=== PATIENT | female | born 1950 | race Caucasian/White ===

== ENCOUNTER 2017-12-26 11:23 | Emergency (ER) | payer OTHER ==
--- OUTSIDE RECORDS SUMMARY | 2017-12-26 11:35 | XMS REPORT | Continuity of Care Document ---
:1950 Author Organization Interface Problems Problem Status Onset Classification Date Comments Source Date Reported A-FIB, RVR, TROPONIN Active [address] SPASTIC HEMAPLEGIA, Active [facility] PUMP ICD-9# 007 [facility] CKD - chronic kidney Active Problem 12/25/2012 [facility] Constipation Active Problem 12/25/2012 [facility] CVA - Cerebrovascular Resolved Problem 12/25/2012 [facility] Diabetes mellitus Active Problem 12/25/2012 [facility] Hypercholesterolemia Active Problem 12/25/2012 [facility] Hypertension Active Problem 12/25/2012 [facility] 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 [facility] morbid obesity Active Problem 05/01/2013 [facility] Spastic hemiplegia Active Problem 12/25/2012 [facility] Atrial fibrillation Active Problem 05/01/2013 [facility] CKD - chronic kidney Active Problem 05/01/2013 [facility] Constipation Active Problem 05/01/2013 [facility] CVA - Cerebrovascular Resolved Problem 05/01/2013 [facility] Diabetes mellitus Active Problem 05/01/2013 [facility] Hypercholesterolemia Active Problem 05/01/2013 [facility] Hypertension Active Problem 05/01/2013 [facility] NSTEMI - Non-ST segment Active Problem 05/01/2013 [facility] Spastic hemiplegia Active Problem 05/01/2013 [facility] ADMINISTRTVE ENCOUNT Active [facility] Medications Medication Details Route Status Patient Ordering Order Source Instructions Provider Date Flomax 0.4 mg, 1 cap, Inactive Zav[facility] Route: PO, Drug 2013 Medical form: [facility], Center Daily, Dosing Weight 121.5, kg, Start date: 04/30/13 10:30:00, Duration: 30 day, Stop date: 05/30/13 9:00:00(Same As: Flomax) "Do Not Crush" carvedilol 3.125 3.125 mg=1 tab, Active [facility] mg oral tablet PO, Q12H, # 180 2013 Medical tab, 2 Center Refill(s) bisacodyl 10 mg 10 mg=1 supp, Active [facility] rectal suppository MD, Daily, 2014 Medical Constipation, # Center 10 supp, 0 Refill(s) bacitracin-polymyx 1 appl, TOP, Active [facility] in B topical BID, # 10 gm, 0 2013 Medical powder Refill(s) Center aspirin 325 mg 325 mg=1 tab, Active [facility] tablet PO, Daily, # 2013 Medical 100 tab, 2 Center Refill(s) Klonopin 0.5 mg 0.5 mg=1 tab, Active [facility] oral tablet PO, Bedtime, # 2013 Medical 30 tab, 1 Center Refill(s) amLODIPine 10 mg 10 mg=1 tab, Active [facility] oral tablet PO, Daily, # 90 2013 Medical tab, 2 Center Refill(s) AMIODarone 200 mg 200 mg=1 tab, Active [facility] oral tablet PO, Daily, # 90 2014 Medical tab, 2 Center Refill(s) pregabalin 100 mg 100 mg=1 cap, Active [facility] oral capsule PO, Daily, # 30 2014 Medical cap, 1 Center Refill(s) insulin glargine 50 unit=0.5 mL, Active [facility] 100 units/mL SUB-Q, Daily, # 2013 Medical subcutaneous 10 mL, 0 Center solution Refill(s) insulin aspart 100 15 unit=0.15 Active [facility] units/mL mL, SUB-Q, 2013 Medical subcutaneous TID-Before Center solution Meals, # 15 mL, 3 Refill(s) digoxin 125 mcg 125 microgram=1 Active [facility] (0.125 mg) oral tab, PO, Daily, 2014 Medical tablet # 90 tab, 2 Center Refill(s) atorvastatin 40 mg 40 mg=1 tab, Active [facility] oral tablet PO, Bedtime, # 2013 Medical 90 tab, 3 Center Refill(s) simethicone 80 mg 80 mg=1 tab, Active [facility] oral tablet, NG, Q6H, 2014 Medical chewable bloating, # 90 Center tab, 0 Refill(s) senna 8.6 mg oral 8.6 mg=1 tab, Active [facility] tablet PO, Daily, # 36 2014 Medical tab, 1 Center Refill(s) lisinopril 5 mg 5 mg=1 tab, PO, Active [facility] oral tablet Daily, # 90 2014 Medical tab, 2 Center Refill(s) levetiracetam 500 500 mg=1 tab, Active [facility] mg oral tablet PO, Q12H, # 180 2014 Medical tab, 3 Center Refill(s) hydrALAZINE 50 mg 50 mg=1 tab, Active [facility] oral tablet PO, Q8H, # 90 2014 Medical tab, 3 Center Refill(s) Lasix 40 mg oral 40 mg=1 tab, Active [facility] tablet PO, Daily, # 90 2014 Medical tab, 2 Center Refill(s) fenofibrate 48 mg 48 mg=1 tab, Active [facility] oral tablet PO, Daily, # 90 2014 Medical tab, 2 Center Refill(s) Colace 100 mg oral 100 mg=1 cap, Active [facility] capsule PO, BID, # 90 2014 Medical cap, 2 Center Refill(s) clopidogrel 75 mg 75 mg=1 tab, Active [facility] oral tablet PO, Daily, # 90 2014 Medical tab, 2 Center Refill(s) insulin aspart 3 unit, 0.03 Inactive [facility] mL, Route: [address] [place] [address] SUB-Q, Drug Center form: SOLN, ONCE, Dosing Weight 121.5, kg, Priority: NOW, Start date: 04/29/13 12:31:00, Stop date: 04/29/13 12:31:00Roll in palms of hands gently; Do not shake vigorously. (Same as: NovoLog) "single patient use only" Stable for 28 days at room temperature. Expires in days from D ate tolterodine 2 mg, 1 tab, No Longer [facility] Route: PO, Drug Active 2013 Medical form: TAB, Center Q12H, Dosing Weight 121.5, kg, Start date: 04/29/13 12:30:00, Duration: 30 day, Stop date: 05/29/13 9:00:00(Same As: Detrol) tolterodine 1 mg, 1 tab, Inactive [facility] Route: PO, Drug 2013 Medical form: TAB, BID, Center Dosing Weight 121.5, kg, Start date: 04/29/13 12:15:00, Duration: 30 day, Stop date: 05/29/13 9:00:00(Same As: Detrol) AMIODarone 200 mg, 1 tab, No Longer Felix [facility] Route: PO, Drug Active 2013 Medical form: TAB, Center Daily, Dosing Weight 121.5, kg, Start date: 04/29/13 9:00:00, Duration: 30 day, Stop date: 05/28/13 9:00:00(Same as: Cordarone) AMIODarone 200 mg, Route: Inactive Is[facility]ro 04/28[facility] Katja PO, Drug form: 2013 Medical TAB, BID, Center Dosing Weight 121.5, kg, Start date: 04/28/13 17:00:00, Duration: 30 day, Stop date: 05/28/13 9:00:00 heparin 7,500 unit, 1.5 No Longer Isidro 04/28[facility] Katja mL, Route: Active 2013 Medical SUB-Q, Drug Center form: INJ, Q8H, Dosing Weight 121.5, kg, Start date: 04/28/13 16:00:00, Duration: 30 day, Stop date: 05/28/13 8:00:00porcine heparin multivitamin with 1 tab, Route: No Longer Sid 04/28[facility] Katja iron PO, Drug Form: Active 2013 Medical TAB, Dosing Center Weight 121.5, kg, Daily, Start date: 04/28/13 9:00:00, Duration: 30 day, Stop date: 05/27/13 9:00:00 Coreg 3.125 mg, 1 No Longer Sid 04/28[facility] Katja tab, Route: PO, Active 2013 Medical Drug form: TAB, Center Q12H, Dosing Weight 121.5, kg, Start date: 04/27/13 21:00:00, Duration: 30 day, Stop date: 05/27/13 9:00:00Give with food. (Same As: Coreg) multivitamin with 1 tab, Route: No Longer Sid [facility] minerals PO, Drug Form: Active 2013 Medical TAB, Daily, Center Start date: 04/27/13 11:30:00, Duration: 30 day, Stop date: 05/27/13 9:00:00(Same as:Thera-M, Theragran-M) Give with food. senna 8.6 mg, 1 tab, No Longer [facility] Route: PO, Drug Active 2013 Medical Form: TAB, Center Dosing Weight 121.5, kg, Daily, Start date: 04/27/13 9:00:00, Duration: 30 day, Stop date: 05/26/13 9:00:00(Same as: Senokot) Dulcolax Laxative 10 mg, 1 supp, No Longer [facility] Route: MD, Drug Active 2013 Medical form: SUPP, Center Daily, Dosing Weight 121.5, kg, PRN Constipation, Start date: 04/26/13 14:13:00, Duration: 30 day, Stop date: 05/26/13 14:12:00(Same As: Dulcolax, Bisco-Lax) Cymbalta 30 mg, Route: Inactive [facility] PO, Drug form: 2013 Medical DRC, Daily, Center Dosing Weight 121.5, kg, Start date: 04/26/13 9:00:00, Duration: 30 day, Stop date: 05/25/13 9:00:00 Keppra 500 mg, 1 tab, No Longer [facility] Route: PO, Drug Active 2013 Medical form: TAB, Center Q12H, Dosing Weight 121.5, kg, Start date: 04/25/13 9:00:00, Duration: 30 day, Stop date: 05/24/13 21:00:00(Same as:Keppra) docusate 100 mg, 10 mL, No Longer [facility] Route: PO, Drug Active 2013 Medical form: LIQ, BID, Center Dosing Weight 121.5, kg, Start date: 04/25/13 9:00:00, Duration: 30 day, Stop date: 05/24/13 17:00:00(Same as: Colace) insulin glargine 50 unit, 0.5 No Longer [facility] mL, Route: Active 2013 Medical SUB-Q, Drug Center form: INJ, Daily, Dosing Weight 121.5, kg, Start date: 04/24/13 9:00:00, Stop date: 05/23/13 9:00:00Same as Lantus Solostar PEN "single patient use only" Stable for 28 days at room temperature. Expires in days from D ate insulin aspart 15 unit, 0.15 No Longer Tao [facility], Route: Active 2013 Medical SUB-, Drug Center form: SOLN, TID-Before Meals, Dosing Weight 121.5, kg, Start date: 04/23/13 11:30:00, Stop date: 05/23/13 7:30:00Roll in palms of hands gently; Do not shake vigorously. (Same as: NovoLog) "single patient use only" Stable for 28 days at room temperature. Expires in days from D ate insulin aspart 10 unit, 0.1 No Longer [facility], Route: Active 2013 Medical SUB-, Drug Center form: SOLN, TID-Before Meals, Dosing Weight 121.5, kg, PRN Blood Glucose Results, Start date: 04/23/13 10:10:00, Duration: 30 day, Stop date: 05/23/13 10:09:00Roll in palms of hands gently; Do not shake vigorously. (Same as: NovoLog) "single patient use only" Stable for 28 days at room temperature. Expires in days from D ate glucagon 1 mg, Route: Inactive [facility] IM, PRN, Dosing 2013 Medical Weight 121.5, Center kg, PRN Blood Glucose Results, Start date: 04/23/13 10:10:00, Duration: 30 day, Stop date: 05/23/13 10:09:00 Dextrose 50% 50 mL, Route: Inactive [facility] Syringe IVP, Dosing 2013 Medical Weight 121.5, Center kg, PRN, PRN Blood Glucose Results, Start date: 04/23/13 10:10:00, Duration: 30 day, Stop date: 05/23/13 10:09:00 Seroquel 25 mg, 1 tab, No Longer [facility] Route: PO, Drug Active 2013 Medical form: TAB, QAM, Center Dosing Weight 121.5, kg, Start date: 04/23/13 9:00:00, Duration: 30 day, Stop date: 05/22/13 9:00:00(Same as: Seroquel) Seroquel 50 mg, 2 tab, No Longer [facility] Route: PO, Drug Active 2013 Medical form: TAB, Center Bedtime, Dosing Weight 121.5, kg, Start date: 04/22/13 21:00:00, Duration: 30 day, Stop date: 05/21/13 21:00:00(Same as: Seroquel) Triple Antibiotic 1 appl, Route: Inactive [facility] 04/22[facility] topical ointment TOP, BID, Drug ales 2013 Medical form: OINT, Center Start date: 04/22/13 17:00:00, Duration: 30 day, Stop date: 05/22/13 9:00:00 bacitracin-polymyx 1 appl, Route: No Longer [facility] 04/22[facility] in B topical TOP, BID, Drug Active ales 2013 Medical form: OINT, Center Start date: 04/22/13 17:00:00, Duration: 30 day, Stop date: 05/22/13 9:00:00(Same As: Polysporin) Prinivil 5 mg, 1 tab, No Longer [facility] 04/22[facility] Route: PO, Drug Active ales 2013 Medical form: TAB, Center Daily, Dosing Weight 121.5, kg, Start date: 04/22/13 9:00:00, Duration: 30 day, Stop date: 05/21/13 9:00:00(Same as: Prinivil Zestril) insulin aspart 12 unit, 0.12 No Longer [facility] mL, Route: Active 2013 Medical SUB-Q, Drug Center form: SOLN, Sliding Scale, Dosing Weight 121.5, kg, PRN Blood Glucose Results, Start date: 04/22/13 7:57:00, Duration: 30 day, Stop date: 05/22/13 7:56:00Roll in palms of hands gently; Do not shake vigorously. (Same as: NovoLog) "single patient use only" Stable for 28 days at room temperature. Expires in days from D ate sodium 15 mmol, 15 mL, Inactive [facility] glycerophosphate + Route: IVPB, 2013 Medical Sodium Chloride PRN, Dosing Center 0.9% IV 250 mL Weight 121.5, kg, PRN Abnormal Lab Result, Start date: 04/22/13 7:40:00, Duration: 1 doses or times, Stop date: 04/22/13 16:00:00 insulin detemir 40 unit, 0.4 No Longer [facility] mL, Route: Active 2013 Medical SUB-Q, Drug Center form: INJ, Q12H, Dosing Weight 121.5, kg, Start date: 04/21/13 21:00:00, Stop date: 05/21/13 9:00:00Same as Levemir "single patient use only" aspirin 325 mg, 1 tab, No Longer [facility] 04/21[facility] Route: DHT, Active 2012 Medical Drug form: TAB, Center Daily, Dosing Weight 121.5, kg, Start date: 04/21/13 9:00:00, Duration: 30 day, Stop date: 05/20/13 9:00:00Take with food. Dulcolax Laxative 10 mg, 1 supp, No Longer J[facility]ir 04/21[facility] Katja Route: MD, Drug Active 2012 Medical form: SUPP, Center Daily, Dosing Weight 121.5, kg, Start date: 04/21/13 9:00:00, Duration: 30 day, Stop date: 05/20/13 9:00:00(Same As: Dulcolax, Bisco-Lax) Lyrica 100 mg, 1 cap, No Longer Jasbir [place] Route: PO, Drug Active 2012 Medical form: CAP, Center Daily, Dosing Weight 121.5, kg, Start date: 04/21/13 9:00:00, Duration: 30 day, Stop date: 05/19/13 21:00:00(Same as: Lyrica) Prevacid 30 mg, 10 mL, No Longer [facility] [place] Route: DHT, Active 2012 Medical Drug form: Center SUSP, Daily, Dosing Weight 121.5, kg, Start date: 04/21/13 9:00:00, Duration: 30 day, Stop date: 05/20/13 9:00:00Take 1 hour before or 2 hours after meal; Expires in 14 days. Shake well before use. (Same as:Prevacid) Compounded Product - formulation not commercially available Seroquel 25 mg, 1 tab, No Longer [facility] [place] Route: PO, Drug Active alerosario 2012 Medical form: TAB, BID, Center Dosing Weight 121.5, kg, Start date: 04/21/13 9:00:00, Duration: 30 day, Stop date: 05/20/13 17:00:00(Same as: Seroquel) insulin detemir 35 unit, 0.35 Inactive Y[facility] [place] mL, Route: 2012 Medical SUB-Q, Drug Center form: INJ, Q12H, Dosing Weight 121.5, kg, Start date: 04/20/13 21:00:00, Duration: 30 day, Stop date: 05/20/13 9:00:00Same as Levemir "single patient use only" Keppra 500 mg, 5 mL, No Longer [facility] [place] Route: NJ, Drug Active 2012 Medical form: SOLN, Center Q12H, Dosing Weight 121.5, kg, Start date: 04/20/13 21:00:00, Duration: 30 day, Stop date: 05/20/13 9:00:00 diphenhydrAMINE 25 mg, 0.5 mL, Inactive [facility] [place] Route: IVP, 2012 Medical Drug form: INJ, Center ONCE, Dosing Weight 121.5, kg, PRN Insomnia, Start date: 04/20/13 20:08:00(Same as: Benadryl) docusate 100 mg, 10 mL, No Longer [facility] Route: DHT, Active 2012 Medical Drug form: LIQ, Center BID, Dosing Weight 121.5, kg, Start date: 04/20/13 17:00:00, Duration: 30 day, Stop date: 05/20/13 9:00:00(Same as: Colace) Lasix 40 mg, 4 mL, No Longer [facility] Route: IVP, Active 2012 Medical Drug form: INJ, Center BID, Dosing Weight 121.5, kg, Start date: 04/20/13 17:00:00, Duration: 30 day, Stop date: 05/20/13 9:00:00(Same as: Lasix) lactulose 20 gm, 30 ml, Inactive Jasbir [place] Route: PO, Drug 2012 Medical Form: SYRP, Center Dosing Weight 121.5, kg, ONCE, Within 4 hours, Start date: 04/20/13 14:48:00, Stop date: 04/20/13 14:48:00(Same as:Chronulac) phenol topical 1 spray, Route: No Longer Elvin [place] 1.4% spray TOP, QID, Drug Active 2012 Medical form: SPRY, Center Start date: 04/20/13 13:00:00, Duration: 30 day, Stop date: 05/20/13 9:00:00Chlorase ptic [place] (Same as: Chloraseptic, Sore Throat [place]) simethicone 80 mg, 1 tab, No Longer Jasbir [facility] Route: NG, Drug Active 2012 Medical form: [place], Center Q6H, Dosing Weight 121.5, kg, Priority: NOW, Start date: 04/20/13 12:00:00, Stop date: 05/20/13 6:00:00(Same as: Mylicon) Milk of Magnesia 30 ml, Route: No Longer [facility] PO, Drug Form: Active 2012 Medical SUSP, Dosing Center Weight 121.5, kg, Daily, NOW, Start date: 04/20/13 12:00:00, Duration: 30 day, Stop date: 05/20/13 9:00:00(Same as: Milk of Sammy, MOM) insulin aspart 6 unit, 0.06 No Longer [facility] mL, Route: Active ales 2012 Medical SUB-Q, Drug Center form: SOLN, Sliding Scale, Dosing Weight 121.5, kg, PRN Blood Glucose Results, Start date: 04/20/13 2:28:00, Duration: 30 day, Stop date: 05/20/13 2:27:00Roll in palms of hands gently; Do not shake vigorously. (Same as: NovoLog) "single patient use only" Stable for 28 days at room temperature. Expires in days from D ate Dextrose 50% 12.5 gm, 25 mL, No Longer [facility] Syringe Route: IVP, Active 2012 Medical Drug Form: INJ, Center Dosing Weight 121.5, kg, PRN, PRN Blood Glucose Results, Start date: 04/20/13 2:28:00, Duration: 30 day, Stop date: 05/20/13 2:27:00 glucagon 1 mg, Route: No Longer [facility] IM, Drug form: Active 2012 Medical PDR/INJ, PRN, Center Dosing Weight 121.5, kg, PRN Blood Glucose Results, Start date: 04/20/13 2:28:00, Duration: 30 day, Stop date: 05/20/13 2:27:00 acetaminophen 650 mg, 2 tab, No Longer [facility] Route: PO, Drug Active 2012 Medical form: TAB, Q6H, Center Dosing Weight 121.5, kg, PRN Pain, Priority: NOW, Start date: 04/19/13 19:23:00, Duration: 30 day, Stop date: 05/19/13 19:22:00Do not exceed 4 gm/day. (Same as: Tylenol) AMIODarone 400 mg, 2 tab, No Longer Felix [facility] Route: PO, Drug Active 2012 Medical form: TAB, BID, Center Dosing Weight 121.5, kg, Start date: 04/19/13 17:00:00, Duration: 30 day, Stop date: 05/19/13 9:00:00(Same as: Cordarone) heparin 5,000 unit, 1 No Longer Felix [facility] mL, Route: Active 2012 Medical SUB-Q, Drug Center form: INJ, Q8H, Dosing Weight 121.5, kg, Start date: 04/19/13 16:00:00, Duration: 30 day, Stop date: 05/19/13 8:00:00porcine heparin insulin detemir 40 unit, 0.4 No Longer Yimi [place] mL, Route: Active 2012 Medical SUB-Q, Drug Center form: INJ, Q12H, Dosing Weight 121.5, kg, Start date: 04/19/13 11:30:00, Duration: 30 day, Stop date: 05/19/13 9:00:00Same as Levemir "single patient use only" potassium chloride 20 mEq, 100 mL, Inactive [facility] [place] Route: IVPB, 2012 Medical Drug form: INJ, Center ONCE, Dosing Weight 121.5, kg, Start date: 04/19/13 11:06:00, Stop date: 04/19/13 11:06:00(Same as: KCL) Infuse no faster than 10 mEq/hr if given peripherally. Plavix 75 mg, 1 tab, No Longer [facility] [place] Route: PO, Drug Active ale2012 Medical form: TAB, Center Daily, Dosing Weight 121.5, kg, Start date: 04/19/13 9:48:00, Duration: 30 day, Stop date: 05/19/13 9:00:00(Same As: Plavix) Norvasc 10 mg, 1 tab, No Longer [facility] Route: PO, Drug Active 2012 Medical form: TAB, Center Daily, Dosing Weight 121.5, kg, Start date: 04/19/13 9:00:00, Duration: 30 day, Stop date: 05/18/13 9:00:00(Same as: Norvasc) hydrALAZINE 25 mg 50 mg, 1 tab, No Longer [facility] oral tablet Route: PO, Drug Active 2012 Medical form: TAB, Q8H, Center Dosing Weight 121.5, kg, Start date: 04/19/13 0:00:00, Duration: 30 day, Stop date: 05/18/13 16:00:00(Same as: Apresoline) May interfere w/enteral feedings Take With Food amLODIPine 5 mg, Route: Inactive [facility] 04/[facility] PO, Drug form: 2012 Medical TAB, ONCE, Center Dosing Weight 121.5, kg, Priority: Routine, Start date: 04/18/13 23:00:00, Stop date: 04/18/13 23:00:00 hydrALAZINE 25 mg 25 mg, 1 tab, Inactive [facility] 04/18[facility] oral tablet Route: PO, Drug 2012 Medical form: TAB, Q8H, Center Dosing Weight 121.5, kg, Start date: 04/18/13 16:00:00, Duration: 30 day, Stop date: 05/18/13 8:00:00(Same as: Apresoline) May interfere w/enteral feedings Take With Food. Norvasc 5 mg, 1 tab, Inactive [facility] 04/18[facility] Route: PO, Drug 2012 Medical form: TAB, Center Daily, Dosing Weight 121.5, kg, Start date: 04/18/13 14:52:00, Duration: 30 day, Stop date: 05/18/13 9:00:00(Same as: Norvasc) Procardia 30 mg, Route: Inactive [facility] 04/18[facility] PO, Drug form: ales 2012 Medical CAP, Q8H, Center Dosing Weight 121.5, kg, Start date: 04/18/13 14:30:00, Duration: 30 day, Stop date: 05/18/13 8:00:00 hydrALAZINE 10 mg, 0.5 mL, No Longer [facility] 04/18[facility] Route: IVP, Active ales 2012 Medical Drug form: INJ, Center Q4H, Dosing Weight 121.5, kg, PRN Elevated BP, Start date: 04/18/13 14:25:00, Duration: 30 day, Stop date: 05/18/13 14:24:00, SBP >130 metoprolol 5 mg/5 5 mg, 5 mL, Inactive [facility] 04/18[facility] ml INJ Route: IVP, ales 2012 Medical Drug form: INJ, Center ONCE, Dosing Weight 121.5, kg, Start date: 04/18/13 11:05:00, Stop date: 04/18/13 11:05:00 metoprolol 12.5 mg, 1 ea, Inactive Maci [facility] tartrate Route: PO, Drug 2012 Medical form: TAB, Center ONCE, Dosing Weight 121.5, kg, Start date: 04/18/13 10:20:00, Stop date: 04/18/13 10:20:00(Same as: Lopressor) Coreg 6.25 mg, 1 tab, No Longer Sid [facility] Route: PO, Drug Active 2012 Medical form: TAB, Center Q12H, Dosing Weight 121.5, kg, Start date: 04/18/13 9:00:00, Duration: 30 day, Stop date: 05/17/13 21:00:00Give with food. (Same As: Coreg) lisinopril 5 mg, 1 tab, No Longer [facility] 04/18[facility] Route: PO, Drug Active ales 2012 Medical form: TAB, Center Daily, Dosing Weight 121.5, kg, Start date: 04/18/13 9:00:00, Duration: 30 day, Stop date: 05/17/13 9:00:00(Same as: Prinivil, Zestril) metoprolol 5 mg/5 5 mg, 5 mL, Inactive [facility] 04/17[facility] ml INJ Route: IVP, 2012 Medical Drug form: INJ, Center ONCE, Dosing Weight 121.5, kg, Start date: 04/17/13 15:59:00, Stop date: 04/17/13 15:59:00(Same as: Lopressor) Push over 2 minutes Ofirmev 1,000 mg, 100 No Longer [facility] 04/17[facility] mL, Route: IV, Active ales 2012 Medical Drug form: INJ, Center Q6H, Dosing Weight 121.5, kg, for > or=50 kg, Start date: 04/17/13 12:00:00, Stop date: 05/19/13 6:00:00Infuse over 15 minutes Do not exceed 4gm/day of acetaminophen AMIODarone 900 mg 482 mL, Rate: No Longer [facility] 04/17[facility] + Dextrose 5% in Infuse as Active ales 2012 Medical Water (Titrate) IV directed, Center 482 mL Dosing Weight 121.5, kg, Route: IV, Total Volume: 500 mL, Start Date: 04/17/13 3:57:00, Duration: 30 day, Stop date: 05/17/13 3:56:00, Replace Every: 24 hrNon PVC bag vancomycin 2 gm, Route: Inactive [facility] 04/16[facility] IVPB, ONCE, 2012 Medical Dosing Weight Center 121.5, kg, Start date: 04/16/13 14:44:00, Stop date: 04/16/13 14:44:00 Flagyl 500 mg, 100 mL, No Longer [facility] 04/16[facility] Route: IVPB, Active ale2012 Medical Drug form: INJ, Center [id number], Dosing Weight 121.5, kg, Priority: NOW, Start date: 04/16/13 13:13:00, Duration: 30 day, Stop date: 05/16/13 5:13:00(Same as: Flagyl) Avoid alcohol. cefepime 1 gm, Route: No Longer [facility] 04/16[facility] IVPB, Drug Active ale2012 Medical form: INJ, Center [id number], Dosing Weight 121.5, kg, (CrCl 30 - 49 ml/min), Priority: NOW, Start date: 04/16/13 13:13:00, Duration: 30 day, Stop date: 05/16/13 1:13:00(Same As: Maxipime) vancomycin 1 gm, Route: No Longer [facility] 04/16[facility] IVPB, Drug Active ales 2012 Medical form: INJ, Center [id number], Dosing Weight 121.5, kg, Priority: NOW, Start date: 04/16/13 13:12:00, Stop date: 05/15/13 13:12:00(Same As: Vancocin) Detrol LA 2 mg, 1 cap, No Longer [facility] 04/[facility] Route: PO, Drug Active 2012 Medical form: ERCAP, Center Daily, Start date: 04/16/13 9:00:00, Duration: 30 day, Stop date: 05/15/13 9:00:00(Same As: Detrol LA) (Do Not Crush) Lyrica 100 mg, 1 cap, No Longer Jasbir 04/16[facility] Route: PO, Drug Active 2012 Medical form: CAP, Center Daily, Dosing Weight 121.5, kg, Start date: 04/16/13 9:00:00, Duration: 30 day, Stop date: 05/15/13 9:00:00(Same as: Lyrica) Lopressor 5 mg, 5 mL, Inactive Lauro [facility] Route: IVP, 2012 Medical Drug form: INJ, Center ONCE, Dosing Weight 121.5, kg, Start date: 04/15/13 20:20:00, Stop date: 04/15/13 20:20:00(Same as: Lopressor) Ofirmev 1,000 mg, 100 No Longer Jasbir 04/15[facility] mL, Route: IV, Active 2012 Medical Drug form: INJ, Center Q6H, Dosing Weight 121.5, kg, for > or=50 kg, Priority: NOW, Start date: 04/15/13 17:45:00, Duration: 6 doses or times, Stop date: 04/17/13 0:00:00Infuse over 15 minutes Do not exceed 4gm/day of acetaminophen albumin human 25% 25 gm, 100 mL, No Longer Jasbir [facility] intravenous Route: IVPB, Active 2012 Medical solution Drug form: INJ, Center Q4H, Dosing Weight 121.5, kg, Priority: NOW, Start date: 04/15/13 13:43:00, Duration: 6 doses or times, Stop date: 04/16/13 10:00:00Lot #: Mfg: (Same as: Plasbumin-25) "blood product derivative" Lasix 100 mg in 100 mg, 10 mL, No Longer Parmar [facility] 100 ml IV titrate Rate: 5 Active 2012 Medical 100 mg + Sodium mg/hour, Dosing Center Chloride 0.9% IV Weight 121.5, 90 mL kg, Route: IV, Total Volume: 100, Priority: NOW, Start Date: 04/15/13 10:32:00, Duration: 30 day, Stop date: 05/15/13 10:31:00, Replace Every: 24 hr, continuousconti nuous(Same as: Lasix) AMIODarone 900 mg 482 mL, Rate: No Longer ShreeRoni Katja + Dextrose 5% in Infuse as Active ales 2012 Medical Water (Titrate) IV directed, Center 482 mL Dosing Weight 121.5, kg, Route: IV, Total Volume: 500 mL, Start Date: 04/15/13 9:45:00, Duration: 30 day, Stop date: 05/15/13 9:44:00, Replace Every: 24 hrNon PVC bag Keppra + Sodium 500 mg, Route: No Longer Jasbir 04/15[facility] Katja Chloride 0.9% IV IVPB, Q12H, Active 2012 Medical 100 mL Dosing Weight Center 121.5, kg, Start date: 04/15/13 9:00:00, Duration: 30 day, Stop date: 05/14/13 21:00:00Same as Keppra Mix with 100ml NS, LR, or D5W pantoprazole 40 mg, Route: No Longer Jasbir 04/15[facility] Katja IVP, Drug form: Active 2012 Medical INJ, Daily, Center Dosing Weight 121.5, kg, Start date: 04/15/13 9:00:00, Duration: 30 day, Stop date: 05/14/13 9:00:00For IV push reconstitute with 10 ml 0.9% sodium chloride and push over 2 minutes. (Same as: Protonix) aspirin 81 mg 81 mg, Route: No Longer Kenyon Katja tablet, enteric PO, Drug form: Active 2012 Medical coated ECTAB, Daily, Center Dosing Weight 121.5, kg, Start date: 04/15/13 9:00:00, Duration: 30 day, Stop date: 05/14/13 9:00:00 hydromorphone 50 50 mg, 50 mL, [facility] mg Rate: 0.5 Active ales 2012 Medical mg/hr, Dosing Center Weight 121.5, kg, Route: IV, Total Volume: 50, Start date: 04/15/13 8:15:00, Duration: 30 day, Stop date: 05/15/13 8:14:00, Replace Every: 24 hr sodium 15 mmol, 15 mL, Inactive Bon [address] [place] [address] glycerophosphate + Route: IV, Drug 2012 Medical Sodium Chloride form: INJ, Center 0.9% IV 250 mL ONCE, Start date: 04/15/13 8:13:00, Stop date: 04/15/13 8:13:00Same as: Glycophos Non-Formulary Sodium Chloride 100 mL, Rate: Inactive Jasbir 04/15[facility] 0.9% IV 100 mL + 0.5 mg/hr, 2012 Medical hydromorphone 20 Route: IV, Center mg Dosing Weight 121.5 kg, Total Volume: 100, Priority: NOW, Start date: 04/15/13 8:10:00, Duration: 30 day, Stop date: 05/15/13 8:09:00 sodium phosphate 15 mmol, Route: Inactive Bon [address] IVPB, PRN, 2012 Medical Dosing Weight Center 121.5, kg, PRN Abnormal Lab Result, Start date: 04/15/13 8:09:00, Duration: 30 day, Stop date: 05/15/13 8:08:00 Lasix 40 mg, 4 mL, Inactive Keyshawn 04/15[facility] Route: IV, Drug 2012 Medical form: INJ, Center ONCE, Dosing Weight 121.5, kg, Start date: 04/15/13 1:54:00, Stop date: 04/15/13 1:54:00(Same as: Lasix) ipratropium 0.5 mg, 2.5 mL, No Longer Jasbir 04/15[facility] Route: NEB, Active 2012 Medical Drug form: Center SOLN, Q8H, Dosing Weight 121.5, kg, Start date: 04/15/13 0:00:00, Duration: 30 day, Stop date: 05/14/13 15:00:00SEE RT DOCUMENTATION (Same as:Atrovent) furosemide 40 mg, 4 mL, Inactive Keyshawn [address] [place] [address] Route: IV, Drug 2012 Medical form: INJ, Center ONCE, Dosing Weight 121.5, kg, Priority: NOW, Start date: 04/14/13 22:54:00, Stop date: 04/14/13 22:54:00(Same as: Lasix) albumin human 25% 25 gm, 100 mL, Inactive Keyshawn 04/15[facility] intravenous Route: IV, Drug 2012 Medical solution form: INJ, Center ONCE, Dosing Weight 121.5, kg, Start date: 04/14/13 21:30:00, Stop date: 04/14/13 21:30:00Lot #: Mfg: (Same as: Plasbumin-25) "blood product derivative" Lasix 40 mg, 4 mL, Inactive [facility] 04/15[facility] Route: IV, Drug 2012 Medical form: INJ, Center ONCE, Dosing Weight 121.5, kg, Start date: 04/14/13 21:22:00, Stop date: 04/14/13 21:22:00(Same as: Lasix) Versed 50 mg in NS 50 mg, 50 mL, No Longer Swann-Roni 04/15[facility] 50 ml (titrate) IV Rate: Titrate Active ales 2012 Medical 50 mg as directed, Center Dosing Weight 121.5, kg, Route: IV, Total Volume: 50 mL, Start Date: 04/14/13 21:20:00, Duration: 30 day, Stop date: 05/14/13 21:19:00, Replace Every: 24 hr(Same as: Versed) vancomycin (SCIP) 1,750 mg, No Longer Rice 04/15[facility] + Sodium Chloride Route: IVPB, Active 2012 Medical 0.9% IV 250 mL [id number], Dosing Center Weight 121.5, kg, Start date: 04/14/13 20:00:00, Duration: 2 doses or times, Stop date: 04/15/13 8:00:00(Same As: Vancocin) Vancomycin FOR IV SET ONLY albumin human 25% 25 gm, 100 mL, No Longer Jasbir 04/15[facility] intravenous Route: IV, Drug Active 2012 Medical solution form: INJ, Center ONCE, Dosing Weight 121.5, kg, Start date: 04/14/13 19:45:00, Stop date: 04/14/13 19:45:00Lot #: Mfg: (Same as: Plasbumin-25) "blood product derivative" NS (Bolus) IV 500 500 mL, Rate: Inactive [place] [id number] [place] [address] mL 500 ml/hr, 2012 Medical Infuse over: 1 Center hr, Route: IV, Dosing Weight 121.5 kg, Total Volume: 500, Priority: STAT, Start date: 04/14/13 19:45:00, Duration: 1 doses or times, Stop date: 04/14/13 20:44:00, Bolus DoseBolus Dose albumin human 25% 25 gm, 100 mL, Inactive [address] intravenous Route: IV, Drug 2012 Medical solution form: INJ, Center ONCE, Dosing Weight 121.5, kg, Start date: 04/14/13 19:14:00, Stop date: 04/14/13 19:14:00Lot #: Mfg: (Same as: Plasbumin-25) "blood product derivative" Versed 2 mg, 2 mL, No Longer [address] Route: IVP, Active 2012 Medical Drug form: INJ, Center Q2H, Dosing Weight 121.5, kg, PRN Sedation, Start date: 04/14/13 17:05:00, Duration: 30 day, Stop date: 05/14/13 17:04:00, as needed for anxiety(Same as: Versed) Zofran 4 mg, 2 mL, No Longer [address] Route: IVP, Active 2012 Medical Drug form: INJ, Center Q6H, Dosing Weight 121.5, kg, PRN Nausea, Start date: 04/14/13 17:04:00, Duration: 30 day, Stop date: 05/14/13 17:03:00(Same as: Zofran) ipratropium 0.5 mg, 2.5 mL, No Longer [address] Route: NEB, Active 2012 Medical Drug form: Center SOLN, PRN, Dosing Weight 121.5, kg, PRN Wheezing, Start date: 04/14/13 17:03:00, Duration: 30 day, Stop date: 05/14/13 17:02:00SEE RT DOCUMENTATION (Same as:Atrovent) FENTanyl 1000 mcg 1,000 No Longer Jasbir [place] in 20 mL (titrate) microgram, 20 Active 2012 Medical IV 1,000 microgram mL, Rate: Center Titrate as directed, Dosing Weight 121.5, kg, Route: IV, Total Volume: 20 mL, Start Date: 04/14/13 17:03:00, Duration: 30 day, Stop date: 05/14/13 17:02:00, Replace Every: 24 hr fentanyl 50 microgram, 1 No Longer Swann-Roni [place] mL, Route: IV, Active ale2012 Medical Drug form: INJ, Center Q1H, Dosing Weight 121.5, kg, PRN Pain, Start date: 04/14/13 17:02:00, Duration: 30 day, Stop date: 05/14/13 17:01:00(Same as: Sublimaze) Preservative free. sodium 45 mmol, 45 mL, No Longer Rice [facility] glycerophosphate + Route: IV, Drug Active 2012 Medical Sodium Chloride form: INJ, PRN, Center 0.9% IV 250 mL PRN Abnormal Lab Result, Start date: 04/14/13 14:43:00, Duration: 30 day, Stop date: 05/14/13 14:42:00Same as: Glycophos Non-Formulary sodium 30 mmol, 30 mL, No Longer Rice [facility] glycerophosphate + Route: IV, Drug Active 2012 Medical Sodium Chloride form: INJ, PRN, Center 0.9% IV 250 mL PRN Abnormal Lab Result, Start date: 04/14/13 14:40:00, Duration: 30 day, Stop date: 05/14/13 14:39:00Same as: Glycophos Non-Formulary sodium 15 mmol, 15 mL, No Longer Rice [facility] glycerophosphate + Route: IV, Drug Active 2012 Medical Sodium Chloride form: INJ, PRN, Center 0.9% IV 250 mL PRN Abnormal Lab Result, Start date: 04/14/13 14:39:00, Duration: 30 day, Stop date: 05/14/13 14:38:00Same as: Glycophos Non-Formulary magnesium sulfate 2 gm, 50 mL, No Longer Hindu [facility] Route: IVPB, Active 2012 Medical Drug form: INJ, Center PRN, Dosing Weight 121.5, kg, PRN Abnormal Lab Result, Start date: 04/14/13 14:15:00, Duration: 30 day, Stop date: 05/14/13 14:14:00, FOR ICU USE ONLYFOR ICU USE ONLY calcium gluconate 1 gm, 10 mL, No Longer Hindu [facility] + Sodium Chloride Route: IVPB, 2012 Medical 0.9% IV 50 mL PRN, Dosing Center Weight 121.5, kg, PRN Abnormal Lab Result, Start date: 04/14/13 14:15:00, Duration: 30 day, Stop date: 05/14/13 14:14:00, FOR ICU USE ONLYFOR ICU USE ONLY potassium chloride 10 mEq, 50 mL, No Longer Hindu [facility] Route: IVPB, Active 2012 Medical Drug form: INJ, Center PRN, Dosing Weight 121.5, kg, PRN Abnormal Lab Result, Via peripheral line, Start date: 04/14/13 14:15:00, Duration: 30 day, Stop date: 05/14/13 14:14:00, FOR ICU USE ONLYFOR ICU USE ONLY(Same as: KCL) Infuse over 2 hours. sodium phosphate 30 mmol, Route: Inactive Rice [facility] IVPB, PRN, 2012 Medical Dosing Weight Center 121.5, kg, PRN Abnormal Lab Result, Start date: 04/14/13 14:15:00, Duration: 30 day, Stop date: 05/14/13 14:14:00, FOR ICU USE ONLYFOR ICU USE ONLY potassium 45 mmol, 15 mL, No Longer Hindu [facility] phosphate Route: IVPB, Active 2012 Medical Drug form: INJ, Center PRN, Dosing Weight 121.5, kg, PRN Abnormal Lab Result, Start date: 04/14/13 14:15:00, Duration: 30 day, Stop date: 05/14/13 14:14:00, FOR ICU USE ONLYFOR ICU USE ONLY(Same as: K Phosphate.) 1 mMol phoshate has 1.47 mEq potassium Infuse over 4 hours potassium 15 mmol, 5 mL, No Longer Hindu [facility] phosphate + Sodium Route: IVPB, Active 2012 Medical Chloride 0.9% IV PRN, Dosing Center 250 mL Weight 121.5, kg, PRN Abnormal Lab Result, Start date: 04/14/13 14:15:00, Duration: 30 day, Stop date: 05/14/13 14:14:00, FOR ICU USE ONLYFOR ICU USE ONLY(Same as: K Phosphate.) 1 mMol phoshate has 1.47 mEq potassium Infuse over 4 hours Dextrose 50% 25 gm, 50 mL, No Longer Rice [facility] Syringe Route: IVP, Active 2012 Medical Drug Form: INJ, Center Dosing Weight 121.5, kg, PRN, PRN Blood Glucose Results, Start date: 04/14/13 14:15:00, Duration: 30 day, Stop date: 05/14/13 14:14:00 Insulin regular 99 mL, Rate: No Longer Yimi [facility] 100 unit + Sodium Start Insulin Active 2012 Medical Chloride 0.9% Drip Per ICU Center (titrate) 99 mL Protocol, Dosing Weight 121.5, kg, Route: IVPB, Total Volume: 100, Start Date: 04/14/13 14:15:00, Duration: 30 day, Stop date: 05/14/13 14:14:00, Replace Every: 24 hr, Initial Insulin Drip Rate (units/hour)=(F as...Initial Insulin Drip Rate (units/hour)=(F asting Blood Glucose-60)X0.0 3 "multiplier". epinephrine 8 mg + 242 mL, Rate: No Longer [facility] Sodium Chloride Start at 0.1 Active ales 2012 Medical 0.9% (titrate) 242 micrograms/kg/m Center mL in., Dosing Weight 121.5, kg, Route: IV, Total Volume: 250, Start Date: 04/14/13 14:15:00, Stop date: 05/14/13 14:14:00, Replace Every: 24 hr milrinone 20 mg in 20 mg, 100 mL, No Longer [facility] D5W 100 ml Premix Rate: 0.375 Active ales 2012 Medical (titrate) 20 mg microgram/kg/mi Center n, Dosing Weight 121.5, kg, Route: IV, Total Volume: 100, Titrate to cardiac Index >2.5., Start date: 04/14/13 14:15:00, Duration: 30 day, Stop date: 05/14/13 14:14:00, Replace Every: 24 hr(Same as:Primacor) Final conc=0.2 mg/ml. Premix solution. fentanyl 50 microgram, 1 No Longer [facility] Katja mL, Route: IVP, Active ales 2012 Medical Drug form: INJ, Center Q2H, Dosing Weight 121.5, kg, PRN Pain Score 6-10, Start date: 04/14/13 14:15:00, Duration: 30 day, Stop date: 05/14/13 14:14:00(Same as: Sublimaze) Preservative free. Saline Flush 0.9% 10 ml, Route: No Longer Rice 04/14[facility] Katja IVP, Drug Form: Active 2012 Medical INJ, Dosing Center Weight 121.5, kg, PRN, PRN Line Flush, Start date: 04/14/13 14:15:00, Duration: 30 day, Stop date: 05/14/13 14:14:00(Same as: BD Posiflush) acetaminophen-10 1,000 mg, 100 No Longer Jasbir 04/14[facility] Katja mg/mL INTRAVENOUS mL, Route: IV, Active 2012 Medical solution Drug form: INJ, Center Q6H, Dosing Weight 121.5, kg, For > or=50 kg, Start date: 04/14/13 14:15:00, Stop date: 04/15/13 12:00:00Infuse over 15 minutes Do not exceed 4gm/day of acetaminophen Sodium Chloride 1,000 mL, Rate: No Longer [facility] Katja 0.45% IV 1,000 mL 75 ml/hr, Active ales 2012 Medical Infuse over: Center 13.3 hr, Route: IV, Dosing Weight 121.5 kg, Total Volume: 1,000, Start date: 04/14/13 14:15:00, Duration: 30 day, Stop date: 05/14/13 14:14:00 vancomycin 1.5 gm, Route: Inactive Lonnie Katja IVPB, ONCE, 2012 Medical Dosing Weight Center 121.5, kg, Start date: 04/14/13 8:20:00, Stop date: 04/14/13 8:20:00 hydrALAZINE 10 mg, 0.5 mL, Inactive Urvashi [facility] Route: IVP, 2012 Medical Drug form: INJ, Center ONCE, Dosing Weight 121.5, kg, Start date: 04/14/13 1:19:00, Stop date: 04/14/13 1:19:00(Same as: Apresoline) Push over 5 minutes Lantus 50 unit, 0.5 Inactive Yimi [facility] mL, Route: 2012 Medical SUB-Q, Drug Center form: INJ, ONCE, Dosing Weight 121.5, kg, Start date: 04/13/13 21:25:00, Stop date: 04/13/13 21:25:00Same as Lantus Solostar PEN "single patient use only" Stable for 28 days at room temperature. Expires in days from D ate Sodium Chloride 250 mL, Rate: No Longer Velez Katja 0.9% (titrate) 250 yard caller for use Active 2012 Medical mL with blood Center product administration, Dosing Weight 121.5, kg, Route: IV, Total Volume: 250, Start Date: 04/13/13 17:48:00, Duration: 30 day, Stop date: 05/13/13 17:47:00, Replace Every: 24 hr Dextrose 50% 25 gm, 50 mL, No Longer Rice 04/13[facility] Katja Syringe Route: IVP, Active 2012 Medical Drug Form: INJ, Center Dosing Weight 121.5, kg, PRN, PRN Blood Glucose Results, Start date: 04/13/13 12:07:00, Duration: 30 day, Stop date: 05/13/13 12:06:00 glucagon 1 mg, Route: No Longer Rice 04/13[facility] Katja IM, Drug form: Active 2012 Medical PDR/INJ, PRN, Center Dosing Weight 121.5, kg, PRN Blood Glucose Results, Start date: 04/13/13 12:07:00, Duration: 30 day, Stop date: 05/13/13 12:06:00 insulin aspart 6 unit, 0.06 No Longer Rice 04/13[facility] Katja mL, Route: Active 2012 Medical SUB-Q, Drug Center form: SOLN, TID-Before Meals, Dosing Weight 121.5, kg, PRN Blood Glucose Results, Start date: 04/13/13 12:07:00, Duration: 30 day, Stop date: 05/13/13 12:06:00Roll in palms of hands gently; Do not shake vigorously. (Same as: NovoLog) "single patient use only" Stable for 28 days at room temperature. Expires in days from D ate insulin aspart 35 unit, 0.35 No Longer Yimi 04/13/ [employer] mL, Route: Active 2012 Medical SUB-Q, Drug Center form: SOLN, TID-Before Meals, Dosing Weight 121.5, kg, Start date: 04/13/13 11:30:00, Duration: 30 day, Stop date: 05/13/13 7:30:00Roll in palms of hands gently; Do not shake vigorously. (Same as: NovoLog) "single patient use only" Stable for 28 days at room temperature. Expires in days from D ate insulin aspart 2 unit, 0.02 Inactive Yimi 04/13/ [employer] mL, Route: 2012 Medical SUB-Q, Drug Center form: SOLN, TID-Before Meals, Dosing Weight 121.5, kg, PRN Blood Glucose Results, Start date: 04/13/13 10:14:00, Duration: 30 day, Stop date: 05/13/13 10:13:00Roll in palms of hands gently; Do not shake vigorously. (Same as: NovoLog) "single patient use only" Stable for 28 days at room temperature. Expires in days from D ate Dextrose 50% 12.5 gm, 25 mL, Inactive Yimi 04/13/ [employer] Syringe Route: IVP, 2012 Medical Drug Form: INJ, Center Dosing Weight 121.5, kg, PRN, PRN Blood Glucose Results, Start date: 04/13/13 10:14:00, Duration: 30 day, Stop date: 05/13/13 10:13:00 glucagon 1 mg, Route: Inactive [facility] IM, Drug form: 2012 Medical PDR/INJ, PRN, Center Dosing Weight 121.5, kg, PRN Blood Glucose Results, Start date: 04/13/13 10:14:00, Duration: 30 day, Stop date: 05/13/13 10:13:00 lisinopril 10 mg, 1 tab, No Longer Adkins [facility] Route: PO, Drug Active 2012 Medical form: TAB, Center Daily, Dosing Weight 121.5, kg, Start date: 04/13/13 9:00:00, Duration: 30 day, Stop date: 05/12/13 9:00:00(Same as: Prinivil, Zestril) Lantus 60 unit, 0.6 No Longer [facility] mL, Route: Active 2012 Medical SUB-Q, Drug Center form: INJ, Daily, Dosing Weight 121.5, kg, Start date: 04/13/13 9:00:00, Duration: 30 day, Stop date: 05/12/13 9:00:00Same as Lantus Solostar PEN "single patient use only" Stable for 28 days at room temperature. Expires in days from D ate Lantus 60 unit, 0.6 No Longer [facility] mL, Route: Active 2012 Medical SUB-Q, Drug Center form: INJ, Bedtime, Dosing Weight 121.5, kg, Start date: 04/12/13 21:00:00, Duration: 30 day, Stop date: 05/11/13 21:00:00Same as Lantus Solostar PEN "single patient use only" Stable for 28 days at room temperature. Expires in days from D ate insulin glargine 15 unit, 0.15 Inactive Mallesara [facility] mL, Route: Phani 2012 Medical SUB-Q, Drug Center form: INJ, ONCE, Dosing Weight 121.5, kg, Priority: NOW, Start date: 04/12/13 12:07:00, Stop date: 04/12/13 12:07:00Same as Lantus Solostar PEN "single patient use only" Stable for 28 days at room temperature. Expires in days from D ate magnesium sulfate 2 gm, 50 mL, Inactive Ibekwe [facility] Route: IVPB, 2012 Medical Drug form: INJ, Center Q2H, Dosing Weight 121.5, kg, Total dose=4 gm, Start date: 04/12/13 10:00:00, Duration: 2 doses or times, Stop date: 04/12/13 12:00:00 insulin aspart 30 unit, 0.3 No Longer Yimi [facility] mL, Route: Active 2012 Medical SUB-Q, Drug Center form: SOLN, TID-Before Meals, Dosing Weight 121.5, kg, Start date: 04/12/13 8:30:00, Duration: 30 day, Stop date: 05/12/13 7:30:00Roll in palms of hands gently; Do not shake vigorously. (Same as: NovoLog) "single patient use only" Stable for 28 days at room temperature. Expires in days from D ate insulin aspart 8 unit, 0.08 No Longer Yimi [facility] mL, Route: Active 2012 Medical SUB-Q, Drug Center form: SOLN, TID-Before Meals, Dosing Weight 121.5, kg, PRN Blood Glucose Results, Start date: 04/12/13 8:24:00, Duration: 30 day, Stop date: 05/12/13 8:23:00Roll in palms of hands gently; Do not shake vigorously. (Same as: NovoLog) "single patient use only" Stable for 28 days at room temperature. Expires in days from D ate Dextrose 50% 25 gm, 50 mL, No Longer Mallesara [facility] Syringe Route: IVP, Active 2012 Medical Drug Form: INJ, Center Dosing Weight 121.5, kg, PRN, PRN Blood Glucose Results, Start date: 04/12/13 8:24:00, Duration: 30 day, Stop date: 05/12/13 8:23:00 glucagon 1 mg, Route: No Longer [facility] IM, Drug form: Active Phani 2012 Medical PDR/INJ, PRN, Center Dosing Weight 121.5, kg, PRN Blood Glucose Results, Start date: 04/12/13 8:24:00, Duration: 30 day, Stop date: 05/12/13 8:23:00 Lantus 45 unit, 0.45 No Longer [facility] mL, Route: Active Phani 2012 Medical SUB-Q, Drug Center form: INJ, Daily, Dosing Weight 121.5, kg, Start date: 04/11/13 9:00:00, Duration: 30 day, Stop date: 05/10/13 9:00:00Same as Lantus Solostar PEN "single patient use only" Stable for 28 days at room temperature. Expires in days from D ate Kayexalate 15 gm, 60 mL, Inactive Tellez [facility] Route: PO, Drug 2012 Medical form: SUSP, Center ONCE, Dosing Weight 121.5, kg, Start date: 04/10/13 15:20:00, Stop date: 04/10/13 15:20:00(sodium polystyrene sulfonate 15 gm/60 ml KODAK) Shake well before use. (Same as: Kayexalate, SPS) Lantus 45 unit, 0.45 Inactive Yimi [facility] mL, Route: 2012 Medical SUB-Q, Drug Center form: INJ, ONCE, Dosing Weight 121.5, kg, Priority: STAT, Start date: 04/10/13 12:10:00, Stop date: 04/10/13 12:10:00Same as Lantus Solostar PEN "single patient use only" Stable for 28 days at room temperature. Expires in days from D ate digoxin 125 mcg 0.125 mg, 1 No Longer Ibekwe [facility] (0.125 mg) oral tab, Route: PO, Active 2012 Medical tablet Drug form: TAB, Center Daily, Dosing Weight 121.5, kg, Start date: 04/10/13 9:00:00, Duration: 30 day, Stop date: 05/09/13 9:00:00Take on an Empty Stomach (Same as: Lanoxin) Protonix 40 mg, 1 tab, No Longer Rice [place] Route: PO, Drug Active 2012 Medical form: ECTAB, Center Before Breakfast, Dosing Weight 121.5, kg, Start date: 04/10/13 7:30:00, Duration: 30 day, Stop date: 05/09/13 7:30:00Tablet should not be chewed or crushed. (Same as: Protonix) heparin 25,000 500 mL, Rate: No Longer Jasbir [place] unit [14 22.8 ml/hr, Active 2012 Medical unit/kg/hr] + Infuse over: [place] Premix Diluent 21.9 hr, Route: Sodium Chloride IV, Dosing 0.9% 500 mL Weight 81.42 kg, Total Volume: 500, Start date: 04/09/13 16:17:00, Duration: 30 day, Stop date: 05/09/13 16:16:00 insulin aspart 10 unit, 0.1 Inactive Ibekwe [place] mL, Route: 2012 Medical SUB-Q, Drug Center form: SOLN, ONCE, Dosing Weight 121.5, kg, Start date: 04/09/13 16:11:00, Stop date: 04/09/13 16:11:00Roll in palms of hands gently; Do not shake vigorously. (Same as: NovoLog) "single patient use only" Stable for 28 days at room temperature. Expires in days from D ate NovoLOG 100 6 - 25 unit, No Longer [place] units/mL sliding scale, Active 2012 Medical SUB-Q, Center TID-Before Meals, 0 Refill(s) Lantus 100 =45 unit, No Longer [place] units/mL SUB-Q, QPM, 0 Active 2012 Medical Refill(s) Center insulin aspart 25 unit, 0.25 No Longer Mallesara 12/19[facility], Route: Active Phani 2012 Medical SUB-Q, Drug Center form: SOLN, TID-Before Meals, Dosing Weight 121.5, kg, Start date: 04/09/13 9:30:00, Stop date: 05/09/13 7:30:00Roll in palms of hands gently; Do not shake vigorously. (Same as: NovoLog) "single patient use only" Stable for 28 days at room temperature. Expires in days from D ate NovoLog FlexPen 5 unit, 0.05 Inactive Urvashi [facility], Route: 2012 Medical SUB-Q, Drug Center form: SOLN, ONCE, Dosing Weight 121.5, kg, Start date: 04/08/13 18:10:00, Stop date: 04/08/13 18:10:00Roll in palms of hands gently; Do not shake vigorously. (Same as: NovoLog) "single patient use only" Stable for 28 days at room temperature. Expires in days from D ate AMIODarone 400 mg, 2 tab, No Longer [facility] Route: PO, Drug Active 2012 Medical form: TAB, TID, Center Dosing Weight 121.5, kg, Start date: 04/08/13 16:00:00, Duration: 5 day, Stop date: 04/13/13 8:00:00(Same as: Cordarone) insulin aspart 3 unit, 0.03 No Longer [facility] 04[facility]08[facility], Route: Active Phani 2012 Medical SUB-Q, Drug Center form: SOLN, TID-Before Meals, Dosing Weight 121.5, kg, PRN Blood Glucose Results, Start date: 04/08/13 12:34:00, Duration: 30 day, Stop date: 05/08/13 12:33:00Roll in palms of hands gently; Do not shake vigorously. (Same as: NovoLog) "single patient use only" Stable for 28 days at room temperature. Expires in days from D ate Dextrose 50% 25 gm, 50 mL, No Longer [facility] 04[facility] Syringe Route: IVP, Active Phani 2012 Medical Drug Form: INJ, Center Dosing Weight 121.5, kg, PRN, PRN Blood Glucose Results, Start date: 04/08/13 12:34:00, Duration: 30 day, Stop date: 05/08/13 12:33:00 glucagon 1 mg, Route: No Longer [facility] 04/[facility] IM, Drug form: Active Phani 2012 Medical PDR/INJ, PRN, Center Dosing Weight 121.5, kg, PRN Blood Glucose Results, Start date: 04/08/13 12:34:00, Duration: 30 day, Stop date: 05/08/13 12:33:00 AMIODarone 400 mg, 2 tab, Inactive Manoukian 04/[facility] Route: PO, Drug 2012 Medical form: TAB, BID, Center Dosing Weight 121.5, kg, Start date: 04/08/13 9:00:00, Duration: 30 day, Stop date: 05/07/13 17:00:00(Same as: Cordarone) magnesium sulfate 2 gm, 50 mL, Inactive Maci 04/08[facility] Route: IVPB, 2012 Medical Drug form: INJ, Center ONCE, Dosing Weight 121.5, kg, Total dose=2 gm, Start date: 04/08/13 6:33:00, Duration: 1 doses or times, Stop date: 04/08/13 6:33:00 lisinopril 2.5 mg, 1 tab, No Longer Ibekwe 04/07[facility] Route: PO, Drug Active 2012 Medical form: TAB, Center Daily, Dosing Weight 121.5, kg, Start date: 04/07/13 9:00:00, Duration: 30 day, Stop date: 05/06/13 9:00:00(Same as: Prinivil) Lasix 40 mg, 1 tab, No Longer Hay 04/[facility] Route: PO, Drug Active 2012 Medical form: TAB, Center Daily, Dosing Weight 121.5, kg, Start date: 04/07/13 9:00:00, Stop date: 05/06/13 9:00:00(Same as: Lasix) May cause GI upset. Give with food or milk. pneumococcal 0.5 ml, Route: Inactive SYSTEM [facility] 23-valent vaccine IM, Drug Form: 2012 Medical INJ, Daily, Center Start date: 04/07/13 9:00:00, Duration: 1 doses or times, Stop date: 04/07/13 9:00:00(Same as: Pneumovax 23) Refrigerate Insulin regular 99 mL, Rate: Inactive Marcum [facility] 100 unit + Sodium Start Insulin 2012 Medical Chloride 0.9% Drip Per ICU Center (titrate) 99 mL Protocol, Dosing Weight 121.5, kg, Route: IVPB, Total Volume: 100, Start Date: 04/07/13 2:19:00, Duration: 30 day, Stop date: 05/07/13 2:18:00, Replace Every: 24 hr, Initial Insulin Drip Rate (units/hour)=(F asti...Initial Insulin Drip Rate (units/hour)=(F asting Blood Glucose-60)X0.0 3 "multiplier". Dextrose 50% 25 gm, 50 mL, No Longer Mallesara [facility] Syringe Route: IVP, Active Phani 2012 Medical Drug Form: INJ, Center Dosing Weight 121.5, kg, PRN, PRN Blood Glucose Results, Start date: 04/07/13 2:19:00, Duration: 30 day, Stop date: 05/07/13 2:18:00 Saline Flush 0.9% 10 mL, Route: No Longer Farrar [facility] IVP, Drug Form: Active 2012 Medical INJ, Dosing Center Weight 121.5, kg, Q8H, Start date: 04/07/13 0:00:00, Duration: 30 day, Stop date: 06/05/13 16:00:00(Same as: BD Posiflush) Insulin regular 8 unit, 0.08 Inactive Urvashi [facility] mL, Route: 2012 Medical SUB-Q, Drug Center form: SOLN, ONCE, Dosing Weight 121.5, kg, Start date: 04/06/13 20:26:00, Stop date: 04/06/13 20:26:00(Same as: Humulin R) Roll in palms of hands gently; Do not shake vigorously. "single patient use only" (Restricted to patients requiring a dose > 60 units) Stable for 28 days at room temperature Expires in days from D ate potassium chloride 30 mEq, 3 tab, Inactive Urvashi [place] Route: PO, Drug 2012 Medical form: ERTAB, Center ONCE, Dosing Weight 121.5, kg, Start date: 04/06/13 20:14:00, Stop date: 04/06/13 20:14:00(Same as: Klor-Con 10) "Do Not Crush" With food and full glass of water Saline Flush 0.9% 10 mL, Route: No Longer Farrar [facility] IVP, Drug Form: Active 2012 Medical INJ, Dosing Center Weight 121.5, kg, PRN, PRN Line Flush, Start date: 04/06/13 16:28:00, Duration: 30 day, Stop date: 06/05/13 16:27:00(Same as: BD Posiflush) metoprolol 25 mg, 1 tab, No Longer Maci [place] tartrate Route: PO, Drug Active 2012 Medical form: TAB, Q8H, Center Dosing Weight 121.5, kg, HOLD with SBP Colace 100 mg oral 100 mg, 1 cap, No Longer Jasbir [place] capsule Route: PO, Drug Active 2012 Medical form: CAP, BID, Center Dosing Weight 121.5, kg, PRN as needed for constipation, Start date: 04/06/13 15:08:00, Duration: 30 day, Stop date: 05/06/13 15:07:00(Same as: Colace) (Do Not Crush) MiraLax 17 gm, 1 pkt, No Longer Chance [facility] Route: PO, Drug Active 2012 Medical form: PWDR, Center Daily, Dosing Weight 121.5, kg, PRN Constipation, Start date: 04/06/13 15:08:00, Duration: 30 day, Stop date: 05/06/13 15:07:00Dissolv e in 8 oz of water or juice. (Same as: Miralax) Insulin regular 4 unit, 0.04 No Longer Johnson [address] [place] [address] mL, Route: Active Kamsusan 2012 Medical SUB-Q, Drug Center form: SOLN, TID-Before Meals, Dosing Weight 121.5, kg, PRN Blood Glucose Results, Start date: 04/06/13 14:17:00, Duration: 30 day, Stop date: 05/06/13 14:16:00(Same as: Humulin R) Roll in palms of hands gently; Do not shake vigorously. "single patient use only" (Restricted to patients requiring a dose > 60 units) Stable for 28 days at room temperature Expires in days from D ate Dextrose 50% 12.5 gm, 25 mL, No Longer [facility] 04/[facility] Syringe Route: IVP, Active [place] [address] Medical Drug Form: INJ, Center Dosing Weight 121.5, kg, PRN, PRN Blood Glucose Results, Start date: 04/06/13 14:17:00, Duration: 30 day, Stop date: 05/06/13 14:16:00 glucagon 1 mg, Route: No Longer [facility] 04/[facility] IM, Drug form: Active Keyshawn 2012 Medical PDR/INJ, PRN, Center Dosing Weight 121.5, kg, PRN Blood Glucose Results, Start date: 04/06/13 14:17:00, Duration: 30 day, Stop date: 05/06/13 14:16:00 potassium chloride 20 mEq, 1 tab, Inactive Tellez 04/[facility] Route: PO, Drug 2012 Medical form: ERTAB, [place] ONCE, Dosing Weight 121.5, kg, Start date: 04/06/13 12:00:00, Stop date: 04/06/13 12:00:00(Same as: K-Dur 20) "Do Not Crush" With food and full glass of water potassium chloride 40 mEq, 2 tab, Inactive Tellez 04/[facility] Route: PO, Drug 2012 Medical form: ERTAB, [place] ONCE, Dosing Weight 121.5, kg, Start date: 04/06/13 10:33:00, Stop date: 04/06/13 10:33:00(Same as: K-Dur 20) "Do Not Crush" With food and full glass of water Lasix 40 mg, 4 mL, Inactive Manoukian [facility] Route: IVP2012 Medical Drug form: INJ, Center BID, Dosing Weight 121.5, kg, Start date: 04/06/13 9:00:00, Duration: 30 day, Stop date: 05/05/13 17:00:00(Same as: Lasix) digoxin 250 mcg 0.125 mg, No Longer Ibekwe Katja (0.25 mg) oral Route: PO, Drug Active 2012 Medical tablet form: TAB, Center Daily, Dosing Weight 121.5, kg, Start date: 04/06/13 9:00:00, Duration: 30 day, Stop date: 05/05/13 9:00:00Take on an Empty Stomach (Same as: Lanoxin) magnesium sulfate 2 gm, 50 mL, Inactive Adkins [facility] Route: IVPB2012 Medical Drug form: INJ, Center ONCE, Dosing Weight 121.5, kg, Total dose=2 gm, Start date: 04/05/13 22:15:00, Duration: 1 doses or times, Stop date: 04/05/13 22:15:00 Lasix 40 mg, 4 mL, Inactive Adkins [facility] Route: IV, Drug 2012 Medical form: INJ, Center ONCE, Dosing Weight 121.5, kg, Start date: 04/05/13 17:01:00, Stop date: 04/05/13 17:01:00(Same as: Lasix) furosemide 40 mg, 4 mL, Inactive Heshmat [facility] Route: IVP2012 Medical Drug form: INJ, Center ONCE, Dosing Weight 121.5, kg, Start date: 04/05/13 16:33:00, Stop date: 04/05/13 16:33:00(Same as: Lasix) digoxin 500 microgram, Inactive Bijal [facility] Route: IV, 2012 Medical ONCE, Dosing Center Weight 121.5, kg, Start date: 04/05/13 12:01:00, Stop date: 04/05/13 12:01:00 Imdur 30 mg, 1 tab, No Longer Manoukian [facility] Route: PO, Drug Active 2012 Medical form: ERTAB, Center QAM, Dosing Weight 121.5, kg, Start date: 04/05/13 9:00:00, Duration: 30 day, Stop date: 05/04/13 9:00:00(Same as:Imdur) "Do Not Crush" Take on empty stomach/ full glass of water. Do not crush Plavix 75 mg, 1 tab, No Longer Urvashi Katja Route: PO, Drug Active 2012 Medical form: TAB, Center Daily, Dosing Weight 121.5, kg, Start date: 04/05/13 9:00:00, Duration: 30 day, Stop date: 05/04/13 9:00:00(Same As: Plavix) aspirin 81 mg, 1 tab, No Longer Jasbir Katja Route: PO, Drug Active 2012 Medical form: ECTAB, Center Daily, Dosing Weight 121.5, kg, Start date: 04/05/13 9:00:00, Duration: 30 day, Stop date: 05/04/13 9:00:00Do not crush or chew. (Same As: Ecotrin) Lasix 40 mg oral 40 mg, 1 tab, Inactive Elizabeth Katja tablet Route: PO, Drug Kamel 2012 Medical form: TAB, Center Daily, Dosing Weight 121.5, kg, Start date: 04/05/13 9:00:00, Duration: 30 day, Stop date: 05/04/13 9:00:00(Same as: Lasix) May cause GI upset. Give with food or milk. digoxin 250 mcg 0.25 mg, 1 tab, Inactive Bijal Katja (0.25 mg) oral Route: PO, Drug 2012 Medical tablet form: TAB, Center Daily, Dosing Weight 121.5, kg, Start date: 04/05/13 9:00:00, Duration: 30 day, Stop date: 05/04/13 9:00:00Take on an Empty Stomach (Same as: Lanoxin) potassium chloride 20 mEq, 100 mL, Inactive Elizabeth Katja Route: IVPB, Kamel 2012 Medical Drug form: INJ, Center Q2H, Dosing Weight 121.5, kg, Total dose=40 mEq, Start date: 04/05/13 8:00:00, Duration: 2 doses or times, Stop date: 04/05/13 10:00:00(Same as: KCL) Infuse no faster than 10 mEq/hr if given peripherally. magnesium oxide 400 mg, 1 tab, Inactive [facility] Route: PO, Drug Keyshawn 2012 Medical form: TAB, Center ONCE, Dosing Weight 121.5, kg, Start date: 04/05/13 7:28:00, Stop date: 04/05/13 7:28:00(Same as: Mag-Ox 400) Magnesium oxide [id number] elemental magnesium Dose=____mg magnesium oxide (___mg elemental magnesium) potassium chloride 30 mEq, 22.5 Inactive [facility] 04/[facility] 20 mEq/15 mL oral mL, Route: PO, Keyshawn 2012 Medical liquid Drug form: LIQ, Center ONCE, Dosing Weight 121.5, kg, Start date: 04/05/13 7:28:00, Stop date: 04/05/13 7:28:00(Same as: Potassium Chloride) magnesium sulfate 2 gm, 50 mL, Inactive [facility] 04/[facility] 2gm / NS 50ml Route: IVPBKeyshawn 2012 Medical (premixed) Drug form: INJ, Center ONCE, Dosing Weight 121.5, kg, Start date: 04/05/13 6:50:00, Duration: 2 hr, Stop date: 04/05/13 6:50:00 Lasix 40 mg, 4 mL, No Longer Adkins 04[facility] Route: IVP, Active 2012 Medical Drug form: INJ, Center Daily, Dosing Weight 121.5, kg, Start date: 04/05/13 6:35:00, Duration: 30 day, Stop date: 05/04/13 9:00:00(Same as: Lasix) digoxin 0.25 mg, 1 mL, Inactive [facility] 04/[facility] Route: IVPKeyshawn 2012 Medical Drug form: INJ, Center ONCE, Dosing Weight 121.5, kg, Start date: 04/04/13 21:19:00, Stop date: 04/04/13 21:19:00(Same as: Lanoxin) atorvastatin 40 mg, 1 tab, No Longer Elvin 04/[facility] Route: PO, Drug Active 2012 Medical form: TAB, Center Bedtime, Dosing Weight 121.5, kg, Start date: 04/04/13 21:00:00, Duration: 30 day, Stop date: 06/02/13 21:00:00(Same as: Lipitor) Lantus 45 unit, 0.45 No Longer Mallesara [facility] mL, Route: Active Phani [facility] Medical SUB-Q, Drug Center form: INJ, Bedtime, Dosing Weight 121.5, kg, Start date: 04/04/13 21:00:00, Stop date: 05/03/13 21:00:00Same as Lantus Solostar PEN "single patient use only" Stable for 28 days at room temperature. Expires in days from D ate AMIODarone 900 mg 482 mL, Rate: No Longer Ibekwe [facility] + Dextrose 5% in Infuse as Active 2012 Medical Water (Titrate) IV directed, Center 482 mL Dosing Weight 121.5, kg, Route: IV, Total Volume: 500 mL, Start Date: 04/04/13 20:53:00, Duration: 30 day, Stop date: 05/04/13 20:52:00, Replace Every: 24 hrNon PVC bag heparin additive 500 mL, Rate: No Longer ek [facility] 25,000 unit [14 22.8 ml/hr, Active 2012 Medical unit/kg/hr] + Infuse over: Center Premix Diluent 21.9 hr, Route: Dextrose 5% 500 mL IV, Dosing Weight 81.42 kg, Total Volume: 500 mL, Start date: 04/04/13 20:26:00, Duration: 30 day, Stop date: 05/04/13 20:25:00 Insulin regular 99 mL, Rate: No Longer Marcum [facility] 100 unit + Sodium Start Insulin Active 2012 Medical Chloride 0.9% Drip Per ICU Center (titrate) 99 mL Protocol, Dosing Weight 121.5, kg, Route: IVPB, Total Volume: 100, Start Date: 04/04/13 19:53:00, Duration: 30 day, Stop date: 05/04/13 19:52:00, Replace Every: 24 hr, Initial Insulin Drip Rate (units/hour)=(F as...Initial Insulin Drip Rate (units/hour)=(F asting Blood Glucose-60)X0.0 3 "multiplier". Dextrose 50% 12.5 gm, 25 mL, No Longer Johnson 04/[facility] Syringe Route: IVP, Active Kamel 2012 Medical Drug Form: INJ, Center Dosing Weight 121.5, kg, PRN, PRN Blood Glucose Results, Start date: 04/04/13 19:53:00, Duration: 30 day, Stop date: 05/04/13 19:52:00 metoprolol 50 mg, 1 tab, No Longer Manoukian [facility] tartrate Route: PO, Drug Active 2012 Medical form: TAB, Q6H, Center Dosing Weight 121.5, kg, Start date: 04/04/13 19:06:00, Stop date: 05/04/13 18:00:00(Same as: Lopressor) azithromycin 500 mg, Route: No Longer Adkins 04/[facility] IVPB, Drug Active 2012 Medical form: PDR/INJ, Center [id number], Dosing Weight 121.5, kg, Start date: 04/04/13 19:00:00, Duration: 30 day, Stop date: 05/03/13 19:00:00(Same As: Zithromax IV) ceftriaxone 1 gm, Route: No Longer Ibekwe 04/05[facility] IVPB, Drug Active 2012 Medical form: PDR/INJ, Center [id number], Dosing Weight 121.5, kg, Start date: 04/04/13 19:00:00, Duration: 30 day, Stop date: 05/03/13 19:00:00(Same As: Rocephin). Use with 100ml NS mini-bag PLUS and infuse over 30 min Corvert 1 mg, 10 mL, Inactive Trini 04/05[facility] Route: IV, Drug 2012 Medical form: INJ, Center ONCE, Start date: 04/04/13 18:00:00, Stop date: 04/04/13 18:00:00(Same as: Corvert) Infuse over 10 minutes. Tylenol 650 mg, 2 tab, No Longer Jasbir [facility] Route: PO, Drug Active 2012 Medical form: TAB, Q4H, Center Dosing Weight 121.5, kg, PRN Fever, Start date: 04/04/13 17:54:00, Duration: 30 day, Stop date: 05/04/13 17:53:00Do not exceed 4 gm/day. (Same as: Tylenol) Protonix 40 mg, Route: Inactive Trini [facility] IV, Drug form: 2012 Medical INJ, ONCE, Center Dosing Weight 121.5, kg, Start date: 04/04/13 16:01:00, Stop date: 04/04/13 16:01:00For IV push reconstitute with 10 ml 0.9% sodium chloride and push over 2 minutes. (Same as: Protonix) metoprolol 5 mg/5 5 mg, 5 mL, Inactive Johnson 04/[facility] ml INJ Route: IVP, Keyshawn 2012 Medical Drug form: INJ, Center ONCE, Dosing Weight 121.5, kg, Priority: STAT, Start date: 04/04/13 14:30:00, Stop date: 04/04/13 14:30:00(Same as: Lopressor) Push over 2 minutes metoprolol 5 mg/5 5 mg, Route: Inactive Johnson 04/[facility] ml INJ IVP, Drug form: Keyshawn 2012 Medical INJ, ONCE, Center Dosing Weight 121.5, kg, Start date: 04/04/13 14:26:00, Stop date: 04/04/13 14:26:00 Lasix 60 mg, 6 mL, Inactive Parmar [facility] Route: IV, Drug 2012 Medical form: INJ, Center ONCE, Dosing Weight 121.5, kg, Priority: STAT, Start date: 04/04/13 13:15:00, Stop date: 04/04/13 13:15:00(Same as: Lasix) Zofran 4 mg, 2 mL, No Longer Jasbir [facility] Route: IV, Drug Active 2012 Medical form: INJ, Q8H, Center Dosing Weight 121.5, kg, PRN Nausea, Start date: 04/04/13 12:42:00, Duration: 30 day, Stop date: 05/04/13 12:41:00(Same as: Zofran) Prinivil 2.5 mg, 1 tab, No Longer Manoukian [facility] Route: PO, Drug Active 2012 Medical form: TAB, Center Daily, Dosing Weight 121.5, kg, Start date: 04/04/13 10:30:00, Duration: 30 day, Stop date: 05/04/13 9:00:00(Same as: Prinivil) digoxin 0.5 mg, 2 tab, Inactive Paramr 04/[facility] Route: PO, Drug 2012 Medical form: TAB, Center ONCE, Dosing Weight 121.5, kg, Start date: 04/04/13 9:46:00, Stop date: 04/04/13 9:46:00Take on an Empty Stomach (Same as: Lanoxin) lisinopril 2.5 mg, 1 tab, Inactive Maci 04/[facility] Route: PO, Drug 2012 Medical form: TAB, Center Daily, Dosing Weight 121.5, kg, Start date: 04/04/13 9:00:00, Duration: 30 day, Stop date: 05/03/13 9:00:00(Same as: Prinivil) metoprolol 12.5 mg, 1 ea, Inactive Elizabeth [facility] tartrate Route: PO, Drug Kamel 2012 Medical form: TAB, BID, Center Dosing Weight 121.5, kg, Start date: 04/04/13 9:00:00, Duration: 30 day, Stop date: 05/03/13 17:00:00(Same as: Lopressor) 12.5mg=1/4 X 50 mg tab. fenofibrate 48 mg, 1 tab, No Longer Elvin 04/[facility] Route: PO, Drug Active 2012 Medical form: TAB, Center Daily, Start date: 04/04/13 9:00:00, Duration: 30 day, Stop date: 06/02/13 9:00:00(Same as: Tricor) Lyrica 100 mg, 1 cap, No Longer Maci 04/[facility] Route: PO, Drug Active 2012 Medical form: CAP, Center Daily, Dosing Weight 121.5, kg, Start date: 04/04/13 9:00:00, Duration: 30 day, Stop date: 05/03/13 9:00:00(Same as: Lyrica) Detrol LA 2 mg, 1 cap, No Longer Maci 04/[facility] Route: PO, Drug Active 2012 Medical form: ERCAP, Center Daily, Start date: 04/04/13 9:00:00, Duration: 30 day, Stop date: 05/03/13 9:00:00(Same As: Jimbo KAUR) (Do Not Crush) fesoterodine 8 mg, Route: Inactive Maci [facility] PO, Drug form: 2012 Medical ERTAB, Daily, Center Dosing Weight 121.5, kg, Start date: 04/04/13 9:00:00, Duration: 30 day, Stop date: 05/03/13 9:00:00 influenza virus 0.5 mL, Route: Inactive SYSTEM [facility] vaccine, IM, Drug Form: 2012 Medical inactivated SUSP, Daily, Center Start date: 04/04/13 9:00:00, Duration: 1 doses or times, Stop date: 04/04/13 9:00:00(Same as: Fluzone) Keppra 500 mg oral 500 mg, 1 tab, No Longer Swann-Roni [facility] tablet Route: PO, Drug Active ales 2012 Medical form: TAB, BID, Center Dosing Weight 121.5, kg, Start date: 04/04/13 9:00:00, Duration: 30 day, Stop date: 05/03/13 17:00:00(Same as:Keppra) Trilipix 135 mg, Route: Inactive [facility] PO, Drug form: 2012 Medical CAP, Daily, Center Dosing Weight 121.5, kg, Start date: 04/04/13 9:00:00, Duration: 30 day, Stop date: 05/03/13 9:00:00 Cymbalta 60 mg, 2 cap, No Longer Chance [facility] Route: PO, Drug Active 2012 Medical form: DR, Center Bedtime, Dosing Weight 121.5, kg, Start date: 04/04/13 9:00:00, Stop date: 05/03/13 21:00:00Non-For mulary Drug. (Same as: Cymbalta) (Do Not Crush) heparin 5,000 unit, 1 Inactive [facility] 04/[facility] mL, Route: 2012 Medical SUB-Q, Drug Center form: INJ, Q8H, Dosing Weight 121.5, kg, Start date: 04/04/13 8:00:00, Duration: 30 day, Stop date: 05/04/13 0:00:00porcine heparin Dextrose 50% 12.5 gm, 25 mL, Inactive [facility] 04/04[facility] Syringe Route: IVP, 2012 Medical Drug Form: INJ, Center Dosing Weight 121.5, kg, PRN, PRN Blood Glucose Results, Start date: 04/04/13 5:05:00, Duration: 30 day, Stop date: 05/04/13 5:04:00 glucagon 1 mg, Route: No Longer [facility] 04/04[facility] IM, Drug form: Active 2012 Medical PDR/INJ, PRN, Center Dosing Weight 121.5, kg, PRN Blood Glucose Results, Start date: 04/04/13 5:05:00, Duration: 30 day, Stop date: 05/04/13 5:04:00 Insulin regular 9 unit, 0.09 Inactive [facility] 04/[facility] mL, Route: 2012 Medical SUB-Q, Drug Center form: SOLN, Sliding Scale, Dosing Weight 121.5, kg, PRN Blood Glucose Results, Start date: 04/04/13 5:05:00, Duration: 30 day, Stop date: 05/04/13 5:04:00(Same as: Humulin R) Roll in palms of hands gently; Do not shake vigorously. "single patient use only" (Restricted to patients requiring a dose > 60 units) Stable for 28 days at room temperature Expires in days from D ate heparin 4,900 unit, 4.9 Inactive [facility] 04/[facility] mL, Route: IV, 2012 Medical Drug form: INJ, Center PRN, PRN Abnormal Lab Result, Start date: 04/04/13 4:51:00, Duration: 30 day, Stop date: 05/04/13 4:50:00 Lotrel 5 mg-20 mg Daily, 0 No Longer 04/04[facility] oral capsule Refill(s) Active 2012 [facility] Lipitor 20 mg oral Bedtime, 0 No Longer [facility] 04/[facility] tablet Refill(s) Active 2012 [facility] Toviaz 8 mg oral Daily, 0 Active [facility] 04/[facility] tablet, extended Refill(s) 2012 [facility] Klonopin 0.5 mg Bedtime, 0 No Longer [place] [facility] oral tablet Refill(s) Active 2012 [facility] Myrbetriq 50 mg Daily, 0 Active [facility] oral tablet, Refill(s) 2012 [facility] extended release [place] Lyrica Daily, 0 No Longer [facility] Refill(s) Active 2012 [facility] Cymbalta 60 mg Daily, 0 Active [facility] 04/[facility] oral delayed Refill(s) 2012 Medical [facility] capsule [place] digoxin 125 mcg Daily, 0 No Longer [place] [facility] (0.125 mg) oral Refill(s) Active 2012 [facility] tablet [place] metoprolol 100 mg Daily, 0 No Longer [facility] oral tablet, Refill(s) Active 2012 [facility] extended release [place] Trilipix 135 mg 135 mg=1 cap, No Longer [facility] oral delayed PO, Daily, # 30 Active 2012 [facility] capsule cap, 0 Center Refill(s) Keppra 500 mg oral BID, 0 No Longer [facility] tablet Refill(s) Active 2012 [facility] Plavix 300 mg, 1 tab, Inactive [facility] Route: PO, Drug 2012 Medical form: TAB, [place] ONCE, Dosing Weight 121.5, kg, Start date: 04/04/13 4:17:00, Duration: 1 doses or times, Stop date: 04/04/13 4:17:00( Same as: Plavix) heparin additive 500 mL, Rate: Inactive Maci Katja 25,000 unit [12 19.54 ml/hr, 2013 Medical unit/kg/hr] + Infuse over: [place] Premix Diluent 25.6 hr, Route: Dextrose 5% 500 mL IV, Dosing Weight 81.42 kg, Total Volume: 500 mL, Start date: 04/04/13 4:14:00, Stop date: 05/04/13 4:13:00 Heparin 30 unit/kg Route: IVP, Inactive [facility] Katja Bolus (Heparin PRN, 2,400 2012 Medical Dosing Weight) unit, 2.4 mL, [place] Drug form: INJ, PRN, Heparin Protocol, Start date: 04/04/13 4:14:00 Stop date: 05/04/13 4:13:00, 30 day Heparin - one time 4,000 unit, 4 Inactive Maci Katja bolus for [facility] mL, Route: IV, 2012 Medical Drug form: INJ, Center ONCE, Dosing Weight 121.5, kg, Priority: STAT, Start date: 04/04/13 4:14:00, Stop date: 04/04/13 4:14:00 aspirin 325 mg, 1 tab, Inactive Maci Katja Route: PO, Drug 2012 Medical form: TAB, Center ONCE, Dosing Weight 121.5, kg, Start date: 04/04/13 4:10:00, Stop date: 04/04/13 4:10:00Take with food. AMIODarone 900 mg 482 mL, Rate: Inactive Ghulam Katja + Dextrose 5% in Infuse as 2012 Medical Water (Titrate) IV directed, Center 482 mL Dosing Weight 121.5, kg, Route: IV, Total Volume: 500 mL, Start Date: 04/04/13 3:12:00, Duration: 30 day, Stop date: 05/04/13 3:11:00, Replace Every: 24 hrNon PVC bag acetaminophen-hydr 1 tab, Route: No Longer Rice [facility] ocodone 325 mg-5 PO, Drug Form: Active 2012 Medical mg oral tablet TAB, Dosing Center Weight 121.5, kg, Q4H, PRN Pain Score 1-3, Start date: 04/04/13 3:05:00, Duration: 30 day, Stop date: 05/04/13 3:04:00(Same as: [place] 325/5) Do not exceed 4gm/day of acetaminophen. Vicodin 5/500 oral 1 tab, PO, Q4H, PO Active Gael Katja tablet PRN, 10 tab, as 2012 Medical needed for Center pain, Substitution Allowed, Maintenance, TAB Cleocin HCl 300 mg 300 mg, 1 cap, PO Active Gael Katja oral capsule PO, BID, 2012 Medical cap, Center Substitution Allowed, CAP clindamycin (SCIP) 900 mg, 6 mL, IVPB No Longer Gael Katja Route: IVPB, Active 2012 Medical Drug form: INJ, Center Q8H, Dosing Weight 113.636, kg, Start date: 12/23/12 16:00:00, Duration: 1 doses or times, Stop date: 12/23/12 16:00:00 ondansetron 4 mg, 2 mL, [facility]P [facility] Route: IVP, 2012 Medical Drug form: INJ, Center ONCE, Dosing Weight 113.636, kg, PRN Nausea & Vomiting, Start date: 12/23/12 15:48:00 flumazenil 0.2 mg, 2 mL, [facility]P [facility] Long[facility] Route: IVP, Active 2012 Medical Drug form: INJ, Center PRN, Dosing Weight 113.636, kg, PRN Benzodiazepine Reversal, Initial dose, Start date: 12/23/12 15:48:00, Duration: 1 day, Stop date: 12/24/12 15:47:00 naloxone 0.04 mg, 0.1 IVP No Longer [facility] mL, Route: IVP, Active 2012 Medical Drug form: INJ, Center Q2MIN, Dosing Weight 113.636, kg, PRN Narcotic Reversal, Start date: 12/23/12 15:48:00, Duration: 8 doses or times, Stop date: 12/24/12 0:00:00 labetalol 5 mg, 1 mL, IVP No Longer [facility] Route: IVP, 2012 Medical Drug form: INJ, Center Q5Min, Dosing Weight 113.636, kg, PRN Elevated BP, Start date: 12/23/12 15:48:00, Duration: 5 doses or times, Stop date: 12/24/12 0:00:00 hydrALAZINE 5 mg, 0.25 mL, IVP No Longer [facility] Route: IVP, Active 2012 Medical Drug form: INJ, Center Q5Min, Dosing Weight 113.636, kg, PRN Elevated BP, Start date: 12/23/12 15:48:00, Duration: 4 doses or times, Stop date: 12/24/12 0:00:00 hydromorphone 0.25 mg, 0.13 IVP [facility]er [facility] mL, Route: IVP, Active 2013 Medical Drug form: INJ, Center Q5Min, Dosing Weight 113.636, kg, PRN Pain Score 7-10, Start date: 12/23/12 15:48:00, Duration: 5 doses or times, Stop date: 12/24/12 0:00:00 Allergies, Adverse Reactions, Alerts Substance Category Reaction Severity Reaction Status Date Comments Source type Reported penicillins drug Allergy [facility] allergy [facility] Immunizations Immunization Date Given Site Status Last Updated Comments Source pneumococcal 04/08/2013 completed [place] [facility] 23-valent vaccine [facility] Results Order Name Results Value Reference Date Interpretation Comments Source Range BEDSIDE Glucose POC 185 mg/dL 70 - 04/30 [place] 7Interpretive [facility] GLUCOSE Data: [facility] Center Upper Reportable Limit: 200 mg/dL. BEDSIDE Glucose POC 176 mg/dL - 04/30 [place] 8Interpretive [facility] GLUCOSE Data: [facility] Upper Reportable Limit: 200 mg/dL. CHEMISTRY Ca Norm WB 1.03 1.05 - 04/30 LOW [facility] mMol/L 1. [facility] CHEMISTRY Ca Ion WB 1.00 1.05 - 04/30 LOW [facility] mMol/L 1. [facility] CHEMISTRY Phosphorus 3.0 mg/dL 2.5 - 4.5 04/30 Normal [facility] CHEMISTRY Magnesium Lvl 2.1 mg/dL 1.8 - 2.4 04/30 Normal [facility] CHEMISTRY AGAP 13.3 meq/L 10.0 - 04/30 Normal [facility] 20.0 [facility] CHEMISTRY eGFR 68 04/30 11Result Comment: The eGFR is calculated using the CKD-EPI formula. In most young, healthy individuals the eGFR will be >90 mL/ min/1.73m2. The eGFR declines with age. An eGFR of 60-89 may be normal in [facility] mL/min/1.7 some populations, particularly the elderly, for whom the CKD-EPI formula has not been extensively validated. Use of the eGFR is not recommended in the following populations: [address] Individuals with unstable creatinine concentrations, including patients and those with serious co-morbid conditions. Patients with extremes in muscle mass or diet. The data above are obtained from the National Kidney Disease Education Program (NKDEP) which additionally recommends that when the eGFR is used in patients with extremes of body mass index for purposes of drug dosing, the eGFR should be multiplied by the estimated BMI. CHEMISTRY Glucose Lvl 144 mg/dL 70 - 99 04/30 [place] 14Interpretive Data: Adult reference range values reflect the clinical guidelines of the [place] [employer]. [facility] CHEMISTRY BUN 66 mg/dL 7 - 22 04/30 [facility] CHEMISTRY Sodium Lvl 144 meq/L 135 - 145 04/30 Normal [facility] CHEMISTRY Potassium Lvl 4.3 meq/L 3.5 - 5.1 04/30 Normal 10Result Comment: [facility] Slightly Hemolyzed. CHEMISTRY Calcium Lvl 8.3 mg/dL 8.5 - 10.5 04/30 LOW [facility] Center CHEMISTRY Chloride Lvl 107 meq/L 95 - 109 04/30 Normal [facility] Center CHEMISTRY CO2 28 meq/L 24 - 32 04/30 Normal [facility] Center CHEMISTRY Creatinine 0.9 mg/dL 0.5 - 1.4 04/30 Normal [facility] Center CHEMISTRY Digoxin Lvl 1.1 ng/mL 0.8 - 2.0 04/30 Normal [facility] HEMATOLOGY Platelet 441 K/CMM 133 - 450 04/30 Normal [facility] HEMATOLOGY MPV 9.2 fL 7.4 - 10.4 04/30 Normal [facility] Center HEMATOLOGY RDW 16.5 % 11.5 - 04/30 [facility] 14.5 Medical Center HEMATOLOGY MCHC 32.0 g/dL 32.0 - 04/30 Normal [facility] 36.0 [facility] Center HEMATOLOGY RBC X 10x6 3.00 M/CMM 4.20 - 04/30 [facility] 5.40 /2013 Medical Center HEMATOLOGY Hgb 8.9 g/dL 12.0 - 04/30 [facility] 16.0 Medical Center HEMATOLOGY MCH 29.8 pg 27.0 - 04/30 Normal [facility] 31.0 /2013 [facility] Center HEMATOLOGY Hct 27.9 % 36.0 - 04/30 [facility] 48.0 /2013 Medical Center HEMATOLOGY MCV 92.9 fL 81.0 - 04/30 Normal [facility] 99.0 Medical Center HEMATOLOGY WBC X 10x3 12.2 K/CMM 3.7 - 10.4 04/30 [facility] Medical Center HEMATOLOGY Basophils 1.0 % 0.0 - 1.0 04/30 Normal 2013 [facility] HEMATOLOGY Anisocyte 1+ None Seen 04/30 [facility] (04/30/2013 04:12:00) HEMATOLOGY Monocytes # 1.1 K/CMM 0.0 - 0.8 04/30 [facility] HEMATOLOGY Lymphocytes # 1.1 K/CMM 1.0 - 5.5 04/30 Normal [facility] HEMATOLOGY Segs-Bands # 9.4 K/CMM 1.5 - 8.1 04/30 [facility] HEMATOLOGY Eosinophils 3.6 % 0.0 - 4.0 04/30 Normal [facility] HEMATOLOGY Monocytes 9.4 % 2.0 - 12.0 04/30 Normal [facility] [address] [place] [address] HEMATOLOGY Elliptocyte Slight None Seen 04/30 [facility] (04/30/2013 04:12:00) HEMATOLOGY Smudge Rare 04/30 [facility] HEMATOLOGY Lymphocytes 9.2 % 20.0 - 04/30 LOW [facility] 40.0 [facility] HEMATOLOGY Segs 76.8 % 45.0 - 04/30 [facility] 75.0 [facility] HEMATOLOGY Plt Morph Normal 04/30 Normal [facility] (04/30/2013 04:12:00) [place] HEMATOLOGY Eosinophils # 0.4 K/CMM 0.0 - 0.5 04/30 Normal [facility] [address] [place] [address] HEMATOLOGY Basophils # 0.1 K/CMM 0.0 - 0.2 04/30 [facility]2013 [facility] Chest 1view Chest 1view Chest one view, April 30, 2013 at 8:36 a.m. - - [facility] HISTORY: 62-year-old female with abnormal chest sounds. Read by: Siria Butler Date/time: 04/30/13 09:42 Electronically Signed by: Kady Arrington MD 05/01/13 10:09 FINAL REPORT FINDINGS: Comparison is made to yesterday morning. A moderately large left pleural effusion obscures the left lower lobe and costophrenic sulcus with fluid tracking peripherally to cap the left apex and also layering posteriorly. There is a left retroca rdiac opacity which may be due to a layering left pleural effusion and/or a left lower lobe air space opacity such as pneumonia or atelectasis. The left upper lobe and right lung are clear. The cardiom ediastinum is prominent but stable with stable postoperative findings. IMPRESSION: 1. A moderately large left pleural effusion has slightly increased since yesterday morning. 2. There is a left retrocardiac opacity which may be due to a layering left pleural effusion and/or a left lower lobe air space opacity such as pneumonia or atelectasis. BEDSIDE Gluc POC Notified 04/30 [facility] GLUCOSE Comment 1 RN/ /2013 [facility] Center BEDSIDE Glucose POC 203 mg/dL 70 - 99 04/30 [place] 9Interpretive [facility] Data: [facility] Upper Reportable Limit: 200 mg/dL. BEDSIDE Gluc POC Notified 04/29 [facility] GLUCOSE Comment 1 RN/ /2014 [facility] Center STOOL TESTS Occult Bld Negative Negative 04/29 Normal [facility] (04/29/2013 14:00:00) Center BEDSIDE Gluc POC Notified 04/29 [facility] GLUCOSE Comment 1 RN/ /2014 [facility] Center URINALYSIS UA Color Yellow Yellow 04/29 Medical *NA* [place] (04/29/2013 03:00:42) URINALYSIS UA Turbidity Slight Clear 04/29 [facility] Medical *ABN* [place] (04/29/2013 03:00:42) URINALYSIS UA pH 6.5 5.0 - 8.0 04/29 Normal [facility] URINALYSIS UA Spec Grav 1.012 <=1.030 04/29 Normal [facility] URINALYSIS UA Sq Epi None Seen 04/29 [facility] URINALYSIS UA Protein 10 mg/dL Negative 04/29 ABN [facility] URINALYSIS UA Ketones Negative Negative 04/29 [facility] mg/dL [facility] URINALYSIS UA Blood Negative Negative 04/29 Normal [facility] (04/29/2013 03:00:42) [place] URINALYSIS UA Glucose Negative Negative 04/29 [facility] mg/dL [facility] URINALYSIS UA Bili Negative Negative 04/29 Medical *NA* [place] (04/29/2013 03:00:42) URINALYSIS UA Nitrite Negative Negative 04/29 Normal [facility] (04/29/2013 03:00:42) Center URINALYSIS UA Leuk Est Large Negative 04/29 ABN Medical *ABN* Center (04/29/2013 03:00:42) URINALYSIS UA WBC 146 /HPF 0 - 5 04/29 [facility] URINALYSIS UA Bacteria Many /HPF None Seen 04/29 [facility] URINALYSIS UA Mucus Many /LPF None Seen 04/29 [facility] URINALYSIS UA <=1.0 0.1 - 1.0 04/29 [facility] Urobilinogen mg/dL [facility] CHEMISTRY Magnesium Lvl 2.3 mg/dL 1.8 - 2.4 04/29 Normal [facility] CHEMISTRY Phosphorus 3.3 mg/dL 2.5 - 4.5 04/29 Normal [facility] CHEMISTRY eGFR 44 04/29 12Result Comment: The eGFR is calculated using the CKD-EPI formula. In most young, healthy individuals the eGFR will be >90 mL/ min/1.73m2. The eGFR declines with age. An eGFR of 60-89 may be normal in [facility] mL/min/1.7 some populations, particularly the elderly, for whom the CKD-EPI formula has not been extensively validated. Use of the eGFR is not recommended in the following populations: [place] [address] Center Individuals with unstable creatinine concentrations, including patients and those with serious co-morbid conditions. Patients with extremes in muscle mass or diet. The data above are obtained from the National Kidney Disease Education Program (NKDEP) which additionally recommends that when the eGFR is used in patients with extremes of body mass index for purposes of drug dosing, the eGFR should be multiplied by the estimated BMI. CHEMISTRY Glucose Lvl 187 mg/dL 70 - 99 04/29 [place] 15Interpretive Data: Adult reference range values reflect the clinical guidelines of the [place] [employer]. [facility] CHEMISTRY BUN 83 mg/dL 7 - 22 04/29 [facility] CHEMISTRY Creatinine 1.3 mg/dL 0.5 - 1.4 04/29 Normal [facility] Lvl [facility] CHEMISTRY CO2 28 meq/L 24 - 32 04/29 Normal [facility] CHEMISTRY Calcium Lvl 8.5 mg/dL 8.5 - 10.5 04/29 Normal [facility] CHEMISTRY Chloride Lvl 104 meq/L 95 - 109 04/29 Normal [facility] CHEMISTRY Sodium Lvl 141 meq/L 135 - 145 04/29 Normal [facility] CHEMISTRY Potassium Lvl 4.3 meq/L 3.5 - 5.1 04/29 Normal [facility] CHEMISTRY AGAP 13.3 meq/L 10.0 - 04/29 Normal [facility] 20.0 Medical [place] HEMATOLOGY MCHC 32.4 g/dL 32.0 - 04/29 Normal [facility] 36.0 [facility] HEMATOLOGY RDW 16.8 % 11.5 - 04/29 [facility] 14.5 [facility] HEMATOLOGY Platelet 476 K/CMM 133 - 450 04/29 [facility] HEMATOLOGY MPV 9.2 fL 7.4 - 10.4 04/29 Normal [facility] HEMATOLOGY RBC X 10x6 3.13 M/CMM 4.20 - 04/29 [facility] 5.40 [facility] HEMATOLOGY Hgb 9.4 g/dL 12.0 - 04/29 [facility] 16.0 [facility] HEMATOLOGY Hct 29.1 % 36.0 - 04/29 [facility] 48.0 /2013 [facility] HEMATOLOGY WBC X 10x3 13.2 K/CMM 3.7 - 10.4 04/29 [facility] HEMATOLOGY MCV 92.9 fL 81.0 - 04/29 [facility] 99.0 Medical [place] HEMATOLOGY MCH 30.1 pg 27.0 - 04/29 [facility] 31.0 [facility] HEMATOLOGY Monocytes # 1.2 K/CMM 0.0 - 0.8 04/29 [facility] HEMATOLOGY Eosinophils # 0.4 K/CMM 0.0 - 0.5 04/29 Normal [facility] HEMATOLOGY Basophils # 0.2 K/CMM 0.0 - 0.2 04/29 Normal [facility] HEMATOLOGY Segs-Bands # 10.6 K/CMM 1.5 - 8.1 04/29 [facility] Medical [place] HEMATOLOGY Lymphocytes 6.4 % 20.0 - 04/29 [facility] 40.0 [facility] HEMATOLOGY Lymphocytes # 0.8 K/CMM 1.0 - 5.5 04/29 [facility] HEMATOLOGY Basophils 1.2 % 0.0 - 1.0 04/29 [facility] HEMATOLOGY Eosinophils 3.4 % 0.0 - 4.0 04/29 Normal [facility] HEMATOLOGY Segs 80.2 % 45.0 - 04/29 [facility] 75.0 [facility] HEMATOLOGY Monocytes 8.8 % 2.0 - 12.0 04/29 Normal [facility] Chest 1view Chest 1view Chest one view, April 29, 2013 at 8:07 a.m. - - [facility] HISTORY: 62-year-old female with shortness of breath. Read by: Siria Butler Dictated Date/time: 04/29/13 11:43 Electronically Signed by: Siria Butler MD 04/29/13 13:21 FINAL REPORT FINDINGS: Comparison is made to yesterday. The cardiomediastinal silhouette and postoperative changes are stable. A left pleural effusion obscures the left lower lobe and cardiac margin with fluid tracking laterally to cap the apex. There is a l eft retrocardiac opacity which may be due to a layering left pleural effusion and/or a left lower lobe air space opacity such as pneumonia or atelectasis. The left upper lobe and right lung are clear. IMPRESSION: No significant change since yesterday. CHEMISTRY Ca Ion WB 1.07 1. - 04/28 Normal [facility] mMol/L 1. [facility] CHEMISTRY Ca Norm WB 1.06 1.05 - 04/28 Normal [facility] mMol/L . [facility] CHEMISTRY Magnesium Lvl 2.7 mg/dL 1.8 - 2.4 04/28 [facility] CHEMISTRY Phosphorus 3.4 mg/dL 2.5 - 4.5 04/28 Normal [facility] CHEMISTRY CO2 30 meq/L 24 - 32 04/28 Normal [facility] CHEMISTRY AGAP 11.5 meq/L 10.0 - 04/28 Normal [facility] 20.0 [facility] CHEMISTRY Calcium Lvl 8.5 mg/dL 8.5 - 10.5 04/28 Normal [facility] CHEMISTRY eGFR 54 04/28 13Result Comment: The eGFR is calculated using the CKD-EPI formula. In most young, healthy individuals the eGFR will be >90 mL/ min/1.73m2. The eGFR declines with age. An eGFR of 60-89 may be normal in [facility] mL/min/1.7 some populations, particularly the elderly, for whom the CKD-EPI formula has not been extensively validated. Use of the eGFR is not recommended in the following populations: [address] Individuals with unstable creatinine concentrations, including patients and those with serious co-morbid conditions. Patients with extremes in muscle mass or diet. The data above are obtained from the National Kidney Disease Education Program (NKDEP) which additionally recommends that when the eGFR is used in patients with extremes of body mass index for purposes of drug dosing, the eGFR should be multiplied by the estimated BMI. CHEMISTRY BUN 81 mg/dL 7 - 22 04/28 [facility] CHEMISTRY Creatinine 1.1 mg/dL 0.5 - 1.4 04/28 Normal [facility] Lvl [facility] CHEMISTRY Glucose Lvl 172 mg/dL 70 - 99 04/28 [place] 16Interpretive Data: Adult reference range values reflect the clinical guidelines of the [place] [employer]. [facility] CHEMISTRY Chloride Lvl 102 meq/L 95 - 109 04/28 Normal [facility] CHEMISTRY Potassium Lvl 4.5 meq/L 3.5 - 5.1 04/28 Normal [facility] CHEMISTRY Sodium Lvl 139 meq/L 135 - 145 04/28 Normal [facility] HEMATOLOGY MPV 8.7 fL 7.4 - 10.4 04/28 Normal [facility] HEMATOLOGY MCV 93.2 fL 81.0 - 04/28 Normal [facility] 99.0 [facility] HEMATOLOGY MCH 30.3 pg 27.0 - 04/28 Normal [facility] 31.0 [facility] HEMATOLOGY MCHC 32.6 g/dL 32.0 - 04/28 Normal [facility] 36.0 [facility] HEMATOLOGY RDW 16.3 % 11.5 - 04/28 [facility] 14.5 [facility] HEMATOLOGY Platelet 466 K/CMM 133 - 450 04/28 [facility] HEMATOLOGY WBC X 10x3 16.3 K/CMM 3.7 - 10.4 04/28 [facility] HEMATOLOGY Hct 28.1 % 36.0 - 04/28 [facility] 48.0 /2013 [facility] HEMATOLOGY Hgb 9.1 g/dL 12.0 - 04/28 [facility] 16.0 /2013 [facility] HEMATOLOGY RBC X 10x6 3.01 M/CMM 4.20 - 04/28 [facility] 5.40 /2013 [facility] Chest 1view Chest 1view EXAM: XR CHEST 1 VIEW 04/28 - - Medical This report was dictated by a Sales Development Associate/Fellow. I have personally reviewed the images as Center well as the Resident's interpretation and agree with the findings. DATE: 04/28/2013 at 0809 hours. Read by: Caroline Kidd Resident: Caroline Kidd Dictated Date/time: 04/28/13 08:46 Electronically Signed by: Yoav Reinoso MD 04/28/13 13:13 FINAL REPORT INDICATION: Tube placement/removal/reposition COMPARISON: Chest 1 view on 04/27/2013 at 1028 hours. TECHNIQUE: AP view of the chest FINDINGS: Postsurgical changes are stable. The cardiomediastinal silhouette is unchanged. Again seen is calcification of the aortic knob. The right costophrenic angle is sharp. There is no appreciable pneumothorax. Again seen is a small left pleural effusion. There is a persistent, left retrocardiac opacity which obliterates the silhouette of the descending thoracic aorta and the left hemidiaphragm. This opacity represents, singly or in combination, layerin g left pleural effusion with or without left lower lobe consolidation or atelectasis. IMPRESSION: No significant change. CHEMISTRY U Chloride null 04/27 [facility] CHEMISTRY U Potassium 20.9 meq/L 04/27 29Interpretiv e Data: No [facility] Center reference ranges. CHEMISTRY U Sodium 20 meq/L 04/27 27Interpretiv e Data: No [facility] Center reference ranges. URINALYSIS UA Mucus Few /LPF None Seen 04/27 [facility] URINALYSIS UA Ketones Negative Negative 04/27 [facility] mg/dL [facility] URINALYSIS UA Glucose Negative Negative 04/27 [facility] mg/dL [facility] URINALYSIS UA Nitrite Negative Negative 04/27 Normal [facility] (04/27/2013 06:45:00) Center URINALYSIS UA Protein Negative Negative 04/27 Normal [facility] mg/dL [facility] URINALYSIS UA Leuk Est Negative Negative 04/27 Normal [facility] (04/27/2013 06:45:00) Center URINALYSIS UA WBC 1 /HPF 0 - 5 04/27 Normal [facility] URINALYSIS UA Blood Negative Negative 04/27 Normal [facility] (04/27/2013 06:45:00) Center URINALYSIS UA Bili Negative Negative 04/27 [facility] *NA* [place] (04/27/2013 06:45:00) URINALYSIS UA Sq Epi Many /LPF Few 04/27 ABN [facility] URINALYSIS UA RBC null 0 - 2 04/27 Normal [facility] URINALYSIS UA Color Yellow Yellow 04/27 [facility] *NA* [place] (04/27/2013 06:45:00) URINALYSIS UA pH 5.0 5.0 - 8.0 04/27 Normal [facility] URINALYSIS UA Spec Grav 1.012 <=1.030 04/27 Normal [facility] URINALYSIS UA Turbidity Clear Clear 04/27 Normal [facility] (04/27/2013 06:45:00) [place] URINALYSIS UA <=1.0 0.1 - 1.0 04/27 [facility] Urobilinogen mg/dL [facility] STOOL TESTS Occult Bld Positive Negative 04/[address] [facility] *ABN* [place] (04/27/2013 04:41:09) CHEMISTRY A/G Ratio 0.8 0.7 - 1.6 04/27 Normal [facility] CHEMISTRY Globulin 3.3 g/dL 2.0 - 4.0 04/27 Normal [facility] CHEMISTRY B/C Ratio 61 6 - 25 04/27 [place] [facility] CHEMISTRY Total Protein 6.0 g/dL 6.4 - 8.4 04/27 LOW [facility] CHEMISTRY Bili Total 0.5 mg/dL 0.2 - 1.3 04/27 Normal [facility] CHEMISTRY ASPARTATE 37 unit/L 0 - 37 04/27 Normal [facility] TRANSAMINASE [facility] CHEMISTRY Alk Phos 76 unit/L 39 - 136 04/27 Normal [facility] CHEMISTRY Albumin Lvl 2.7 g/dL 3.5 - 5.0 04/27 LOW [facility]2013 [facility] CHEMISTRY ALANINE 38 unit/L 0 - 65 04/27 Normal [facility] AMINOTRANSFER [facility] HEMATOLOGY Basophils # 0.1 K/CMM 0.0 - 0.2 04/27 Normal [facility] HEMATOLOGY Lymphocytes # 1.0 K/CMM 1.0 - 5.5 04/27 Normal [facility] HEMATOLOGY Monocytes # 0.9 K/CMM 0.0 - 0.8 04/27 [facility] HEMATOLOGY Eosinophils # 0.6 K/CMM 0.0 - 0.5 04/27 [facility] HEMATOLOGY Segs 81.8 % 45.0 - 04/27 [facility] 75.0 [facility] HEMATOLOGY Lymphocytes 7.0 % 20.0 - 04/27 LOW [facility] 40.0 [facility] HEMATOLOGY Monocytes 6.6 % 2.0 - 12.0 04/27 Normal [facility] HEMATOLOGY Basophils 0.6 % 0.0 - 1.0 04/27 [facility] HEMATOLOGY Eosinophils 4.0 % 0.0 - 4.0 04/27 Normal [facility] HEMATOLOGY Segs-Bands # 11.7 K/CMM 1.5 - 8.1 04/27 [facility] 2013 [facility] Chest 1view Chest 1view PORTABLE CHEST 2013-04-27 11:17:00 04/27 - - [facility] COMPARISON: 04/26/2013 Read by: Yoav Reinoso Dictated Date/time: 04/27/13 12:10 Electronically Signed by: Yoav Reinoso MD 04/27/13 12:10 FINAL REPORT CLINICAL INDICATION: Shortness of Breath DISCUSSION: Note again of left pleural effusion and left retrocardiac opacity. Left upper lung and right lung are clear. Cardiac silhouette and mediastinum are unchanged. Left upper extremity PICC has been removed in the interim. CHEMISTRY POC A Na 138 meq/L 135 - 145 04/26 Normal [facility] CHEMISTRY POC A K 3.9 meq/L 3.5 - 5.1 04/26 Normal [facility] CHEMISTRY POC A Ca Ion 1.12 1.05 - 04/26 Normal [facility] mMol/L 1. [facility] CHEMISTRY POC A Temp 37.0 Felisha 04/26 [facility] CHEMISTRY POC A Source ART 04/26 [facility] CHEMISTRY POC A O2 Sat 99.0 % 95.0 - 04/26 Normal [facility] 100.0 [facility] CHEMISTRY POC A HCO3 32 mMol/L 22 - 26 04/26 HI [facility] CHEMISTRY POC A Hct 32.0 % 36.0 - 04/26 LOW [facility] 48.0 [facility] CHEMISTRY POC A BE 8 mMol/L -2-2 - 2 04/26 [facility] CHEMISTRY POC A LA 0.6 mMol/L 0.5 - 2.2 04/26 Normal [facility] CHEMISTRY POC A pH 7.48 7.35 - 04/26 [facility] 7.45 [facility] CHEMISTRY POC A PO2 123 mm[Hg] 80 - 100 04/26 [facility] CHEMISTRY POC A PCO2 43 mm[Hg] 35 - 45 04/26 Normal [facility] CHEMISTRY POC A Glu 241 mg/dL 70 - 99 04/26 [facility] CHEMISTRY Ca Ion WB 1.08 1.05 - 04/26 Normal [place] mMol/L 1. [facility] CHEMISTRY Ca Norm WB 1.06 1.05 - 04/26 Normal [facility] mMol/L 1. [facility] Chest 1view Chest 1view EXAM: Portable chest radiograph 04/26/2013 at 7:44. 04/26 - - [facility] COMPARISON: Portable chest 04/24/2013. Read by: Kenzie Guillen Dictated Date/time: 04/26/13 09:29 Electronically Signed by: Kenzie Guillen MD 04/26/13 14:06 FINAL REPORT HISTORY: Abnormal chest sounds. FINDINGS: 2 AP portable views of the chest were obtained. Postsurgical sternotomy wires and skin thalia are unchanged. A left upper extremity PICC terminates in the superior vena cava. The cardiac silhouette is unchanged. Atheromatous changes are present in the aorta. Layering left pleural effusion persists with dense retrocardiac opacity. Right basilar atelectasis is present. No pneumothorax. No edema. IMPRESSION: No significant interval change in the layering left pleural effusion and dense retrocardiac opacity. CHEMISTRY POC A Mode 4LPM 04/25 [facility] CHEMISTRY POC A PCO2 44 mm[Hg] 35 - 45 04/25 Normal [facility] CHEMISTRY POC A Ca Ion 1.11 1.05 - 04/25 Normal [facility] mMol/L 1. [facility] CHEMISTRY POC A K 4.6 meq/L 3.5 - 5.1 04/25 Normal [facility] CHEMISTRY POC A LA 0.6 mMol/L 0.5 - 2.2 04/25 Normal [facility] CHEMISTRY POC A Glu 257 mg/dL 70 - 99 04/25 [facility] CHEMISTRY POC A O2 Sat 95.0 % 95.0 - 04/25 Normal [facility] 100.0 [facility] CHEMISTRY POC A BE 8 mMol/L -2-2 - 2 04/25 HI [facility] CHEMISTRY POC A HCO3 33 mMol/L 22 - 26 04/25 HI [facility] CHEMISTRY POC A Hct 34.0 % 36.0 - 04/25 LOW [facility] 48.0 [facility] CHEMISTRY POC A Na 136 meq/L 135 - 145 04/25 Normal [facility] CHEMISTRY POC A Source ART 04/25 [facility] CHEMISTRY POC A pH 7.48 7.35 - 04/25 [facility] 7.45 [facility] CHEMISTRY POC A Temp 37.0 Felisha 04/25 [facility] CHEMISTRY POC A PO2 69 mm[Hg] 80 - 100 04/25 LOW [facility] Chest 1view Chest 1view EXAM: Portable chest radiograph 04/24/2013 at 20:01 compared to portable chest radiograph 04/24/2013. 04/24 - - [facility] HISTORY: Chest pain. Read by: Kenzie Guillen Dictated Date/time: 04/25/13 13:45 Electronically Signed by: Kenzie Guillen MD 04/25/13 16:04 FINAL REPORT FINDINGS: A single AP portable view of the chest was obtained. The Dobbhoff feeding tube has been removed. Sternotomy wires and surgical skin thalia remain in place. The cardiac silhouette is at the upper limits of normal. Atheromatous changes are present in the aorta. There is a layering left pleural effusion with atelectatic change. The right lung is clear. IMPRESSION: 1. Interval removal of Dobbhoff feeding tube, otherwise unchanged appearance. 2. Persistent layering left pleural effusion with basilar atelectasis. Chest 1view Chest 1view Chest one view, April 24, 2013 at 4:[address] HISTORY: 62-year-old female with abnormal chest sounds. Read by: Siria Butler Dictated Date/time: 04/24/13 08:42 Electronically Signed by: Siria Butler MD 04/24/13 10:33 FINAL REPORT FINDINGS: Comparison is made to yesterday. The cardiomediastinal silhouette is prominent but stable. Postoperative changes, life support lines and tubes are stable. A moderate left pleural effusion obscures the left cardiac margin and tracks lat erally towards the apex with fluid also noted to layer posteriorly. There is a left retrocardiac opacity which may be due to a layering left pleural effusion and/or a left lower lobe air space opacity s uch as pneumonia or atelectasis. The left upper lobe and right lung are clear. IMPRESSION: 1. Persistent moderately sized left pleural effusion. 2. There is a left retrocardiac opacity which may be due to a layering left pleural effusion and/or a left lower lobe air space opacity such as pneumonia or atelectasis. Chest 1view Chest 1view Chest one view, April 23, 2013 at 1628 04/[address] HISTORY: 62-year-old female with tube placement/removal/reposition. Read by: Siria Butler Dictated Date/time: 04/24/13 08:40 Electronically Signed by: Siria Butler MD 04/24/13 10:33 FINAL REPORT FINDINGS: Comparison is made to April 23 at 1:09 a.m. The cardiomediastinal silhouette is prominent but stable with stable widening of the mediastinum. Postoperative changes are stable. A left basal chest tube has been removed. Other life support lines and tubes remain in place. A moderate left pleural effusion obscures the left lower lobe and costophrenic sulcus with fluid layering posteriorly. There is a tiny focus of gas at the left base where the chest tube previously resid ed probably indicating a small amount of residual gas in the left basal pleural space. Note is made of a tiny right pleural effusion. There is a left retrocardiac opacity which may be due to a layering left pleural effusion and/or a left lower lobe air space opacity such as pneumonia or atelectasis. There is right infrahilar platelike atelectasis. IMPRESSION: 1. Persistent moderately sized left pleural effusion. The left basal chest tube has been removed, leaving behind a tiny focus of gas which is probably a very small left basal pneumothorax. 2. Tiny right pleural effusion. 3. There is a left retrocardiac opacity which may be due to a layering left pleural effusion and/or a left lower lobe air space opacity such as pneumonia or atelectasis. 4. Right infrahilar platelike atelectasis. HVI VAS HVI VAS INDICATION: Limb swelling 04/23 - [facility] Venous Venous Lower /2013 - Medical Lower Ext Ext Unil This report was dictated by a Sales Development Associate /Fellow. I have personally reviewed the images as Center [facility] Doppler well as the Resident's interpretation and agree with the findings. Doppler IMPRESSION: Read by: Abdon Brown Resident: Abdon Brown Dictated Date/time: 04/23/13 14:45 There is no evidence of deep venous thrombosis. Electronically Signed by: Nella Cavazos MD 04/25/13 12:18 FINAL REPORT . No prior study is available for comparison. COMMENT: Bilateral lower extremity lopez scale, color-flow, and Doppler examination of the venous system was performed. Examination of bilateral distal external iliac, common femoral, superficial femoral, deep femoral, and popliteal veins demonstrate normal phasic flow and appropriate response to compression and augmenta tion. Calf veins including the posterior tibial and peroneal veins are also imaged. There is no evidence of deep venous thrombosis. Technically limited study and right distal superficial femoral vein, p opliteal vein, peroneal vein, and small saphenous vein not visualized. CHEMISTRY POC A PCO2 46 mm[Hg] 35 - 45 04/23 [facility] CHEMISTRY POC A HCO3 34 mMol/L 22 - 26 04/23 [facility] CHEMISTRY POC A BE 9 mMol/L -2-2 - 2 04/23 [facility] CHEMISTRY POC A PO2 69 mm[Hg] 80 - 100 04/23 LOW [facility] CHEMISTRY POC A Source ART 04/23 [facility] CHEMISTRY POC A Temp 37.0 Felisha 04/23 [facility] CHEMISTRY POC A pH 7.47 7.35 - 04/23 HI [facility] 7.45 [facility] CHEMISTRY POC A O2 Sat 95.0 % 95.0 - 04/23 Normal [facility] 100.0 [facility] HEMATOLOGY aPTT 23.2 s 22.9 - 04/23 Normal 33Interpretiv [facility] 35.8 /2013 e Data: [facility] Therapeutic Range: 57 - 92 Seconds HEMATOLOGY PROTIME 13.5 s 12.0 - 04/23 Normal [facility] 14.7 [facility] HEMATOLOGY INR 1.04 0.85 - 04/23 Normal 30Interpretive Data: RECOMMENDED RANGES FOR PROTIME INR: [facility] . 2.0-3.0 for most medical and surgical thromboembolic states. Medical 2.5-3.5 for artificial heart valves and recurrent embolism. Center INR SHOULD BE USED ONLY FOR PATIENTS ON STABLE ANTICOAGULANT THERAPY. Chest 1view Chest 1view Chest one view, April 23, 2013 at 1:09 a.m. - - [facility] HISTORY: 62-year-old female with abnormal chest sounds. Read by: Siria Butler Dictated Date/time: 04/23/13 09:48 Electronically Signed by: Siria Butler MD 04/23/13 12:20 FINAL REPORT FINDINGS: Comparison is made to April 22. The cardiomediastinal silhouette, postoperative changes, life support lines and tubes are stable. A moderate left pleural effusion obscures the left cardiac margin and tracks laterally to the apex with fluid layering posteriorly. There is a left retrocardiac opacity which may be due to a layering left pleural effusion and/or a left lower lobe air space opacity such as pneumonia or atelectasis. The right lung is clear and well expanded. IMPRESSION: No significant change since yesterday morning. HEMATOLOGY INR 1.10 0.85 - 04/22 Normal 31Interpretive Data: RECOMMENDED RANGES FOR PROTIME INR: [facility] . 2.0-3.0 for most medical and surgical thromboembolic states. Medical 2.5-3.5 for artificial heart valves and recurrent embolism. Center INR SHOULD BE USED ONLY FOR PATIENTS ON STABLE ANTICOAGULANT THERAPY. HEMATOLOGY aPTT 26.5 s 22.9 - 04/22 Normal 34Interpretiv [facility] 35.8 /2013 e Data: [facility] [place] Therapeutic Range: 57 - 92 Seconds HEMATOLOGY PROTIME 14.1 s 12.0 - 04/22 Normal [facility] 14.7 [facility] HEMATOLOGY Ludy Cell Slight None Seen 04/22 [facility] (04/22/2013 03:12:00) HEMATOLOGY Large Plt Slight None Seen 04/22 [facility] (04/22/2013 03:12:00) HEMATOLOGY Elliptocyte Slight None Seen 04/22 [facility] (04/22/2013 03:12:00) HEMATOLOGY Polychrom Slight None Seen 04/22 Normal [facility] (04/22/2013 03:12:00) [place] HEMATOLOGY Rouleaux Present None Seen 04/22 [facility] (04/22/2013 03:12:00) HEMATOLOGY Hypochrom Slight None Seen 04/22 Normal [facility] (04/22/2013 03:12:00) [place] Chest 1view Chest 1view PORTABLE CHEST 2013-04-22 01:26:00 04/22 - - [facility] COMPARISON: 04/21/2013 at 1:45 a.m. Read by: Vik Larkin Dictated Date/time: 04/22/13 09:08 Electronically Signed by: Vik Larkin MD 04/22/13 09:10 FINAL REPORT CLINICAL INDICATION: Abnormal chest sounds DISCUSSION: Stable support lines and tubes. Stable appearance of the heart size and mediastinum and postoperative findings. Persistent left retrocardiac opacity which obliterates the silhouette of the descending thoracic aorta and the left hemidiaphragm. This opacity represents, singly or in combination, layering left pleur al effusion with or without left lower lobe consolidation or atelectasis. CONCLUSION: There has been no significant interval change in the radiographic appearance of the chest when compared to prior radiograph. HEMATOLOGY Smudge Slight None Seen 04/21 Normal [facility] (04/21/2013 02:11:00) [place] HEMATOLOGY Polychrom Slight None Seen 04/21 Normal [facility] (04/21/2013 02:11:00) [place] HEMATOLOGY Plt Morph Normal 04/21 Normal [facility] (04/21/2013 02:11:00) [place] Chest 1view Chest 1view Chest one view, April 21, 2013 at 1:45 a.m. - [facility] - [facility] HISTORY: 62-year-old female with coughing. Read by: Siria Butler Dictated Date/time: 04/21/13 09:57 Electronically Signed by: Siria Butler MD 04/21/13 12:06 FINAL REPORT FINDINGS: Comparison is made to yesterday. The lungs are low in volume. There is a left retrocardiac opacity which may be due to a layering left pleural effusion and/or a left lower lobe air space opacity such as pneumonia or atelectasis. There is platelike atelectasis in both lower lungs. A left pleural effusion obscures the left hemidiaphragm and costophrenic sulcus with fluid tracking laterally. A left basal chest tube remains in place. The cardiomediastinum, postoperative changes, life support lines and tubes remain in place except for a right jugular sheath which was removed in the interim. IMPRESSION: 1. A left pleural effusion, slightly increased or redistributed since yesterday. 2. There is a left retrocardiac opacity which may be due to a layering left pleural effusion and/or a left lower lobe air space opacity such as pneumonia or atelectasis. 3. Low lung volumes with platelike atelectasis in both lower lobes. CHEMISTRY POC A Ca Ion 1.19 1.05 - 04/20 Normal [facility] mMol/L 1. [facility] CHEMISTRY POC A LA 1.3 mMol/L 0.5 - 2.2 04/[address] CHEMISTRY POC A Glu 99 mg/dL 70 - 99 04/[address] CHEMISTRY POC A Hct 33.0 % 36.0 - 04/20 [facility] 48.0 [facility] CHEMISTRY POC A Na 146 meq/L 135 - 145 04/20 [facility] CHEMISTRY POC A K 3.3 meq/L 3.5 - 5.1 04/[address] Abdomen AP Abdomen AP EXAM: Abdomen 1 view 04/20 [facility] view view [facility] DATE: Apr 20, 2013 12:48:00 PM. Read by: Evelia Lewis Dictated Date/time: 04/20/13 14:32 Electronically Signed by: Evelia Lewis MD 04/20/13 14:36 FINAL REPORT CLINICAL INDICATION: Tube placement/removal/reposition . COMPARISON: 04/18/2013 FINDINGS: Feeding tube is terminating in the first portion of duodenum. Nasogastric tube has been removed. Few midline mediastinal drains are also no longer seen. Bowel gas pattern is nonspecific and nonobstructed to the extent imaged. IMPRESSION: 1. Feeding tube is terminating in the first portion of duodenum. 2. Nasogastric tube has been removed. HEMATOLOGY Polychrom Slight None Seen 04/20 Normal [facility] (04/20/2013 02:54:00) [place] HEMATOLOGY Elliptocyte Slight None [facility] [place] (04/[facility]/2013 02:54:00) HEMATOLOGY Toxic Gran Slight None Seen 04/20 [facility]* [place] (04/20/2013 02:54:00) HEMATOLOGY Plt Morph Normal 04/20 Normal [facility] (04/20/2013 02:54:00) [place] Chest 1view Chest 1view EXAM: CHEST 1 VIEW 04/20 [facility] DATE: Apr 20, 2013 02:39:00 AM Read by: Mi Keating Dictated Date/time: 04/20/13 08:10 Electronically Signed by: Mi Keating MD 04/20/13 08:14 FINAL REPORT INDICATION: Chest pain COMPARISON: April 19, 2013 at 0111 hours TECHNIQUE: A single portable view of the chest FINDINGS: Paired anterior drains have been removed in no longer project near midline. Nasogastric tube has been removed. Other tubes project in overall unchanged position compared with the prior. A small left lateral pneumothorax is present. There is some improved aeration within the left lower lobe. There is however persistent alveolar opacity of left lower lobe as well as persistent left effus ion. Right effusion has decreased but blunts right costophrenic recess. IMPRESSION: 1. Nasogastric tube removed and paired anterior drains removed. 2. Minimal improvement in aeration of the left lower lobe. Persistent left lower lobe opacity due singly or in combination to effusion, atelectasis or pneumonia. 3. Persistent bilateral effusions, left greater than right. 4. Small right lower lobe opacity most consistent with subsegmental atelectasis. CHEMISTRY POC A PEEP 5.0 0.0 - 40.0 04/19 Normal [facility] cm[H2O] /2012 [facility] CHEMISTRY POC A CPAP 0.0 0.0 - 40.0 04/19 Normal [facility] cm[H2O] [facility] CHEMISTRY POC A %FIO2 40.0 % 18.0 - 04/19 Normal [facility] 100.0 [facility] CHEMISTRY POC A PEEP 5.0 0.0 - 40.0 04/19 Normal [facility] cm[H2O] [facility] CHEMISTRY POC A %FIO2 40.0 % 18.0 - 04/19 Normal [facility] 100.0 [facility] CHEMISTRY POC A Mode CPAP 04/19 [facility] CHEMISTRY POC A Peak 15.0 0.0 - 04/19 Normal [facility] cm[H2O] 100.0 /2012 [facility] HEMATOLOGY aPTT 32.3 s 22.9 - 04/19 Normal 35Interpretiv [facility] 35.8 /2012 e Data: [facility] Therapeutic Range: 57 - 92 Seconds HEMATOLOGY PROTIME 15.7 s 12.0 - 04/19 HI [facility] 14.7 /2012 [facility] HEMATOLOGY INR 1.27 0.85 - 04/19 [place] 32Interpretive Data: RECOMMENDED RANGES FOR PROTIME INR: [facility] 1.17 /2012 2.0-3.0 for most medical and surgical thromboembolic states. Medical 2.5-3.5 for artificial heart valves and recurrent embolism. Center INR SHOULD BE USED ONLY FOR PATIENTS ON STABLE ANTICOAGULANT THERAPY. CHEMISTRY POC A PEEP 5.0 0.0 - 40.0 04/19 Normal [facility] cm[H2O] /2012 [facility] CHEMISTRY POC A %FIO2 50.0 % 18.0 - 04/19 Normal [facility] 100.0 [facility] CHEMISTRY POC A VT 550 mL 2 - 1200 04/19 Normal [facility] CHEMISTRY POC A Mech 16 bpm 0 - 70 04/19 Normal [facility] CHEMISTRY POC A Mode SIMV 04/19 [facility] Chest 1view Chest 1view EXAM: XR CHEST 1 VIEW 04/19 - [facility] - [facility] DATE: Apr 19, 2013 01:35:00 AM Read by: Delio Bui Dictated Date/time: 04/19/13 10:40 Electronically Signed by: Delio Bui MD 04/19/13 10:40 FINAL REPORT INDICATION: Coughing COMPARISON: 04/18/2013 TECHNIQUE: AP semi- upright view of the chest FINDINGS: The endotracheal, enteric, venous and drainage catheters are unchanged in positioning. There is increased attenuation at the lung bases bilaterally, most likely representing atelectasis. Small left effusion is present. The cardiopericardial silhouette and mediastinal contours are stable. IMPRESSION: There has been no significant change since prior study Tubes and lines without findings of aberrant positioning CHEMISTRY Vanco Tr 17.1 ug/ml 04/18 25Interpretive Data: Therapeutic Range: Trough: 10 - 20 ug/mL [facility] Peak: 20 - 40 ug/mL [place] Potential Toxicity: >80 ug/mL CHEMISTRY Vanco Tr TND 04/19 04/18 [facility] Chest 1view Chest 1view EXAM: XR CHEST 1 VIEW 04/18 - [facility] DATE: Apr 18, 2013 06:27:00 PM Read by: Delio Bui Dictated Date/time: 04/19/13 07:50 Electronically Signed by: Delio Bui MD 04/19/13 07:51 FINAL REPORT INDICATION: tube placement COMPARISON: 04/18/2013 at 1:53 p.m. TECHNIQUE: AP semi- upright view of the chest FINDINGS: The Murray-Leah catheter has been removed. The right IJ access remains in place. Other tubes and lines remain stable in position. There is increased attenuation at the lung bases bilaterally, mo st likely representing atelectasis. Small left effusion is present. The cardiopericardial silhouette and mediastinal contours are stable. IMPRESSION: Removal OF Murray-Leah catheter. No significant changes otherwise Abdomen AP Abdomen AP EXAM: XR ABDOMEN 1 VIEW 04/18 [facility] view view /2012 [facility] DATE: Apr 18, 2013 02:43:00 PM Read by: Delio Bui Dictated Date/time: 04/19/13 07:52 Electronically Signed by: Delio Bui MD 04/19/13 07:54 FINAL REPORT INDICATION: Tube placement/removal/reposition COMPARISON: 04/18/2013 TECHNIQUE: AP semi- upright view of the chest FINDINGS: Ductal tube tip is near the gastric antrum or duodenal bulb. Orogastric tube appears well-positioned. There is no evidence of obstruction. Epidural catheter and multiple support lines and tubes are again noted. IMPRESSION: Tube positioning as above Chest 1view Chest 1view EXAM: XR CHEST 1 VIEW 04/18 [facility] /2012 [facility] DATE: Apr 18, 2013 02:42:00 PM Read by: Delio Bui Dictated Date/time: 04/19/13 08:35 Electronically Signed by: Delio Bui MD 04/19/13 08:38 FINAL REPORT INDICATION: Tube placement/removal/reposition COMPARISON: 04/18/2013 at 1:11 a.m. TECHNIQUE: AP semi- upright view of the chest FINDINGS: A Dobbhoff tube as been placed in the right lower lobe bronchus. No pneumothorax is evident. At the time of this interpretation, repeat exam after repositioning had been obtained. Other tubes and lines remain stable in position. There is increased attenuation at the lung bases bilaterally, most likely representing atelectasis. The cardiopericardial silhouette and mediastinal contours are stable. Small left effusion is present IMPRESSION: Right lower lobe placement of Dobbhoff tube without evidence of pneumothorax. At the time of this interpretation repeat exam showing repositioning had been obtained No significant changes otherwise CHEMISTRY POC A VT 550 mL 2 - 1200 04/18 Normal [facility] Brain wo Brain wo EXAMINATION: CT head without contrast. 04/18 [facility] contrast CT contrast CT /2012 [facility] DATE: 04/18/2013. Read by: Clint Chatterjee Dictated Date/time: 04/18/13 13:56 Electronically Signed by: Clint Chatterjee MD 04/18/13 13:57 FINAL REPORT INDICATION: Altered level consciousness. DISCUSSION: Noncontrast images of the head are compared to a study dated . There is no edema, hemorrhage, or other acute abnormality. Chronic lacunar ischemic changes are again noted in the left external capsule. The sinuses and skull base are unremarkable. IMPRESSION: No acute abnormality HEMATOLOGY Anisocyte 1+ None Seen 04/18 [facility] (04/18/2013 03:40:00) HEMATOLOGY Toxic Gran Slight None Seen 04/18 [facility] (04/18/2013 03:40:00) Chest 1view Chest 1view EXAM: XR CHEST 1 VIEW 04/18 - [facility] - [facility] DATE: Apr 18, 2013 01:39:00 AM Read by: Delio Bui Dictated Date/time: 04/18/13 10:44 Electronically Signed by: Delio Bui MD 04/18/13 10:46 FINAL REPORT INDICATION: Coughing COMPARISON: 04/17/2013 TECHNIQUE: AP semi- upright view of the chest FINDINGS: The endotracheal, enteric and venous catheters are unchanged in positioning. There is increased attenuation at the lung bases bilaterally, most likely representing atelectasis and low lung vol umes bilaterally. There is no significant pleural fluid. The cardiopericardial silhouette and mediastinal contours are stable. IMPRESSION: Diminished lung volumes and basilar atelectasis. No significant changes otherwise CHEMISTRY Lactic Acid 1.2 mMol/L 0.5 - 2.2 04/17 Normal [facility] CHEMISTRY Lipase Lvl 100 unit/L 73 - 393 04/17 Normal [facility] CHEMISTRY Amylase Lvl 23 unit/L 25 - 115 04/17 LOW [facility] CHEMISTRY A/G Ratio 1.4 0.7 - 1.6 04/17 Normal [facility] CHEMISTRY Bili Indirect 0.6 mg/dL 0.0 - 1.0 04/17 Normal [facility] CHEMISTRY Globulin 2.5 g/dL 2.0 - 4.0 04/17 Normal [facility] CHEMISTRY Bili Total 1.1 mg/dL 0.2 - 1.3 04/17 Normal [facility] CHEMISTRY Total Protein 6.1 g/dL 6.4 - 8.4 04/17 LOW [facility] CHEMISTRY ASPARTATE 40 unit/L 0 - 37 04/17 HI TRANSAMINASE [facility] [place] CHEMISTRY Alk Phos 58 unit/L 39 - 136 04/17 Normal [facility] CHEMISTRY Bili Direct 0.5 mg/dL 0.0 - 0.3 04/17 HI [facility] CHEMISTRY Albumin Lvl 3.6 g/dL 3.5 - 5.0 04/17 Normal [facility] CHEMISTRY ALANINE 38 unit/L 0 - 65 04/17 Normal [facility] AMINO [facility] HEMATOLOGY Anisocyte 1+ None Seen 04/17 ABN Medical *ABN* Center (04/16/2013 23:27:20) CHEMISTRY POC V BE -2 mmol/L -2-2 - 2 04/17 Normal [facility] CHEMISTRY POC V PO2 33 mm[Hg] 20 - 49 04/17 Normal [facility] CHEMISTRY POC V HCO3 24 mmol/L 22 - 26 04/17 Normal [facility] CHEMISTRY POC V VT 550 mL 2 - 1200 04/17 Normal [facility] CHEMISTRY POC V Mech 14 bpm 0 - 70 04/17 Normal [facility] CHEMISTRY POC V Mode AC 04/17 [facility] CHEMISTRY POC V Glu 110 mg/dL 70 - 99 04/17 HI [facility] CHEMISTRY POC V O2 Sat 58.0 % 40.0 - 04/17 Normal 70.0 [facility] CHEMISTRY POC V %FIO2 60.0 % 18.0 - 04/17 Normal [facility] 100.0 [facility] CHEMISTRY POC V PEEP 7.0 0.0 - 40.0 04/17 Normal [facility] cm[H2O] [facility] [place] CHEMISTRY POC V LA 0.7 mMol/L 0.5 - 2.2 04/17 Normal [facility] CHEMISTRY POC V pH 7.33 7.28 - 04/17 Normal [facility] 7.42 [facility] CHEMISTRY POC V PCO2 45 mm[Hg] 38 - 52 04/17 Normal [facility] CHEMISTRY POC V K 3.9 meq/L 3.5 - 5.1 04/17 Normal [facility] CHEMISTRY POC V Na 147 meq/L 135 - 145 04/17 HI [facility] CHEMISTRY POC V Ion Ca 1.14 1.05 - 04/17 Normal [facility] mMol/L 1. [facility] CHEMISTRY POC V Temp 37.0 Felisha 04/17 [facility] CHEMISTRY POC V Hct 30.0 % 36.0 - 04/17 LOW [facility] 48.0 [facility] CHEMISTRY POC V Source EVANGELINA 04/17 [facility] CHEMISTRY POC A VT 550 mL 2 - 1200 04/17 Normal [facility] CHEMISTRY POC A Mech 14 bpm 0 - 70 04/17 Normal [facility] Rate [facility] Chest 1view Chest 1view Portable ap semierect chest 04/17/201304/17 - - [facility] HISTORY: Cough. Comparison is made with yesterday. Read by: Kady Arrington Dictated Date/time: 04/17/13 09:05 Electronically Signed by: Kady Arrington MD 04/17/13 09:42 FINAL REPORT FINDINGS: Cardiomediastinal silhouette, postoperative changes and life support lines remains stable. The tip of the Murray-Leah catheter is in the pulmonary trunk; however, the Murray-Leah catheter is loope d in the right atrium stable since the prior chest radiographs. Costophrenic sulci are sharp. No pneumothorax is identified, however, a supine film is suboptimal for that determination. An erect film of the chest is suggested in order to more accurately exclude a pneumothorax. Lung volumes are diminished with resultant elevation of the hemidiaphragms , spurious widening of the diameter of the heart and crowding of the basal lung markings. This produces subsegmental atelectasi s at both lung bases. The upper lungs are clear. CONCLUSION: No significant interval change in the appearance of the chest when compared to prior radiograph. CHEMISTRY POC V pH 7.30 7.28 - 04/16 Normal [facility] 7.42 [facility] CHEMISTRY POC V LA 0.7 mMol/L 0.5 - 2.2 04/16 Normal [facility] CHEMISTRY POC V PCO2 46 mm[Hg] 38 - 52 04/16 Normal [facility] CHEMISTRY POC V Ion Ca 1.18 1.05 - 04/16 Normal [facility] mMol/L 1. [facility] CHEMISTRY POC V Hct 31.0 % 36.0 - 04/16 LOW [facility] 48.0 [facility] CHEMISTRY POC V Source EVANGELINA 04/16 [facility] [place] CHEMISTRY POC V Temp 37.0 Felisha 04/16 [facility] CHEMISTRY POC V Glu 132 mg/dL 70 - 99 04/16 HI [facility] CHEMISTRY POC V O2 Sat 52.0 % 40.0 - 04/16 Normal 70.0 [facility] [place] CHEMISTRY POC V PO2 31 mm[Hg] 20 - 49 04/16 Normal [facility] CHEMISTRY POC V HCO3 23 mmol/L 22 - 26 04/16 Normal [facility] CHEMISTRY POC V K 4.2 meq/L 3.5 - 5.1 04/16 Normal [facility] CHEMISTRY POC V Na 149 meq/L 135 - 145 04/16 [facility] CHEMISTRY POC V BE -4 mmol/L -2-2 - 2 04/16 LOW [facility] CHEMISTRY Lactic Acid 0.9 mMol/L 0.5 - 2.2 04/16 Normal [facility] Lvl [facility] CHEMISTRY Lipase Lvl 69 unit/L 73 - 393 04/16 LOW [facility] CHEMISTRY Amylase Lvl 21 unit/L 25 - 115 04/16 LOW [facility] CHEMISTRY ALANINE 44 unit/L 0 - 65 04/16 Normal [facility] AMINO [facility] CHEMISTRY Total Protein 5.8 g/dL 6.4 - 8.4 04/16 LOW [facility] CHEMISTRY Bili Total 1.6 mg/dL 0.2 - 1.3 04/16 [facility] CHEMISTRY Bili Direct 0.7 mg/dL 0.0 - 0.3 04/16 HI [facility] CHEMISTRY ASPARTATE 43 unit/L 0 - 37 04/16 [facility] CHEMISTRY Alk Phos 40 unit/L 39 - 136 04/16 Normal [facility] CHEMISTRY Albumin Lvl 3.8 g/dL 3.5 - 5.0 04/16 Normal [facility] CHEMISTRY A/G Ratio 1.9 0.7 - 1.6 04/16 [facility] CHEMISTRY Globulin 2.0 g/dL 2.0 - 4.0 04/16 Normal [facility] CHEMISTRY Bili Indirect 0.9 mg/dL 0.0 - 1.0 04/16 Normal [facility] CHEMISTRY POC A [facility] 14 bpm 0 - 70 04/16 Normal [facility] [place] BLOOD BANK RBC product Product available 04/16 Normal [facility] Medical (04/16/2013 14:04:00) [place] BLOOD BANK FFP product Product available 04/16 Normal Medical (04/16/2013 13:14:00) [place] BLOOD BANK RBC product Product available 04/16 Normal [facility] Medical (04/16/2013 13:14:00) [place] BLOOD BANK ABO/Rh B POS 04/16 [facility] BLOOD BANK Antibody Scrn Negative 04/16 Normal [facility] Medical (04/16/2013 12:30:00) [place] Chest 1view Chest 1view EXAM: XR CHEST 1 VIEW 04/16 - - [facility] This report was dictated by a Sales Development Associate/Fellow. I have personally reviewed the images as Center well as the Resident's interpretation and agree with the findings. DATE: Apr 16, 2013 04:36:00 PM Read by: Velvet Tomlinson Resident: Velvet Tomlinson Dictated Date/time: 04/17/13 08:53 Electronically Signed by: Kady Arrington MD 04/30/13 10:37 FINAL REPORT INDICATION: Chest pain. COMPARISON: 04/16/2013 at 1524 hours. TECHNIQUE: Supine AP view of the chest FINDINGS: Exam is partially limited by patient rotation. Endotracheal tube tip is approximately 3 cm above the jadon. Nasogastric tube is seen with sideport in the stomach. Note is again made of Murray-G anz catheter making a loop within the right atrium. The tip of the Murray- Leah catheter is in the pulmonary trunk. Left-sided chest tube and mediastinal drain are present. There has been interval development of bilateral pleural effusions. No pneumothorax is seen on supine view, although it is suboptimal for that evaluation. Extremely low lung volumes with subsequent bron chovascular crowding. When compared with prior exam, there is increase in left retrocardiac opacity which may represent layering left pleural effusion, atelectasis, or focal consolidation. There has been interval placement of skin thalia over the midline of the chest. No acute osseous abnormality is seen. IMPRESSION: 1. Interval development of bilateral pleural effusions and left retrocardiac opacity. 2. Murray-Leah catheter making a loop within the right atrium with tip in the pulmonary trunk. Chest 2 Chest 2 views EXAM: XR CHEST 2 VIEWS 04/16 - [facility] - [facility] This report was dictated by a Sales Development Associate/Fellow. I have personally reviewed the images as Center well as the Resident's interpretation and agree with the findings. DATE: 04/16/2013 at 1524 Read by: Vik Fermin Resident: Vik Fermin Dictated Date/time: 04/16/13 15:55 Electronically Signed by: Vaibhav Acosta MD 04/16/13 16:10 FINAL REPORT INDICATION: trauma COMPARISON: X-ray chest one view 04/16/2013 at 0100 TECHNIQUE: Frontal and lateral chest radiographs DISCUSSION: Postoperative changes are identified. No focal consolidation, pleural effusion or pneumothorax is identified. Sternotomy wires and new surgical clips are noted overlying the heart. A left c hest tube and mediastinal drains are in place. A nasogastric tube is in place with its tip located overlying the stomach. Pulmonary vascularity is normal. No acute bony abnormality is identified. IMPRESSION: Expected postoperative changes with no acute abnormality identified. URINALYSIS Micro? Not Indicated 04/16 [facility] *NA* [place] (04/15/2013 23:02:50) URINALYSIS UA <=1.0 0.1 - 1.0 04/16 [facility] Urobilinogen mg/dL [facility] URINALYSIS UA Sq Epi Few /LPF Few 04/16 [facility] URINALYSIS UA WBC 1 /HPF 0 - 5 04/16 Normal [facility] URINALYSIS UA Bacteria Occasional None Seen 04/16 [facility] /HPF [facility] URINALYSIS UA Glucose Negative Negative 04/16 [facility] mg/dL [facility] URINALYSIS UA Protein Negative Negative 04/16 Normal [facility] mg/dL [facility] URINALYSIS UA pH 5.0 5.0 - 8.0 04/16 Normal [facility] URINALYSIS UA Leuk Est Negative Negative 04/16 Normal [facility] (04/15/2013 23:02:50) [place] URINALYSIS UA Bili Negative Negative 04/16 [facility] *NA* [place] (04/15/2013 23:02:50) URINALYSIS UA Nitrite Negative Negative 04/16 Normal [facility] (04/15/2013 23:02:50) [place] URINALYSIS UA Blood Negative Negative 04/16 Normal [facility] (04/15/2013 23:02:50) [place] URINALYSIS UA Ketones Negative Negative 04/16 [facility] mg/dL [facility] URINALYSIS UA Mucus Few /LPF None Seen 04/[address] URINALYSIS UA Hyal Cast 1 /LPF 0 - 2 04/16 Normal [facility] URINALYSIS UA Spec Grav 1.006 <=1.030 04/16 Normal [facility] URINALYSIS UA Color Light Yellow Yellow 04/16 [facility] *NA* [place] (04/15/2013 23:02:50) URINALYSIS UA Turbidity Clear Clear 04/16 Normal [facility] (04/15/2013 23:02:50) [place] CHEMISTRY Digoxin Lvl 1.0 ng/mL 0.8 - 2.0 04/16 Normal [facility] Chest 1view Chest 1view Portable ap semierect chest 04/16/201304/16 - [facility] - [facility] HISTORY: Cough. Comparison is made with yesterday. Read by: Kady Arrington Dictated Date/time: 04/16/13 09:12 Electronically Signed by: Kady Arrington MD 04/16/13 10:01 FINAL REPORT FINDINGS: Cardiomediastinal silhouette, postoperative changes and life support lines are stable. Although the tip of the Murray-Leah catheter is in the pulmonary trunk it is looped in the right atrium. There is a difference in lucency between the 2 hemithoraces with the left being more radiolucent than the right. The possibility of a left pneumothorax cannot be excluded on the semierect film and an er ect film or right lateral decubitus view of the chest are recommended. Lung volumes are diminished with resultant elevation of the hemidiaphragms , spurious widening of the diameter of the heart and crowding of the basal lung markings. This produces subsegmental atelectasi s at both lung bases. The upper lungs are clear. CONCLUSION: No significant interval change in the appearance of the chest when compared to prior radiograph. CHEMISTRY U Sodium 39 meq/L 04/15 28Interpretiv e Data: No [facility] established Center reference ranges. CHEMISTRY U Microalb 21.0 mg/L 04/15 [facility] CHEMISTRY U Creatinine 77.9 mg/dL 04/15 26Interpretiv e Data: No [facility] Center reference ranges. CHEMISTRY U Alb/Crea 27.0 <=30.0 04/15 Normal [facility] mcg/ [facility] creat Center CHEMISTRY U Eos None Seen None Seen 04/15 Normal [facility] (04/15/2013 13:53:53) Center CHEMISTRY Bili Direct 1.1 mg/dL 0.0 - 0.3 04/15 [facility] CHEMISTRY Bili Indirect 1.0 mg/dL 0.0 - 1.0 04/15 [facility] CHEMISTRY B/C Ratio 16 - 25 04/15 Normal [facility] HEMATOLOGY Baso Stipplin Slight None Seen 04/15 ABN [facility] *ABN* Center (04/15/2013 09:03:00) CHEMISTRY POC V PCO2 49 mm[Hg] 38 - 52 04/15 Normal [facility] CHEMISTRY POC V PO2 32 mm[Hg] 20 - 49 04/15 Normal [facility] CHEMISTRY POC V BE 0 mmol/L -2-2 - 2 04/15 Normal [facility] CHEMISTRY POC V HCO3 26 mmol/L 22 - 26 04/15 Normal [facility] CHEMISTRY POC V Na 147 meq/L 135 - 145 04/15 [facility] CHEMISTRY POC V K 4.3 meq/L 3.5 - 5.1 04/15 Normal [facility] CHEMISTRY POC V pH 7.34 7.28 - 04/15 [facility] 7.42 [facility] CHEMISTRY POC V O2 Sat 57.0 % 40.0 - 04/15 [facility] 70.0 [facility] CHEMISTRY POC V Temp 37.0 Felisha 04/15 [facility] CHEMISTRY POC V Source EVANGELINA 04/15 [facility] CHEMISTRY POC V Ion Ca 1.22 1.05 - 04/15 Normal [facility] mMol/L 1.25 /2013 [facility] CHEMISTRY POC V Hct 30.0 % 36.0 - 04/15 LOW [facility] 48.0 [facility] BLOOD BANK RBC product Product available 04/15 Normal [facility] Medical (04/15/2013 01:55:00) [place] CHEMISTRY Lactic Acid 5.3 mMol/L 0.5 - 2.2 04/15 [facility] Lvl [facility] HEMATOLOGY Baso [place]ipp[place] Slight None Seen 04/15 ABN Medical *ABN* Center (04/15/2013 00:22:00) Chest 1view Chest 1view PORTABLE CHEST 2013-04-15 03:35:00 04/15 - - [facility] COMPARISON: Yesterday Read by: Yoav Reinoso Dictated Date/time: 04/15/13 10:39 Electronically Signed by: Yoav Reinoso MD 04/15/13 10:41 FINAL REPORT CLINICAL INDICATION: Coughing DISCUSSION: Support devices are unchanged. Murray-Leah catheter continues to make a loop within the right atrium. The tip is within the right pulmonary artery. No definite pneumothorax or pleural effusion s. Lung volumes are low. Subsegmental atelectasis is seen within right upper lobe and both lower lobes. Cardiac silhouette and mediastinum are unchanged. Probable lap sponge overlying medial right costo phrenic sulcus. Tubular lucency overlying descending thoracic aorta could represent air within chest wall or pneumomediastinum. IMPRESSION: No significant interval change. CHEMISTRY POC V %FIO2 80.0 % 18.0 - 04/14 Normal [facility] 100.0 [facility] CHEMISTRY POC V PEEP 8.0 0.0 - 40.0 04/14 Normal [facility] cm[H2O] [facility] CHEMISTRY POC V Mech 15 bpm 0 - 70 04/14 Normal [facility] Rate [facility] CHEMISTRY POC V VT 550 mL 2 - 1200 04/14 Normal [facility] CHEMISTRY POC V Mode AC 04/14 [facility] CHEMISTRY POC V Glu 223 mg/dL 70 - 99 04/14 [facility] CHEMISTRY POC V LA 3.7 mMol/L 0.5 - 2.2 04/14 [facility] CHEMISTRY B/C Ratio 20 6 - 25 04/14 Normal [facility] Chest 1view Chest 1view EXAM: CHEST [address] DATE: Apr 14, 2013 06:08:00 PM Read by: Tommie Oneill Dictated Date/time: 04/15/13 00:29 Electronically Signed by: Tommie Oneill MD 04/15/13 00:30 FINAL REPORT INDICATION: Central Line Placement COMPARISON: Prior exam dated 04/14/2013 used for comparison. TECHNIQUE: Single portable radiograph of the chest FINDINGS: The cardiac silhouette is unchanged in appearance. The Murray- Leah catheter has been adjusted the loop seen in the catheter lying within the right atrium has been removed the tip is within may right pulmonary artery. The remainder the support tubes and lines are unchanged in position. The lungs are unchanged in appearance bilaterally. The remainder of the exam is unchanged. IMPRESSION: Repositioning of the Murray-Leah catheter, the previously noted loop within the right atrium has been removed, the tip is in the proximal aspect of the right pulmonary artery. The remainder of the exam is unchanged. Chest 1view Chest 1view PORTABLE CHEST 2013-04-14 14:20:[address] [place] [address] COMPARISON: 04/09/2013 Read by: Yoav Reinoso Dictated Date/time: 04/14/13 15:56 Electronically Signed by: Yoav Reinoso MD 04/14/13 16:01 FINAL REPORT CLINICAL INDICATION: Respiratory distress DISCUSSION: Note again of left upper extremity PICC. New endotracheal tube terminates in satisfactory position. New NG tube terminates within stomach. New right IJ Murray-Leah catheter makes a loop within right atrium with its tip within the right pulmonary artery. Note of a mediastinal drain and left basilar chest tube. No pneumothorax. Lung volumes are low. Subsegmental atelectasis is seen within lowe r lungs. There is a background of interstitial edema. Note of pneumomediastinum. A tubular opacity overlying medial costophrenic sulcus on the right probably represents a lap sponge. IMPRESSION: 1. Postoperative changes as above. A tubular opacity overlying medial costophrenic sulcus on the right may represent a lap sponge. 2. Murray-Leah catheter makes a loop within right atrium with tip within right pulmonary artery. Nurse Jonathon was notified at 4:00 p.m. on 04/14/2013. 3. Interstitial edema. BLOOD BANK Antibody Scrn Negative 04/14 Normal [facility] RESULTS Medical (04/13/2013 21:02:00) [place] BLOOD BANK ABO/Rh B POS 04/14 [facility] RESULTS [facility] BLOOD BANK Platelet Product available 04/13 Normal [facility] RESULTS product Medical (04/13/2013 17:49:00) Center BLOOD BANK FFP product Product available 04/13 Normal [facility] RESULTS Medical (04/13/2013 17:49:00) Center BEDSIDE Gluc POC Cleaned 04/13 [facility] GLUCOSE Comment 2 Meter Medical TESTING [place] BEDSIDE Gluc POC Cleaned 04/13 [facility] GLUCOSE Comment 2 Meter Medical TESTING Center URINALYSIS UA Amorph Occasional None Seen 04/12 [facility] [place] / [facility] HEMATOLOGY Hypochrom Slight None Seen 04/12 Normal Medical (04/12/2013 01:08:00) Center HEMATOLOGY Toxic Gran Slight None Seen 04/12 [facility] *ABN* [place] (04/12/2013 01:08:00) HEMATOLOGY Smudge Slight None Seen 04/12 Normal Medical (04/12/2013 01:08:00) Center HEMATOLOGY Stomatocyte Slight None Seen 04/12 [facility] Medical *ABN* [place] (04/12/2013 01:08:00) HEMATOLOGY Atypical 0.0 % <=0.0 04/12 Normal [facility] HEMATOLOGY Metamyelocyte 2.0 % 0.0 - 1.0 04/12 [facility] HEMATOLOGY Bands 0.0 % 0.0 - 11.0 04/12 Normal [facility] HEMATOLOGY Atypical 0.0 % <=0.0 04/11 Normal [facility] Lymph [facility] HEMATOLOGY Metamyelocyte 6.0 % 0.0 - 1.0 04/11 [facility] s [facility] HEMATOLOGY Bands 0.0 % 0.0 - 11.0 04/11 Normal [facility] HEMATOLOGY RBC Morph Normal 04/11 Normal Medical (04/11/2013 00:49:00) Center HEMATOLOGY NUCLEATED 2 /100WB 04/11 [facility] RBC'S [facility] HEMATOLOGY Large Plt Slight None Seen 04/11 [facility] Medical *ABN* [place] (04/11/2013 00:49:00) Chest 1view Chest 1view EXAM: CHEST 1 VIEW 04/09 - [facility] - Medical This report was dictated by a Sales Development Associate/Fellow. I have personally reviewed the images as Center well as the Resident's interpretation and agree with the findings. DATE: 04/09/2013 at 0828 hours Read by: Rubén Hayes Resident: Rubén Hayes Dictated Date/time: 04/09/13 09:42 Electronically Signed by: Siria Butler MD 04/09/13 12:18 FINAL REPORT INDICATION: Chest pain COMPARISON: 04/08/2013 CHEST 1 VIEW TECHNIQUE: Upright AP radiograph of the chest. FINDINGS: Left PICC is unchanged in position with tip in the lower SVC. The lungs are adequately inflated without focal consolidation. Minimal bibasilar subsegmental atelectasis. No pneumothorax or pl eural effusion is seen. The cardiomediastinal silhouette and pulmonary vascularity are within normal limits. Aortic arch calcification again noted. The visualized skeleton is unchanged. IMPRESSION: No acute abnormality identified and no significant interval change from . CHEMISTRY Digoxin Lvl 1.7 ng/mL 0.8 - 2.0 04/09 Normal [facility] /2012 [facility] CHEMISTRY T4 Free 1.43 ng/dL 0.76 - 04/08 Normal [facility] 1.46 /2012 [facility] CHEMISTRY T3 Free 1.05 pg/mL 2.18 - 04/08 LOW [facility] 3.98 /2012 [facility] HVI VAS HVI VAS INDICATION: Carotid bruit . 04/08 - [facility] Arterial Arterial /2012 - Medical Extracrania Extracranial This report was dictated by a Sales Development Associate/Fellow. I have personally reviewed the images as Center l Doppler Doppler Bi well as the Resident's interpretation and agree with the findings. Bi IMPRESSION: Read by: Do Mahajan Resident: Do Mahajan Dictated Date/time: 04/08/13 18:08 1. There is evidence of mild atherosclerotic disease of bilateral carotid bulbs and proximal internal carotid arteries consistent with less than 50% stenosis. Electronically Signed by: Ekaterina Rodriguez MD 04/10/13 23:15 FINAL REPORT COMMENT: No prior studies are available for comparison. Bilateral grayscale, color- flow, and Doppler examination of the extracranial carotid arterial system was performed. On the right, mild plaque is noted in the internal carotid artery. The right internal carotid to common carotid peak systolic velocity ratio is 0.86 The peak systolic velocity in the internal carotid ar cony is 77.4 cm/sec. This is consistent with less than 50% stenosis. On the left, mild plaque is noted in the internal carotid artery. The left internal carotid to common carotid peak systolic velocity ratio is 0.61. The peak systolic velocity in the internal carotid art alla a 90.8 cm/sec. This is consistent with less than 50% stenosis. Bilateral external carotid arteries are patent. Bilateral antegrade flow was noted in the vertebral arteries. HEMATOLOGY RBC Morph Normal 04/08 Normal Medical (04/08/2013 02:30:00) Center Chest 1view Chest 1view EXAM: XR CHEST 1 VIEW 04/08 [facility] - Medical This report was dictated by a Sales Development Associate/Fellow. I have personally reviewed the images as Center well as the Resident's interpretation and agree with the findings. DATE: 04/08/2013 at 0208 hours. Read by: Caroline Kidd Resident: Caroline Kidd Dictated Date/time: 04/08/13 08:38 Electronically Signed by: Kady Arrington MD 04/08/13 15:45 FINAL REPORT INDICATION: Chest pain COMPARISON: Chest 1 view on 04/06/2013 at 1651 hours. TECHNIQUE: AP view of the chest FINDINGS: Again seen is a left PICC line in unchanged, expected position. There are surgical clips noted in the right upper quadrant of the abdomen. The cardiomediastinal silhouette is unchanged in appearance. There is atherosclerotic calcification noted at the aortic knob and descending thoracic aorta. There are no pleural effusions. No pneumothorax is seen. Low lung volumes are present. The lungs are clear. IMPRESSION: No significant change. HVI VAS HVI VAS INDICATION: Pain in limbs. 04/07 - [facility] Venous Venous Lower /2012 - Medical Lower Ext Ext Bilat This report was dictated by a Sales Development Associate /Fellow. I have personally reviewed the images as Center Bilat Doppler well as the Resident's interpretation and agree with the findings. Doppler IMPRESSION: Read by: [id number] Edilberto, RES [id number] Resident: [id number] Casanova, RES [id number] Dictated Date/time: 04/07/13 11:21 1. There is no evidence of deep venous thrombosis bilaterally. Electronically Signed by: Rei Palm MD 04/10/13 16 :43 FINAL REPORT COMMENT: Bilateral lower extremity lopez scale, color-flow, and Doppler examination of the venous system was performed. No comparison films are available for review. Examination of bilateral distal external iliac, common femoral, superficial femoral, deep femoral, popliteal, and posterior tibial veins demonstrate normal phasic flow and appropriate response to compre ssion and augmentation. There is no evidence of deep venous thrombosis within the visible vessels. The right peroneal is visualized without evidence of thrombosis. The left peroneal vein is not visualized. The greater saphenous and lesser saphenous veins are visualized on the right lower extremity without evidence of thrombus or thrombophlebitis. The left lesser saphenous vein is not visualized. The greater saphenous vein on the left is the left proximally but not within its mid or distal segments. Within the visualized portions of the greater s aphenous vein there is no evidence of thrombus or thrombophlebitis. INFECTIOUS Influenza A Negative Negative 04/06 Normal [facility] DISEASES PCR /2012 Medical (04/06/2013 15:01:33) Center INFECTIOUS Source Flocked SUPERINTENDENT ELECTRIC POWER Swab 04/06 Normal [facility] Respiratory /2012 Medical Panel PCR (04/06/2013 15:01:33) Center INFECTIOUS RSV PCR Negative 4 Negative 04/06 Normal 4Interpretive Data: Gen-Probe Prodesse ProFlu plus assay is a multiplex real-time PCR test [facility] DISEASES /2012 for the qualitative detection and discrimination of Influenza A Virus, Medical (04/06/2013 15:01:33) Influenza B Virus, and Respiratory Syncytial Virus. A negative result Center does not rule out the presence of these viruses. The specimen may contain polymerase chain reaction (PCR) inhibitors or virus below the detectable limits of the assay. Results should not be used as the sole basis for clinical diagnosis, treatment, or patient management. This assay utilizes FDA cleared IVD reagents for Real-Time nucleic acid amplification (PCR). Performance characteristics have been verified by the Molecular Diagnostic Laboratory within [facility]. The Molecular Diagnostic Laboratory is authorized under the Clinical Laboratory Improvement Amendments of 1988 (CLIA-88) to perform high complexity testing. INFECTIOUS Influenza B Negative Negative 04/06 Normal [facility] DISEASES Medical (04/06/2013 15:01:33) Center Chest 1view Chest 1view EXAM: XR CHEST 1 VIEW 04/06 - [facility]2012 [facility] DATE: 2013-04-06 1651 hours Read by: Gisselle Acuña Dictated Date/time: 04/06/13 18:50 Electronically Signed by: Gisselle Acuña MD 04/06/13 18:52 FINAL REPORT INDICATION: PICC Line Placement COMPARISON: 04/06/2013 at 0106 hours TECHNIQUE: Single AP view of the chest DISCUSSION: There has been interval placement of an PICC line with the tip overlying the superior vena cava. The heart size and mediastinal contours are unchanged. The costophrenic sulci are sharp with out effusion. No pneumothorax is identified on this semiupright radiograph , an upright radiograph is more sensitive if indicated. Mild, scattered airspace opacities have improved, consistent with improving atelectasis or edema. IMPRESSION: 1. Interval placement of a left PICC line with tip overlying the superior vena cava. 2. Improved scattered airspace opacities. CHEMISTRY POC A 10.0 0.0 - 50.0 04[facility]06 [facility] CHEMISTRY BNP 118 pg/mL <=100 04/06 HI 23Interpretive Data: Elevated results are in line with increasing severity of [facility] congestive heart failure. Minor elevations between 100 and 300 Medical may be seen with Myocardial Ischemia, Sodium retaining drugs, Center and compensated/treated heart failure. Chest 1view Chest 1view Portable ap semierect chest 04/06/201304/06 - [facility] HISTORY: Chest pain. Comparison is made with yesterday. Read by: Kady Arrington Dictated Date/time: 04/06/13 09:49 Electronically Signed by: Kady Arrington MD 04/06/13 10:10 FINAL REPORT FINDINGS: Cardiomediastinal silhouette is stable with a calcified left- sided aorta. There are patchy alveolar opacities bilaterally which are nonspecific and could represent edema or infection. CONCLUSION: No significant interval change in the appearance of the chest when compared to prior radiograph. CHEMISTRY POC A 10.0 0.0 - 50.0 04/05 Normal [facility] BIPAP(I) cm[H2O] /2012 Medical Center INFECTIOUS Source Flocked SUPERINTENDENT ELECTRIC POWER Swab 04/05 Normal [facility] DISEASES Respiratory /2012 Medical Panel PCR (04/05/2013 13:45:25) Center INFECTIOUS RSV PCR Negative 5 Negative 04/05 Normal 5Interpretive Data: Gen-Probe Prodesse ProFlu plus assay is a multiplex real-time PCR test [facility] for the qualitative detection and discrimination of Influenza A Virus, Medical (04/05/2013 13:45:25) Influenza B Virus, and Respiratory Syncytial Virus. A negative result Center does not rule out the presence of these viruses. The specimen may contain polymerase chain reaction (PCR) inhibitors or virus below the detectable limits of the assay. Results should not be used as the sole basis for clinical diagnosis, treatment, or patient management. This assay utilizes FDA cleared IVD reagents for Real-Time nucleic acid amplification (PCR). Performance characteristics have been verified by the Molecular Diagnostic Laboratory within [facility]. The Molecular Diagnostic Laboratory is authorized under the Clinical Laboratory Improvement Amendments of 1988 (CLIA-88) to perform high complexity testing. INFECTIOUS Influenza B Negative Negative 04/05 Normal [facility] DISEASES PCR /2012 Medical (04/05/2013 13:45:25) Center INFECTIOUS Influenza A Negative Negative 04/05 Normal [facility] DISEASES PCR /2012 Medical (04/05/2013 13:45:25) Center INFECTIOUS Adenovirus Negative 2 Negative 04/05 Normal 2Interpretive Data : The Adenovirus PCR assay is a multiplex Real-Time PCR test for the [facility] detection of the human Adenovirus. The test detects but does not Medical (04/05/2013 13:45:25) differentiate serotypes 1-51. A negative result does not rule out Center the presence of virus. The specimen may contain polymerase chain reaction (PCR) inhibitors or virus below the detectable limits of the assay. Results should not be used as the sole basis for clinical diagnosis, treatment or patient management. This assay utilizes FDA cleared IVD reagents for Real-Time nucleic acid amplification (PCR). Performance characteristics have been verified by the Molecular Diagnostic Laboratory within [facility]. The Molecular Diagnostic Laboratory is authorized under the Clinical Laboratory Improvement Amendments of 1988 (CLIA-88) to perform high complexity testing. INFECTIOUS Source Flocked SUPERINTENDENT ELECTRIC POWER Swab 04/05 Normal [facility] DISEASES Adenovirus /2012 Medical PCR (04/05/2013 13:45:25) Center INFECTIOUS Parainfluenza Negative 3 Negative 04/05 Normal 3Interpretive Data: The Parainfluenza PCR assay is a multiplex Real-Time PCR test for [facility] DISEASES 3 PCR the detection and discrimination of the Parainfluenza 1 Virus, Medical (04/05/2013 13:45:25) Parainfluezna 2 Virus and the Parainfluenza 3 Virus. This assay Center targets the conserved regions of the Hemagglutinin-Neuraminidase (HN) gene of the HPIV-1, HPIV-2 and HPIV-3, respectively. This test is not intended to detect Parainfluenza 4a or Parainfluenza 4b Viruses. A negative result does not rule out the presence of virus. The specimen may contain polymerase chain reaction (PCR) inhibitors or virus below the detectable limits of the assay. Results should not be used as the sole basis for clinical diagnosis , treatment or patient management. This assay utilizes FDA cleared IVD reagents for Real-Time nucleic acid amplification (PCR). Performance characteristics have been verified by the [facility] Diagnostic Laboratory within [facility]. The Molecular Diagnostic Laboratory is authorized under the Clinical Laboratory Improvement Amendments of 1988 (CLIA-88) to perform high complexity testing. INFECTIOUS Parainfluenza Negative Negative 04/05 Normal [facility] DISEASES 2 PCR /2012 Medical (04/05/2013 13:45:25) Center INFECTIOUS Parainfluenza Negative Negative 04/05 Normal [facility] DISEASES 1 PCR /2012 Medical (04/05/2013 13:45:25) Center INFECTIOUS Source Flocked SUPERINTENDENT ELECTRIC POWER Swab 04/05 Normal [facility] DISEASES Parainfluenza /2012 Medical Virus PCR (04/05/2013 13:45:25) Center CHEMISTRY POC A 10.0 0.0 - 50.0 04/05 Normal [facility] BIPAP(I) cm[H2O] [facility] Center CHEMISTRY Troponin-T 0.451 0.000 - 04/05 CRIT 17Result [facility] ng/mL 0.100 Comment: Medical Critical Center Result(s) called to Mariia Hurst at 04/05/2013 10:59 byMIA. Read back OK. CHEMISTRY CK MB 1.1 ng/mL 0.5 - 3.6 04/05 Normal [place] /2012 [facility] CHEMISTRY CK-MB INDEX 0.3 0.0 - 2.5 04/05 Normal [facility] CHEMISTRY Total CK 364 unit/L 04/05 HI [facility] CHEMISTRY Troponin-I 2.45 ng/mL 0.00 - 04/05 CRIT 20Result [facility] 0.40 Comment: Medical Critical Center Result(s) called to CHINYERE vasquez at 04/05/2013 09:27 by ADALID. Read back OK. CHEMISTRY Total CK 472 unit/L 04/05 HI [facility] CHEMISTRY Troponin-I 3.60 ng/mL 0.00 - 04/05 CRIT 21Result [facility] 0.40 Comment: [facility] Critical Center Result(s) called to jonathon mills at 04/05/2013 00:22 byharpreet. Read back OK. CHEMISTRY CK MB 1.2 ng/mL 0.5 - 3.6 04/05 Normal [facility] CHEMISTRY CK-MB INDEX 0.3 0.0 - 2.5 04/05 Normal [facility] CHEMISTRY Troponin-T 0.570 0.000 - 04/05 CRIT 18Result [facility] ng/mL 0.100 /2012 Comment: [facility] Critical Center Result(s) called to Jonathon Del Toro at 04/05/2013 00:45_ by_mgm. Read back OK. Chest 1view Chest 1view PORTABLE CHEST 2013-04-05 05:13:00 04/05 - - [facility] COMPARISON: 04/04/2013 Read by: Vik Larkin Dictated Date/time: 04/05/13 08:23 Electronically Signed by: Vik Larkin MD 04/05/13 08:24 FINAL REPORT CLINICAL INDICATION: Abnormal chest sounds DISCUSSION: Persistent diffuse patchy lung opacities, suggestive of edema multifocal infection. Question tiny bilateral pleural effusions. Stable appearance of the heart size and mediastinum. Atherosclerotic calcifications of the aortic arch and descending thoracic aorta. Stable osseous structures. CONCLUSION: There has been no significant interval change in the radiographic appearance of the chest when compared to prior radiograph. BACTERIAL - U S pneumo Ag Negative Negative 04/05 Normal [facility] Medical (04/04/2013 19:00:00) Center MICRO MISC U Legion Ag Negative 6 Negative 04/05 Normal 6Interpretive [facility] Data: This Medical (04/04/2013 19:00:00) kit tests for Center Legionella pneumophila Serogroup 1 Antigen. HEMATOLOGY Large Plt Slight None Seen 04/05 ABN Medical *ABN* Center (04/04/2013 18:13:00) HEMATOLOGY Hypochrom Slight None Seen 04/05 Normal Medical (04/04/2013 18:13:00) Center URINALYSIS UA RBC 2 /HPF 0 - 2 04/05 Normal [facility]2012 [facility] CHEMISTRY CK-MB INDEX 0.5 0.0 - 2.5 04/04 Normal [facility]2012 [facility] CHEMISTRY CK MB 3.9 ng/mL 0.5 - 3.6 04/04 HI [facility]2012 [facility] CHEMISTRY BNP 153 pg/mL <=100 04/04 HI 24Interpretive Data: Elevated results are in line with increasing severity of congestive heart failure. Minor elevations between 100 and 300 Medical may be seen with Myocardial Ischemia, Sodium retaining drugs, Center and compensated/treated heart failure. CHEMISTRY Troponin-I 4.01 ng/mL 0.00 - 04/04 CRIT 22Result [facility] 0.40 /2013 Comment: [facility] Critical [place] Result(s) called to [facility] at 04/04/2013 15:43_ by_ferdinand. Read back OK. CHEMISTRY Total CK 769 unit/L 12 - 04/04 [facility]2012 [facility] Chest 1view Chest 1view PORTABLE CHEST 2013-04-04 15:14:00 04/04 - - [facility] COMPARISON: April 04, 2013 at 2:47 a.m. Read by: Vik Larkin Dictated Date/time: 04/04/13 20:00 Electronically Signed by: Vik Larkin MD 04/04/13 20:01 FINAL REPORT CLINICAL INDICATION: Shortness of Breath DISCUSSION: As compared to the prior study, there has been interval progression of diffuse patchy lung opacities, suggestive of edema multifocal infection. Stable appearance of the heart size and mediastinum. Cardiac the aortic arch. Stable osseous structures. IMPRESSION: As compared to the prior study, there has been interval progression of diffuse patchy lung opacities, suggestive of edema multifocal infection. BLOOD BANK ABO/Rh B POS 04/04 [facility] RESULTS [facility] BLOOD BANK Antibody Scrn Negative 04/04 Normal [facility] (04/04/2013 02:30:28) [place] BACTERIAL - MRSA by PCR Negative 1 04/04 Normal 1Interpretive Data: Interpretive Data: The [employer] LightCycler MRSA assay is a qualitative test for the direct detection of nasal colonization with methicillin-resistant Staphylococcus aureus (MRSA) to aid [facility] in the prevention and control of MRSA infections in healthcare settings. A positive result does not indicate an infection or require treatment. A negative result does not exclude colonization or infection. [facility] (04/04/2013 02:30:00) Center The polymerase chain reaction (PCR) assay detects a proprietary sequence indicative of the integration of the SCCmec cassette into the Staphylococcus aureus chromosome, indicating the presence of MRSA D NA. The assay utilizes FDA cleared IVD reagents. Performance characteristics have been verified by the Molecular Diagnostic Laboratory within the [facility]. The Molecular Diagnostic Labor atory is authorized under the Clinical Laboratory Improvement Amendment of 1988 (CLIA-88) to perform high complexity testing. CHEMISTRY Hgb A1C 6.2 % <=5.6 04/04 HI [facility] CHEMISTRY TSH 0.974 0.360 - 04/04 Normal [facility] uIU/mL 3.740 [facility] CHEMISTRY Troponin-T 0.323 0.000 - 04/04 CRIT 19Result [facility] ng/mL 0.100 /2012 Comment: [facility] Critical Center Result(s) called to Tracie Simmons at 04/04/2013 03:53_ by_mgm. Read back OK. Chest 1view Chest 1view PORTABLE CHEST 2013-04-04 02:51:00 04/04 - - [facility] COMPARISON: September 27, 2006 Read by: Vik Larkin Dictated Date/time: 04/04/13 06:48 Electronically Signed by: Vik Larkin MD 04/04/13 06:49 FINAL REPORT CLINICAL INDICATION: Arrhythmias DISCUSSION: Similar appearance of the heart size and mediastinum as compared to September 2006. There are left basilar platelike atelectasis with low lung volumes, similar as before. No pleural effusion or pneumothorax. Degenerative changes of the thoracic spine. CONCLUSION: There has been no significant interval change in the radiographic appearance of the chest when compared to prior radiograph. BEDSIDE Comment1 Notify 12/23 NA [facility] GLUCOSE RN/MD /2012 Medical TESTING Center BEDSIDE Gluc POC 187 mg/dL - 12/23 HI 1Interpretive [facility] GLUCOSE Lifian Data: Medical TESTING Center Upper Reportable Limit: 200 mg/dL. BEDSIDE Gluc POC 247 mg/dL - 12/23 HI 2Interpretive [facility] GLUCOSE Lifscn Data: Medical TESTING Center Upper Reportable Limit: 200 mg/dL. Vital Signs Vital Sign Value Date Comments Source Temperature Oral (F) 97.2 F 04/30/2013 [facility] Systolic (mm Hg) 142 04/30/2013 [facility] Diastolic (mm Hg) 59 04/30/2013 [facility] Respitory Rate 17 04/30/2013 [facility] Respitory Rate 18 04/30/2013 [facility] Systolic (mm Hg) 142 04/30/2013 [facility] Diastolic (mm Hg) 59 04/30/2013 [facility] Respitory Rate 20 04/30/2013 [facility] Diastolic (mm Hg) 66 04/30/2013 [facility] Systolic (mm Hg) 155 04/30/2013 [facility] Temperature Oral (F) 97.2 F 04/30/2013 [facility] Temperature Oral (F) 96.4 F 04/30/2013 [facility] Height 162.56 cm 04/04/2013 [facility] Weight 121.5 04/04/2013 [facility] Respitory Rate 16 12/23/2012 [facility] Heart Rate 72 12/23/2012 [facility] Systolic (mm Hg) 155 12/23/2012 [facility] Diastolic (mm Hg) 70 12/23/2012 [facility] Diastolic (mm Hg) 54 12/23/2012 [facility] Systolic (mm Hg) 131 12/23/2012 [facility] Respitory Rate 14 12/23/2012 [facility] Respitory Rate 22 12/23/2012 [facility] Diastolic (mm Hg) 56 12/23/2012 [facility] Systolic (mm Hg) 126 12/23/2012 [facility] Heart Rate 70 12/23/2012 [facility] Height 162.56 cm 12/23/2012 [facility] Weight 113.636 12/23/2012 [facility] Encounters Location Location Encounter Encounter Reason Attending ADM DC Status Source Details Type Number For Provider Date Date Visit [facility] DS [id number] TORRES BECK 12/23 12/[address] [facility] HEMAPLEG GAEL JR /2012 [facility] [place] PUMP ICD-9# 342.1, 996.2 [facility] Inpatient [id number] NATASHA 04/04 04/[address] [facility] /2012 [facility] Procedures Procedure Code Date Perfomer Comments Source Carpal tunnel release [id number] [facility] Cholecystectomy [id number] [facility] Operation [id number] [facility] Tonsillectomy [id number] [facility]
--- OUTSIDE RECORDS SUMMARY | 2017-12-26 11:36 | XMS REPORT | CCD ---
:1950 Author Organization [facility] Care Team Providers Name Role Phone Jackson Mayo Jr Referring Provider Allergies, Adverse Reactions, Alerts Substance Reaction Status penicillins Active Problem List Condition Effective Dates Status CKD - chronic kidney disease Active Constipation Active CVA - Cerebrovascular accident Resolved Diabetes mellitus Active Hypercholesterolemia Active Hypertension Active hypertonicity of bladder Active morbid obesity Active Spastic hemiplegia Active Medications Medication Instructions Start Date End Date Status ondansetron 4 mg, 2 mL, Route: IVP, 12/23/2012 12/23/2012 Discontinued Drug form: INJ, ONCE, Dosing Weight 113.636, kg, PRN Nausea & Vomiting, Start date: 12/23/12 15:48:00 flumazenil 0.2 mg, 2 mL, Route: IVP, 12/23/2012 12/23/2012 Discontinued Drug form: INJ, PRN, Dosing Weight 113.636, kg, PRN Benzodiazepine Reversal, Initial dose, Start date: 12/23/12 15:48:00, Duration: 1 day, Stop date: 12/24/12 15:47:00 naloxone 0.04 mg, 0.1 mL, Route: 12/23/2012 12/23/2012 Discontinued IVP, Drug form: INJ, Q2MIN, Dosing Weight 113.636, kg, PRN Narcotic Reversal, Start date: 12/23/12 15:48:00, Duration: 8 doses or times, Stop date: 12/24/12 0:00:00 labetalol 5 mg, 1 mL, Route: IVP, 12/23/2012 12/23/2012 Discontinued Drug form: INJ, Q5Min, Dosing Weight 113.636, kg, PRN Elevated BP, Start date: 12/23/12 15:48:00, Duration: 5 doses or times, Stop date: 12/24/12 0:00:00 hydrALAZINE 5 mg, 0.25 mL, Route: 12/23/2012 12/23/2012 Discontinued IVP, Drug form: INJ, Q5Min, Dosing Weight 113.636, kg, PRN Elevated BP, Start date: 12/23/12 15:48:00, Duration: 4 doses or times, Stop date: 12/24/12 0:00:00 hydromorphone 0.25 mg, 0.13 mL, Route: 12/23/2012 12/23/2012 Discontinued IVP, Drug form: INJ, Q5Min, Dosing Weight 113.636, kg, PRN Pain Score 7-10, Start date: 12/23/12 15:48:00, Duration: 5 doses or times, Stop date: 12/24/12 0:00:00 Vicodin 5/500 oral tablet 1 tab, PO, Q4H, PRN, 10 12/23/2012 Ordered tab, as needed for pain, Substitution Allowed, Maintenance, TAB clindamycin (SCIP) 900 mg, 6 mL, Route: 12/23/2012 12/23/2012 Completed IVPB, Drug form: INJ, Q8H, Dosing Weight 113.636, kg, Start date: 12/23/12 16:00:00, Duration: 1 doses or times, Stop date: 12/23/12 16:00:00 Cleocin HCl 300 mg oral 300 mg, 1 cap, PO, BID, 12/23/2012 12/30/2012 Ordered capsule 28 cap, Substitution Allowed, CAP Vital Signs Most recent to oldest 1 2 3 [Reference Range]: Height 162.56 cm (12/23/2012 13:39:00) Systolic Blood Pressure 155 mmHg 131 mmHg 126 mmHg [90-140 mmHg] *HI* (12/23/2012 16:15:00) (12/23/2012 16:00:00) (12/23/2012 16:42:00) Diastolic Blood Pressure 70 mmHg 54 mmHg 56 mmHg [60-90 mmHg] (12/23/2012 16:42:00) *LOW* *LOW* (12/23/2012 16:15:00) (12/23/2012 16:00:00) Respiratory Rate [14-20 16 BRMIN 14 BRMIN 22 BRMIN BRMIN] (12/23/2012 16:42:00) (12/23/2012 16:15:00) *HI* (12/23/2012 16:00:00) Peripheral Pulse Rate 72 bpm 70 bpm [60-100 bpm] (12/23/2012 16:42:00) (12/23/2012 13:39:00) Weight 113.636 kg (12/23/2012 13:39:00) Results BEDSIDE GLUCOSE TESTING Most recent to oldest [Reference 1 2 Range]: Gluc POC Lifscn [70-99 mg/dL] 187 mg/dL 1 247 mg/dL 2 *HI* *HI* (12/23/2012 15:50:00) (12/23/2012 13:58:00) Comment1 Notify RN/MD *NA* (12/23/2012 15:50:00) 1Interpretive Data: Upper Reportable Limit: 200 mg/dL.2Interpretive Data: Upper Reportable Limit: 200 mg/dL. Procedures Procedures Date Related Diagnosis Carpal tunnel release Cholecystectomy Operation Tonsillectomy
--- OUTSIDE RECORDS SUMMARY | 2017-12-26 11:38 | XMS REPORT ---
:1950 [facility] [address] [place] [address] Care Team Providers Name Role Phone Unavailable Unavailable Unavailable Payers Payer Name Policy Type Policy Number Effective Date Expiration Date Problems This patient has no known problems. Allergies, Adverse Reactions, Alerts Allergy Name Allergy Status Severity Reaction(s) Onset Inactive Treating Comments Type Date Date Clinician Hedy RUTH Active [place] 2017-12 00:00:0 0 Medications This patient has no known medications.
--- OUTSIDE RECORDS SUMMARY | 2017-12-26 11:38 | XMS REPORT | CCD ---
:1950 Author Organization [facility] Care Team Providers Name Role Phone Jose Andrews Consulting Provider Allergies, Adverse Reactions, Alerts Substance Reaction Status penicillins Active Problem List Condition Effective Dates Status Atrial fibrillation Active CKD - chronic kidney disease Active Constipation Active CVA - Cerebrovascular accident Resolved Diabetes mellitus Active Hypercholesterolemia Active Hypertension Active hypertonicity of bladder Active morbid obesity Active NSTEMI - Non-ST segment elevation MT Active Spastic hemiplegia Active Medications Medication Instructions Start Date End Date Status Ofirmev 1,000 mg, 100 mL, Route: 04/15/2013 04/17/2013 Completed IV, Drug form: INJ, Q6H, Dosing Weight 121.5, kg, for > or=50 kg, Priority: NOW, Start date: 04/15/13 17:45:00, Duration: 6 doses or times, Stop date: 04/17/13 0:00:00Infuse over 15 minutes Do not exceed 4gm/day of acetaminophen Dextrose 50% Syringe 25 gm, 50 mL, Route: 04/13/2013 04/14/2013 Discontinued IVP, Drug Form: INJ, Dosing Weight 121.5, kg, PRN, PRN Blood Glucose Results, Start date: 04/13/13 12:07:00, Duration: 30 day, Stop date: 05/13/13 12:06:00 Dextrose 50% Syringe 12.5 gm, 25 mL, Route: 04/13/2013 04/14/2013 Discontinued IVP, Drug Form: INJ, Dosing Weight 121.5, kg, PRN, PRN Blood Glucose Results, Start date: 04/13/13 12:07:00, Duration: 30 day, Stop date: 05/13/13 12:06:00 glucagon 1 mg, Route: IM, Drug 04/13/2013 04/14/2013 Discontinued form: PDR/INJ, PRN, Dosing Weight 121.5, kg, PRN Blood Glucose Results, Start date: 04/13/13 12:07:00, Duration: 30 day, Stop date: 05/13/13 12:06:00 insulin aspart 6 unit, 0.06 mL, Route: 04/13/2013 04/14/2013 Discontinued SUB-Q, Drug form: SOLN, TID-Before Meals, Dosing Weight 121.5, kg, PRN Blood Glucose Results, Start date: 04/13/13 12:07:00, Duration: 30 day, Stop date: 05/13/13 12:06:00Roll in palms of hands gently; Do not shake vigorously. (Same as: NovoLog)"single patient use only" Stable for 28 days at room temperature.Expires in days from Date insulin aspart 3 unit, 0.03 mL, Route: 04/13/2013 04/14/2013 Discontinued SUB-Q, Drug form: SOLN, TID-Before Meals, Dosing Weight 121.5, kg, PRN Blood Glucose Results, Start date: 04/13/13 12:07:00, Duration: 30 day, Stop date: 05/13/13 12:06:00Roll in palms of hands gently; Do not shake vigorously. (Same as: NovoLog)"single patient use only" Stable for 28 days at room temperature.Expires in days from Date insulin aspart 12 unit, 0.12 mL, Route: 04/13/2013 04/14/2013 Discontinued SUB-Q, Drug form: SOLN, TID-Before Meals, Dosing Weight 121.5, kg, PRN Blood Glucose Results, Start date: 04/13/13 12:07:00, Duration: 30 day, Stop date: 05/13/13 12:06:00Roll in palms of hands gently; Do not shake vigorously. (Same as: NovoLog)"single patient use only" Stable for 28 days at room temperature.Expires in days from Date insulin aspart 9 unit, 0.09 mL, Route: 04/13/2013 04/14/2013 Discontinued SUB-Q, Drug form: SOLN, TID-Before Meals, Dosing Weight 121.5, kg, PRN Blood Glucose Results, Start date: 04/13/13 12:07:00, Duration: 30 day, Stop date: 05/13/13 12:06:00Roll in palms of hands gently; Do not shake vigorously. (Same as: NovoLog)"single patient use only" Stable for 28 days at room temperature.Expires in days from Date insulin aspart 15 unit, 0.15 mL, Route: 04/13/2013 04/14/2013 Discontinued SUB-Q, Drug form: SOLN, TID-Before Meals, Dosing Weight 121.5, kg, PRN Blood Glucose Results, Start date: 04/13/13 12:07:00, Duration: 30 day, Stop date: 05/13/13 12:06:00Roll in palms of hands gently; Do not shake vigorously. (Same as: NovoLog)"single patient use only" Stable for 28 days at room temperature.Expires in days from Date AMIODarone 200 mg, Route: PO, Drug 04/28/2013 04/28/2013 Canceled form: TAB, BID, Dosing Weight 121.5, kg, Start date: 04/28/13 17:00:00, Duration: 30 day, Stop date: 05/28/13 9:00:00 Coreg 6.25 mg, 1 tab, Route: 04/18/2013 04/27/2013 Discontinued PO, Drug form: TAB, Q12H, Dosing Weight 121.5, kg, Start date: 04/18/13 9:00:00, Duration: 30 day, Stop date: 05/17/13 21:00:00Give with food. (Same As: Coreg) Lasix 40 mg, 4 mL, Route: IV, 04/14/2013 04/14/2013 Completed Drug form: INJ, ONCE, Dosing Weight 121.5, kg, Start date: 04/14/13 21:22:00, Stop date: 04/14/13 21:22:00(Same as: Lasix) metoprolol 5 mg/5 ml 5 mg, 5 mL, Route: IVP, 04/17/2013 04/17/2013 Completed INJ Drug form: INJ, ONCE, Dosing Weight 121.5, kg, Start date: 04/17/13 15:59:00, Stop date: 04/17/13 15:59:00(Same as: Lopressor)Push over 2 minutes heparin 4,900 unit, 4.9 mL, 04/04/2013 04/04/2013 Discontinued Route: IV, Drug form: INJ, PRN, PRN Abnormal Lab Result, Start date: 04/04/13 4:51:00, Duration: 30 day, Stop date: 05/04/13 4:50:00 Saline Flush 0.9% 10 mL, Route: IVP, Drug 04/06/2013 04/30/2013 Discontinued Form: INJ, Dosing Weight 121.5, kg, PRN, PRN Line Flush, Start date: 04/06/13 16:28:00, Duration: 30 day, Stop date: 06/05/13 16:27:00(Same as: BD Posiflush) Saline Flush 0.9% 10 mL, Route: IVP, Drug 04/07/2013 04/30/2013 Discontinued Form: INJ, Dosing Weight 121.5, kg, Q8H, Start date: 04/07/13 0:00:00, Duration: 30 day, Stop date: 06/05/13 16:00:00(Same as: BD Posiflush) Dextrose 50% Syringe 12.5 gm, 25 mL, Route: 04/04/2013 04/04/2013 Discontinued IVP, Drug Form: INJ, Dosing Weight 121.5, kg, PRN, PRN Blood Glucose Results, Start date: 04/04/13 5:05:00, Duration: 30 day, Stop date: 05/04/13 5:04:00 glucagon 1 mg, Route: IM, Drug 04/04/2013 04/06/2013 Discontinued form: PDR/INJ, PRN, Dosing Weight 121.5, kg, PRN Blood Glucose Results, Start date: 04/04/13 5:05:00, Duration: 30 day, Stop date: 05/04/13 5:04:00 Dextrose 50% Syringe 25 gm, 50 mL, Route: 04/04/2013 04/04/2013 Discontinued IVP, Drug Form: INJ, Dosing Weight 121.5, kg, PRN, PRN Blood Glucose Results, Start date: 04/04/13 5:05:00, Duration: 30 day, Stop date: 05/04/13 5:04:00 Tylenol 650 mg, 2 tab, Route: 04/04/2013 04/14/2013 Discontinued PO, Drug form: TAB, Q4H, Dosing Weight 121.5, kg, PRN Fever, Start date: 04/04/13 17:54:00, Duration: 30 day, Stop date: 05/04/13 17:53:00Do not exceed 4 gm/day. (Same as: Tylenol) hydrALAZINE 10 mg, 0.5 mL, Route: 04/18/2013 04/30/2013 Discontinued IVP, Drug form: INJ, Q4H, Dosing Weight 121.5, kg, PRN Elevated BP, Start date: 04/18/13 14:25:00, Duration: 30 day, Stop date: 05/18/13 14:24:00, SBP >130 lisinopril 2.5 mg, 1 tab, Route: 04/07/2013 04/09/2013 Discontinued PO, Drug form: TAB, Daily, Dosing Weight 121.5, kg, Start date: 04/07/13 9:00:00, Duration: 30 day, Stop date: 05/06/13 9:00:00(Same as: Prinivil) Lasix 40 mg, 1 tab, Route: PO, 04/07/2013 04/30/2013 Discontinued Drug form: TAB, Daily, Dosing Weight 121.5, kg, Start date: 04/07/13 9:00:00, Stop date: 05/06/13 9:00:00(Same as: Lasix) May cause GI upset. Give with food or milk. hydromorphone 50 mg 50 mg, 50 mL, Rate: 0.5 04/15/2013 04/19/2013 Discontinued mg/hr, Dosing Weight 121.5, kg, Route: IV, Total Volume: 50, Start date: 04/15/13 8:15:00, Duration: 30 day, Stop date: 05/15/13 8:14:00, Replace Every: 24 hr Prinivil 2.5 mg, 1 tab, Route: 04/04/2013 04/06/2013 Discontinued PO, Drug form: TAB, Daily, Dosing Weight 121.5, kg, Start date: 04/04/13 10:30:00, Duration: 30 day, Stop date: 05/04/13 9:00:00(Same as: Prinivil) Imdur 30 mg, 1 tab, Route: PO, 04/05/2013 04/06/2013 Discontinued Drug form: ERTAB, QAM, Dosing Weight 121.5, kg, Start date: 04/05/13 9:00:00, Duration: 30 day, Stop date: 05/04/13 9:00:00(Same as:Imdur)"Do Not Crush" Take on empty stomach/ full glass of water. Do not crush Plavix 75 mg, 1 tab, Route: PO, 04/05/2013 04/08/2013 Discontinued Drug form: TAB, Daily, Dosing Weight 121.5, kg, Start date: 04/05/13 9:00:00, Duration: 30 day, Stop date: 05/04/13 9:00:00(Same As: Plavix) aspirin 81 mg, 1 tab, Route: PO, 04/05/2013 04/20/2013 Discontinued Drug form: ECTAB, Daily, Dosing Weight 121.5, kg, Start date: 04/05/13 9:00:00, Duration: 30 day, Stop date: 05/04/13 9:00:00Do not crush or chew.(Same As: Ecotrin) acetaminophen 650 mg, 2 tab, Route: 04/19/2013 04/30/2013 Discontinued PO, Drug form: TAB, Q6H, Dosing Weight 121.5, kg, PRN Pain, Priority: NOW, Start date: 04/19/13 19:23:00, Duration: 30 day, Stop date: 05/19/13 19:22:00Do not exceed 4 gm/day. (Same as: Tylenol) AMIODarone 900 mg + 482 mL, Rate: Infuse as 04/17/2013 04/21/2013 Discontinued Dextrose 5% in Water directed, Dosing Weight (Titrate) IV 482 mL 121.5, kg, Route: IV, Total Volume: 500 mL, Start Date: 04/17/13 3:57:00, Duration: 30 day, Stop date: 05/17/13 3:56:00, Replace Every: 24 hrNon PVC bag metoprolol tartrate 12.5 mg, 1 ea, Route: 04/18/2013 04/18/2013 Completed PO, Drug form: TAB, ONCE, Dosing Weight 121.5, kg, Start date: 04/18/13 10:20:00, Stop date: 04/18/13 10:20:00(Same as: Lopressor) Corvert 1 mg, 10 mL, Route: IV, 04/04/2013 04/04/2013 Completed Drug form: INJ, ONCE, Start date: 04/04/13 18:00:00, Stop date: 04/04/13 18:00:00(Same as: Corvert) Infuse over 10 minutes. magnesium sulfate 2 gm, 50 mL, Route: 04/12/2013 04/12/2013 Completed IVPB, Drug form: INJ, Q2H, Dosing Weight 121.5, kg, Total dose=4 gm, Start date: 04/12/13 10:00:00, Duration: 2 doses or times, Stop date: 04/12/13 12:00:00 Procardia 30 mg, Route: PO, Drug 04/18/2013 04/18/2013 Discontinued form: CAP, Q8H, Dosing Weight 121.5, kg, Start date: 04/18/13 14:30:00, Duration: 30 day, Stop date: 05/18/13 8:00:00 Coreg 3.125 mg, 1 tab, Route: 04/27/2013 04/30/2013 Discontinued PO, Drug form: TAB, Q12H, Dosing Weight 121.5, kg, Start date: 04/27/13 21:00:00, Duration: 30 day, Stop date: 05/27/13 9:00:00Give with food. (Same As: Coreg) potassium chloride 20 mEq, 1 tab, Route: 04/06/2013 04/06/2013 Completed PO, Drug form: ERTAB, ONCE, Dosing Weight 121.5, kg, Start date: 04/06/13 12:00:00, Stop date: 04/06/13 12:00:00(Same as: K-Dur 20)"Do Not Crush" With food and full glass of water lactulose 20 gm, 30 ml, Route: PO, 04/20/2013 04/20/2013 Completed Drug Form: SYRP, Dosing Weight 121.5, kg, ONCE, Within 4 hours, Start date: 04/20/13 14:48:00, Stop date: 04/20/13 14:48:00(Same as:Chronulac) digoxin 0.5 mg, 2 tab, Route: 04/04/2013 04/04/2013 Completed PO, Drug form: TAB, ONCE, Dosing Weight 121.5, kg, Start date: 04/04/13 9:46:00, Stop date: 04/04/13 9:46:00Take on an Empty Stomach (Same as: Lanoxin) AMIODarone 900 mg + 482 mL, Rate: Infuse as 04/04/2013 04/10/2013 Discontinued Dextrose 5% in Water directed, Dosing Weight (Titrate) IV 482 mL 121.5, kg, Route: IV, Total Volume: 500 mL, Start Date: 04/04/13 20:53:00, Duration: 30 day, Stop date: 05/04/13 20:52:00, Replace Every: 24 hrNon PVC bag albumin human 25% 25 gm, 100 mL, Route: 04/14/2013 04/15/2013 Completed intravenous solution IV, Drug form: INJ, ONCE, Dosing Weight 121.5, kg, Start date: 04/14/13 19:45:00, Stop date: 04/14/13 19:45:00Lot #: Mfg: (Same as: Plasbumin-25)"blood product derivative" albumin human 25% 25 gm, 100 mL, Route: 04/14/2013 04/14/2013 Completed intravenous solution IV, Drug form: INJ, ONCE, Dosing Weight 121.5, kg, Start date: 04/14/13 19:45:00, Stop date: 04/14/13 19:45:00Lot #: Mfg: (Same as: Plasbumin-25)"blood product derivative" diphenhydrAMINE 25 mg, 0.5 mL, Route: 04/20/2013 04/20/2013 Completed IVP, Drug form: INJ, ONCE, Dosing Weight 121.5, kg, PRN Insomnia, Start date: 04/20/13 20:08:00(Same as: Benadryl) NS (Bolus) IV 500 mL 500 mL, Rate: 500 ml/hr, Infuse over: 1 hr, Route: IV, Dosing Weight 121.5 kg, Total Volume: 500, Priority: STAT, Start date: 04/14/13 19:45:00, Duration: 1 doses or times, Stop date: 04/14/13 20:44:00, Bolus Dose 04/14/2013 04/14/2013 Completed Bolus Dose Insulin regular 100 99 mL, Rate: Start Insulin Drip Per ICU Protocol, Dosing Weight 121.5, kg, Route: IVPB, Total Volume: 100, Start Date: 04/07/13 2:19:00, Duration: 30 day, Stop date: 05/07/13 2:18:00, Replace Every: 24 04/07/2013 Discontinued unit + Sodium Chloride hr, Initial Insulin Drip Rate (units/hour)=(Fasti... 0.9% (titrate) 99 mL Initial Insulin Drip Rate (units/hour)=(Fasting Blood Glucose-60)X0.03 "multiplier". Dextrose 50% Syringe 25 gm, 50 mL, Route: 04/07/2013 04/12/2013 Discontinued IVP, Drug Form: INJ, Dosing Weight 121.5, kg, PRN, PRN Blood Glucose Results, Start date: 04/07/13 2:19:00, Duration: 30 day, Stop date: 05/07/13 2:18:00 Dextrose 50% Syringe 12.5 gm, 25 mL, Route: 04/07/2013 04/12/2013 Discontinued IVP, Drug Form: INJ, Dosing Weight 121.5, kg, PRN, PRN Blood Glucose Results, Start date: 04/07/13 2:19:00, Duration: 30 day, Stop date: 05/07/13 2:18:00 sodium glycerophosphate 45 mmol, 45 mL, Route: 04/14/2013 04/30/2013 Discontinued + Sodium Chloride 0.9% IV, Drug form: INJ, PRN, IV 250 mL PRN Abnormal Lab Result, Start date: 04/14/13 14:43:00, Duration: 30 day, Stop date: 05/14/13 14:42:00Same as: Glycophos Non-Formulary NovoLOG 100 units/mL 6 - 25 unit, sliding 04/09/2013 04/30/2013 Discontinued scale, SUB-Q, TID-Before Meals, 0 Refill(s) Lasix 40 mg, 4 mL, Route: IVP, 04/06/2013 04/06/2013 Discontinued Drug form: INJ, BID, Dosing Weight 121.5, kg, Start date: 04/06/13 9:00:00, Duration: 30 day, Stop date: 05/05/13 17:00:00(Same as: Lasix) Lantus 45 unit, 0.45 mL, Route: 04/11/2013 04/12/2013 Discontinued SUB-Q, Drug form: INJ, Daily, Dosing Weight 121.5, kg, Start date: 04/11/13 9:00:00, Duration: 30 day, Stop date: 05/10/13 9:00:00Same as Lantus Solostar PEN"single patient use only" Stable for 28 days at room temperature.Expires in days from Date Zofran 4 mg, 2 mL, Route: IV, 04/04/2013 04/15/2013 Discontinued Drug form: INJ, Q8H, Dosing Weight 121.5, kg, PRN Nausea, Start date: 04/04/13 12:42:00, Duration: 30 day, Stop date: 05/04/13 12:41:00(Same as: Zofran) Flagyl 500 mg, 100 mL, Route: 04/16/2013 04/19/2013 Discontinued IVPB, Drug form: INJ, [id number], Dosing Weight 121.5, kg, Priority: NOW, Start date: 04/16/13 13:13:00, Duration: 30 day, Stop date: 05/16/13 5:13:00(Same as: Flagyl) Avoid alcohol. sodium glycerophosphate 15 mmol, 15 mL, Route: 04/15/2013 04/15/2013 Completed + Sodium Chloride 0.9% IV, Drug form: INJ, IV 250 mL ONCE, Start date: 04/15/13 8:13:00, Stop date: 04/15/13 8:13:00Same as: Glycophos Non-Formulary lisinopril 2.5 mg, 1 tab, Route: 04/04/2013 04/04/2013 Discontinued PO, Drug form: TAB, Daily, Dosing Weight 121.5, kg, Start date: 04/04/13 9:00:00, Duration: 30 day, Stop date: 05/03/13 9:00:00(Same as: Prinivil) Plavix 300 mg, 1 tab, Route: 04/04/2013 04/04/2013 Completed PO, Drug form: TAB, ONCE, Dosing Weight 121.5, kg, Start date: 04/04/13 4:17:00, Duration: 1 doses or times, Stop date: 04/04/13 4:17:00( Same as: Plavix) furosemide 40 mg, 4 mL, Route: IVP, 04/05/2013 04/05/2013 Deleted Drug form: INJ, ONCE, Dosing Weight 121.5, kg, Start date: 04/05/13 16:33:00, Stop date: 04/05/13 16:33:00(Same as: Lasix) pneumococcal 23-valent 0.5 ml, Route: IM, Drug 04/07/2013 04/07/2013 Completed vaccine Form: INJ, Daily, Start date: 04/07/13 9:00:00, Duration: 1 doses or times, Stop date: 04/07/13 9:00:00(Same as: Pneumovax 23) Refrigerate Insulin regular 8 unit, 0.08 mL, Route: 04/06/2013 04/06/2013 Completed SUB-Q, Drug form: SOLN, ONCE, Dosing Weight 121.5, kg, Start date: 04/06/13 20:26:00, Stop date: 04/06/13 20:26:00(Same as: Humulin R) Roll in palms of hands gently; Do not shake vigorously. "single patient use only"(Restricted to patients requiring a dose > 60 units) Stable for 28 days at room temperatureExpires in days from Date albumin human 25% 25 gm, 100 mL, Route: 04/14/2013 04/14/2013 Completed intravenous solution IV, Drug form: INJ, ONCE, Dosing Weight 121.5, kg, Start date: 04/14/13 19:14:00, Stop date: 04/14/13 19:14:00Lot #: Mfg: (Same as: Plasbumin-25)"blood product derivative" Lasix 40 mg, 4 mL, Route: IVP, 04/05/2013 04/06/2013 Discontinued Drug form: INJ, Daily, Dosing Weight 121.5, kg, Start date: 04/05/13 6:35:00, Duration: 30 day, Stop date: 05/04/13 9:00:00(Same as: Lasix) lisinopril 10 mg, 1 tab, Route: PO, 04/13/2013 04/18/2013 Discontinued Drug form: TAB, Daily, Dosing Weight 121.5, kg, Start date: 04/13/13 9:00:00, Duration: 30 day, Stop date: 05/12/13 9:00:00(Same as: Prinivil, Zestril) Lantus 45 unit, 0.45 mL, Route: 04/10/2013 04/10/2013 Completed SUB-Q, Drug form: INJ, ONCE, Dosing Weight 121.5, kg, Priority: STAT, Start date: 04/10/13 12:10:00, Stop date: 04/10/13 12:10:00Same as Lantus Solostar PEN"single patient use only" Stable for 28 days at room temperature.Expires in days from Date cefepime 1 gm, Route: IVPB, Drug 04/16/2013 04/19/2013 Discontinued form: INJ, [id number], Dosing Weight 121.5, kg, (CrCl 30 - 49 ml/min), Priority: NOW, Start date: 04/16/13 13:13:00, Duration: 30 day, Stop date: 05/16/13 1:13:00(Same As: Maxipime) vancomycin 1 gm, Route: IVPB, Drug 04/16/2013 04/19/2013 Discontinued form: INJ, [id number], Dosing Weight 121.5, kg, Priority: NOW, Start date: 04/16/13 13:12:00, Stop date: 05/15/13 13:12:00(Same As: Vancocin) Detrol LA 2 mg, 1 cap, Route: PO, 04/16/2013 04/18/2013 Discontinued Drug form: ERCAP, Daily, Start date: 04/16/13 9:00:00, Duration: 30 day, Stop date: 05/15/13 9:00:00(Same As: Detrol LA) (Do Not Crush) digoxin 250 mcg (0.25 0.125 mg, Route: PO, 04/06/2013 04/10/2013 Discontinued mg) oral tablet Drug form: TAB, Daily, Dosing Weight 121.5, kg, Start date: 04/06/13 9:00:00, Duration: 30 day, Stop date: 05/05/13 9:00:00Take on an Empty Stomach (Same as: Lanoxin) potassium chloride 30 mEq, 3 tab, Route: 04/06/2013 04/06/2013 Completed PO, Drug form: ERTAB, ONCE, Dosing Weight 121.5, kg, Start date: 04/06/13 20:14:00, Stop date: 04/06/13 20:14:00(Same as: Klor-Con 10)"Do Not Crush" With food and full glass of water heparin 5,000 unit, 1 mL, Route: 04/19/2013 04/28/2013 Discontinued SUB-Q, Drug form: INJ, Q8H, Dosing Weight 121.5, kg, Start date: 04/19/13 16:00:00, Duration: 30 day, Stop date: 05/19/13 8:00:00porcine heparin carvedilol 3.125 mg 3.125 mg=1 tab, PO, 04/30/2013 Ordered oral tablet Q12H, # 180 tab, 2 Refill(s) Lasix 40 mg oral tablet 40 mg, 1 tab, Route: PO, 04/05/2013 04/05/2013 Canceled Drug form: TAB, Daily, Dosing Weight 121.5, kg, Start date: 04/05/13 9:00:00, Duration: 30 day, Stop date: 05/04/13 9:00:00(Same as: Lasix) May cause GI upset. Give with food or milk. metoprolol tartrate 12.5 mg, 1 ea, Route: 04/04/2013 04/04/2013 Discontinued PO, Drug form: TAB, BID, Dosing Weight 121.5, kg, Start date: 04/04/13 9:00:00, Duration: 30 day, Stop date: 05/03/13 17:00:00(Same as: Lopressor) 12.5mg=1/4 X 50 mg tab. lisinopril 5 mg, Route: PO, Drug 04/13/2013 04/13/2013 Canceled form: TAB, Daily, Dosing Weight 121.5, kg, Start date: 04/13/13 9:00:00, Duration: 30 day, Stop date: 05/12/13 9:00:00 metoprolol 5 mg/5 ml 5 mg, 5 mL, Route: IVP, 04/04/2013 04/04/2013 Completed INJ Drug form: INJ, ONCE, Dosing Weight 121.5, kg, Priority: STAT, Start date: 04/04/13 14:30:00, Stop date: 04/04/13 14:30:00(Same as: Lopressor)Push over 2 minutes potassium chloride 20 mEq, 100 mL, Route: 04/05/2013 04/05/2013 Discontinued IVPB, Drug form: INJ, Q2H, Dosing Weight 121.5, kg, Total dose=40 mEq, Start date: 04/05/13 8:00:00, Duration: 2 doses or times, Stop date: 04/05/13 10:00:00(Same as: KCL) Infuse no faster than 10 mEq/hr if given peripherally. AMIODarone 200 mg, 1 tab, Route: 04/29/2013 04/30/2013 Discontinued PO, Drug form: TAB, Daily, Dosing Weight 121.5, kg, Start date: 04/29/13 9:00:00, Duration: 30 day, Stop date: 05/28/13 9:00:00(Same as: Cordarone) metoprolol 5 mg/5 ml 5 mg, 5 mL, Route: IVP, 04/04/2013 04/04/2013 Completed INJ Drug form: INJ, ONCE, Dosing Weight 121.5, kg, Priority: STAT, Start date: 04/04/13 14:30:00, Stop date: 04/04/13 14:30:00(Same as: Lopressor)Push over 2 minutes aspirin 325 mg, 1 tab, Route: 04/21/2013 04/30/2013 Discontinued DHT, Drug form: TAB, Daily, Dosing Weight 121.5, kg, Start date: 04/21/13 9:00:00, Duration: 30 day, Stop date: 05/20/13 9:00:00Take with food. magnesium sulfate 2gm / 2 gm, 50 mL, Route: 04/05/2013 04/05/2013 Discontinued NS 50ml (premixed) IVPB, Drug form: INJ, ONCE, Dosing Weight 121.5, kg, Start date: 04/05/13 6:50:00, Duration: 2 hr, Stop date: 04/05/13 6:50:00 Lyrica 100 mg, 1 cap, Route: 04/16/2013 04/20/2013 Discontinued PO, Drug form: CAP, Daily, Dosing Weight 121.5, kg, Start date: 04/16/13 9:00:00, Duration: 30 day, Stop date: 05/15/13 9:00:00(Same as: Lyrica) Lasix 40 mg, 4 mL, Route: IV, 04/15/2013 04/15/2013 Completed Drug form: INJ, ONCE, Dosing Weight 121.5, kg, Start date: 04/15/13 1:54:00, Stop date: 04/15/13 1:54:00(Same as: Lasix) Sodium Chloride 0.9% IV 100 mL, Rate: 0.5 mg/hr, 04/15/2013 04/15/2013 Deleted 100 mL + hydromorphone Route: IV, Dosing Weight 20 mg 121.5 kg, Total Volume: 100, Priority: NOW, Start date: 04/15/13 8:10:00, Duration: 30 day, Stop date: 05/15/13 8:09:00 docusate 100 mg, 10 mL, Route: 04/20/2013 04/25/2013 Discontinued DHT, Drug form: LIQ, BID, Dosing Weight 121.5, kg, Start date: 04/20/13 17:00:00, Duration: 30 day, Stop date: 05/20/13 9:00:00(Same as: Colace) digoxin 0.25 mg, 1 mL, Route: 04/04/2013 04/04/2013 Completed IVP, Drug form: INJ, ONCE, Dosing Weight 121.5, kg, Start date: 04/04/13 21:19:00, Stop date: 04/04/13 21:19:00(Same as: Lanoxin) insulin aspart 10 unit, 0.1 mL, Route: 04/09/2013 04/09/2013 Discontinued SUB-Q, Drug form: SOLN, ONCE, Dosing Weight 121.5, kg, Start date: 04/09/13 16:11:00, Stop date: 04/09/13 16:11:00Roll in palms of hands gently; Do not shake vigorously. (Same as: NovoLog)"single patient use only" Stable for 28 days at room temperature.Expires in days from Date simethicone 80 mg, 1 tab, Route: NG, 04/20/2013 04/30/2013 Discontinued Drug form: CHEWTAB, Q6H, Dosing Weight 121.5, kg, Priority: NOW, Start date: 04/20/13 12:00:00, Stop date: 05/20/13 6:00:00(Same as: Mylicon) sodium glycerophosphate 30 mmol, 30 mL, Route: 04/14/2013 04/30/2013 Discontinued + Sodium Chloride 0.9% IV, Drug form: INJ, PRN, IV 250 mL PRN Abnormal Lab Result, Start date: 04/14/13 14:40:00, Duration: 30 day, Stop date: 05/14/13 14:39:00Same as: Glycophos Non-Formulary Protonix 40 mg, Route: IV, Drug 04/04/2013 04/04/2013 Completed form: INJ, ONCE, Dosing Weight 121.5, kg, Start date: 04/04/13 16:01:00, Stop date: 04/04/13 16:01:00For IV push reconstitute with 10 ml 0.9% sodium chloride and push over 2 minutes. (Same as: Protonix) Milk of Magnesia 30 ml, Route: PO, Drug 04/20/2013 04/21/2013 Discontinued Form: SUSP, Dosing Weight 121.5, kg, Daily, NOW, Start date: 04/20/13 12:00:00, Duration: 30 day, Stop date: 05/20/13 9:00:00(Same as: Milk of Magnesia, MOM) Dulcolax Laxative 10 mg, 1 supp, Route: 04/21/2013 04/26/2013 Discontinued TN, Drug form: SUPP, Daily, Dosing Weight 121.5, kg, Start date: 04/21/13 9:00:00, Duration: 30 day, Stop date: 05/20/13 9:00:00(Same As: Dulcolax, Bisco-Lax) bisacodyl 10 mg rectal 10 mg=1 supp, TN, Daily, 04/30/2013 Ordered suppository Constipation, # 10 supp, 0 Refill(s) bacitracin-polymyxin B 1 appl, TOP, BID, # 10 04/30/2013 Ordered topical powder gm, 0 Refill(s) insulin aspart 3 unit, 0.03 mL, Route: 04/29/2013 04/29/2013 Completed SUB-Q, Drug form: SOLN, ONCE, Dosing Weight 121.5, kg, Priority: NOW, Start date: 04/29/13 12:31:00, Stop date: 04/29/13 12:31:00Roll in palms of hands gently; Do not shake vigorously. (Same as: NovoLog)"single patient use only" Stable for 28 days at room temperature.Expires in days from Date AMIODarone 400 mg, 2 tab, Route: 04/08/2013 04/13/2013 Completed PO, Drug form: TAB, TID, Dosing Weight 121.5, kg, Start date: 04/08/13 16:00:00, Duration: 5 day, Stop date: 04/13/13 8:00:00(Same as: Cordarone) Triple Antibiotic 1 appl, Route: TOP, BID, 04/22/2013 04/22/2013 Discontinued topical ointment Drug form: OINT, Start date: 04/22/13 17:00:00, Duration: 30 day, Stop date: 05/22/13 9:00:00 insulin aspart 8 unit, 0.08 mL, Route: 04/12/2013 04/13/2013 Discontinued SUB-Q, Drug form: SOLN, TID-Before Meals, Dosing Weight 121.5, kg, PRN Blood Glucose Results, Start date: 04/12/13 8:24:00, Duration: 30 day, Stop date: 05/12/13 8:23:00Roll in palms of hands gently; Do not shake vigorously. (Same as: NovoLog)"single patient use only" Stable for 28 days at room temperature.Expires in days from Date insulin aspart 6 unit, 0.06 mL, Route: 04/12/2013 04/13/2013 Discontinued SUB-Q, Drug form: SOLN, TID-Before Meals, Dosing Weight 121.5, kg, PRN Blood Glucose Results, Start date: 04/12/13 8:24:00, Duration: 30 day, Stop date: 05/12/13 8:23:00Roll in palms of hands gently; Do not shake vigorously. (Same as: NovoLog)"single patient use only" Stable for 28 days at room temperature.Expires in days from Date insulin aspart 10 unit, 0.1 mL, Route: 04/12/2013 04/13/2013 Discontinued SUB-Q, Drug form: SOLN, TID-Before Meals, Dosing Weight 121.5, kg, PRN Blood Glucose Results, Start date: 04/12/13 8:24:00, Duration: 30 day, Stop date: 05/12/13 8:23:00Roll in palms of hands gently; Do not shake vigorously. (Same as: NovoLog)"single patient use only" Stable for 28 days at room temperature.Expires in days from Date insulin aspart 4 unit, 0.04 mL, Route: 04/12/2013 04/13/2013 Discontinued SUB-Q, Drug form: SOLN, TID-Before Meals, Dosing Weight 121.5, kg, PRN Blood Glucose Results, Start date: 04/12/13 8:24:00, Duration: 30 day, Stop date: 05/12/13 8:23:00Roll in palms of hands gently; Do not shake vigorously. (Same as: NovoLog)"single patient use only" Stable for 28 days at room temperature.Expires in days from Date insulin aspart 2 unit, 0.02 mL, Route: 04/12/2013 04/13/2013 Discontinued SUB-Q, Drug form: SOLN, TID-Before Meals, Dosing Weight 121.5, kg, PRN Blood Glucose Results, Start date: 04/12/13 8:24:00, Duration: 30 day, Stop date: 05/12/13 8:23:00Roll in palms of hands gently; Do not shake vigorously. (Same as: NovoLog)"single patient use only" Stable for 28 days at room temperature.Expires in days from Date Dextrose 50% Syringe 25 gm, 50 mL, Route: 04/12/2013 04/13/2013 Deleted IVP, Drug Form: INJ, Dosing Weight 121.5, kg, PRN, PRN Blood Glucose Results, Start date: 04/12/13 8:24:00, Duration: 30 day, Stop date: 05/12/13 8:23:00 glucagon 1 mg, Route: IM, Drug 04/12/2013 04/13/2013 Deleted form: PDR/INJ, PRN, Dosing Weight 121.5, kg, PRN Blood Glucose Results, Start date: 04/12/13 8:24:00, Duration: 30 day, Stop date: 05/12/13 8:23:00 Dextrose 50% Syringe 12.5 gm, 25 mL, Route: 04/12/2013 04/13/2013 Deleted IVP, Drug Form: INJ, Dosing Weight 121.5, kg, PRN, PRN Blood Glucose Results, Start date: 04/12/13 8:24:00, Duration: 30 day, Stop date: 05/12/13 8:23:00 aspirin 325 mg tablet 325 mg=1 tab, PO, Daily, 04/30/2013 Ordered # 100 tab, 2 Refill(s) Kayexalate 15 gm, 60 mL, Route: PO, 04/10/2013 04/10/2013 Completed Drug form: SUSP, ONCE, Dosing Weight 121.5, kg, Start date: 04/10/13 15:20:00, Stop date: 04/10/13 15:20:00(sodium polystyrene sulfonate 15 gm/60 ml KODAK) Shake well before use. (Same as: Kayexalate, SPS) insulin glargine 50 unit, 0.5 mL, Route: 04/24/2013 04/30/2013 Discontinued SUB-Q, Drug form: INJ, Daily, Dosing Weight 121.5, kg, Start date: 04/24/13 9:00:00, Stop date: 05/23/13 9:00:00Same as Lantus Solostar PEN"single patient use only" Stable for 28 days at room temperature.Expires in days from Date insulin aspart 2 unit, 0.02 mL, Route: 04/13/2013 04/13/2013 Discontinued SUB-Q, Drug form: SOLN, TID-Before Meals, Dosing Weight 121.5, kg, PRN Blood Glucose Results, Start date: 04/13/13 10:14:00, Duration: 30 day, Stop date: 05/13/13 10:13:00Roll in palms of hands gently; Do not shake vigorously. (Same as: NovoLog)"single patient use only" Stable for 28 days at room temperature.Expires in days from Date insulin aspart 6 unit, 0.06 mL, Route: 04/13/2013 04/13/2013 Discontinued SUB-Q, Drug form: SOLN, TID-Before Meals, Dosing Weight 121.5, kg, PRN Blood Glucose Results, Start date: 04/13/13 10:14:00, Duration: 30 day, Stop date: 05/13/13 10:13:00Roll in palms of hands gently; Do not shake vigorously. (Same as: NovoLog)"single patient use only" Stable for 28 days at room temperature.Expires in days from Date insulin aspart 4 unit, 0.04 mL, Route: 04/13/2013 04/13/2013 Discontinued SUB-Q, Drug form: SOLN, TID-Before Meals, Dosing Weight 121.5, kg, PRN Blood Glucose Results, Start date: 04/13/13 10:14:00, Duration: 30 day, Stop date: 05/13/13 10:13:00Roll in palms of hands gently; Do not shake vigorously. (Same as: NovoLog)"single patient use only" Stable for 28 days at room temperature.Expires in days from Date insulin aspart 10 unit, 0.1 mL, Route: 04/13/2013 04/13/2013 Discontinued SUB-Q, Drug form: SOLN, TID-Before Meals, Dosing Weight 121.5, kg, PRN Blood Glucose Results, Start date: 04/13/13 10:14:00, Duration: 30 day, Stop date: 05/13/13 10:13:00Roll in palms of hands gently; Do not shake vigorously. (Same as: NovoLog)"single patient use only" Stable for 28 days at room temperature.Expires in days from Date insulin aspart 8 unit, 0.08 mL, Route: 04/13/2013 04/13/2013 Discontinued SUB-Q, Drug form: SOLN, TID-Before Meals, Dosing Weight 121.5, kg, PRN Blood Glucose Results, Start date: 04/13/13 10:14:00, Duration: 30 day, Stop date: 05/13/13 10:13:00Roll in palms of hands gently; Do not shake vigorously. (Same as: NovoLog)"single patient use only" Stable for 28 days at room temperature.Expires in days from Date Dextrose 50% Syringe 12.5 gm, 25 mL, Route: 04/13/2013 04/13/2013 Deleted IVP, Drug Form: INJ, Dosing Weight 121.5, kg, PRN, PRN Blood Glucose Results, Start date: 04/13/13 10:14:00, Duration: 30 day, Stop date: 05/13/13 10:13:00 Dulcolax Laxative 10 mg, 1 supp, Route: 04/26/2013 04/30/2013 Discontinued TN, Drug form: SUPP, Daily, Dosing Weight 121.5, kg, PRN Constipation, Start date: 04/26/13 14:13:00, Duration: 30 day, Stop date: 05/26/13 14:12:00(Same As: Dulcolax, Bisco-Lax) glucagon 1 mg, Route: IM, Drug 04/13/2013 04/13/2013 Deleted form: PDR/INJ, PRN, Dosing Weight 121.5, kg, PRN Blood Glucose Results, Start date: 04/13/13 10:14:00, Duration: 30 day, Stop date: 05/13/13 10:13:00 Dextrose 50% Syringe 25 gm, 50 mL, Route: 04/13/2013 04/13/2013 Deleted IVP, Drug Form: INJ, Dosing Weight 121.5, kg, PRN, PRN Blood Glucose Results, Start date: 04/13/13 10:14:00, Duration: 30 day, Stop date: 05/13/13 10:13:00 Klonopin 0.5 mg oral 0.5 mg=1 tab, PO, 04/30/2013 Ordered tablet Bedtime, # 30 tab, 1 Refill(s) senna 8.6 mg, 1 tab, Route: 04/27/2013 04/30/2013 Discontinued PO, Drug Form: TAB, Dosing Weight 121.5, kg, Daily, Start date: 04/27/13 9:00:00, Duration: 30 day, Stop date: 05/26/13 9:00:00(Same as: Senokot) sodium glycerophosphate 15 mmol, 15 mL, Route: 04/22/2013 04/22/2013 Completed + Sodium Chloride 0.9% IVPB, PRN, Dosing Weight IV 250 mL 121.5, kg, PRN Abnormal Lab Result, Start date: 04/22/13 7:40:00, Duration: 1 doses or times, Stop date: 04/22/13 16:00:00 Dulcolax Laxative 10 mg, 2 tab, Route: PO, 04/26/2013 04/30/2013 Discontinued Drug form: ECTAB, Daily, Dosing Weight 121.5, kg, PRN Constipation, Start date: 04/26/13 14:13:00, Duration: 30 day, Stop date: 05/26/13 14:12:00(Same As: Dulcolax, Correctol) (Do Not Crush) "Do Not Crush" heparin additive 25,000 500 mL, Rate: 22.8 04/04/2013 04/09/2013 Discontinued unit [14 unit/kg/hr] + ml/hr, Infuse over: 21.9 Premix Diluent Dextrose hr, Route: IV, Dosing 5% 500 mL Weight 81.42 kg, Total Volume: 500 mL, Start date: 04/04/13 20:26:00, Duration: 30 day, Stop date: 05/04/13 20:25:00 albumin human 25% 25 gm, 100 mL, Route: 04/15/2013 04/16/2013 Completed intravenous solution IVPB, Drug form: INJ, Q4H, Dosing Weight 121.5, kg, Priority: NOW, Start date: 04/15/13 13:43:00, Duration: 6 doses or times, Stop date: 04/16/13 10:00:00Lot #: Mfg: (Same as: Plasbumin-25)"blood product derivative" amLODIPine 10 mg oral 10 mg=1 tab, PO, Daily, 04/30/2013 Ordered tablet # 90 tab, 2 Refill(s) Lasix 60 mg, 6 mL, Route: IV, 04/04/2013 04/04/2013 Completed Drug form: INJ, ONCE, Dosing Weight 121.5, kg, Priority: STAT, Start date: 04/04/13 13:15:00, Stop date: 04/04/13 13:15:00(Same as: Lasix) insulin detemir 40 unit, 0.4 mL, Route: 04/21/2013 04/23/2013 Discontinued SUB-Q, Drug form: INJ, Q12H, Dosing Weight 121.5, kg, Start date: 04/21/13 21:00:00, Stop date: 05/21/13 9:00:00Same as Levemir "single patient use only" Lantus 50 unit, 0.5 mL, Route: 04/13/2013 04/13/2013 Completed SUB-Q, Drug form: INJ, ONCE, Dosing Weight 121.5, kg, Start date: 04/13/13 21:25:00, Stop date: 04/13/13 21:25:00Same as Lantus Solostar PEN"single patient use only" Stable for 28 days at room temperature.Expires in days from Date heparin 25,000 unit [14 500 mL, Rate: 22.8 04/09/2013 04/14/2013 Discontinued unit/kg/hr] + Premix ml/hr, Infuse over: 21.9 Diluent Sodium Chloride hr, Route: IV, Dosing 0.9% 500 mL Weight 81.42 kg, Total Volume: 500, Start date: 04/09/13 16:17:00, Duration: 30 day, Stop date: 05/09/13 16:16:00 AMIODarone 200 mg oral 200 mg=1 tab, PO, Daily, 04/30/2013 Ordered tablet # 90 tab, 2 Refill(s) pregabalin 100 mg oral 100 mg=1 cap, PO, Daily, 04/30/2013 Ordered capsule # 30 cap, 1 Refill(s) insulin aspart 3 unit, 0.03 mL, Route: 04/08/2013 04/12/2013 Discontinued SUB-Q, Drug form: SOLN, TID-Before Meals, Dosing Weight 121.5, kg, PRN Blood Glucose Results, Start date: 04/08/13 12:34:00, Duration: 30 day, Stop date: 05/08/13 12:33:00Roll in palms of hands gently; Do not shake vigorously. (Same as: NovoLog)"single patient use only" Stable for 28 days at room temperature.Expires in days from Date insulin aspart 6 unit, 0.06 mL, Route: 04/08/2013 04/12/2013 Discontinued SUB-Q, Drug form: SOLN, TID-Before Meals, Dosing Weight 121.5, kg, PRN Blood Glucose Results, Start date: 04/08/13 12:34:00, Duration: 30 day, Stop date: 05/08/13 12:33:00Roll in palms of hands gently; Do not shake vigorously. (Same as: NovoLog)"single patient use only" Stable for 28 days at room temperature.Expires in days from Date insulin aspart 9 unit, 0.09 mL, Route: 04/08/2013 04/12/2013 Discontinued SUB-Q, Drug form: SOLN, TID-Before Meals, Dosing Weight 121.5, kg, PRN Blood Glucose Results, Start date: 04/08/13 12:34:00, Duration: 30 day, Stop date: 05/08/13 12:33:00Roll in palms of hands gently; Do not shake vigorously. (Same as: NovoLog)"single patient use only" Stable for 28 days at room temperature.Expires in days from Date insulin aspart 12 unit, 0.12 mL, Route: 04/08/2013 04/12/2013 Discontinued SUB-Q, Drug form: SOLN, TID-Before Meals, Dosing Weight 121.5, kg, PRN Blood Glucose Results, Start date: 04/08/13 12:34:00, Duration: 30 day, Stop date: 05/08/13 12:33:00Roll in palms of hands gently; Do not shake vigorously. (Same as: NovoLog)"single patient use only" Stable for 28 days at room temperature.Expires in days from Date insulin aspart 15 unit, 0.15 mL, Route: 04/08/2013 04/12/2013 Discontinued SUB-Q, Drug form: SOLN, TID-Before Meals, Dosing Weight 121.5, kg, PRN Blood Glucose Results, Start date: 04/08/13 12:34:00, Duration: 30 day, Stop date: 05/08/13 12:33:00Roll in palms of hands gently; Do not shake vigorously. (Same as: NovoLog)"single patient use only" Stable for 28 days at room temperature.Expires in days from Date Dextrose 50% Syringe 25 gm, 50 mL, Route: 04/08/2013 04/12/2013 Discontinued IVP, Drug Form: INJ, Dosing Weight 121.5, kg, PRN, PRN Blood Glucose Results, Start date: 04/08/13 12:34:00, Duration: 30 day, Stop date: 05/08/13 12:33:00 Dextrose 50% Syringe 12.5 gm, 25 mL, Route: 04/08/2013 04/12/2013 Discontinued IVP, Drug Form: INJ, Dosing Weight 121.5, kg, PRN, PRN Blood Glucose Results, Start date: 04/08/13 12:34:00, Duration: 30 day, Stop date: 05/08/13 12:33:00 glucagon 1 mg, Route: IM, Drug 04/08/2013 04/12/2013 Discontinued form: PDR/INJ, PRN, Dosing Weight 121.5, kg, PRN Blood Glucose Results, Start date: 04/08/13 12:34:00, Duration: 30 day, Stop date: 05/08/13 12:33:00 AMIODarone 900 mg + 482 mL, Rate: Infuse as 04/04/2013 04/04/2013 Discontinued Dextrose 5% in Water directed, Dosing Weight (Titrate) IV 482 mL 121.5, kg, Route: IV, Total Volume: 500 mL, Start Date: 04/04/13 3:12:00, Duration: 30 day, Stop date: 05/04/13 3:11:00, Replace Every: 24 hrNon PVC bag Lyrica 100 mg, 1 cap, Route: 04/21/2013 04/30/2013 Discontinued PO, Drug form: CAP, Daily, Dosing Weight 121.5, kg, Start date: 04/21/13 9:00:00, Duration: 30 day, Stop date: 05/19/13 21:00:00(Same as: Lyrica) metoprolol tartrate 50 mg, 1 tab, Route: PO, 04/04/2013 04/06/2013 Discontinued Drug form: TAB, Q6H, Dosing Weight 121.5, kg, Start date: 04/04/13 19:06:00, Stop date: 05/04/13 18:00:00(Same as: Lopressor) insulin glargine 100 50 unit=0.5 mL, SUB-Q, 04/30/2013 Ordered units/mL subcutaneous Daily, # 10 mL, 0 solution Refill(s) insulin detemir 35 unit, 0.35 mL, Route: 04/20/2013 04/20/2013 Canceled SUB-Q, Drug form: INJ, Q12H, Dosing Weight 121.5, kg, Start date: 04/20/13 21:00:00, Duration: 30 day, Stop date: 05/20/13 9:00:00Same as Levemir "single patient use only" Prevacid 30 mg, 10 mL, Route: 04/21/2013 04/24/2013 Discontinued DHT, Drug form: SUSP, Daily, Dosing Weight 121.5, kg, Start date: 04/21/13 9:00:00, Duration: 30 day, Stop date: 05/20/13 9:00:00Take 1 hour before or 2 hours after meal; Expires in 14 days. Shake well before use. (Same as:Prevacid) Compounded Product - formulation not commercially available insulin aspart 35 unit, 0.35 mL, Route: 04/13/2013 04/20/2013 Discontinued SUB-Q, Drug form: SOLN, TID-Before Meals, Dosing Weight 121.5, kg, Start date: 04/13/13 11:30:00, Duration: 30 day, Stop date: 05/13/13 7:30:00Roll in palms of hands gently; Do not shake vigorously. (Same as: NovoLog)"single patient use only" Stable for 28 days at room temperature.Expires in days from Date metoprolol 5 mg/5 ml 5 mg, 5 mL, Route: IVP, 04/18/2013 04/18/2013 Completed INJ Drug form: INJ, ONCE, Dosing Weight 121.5, kg, Start date: 04/18/13 11:05:00, Stop date: 04/18/13 11:05:00 vancomycin 2 gm, Route: IVPB, ONCE, 04/16/2013 04/16/2013 Completed Dosing Weight 121.5, kg, Start date: 04/16/13 14:44:00, Stop date: 04/16/13 14:44:00 heparin 5,000 unit, 1 mL, Route: 04/04/2013 04/04/2013 Canceled SUB-Q, Drug form: INJ, Q8H, Dosing Weight 121.5, kg, Start date: 04/04/13 8:00:00, Duration: 30 day, Stop date: 05/04/13 0:00:00porcine heparin tolterodine 1 mg, 1 tab, Route: PO, 04/29/2013 04/29/2013 Canceled Drug form: TAB, BID, Dosing Weight 121.5, kg, Start date: 04/29/13 12:15:00, Duration: 30 day, Stop date: 05/29/13 9:00:00(Same As: Jimbo) insulin detemir 32 unit, 0.32 mL, Route: 04/20/2013 04/21/2013 Discontinued SUB-Q, Drug form: INJ, Q12H, Dosing Weight 121.5, kg, Start date: 04/20/13 21:00:00, Duration: 30 day, Stop date: 05/20/13 9:00:00Same as Levemir "single patient use only" heparin additive 25,000 500 mL, Rate: 19.54 04/04/2013 04/04/2013 Discontinued unit [12 unit/kg/hr] + ml/hr, Infuse over: 25.6 Premix Diluent Dextrose hr, Route: IV, Dosing 5% 500 mL Weight 81.42 kg, Total Volume: 500 mL, Start date: 04/04/13 4:14:00, Stop date: 05/04/13 4:13:00 Heparin 30 unit/kg Route: IVP, PRN, 2,400 04/04/2013 04/04/2013 Discontinued Bolus (Heparin Dosing unit, 2.4 mL, Drug form: Weight) INJ, PRN, Heparin Protocol, Start date: 04/04/13 4:14:00 Stop date: 05/04/13 4:13:00, 30 day Heparin - one time 4,000 unit, 4 mL, Route: 04/04/2013 04/04/2013 Completed bolus for ACS IV, Drug form: INJ, ONCE, Dosing Weight 121.5, kg, Priority: STAT, Start date: 04/04/13 4:14:00, Stop date: 04/04/13 4:14:00 Flomax 0.4 mg, 1 cap, Route: 04/30/2013 04/30/2013 Discontinued PO, Drug form: CAP, Daily, Dosing Weight 121.5, kg, Start date: 04/30/13 10:30:00, Duration: 30 day, Stop date: 05/30/13 9:00:00(Same As: Flomax) "Do Not Crush" acetaminophen-hydrocodo 1 tab, Route: PO, Drug 04/04/2013 04/14/2013 Discontinued ne 325 mg-5 mg oral Form: TAB, Dosing Weight tablet 121.5, kg, Q4H, PRN Pain Score 1-3, Start date: 04/04/13 3:05:00, Duration: 30 day, Stop date: 05/04/13 3:04:00(Same as: Sewell 325/5) Do not exceed 4gm/day of acetaminophen. Keppra 500 mg, 1 tab, Route: 04/25/2013 04/30/2013 Discontinued PO, Drug form: TAB, Q12H, Dosing Weight 121.5, kg, Start date: 04/25/13 9:00:00, Duration: 30 day, Stop date: 05/24/13 21:00:00(Same as:Keppra) insulin glargine 15 unit, 0.15 mL, Route: 04/12/2013 04/12/2013 Completed SUB-Q, Drug form: INJ, ONCE, Dosing Weight 121.5, kg, Priority: NOW, Start date: 04/12/13 12:07:00, Stop date: 04/12/13 12:07:00Same as Lantus Solostar PEN"single patient use only" Stable for 28 days at room temperature.Expires in days from Date Keppra + Sodium 500 mg, Route: IVPB, 04/15/2013 04/20/2013 Discontinued Chloride 0.9% IV 100 mL Q12H, Dosing Weight 121.5, kg, Start date: 04/15/13 9:00:00, Duration: 30 day, Stop date: 05/14/13 21:00:00Same as Keppra Mix with 100ml NS, LR, or D5W sodium phosphate 15 mmol, Route: IVPB, 04/15/2013 04/15/2013 Deleted PRN, Dosing Weight 121.5, kg, PRN Abnormal Lab Result, Start date: 04/15/13 8:09:00, Duration: 30 day, Stop date: 05/15/13 8:08:00 insulin aspart 100 15 unit=0.15 mL, SUB-Q, 04/30/2013 Ordered units/mL subcutaneous TID-Before Meals, # 15 solution mL, 3 Refill(s) Prinivil 5 mg, 1 tab, Route: PO, 04/22/2013 04/30/2013 Discontinued Drug form: TAB, Daily, Dosing Weight 121.5, kg, Start date: 04/22/13 9:00:00, Duration: 30 day, Stop date: 05/21/13 9:00:00(Same as: Prinivil, Zestril) multivitamin with iron 1 tab, Route: PO, Drug 04/28/2013 04/27/2013 Discontinued Form: TAB, Dosing Weight 121.5, kg, Daily, Start date: 04/28/13 9:00:00, Duration: 30 day, Stop date: 05/27/13 9:00:00 docusate 100 mg, 10 mL, Route: 04/25/2013 04/30/2013 Discontinued PO, Drug form: LIQ, BID, Dosing Weight 121.5, kg, Start date: 04/25/13 9:00:00, Duration: 30 day, Stop date: 05/24/13 17:00:00(Same as: Colace) Lasix 40 mg, 4 mL, Route: IV, 04/05/2013 04/05/2013 Completed Drug form: INJ, ONCE, Dosing Weight 121.5, kg, Start date: 04/05/13 17:01:00, Stop date: 04/05/13 17:01:00(Same as: Lasix) metoprolol 5 mg/5 ml 5 mg, Route: IVP, Drug 04/04/2013 04/04/2013 Discontinued INJ form: INJ, ONCE, Dosing Weight 121.5, kg, Start date: 04/04/13 14:26:00, Stop date: 04/04/13 14:26:00 NovoLog FlexPen 5 unit, 0.05 mL, Route: 04/08/2013 04/08/2013 Completed SUB-Q, Drug form: SOLN, ONCE, Dosing Weight 121.5, kg, Start date: 04/08/13 18:10:00, Stop date: 04/08/13 18:10:00Roll in palms of hands gently; Do not shake vigorously. (Same as: NovoLog)"single patient use only" Stable for 28 days at room temperature.Expires in days from Date Lantus 60 unit, 0.6 mL, Route: 04/13/2013 04/20/2013 Discontinued SUB-Q, Drug form: INJ, Daily, Dosing Weight 121.5, kg, Start date: 04/13/13 9:00:00, Duration: 30 day, Stop date: 05/12/13 9:00:00Same as Lantus Solostar PEN"single patient use only" Stable for 28 days at room temperature.Expires in days from Date insulin aspart 30 unit, 0.3 mL, Route: 04/12/2013 04/13/2013 Discontinued SUB-Q, Drug form: SOLN, TID-Before Meals, Dosing Weight 121.5, kg, Start date: 04/12/13 8:30:00, Duration: 30 day, Stop date: 05/12/13 7:30:00Roll in palms of hands gently; Do not shake vigorously. (Same as: NovoLog)"single patient use only" Stable for 28 days at room temperature.Expires in days from Date insulin aspart 6 unit, 0.06 mL, Route: 04/20/2013 04/22/2013 Discontinued SUB-Q, Drug form: SOLN, Sliding Scale, Dosing Weight 121.5, kg, PRN Blood Glucose Results, Start date: 04/20/13 2:28:00, Duration: 30 day, Stop date: 05/20/13 2:27:00Roll in palms of hands gently; Do not shake vigorously. (Same as: NovoLog)"single patient use only" Stable for 28 days at room temperature.Expires in days from Date insulin aspart 8 unit, 0.08 mL, Route: 04/20/2013 04/22/2013 Discontinued SUB-Q, Drug form: SOLN, Sliding Scale, Dosing Weight 121.5, kg, PRN Blood Glucose Results, Start date: 04/20/13 2:28:00, Duration: 30 day, Stop date: 05/20/13 2:27:00Roll in palms of hands gently; Do not shake vigorously. (Same as: NovoLog)"single patient use only" Stable for 28 days at room temperature.Expires in days from Date insulin aspart 10 unit, 0.1 mL, Route: 04/20/2013 04/22/2013 Discontinued SUB-Q, Drug form: SOLN, Sliding Scale, Dosing Weight 121.5, kg, PRN Blood Glucose Results, Start date: 04/20/13 2:28:00, Duration: 30 day, Stop date: 05/20/13 2:27:00Roll in palms of hands gently; Do not shake vigorously. (Same as: NovoLog)"single patient use only" Stable for 28 days at room temperature.Expires in days from Date insulin aspart 2 unit, 0.02 mL, Route: 04/20/2013 04/22/2013 Discontinued SUB-Q, Drug form: SOLN, Sliding Scale, Dosing Weight 121.5, kg, PRN Blood Glucose Results, Start date: 04/20/13 2:28:00, Duration: 30 day, Stop date: 05/20/13 2:27:00Roll in palms of hands gently; Do not shake vigorously. (Same as: NovoLog)"single patient use only" Stable for 28 days at room temperature.Expires in days from Date insulin aspart 4 unit, 0.04 mL, Route: 04/20/2013 04/22/2013 Discontinued SUB-Q, Drug form: SOLN, Sliding Scale, Dosing Weight 121.5, kg, PRN Blood Glucose Results, Start date: 04/20/13 2:28:00, Duration: 30 day, Stop date: 05/20/13 2:27:00Roll in palms of hands gently; Do not shake vigorously. (Same as: NovoLog)"single patient use only" Stable for 28 days at room temperature.Expires in days from Date Dextrose 50% Syringe 12.5 gm, 25 mL, Route: 04/20/2013 04/25/2013 Discontinued IVP, Drug Form: INJ, Dosing Weight 121.5, kg, PRN, PRN Blood Glucose Results, Start date: 04/20/13 2:28:00, Duration: 30 day, Stop date: 05/20/13 2:27:00 Dextrose 50% Syringe 25 gm, 50 mL, Route: 04/20/2013 04/25/2013 Discontinued IVP, Drug Form: INJ, Dosing Weight 121.5, kg, PRN, PRN Blood Glucose Results, Start date: 04/20/13 2:28:00, Duration: 30 day, Stop date: 05/20/13 2:27:00 glucagon 1 mg, Route: IM, Drug 04/20/2013 04/25/2013 Discontinued form: PDR/INJ, PRN, Dosing Weight 121.5, kg, PRN Blood Glucose Results, Start date: 04/20/13 2:28:00, Duration: 30 day, Stop date: 05/20/13 2:27:00 digoxin 125 mcg (0.125 0.125 mg, 1 tab, Route: 04/10/2013 04/30/2013 Discontinued mg) oral tablet PO, Drug form: TAB, Daily, Dosing Weight 121.5, kg, Start date: 04/10/13 9:00:00, Duration: 30 day, Stop date: 05/09/13 9:00:00Take on an Empty Stomach (Same as: Lanoxin) hydrALAZINE 10 mg, 0.5 mL, Route: 04/14/2013 04/14/2013 Completed IVP, Drug form: INJ, ONCE, Dosing Weight 121.5, kg, Start date: 04/14/13 1:19:00, Stop date: 04/14/13 1:19:00(Same as: Apresoline)Push over 5 minutes pneumococcal 23-valent 0.5 ml, Route: IM, Drug 04/07/2013 04/08/2013 Completed vaccine Form: INJ, Start date: 04/07/13 9:00:00, Stop date: 04/07/13 9:00:00 tolterodine 2 mg, 1 tab, Route: PO, 04/29/2013 04/30/2013 Discontinued Drug form: TAB, Q12H, Dosing Weight 121.5, kg, Start date: 04/29/13 12:30:00, Duration: 30 day, Stop date: 05/29/13 9:00:00(Same As: Detrol) albumin human 25% 25 gm, 100 mL, Route: 04/14/2013 04/14/2013 Completed intravenous solution IV, Drug form: INJ, ONCE, Dosing Weight 121.5, kg, Start date: 04/14/13 21:30:00, Stop date: 04/14/13 21:30:00Lot #: Mfg: (Same as: Plasbumin-25)"blood product derivative" Sodium Chloride 0.9% 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, Rate: call center director 04/13/2013 04/28/2013 Discontinued (titrate) 250 mL for use with blood product administration, Dosing Weight 121.5, kg, Route: IV, Total Volume: 250, Start Date: 04/13/13 17:48:00, Duration: 30 day, Stop date: 05/13/13 17:47:00, Replace Every: 24 hr potassium chloride 40 mEq, 2 tab, Route: 04/06/2013 04/06/2013 Completed PO, Drug form: ERTAB, ONCE, Dosing Weight 121.5, kg, Start date: 04/06/13 10:33:00, Stop date: 04/06/13 10:33:00(Same as: K-Dur 20)"Do Not Crush" With food and full glass of water Lotrel 5 mg-20 mg oral Daily, 0 Refill(s) 04/04/2013 04/30/2013 Discontinued capsule Lipitor 20 mg oral Bedtime, 0 Refill(s) 04/04/2013 04/30/2013 Discontinued tablet magnesium oxide 400 mg, 1 tab, Route: 04/05/2013 04/05/2013 Completed PO, Drug form: TAB, ONCE, Dosing Weight 121.5, kg, Start date: 04/05/13 7:28:00, Stop date: 04/05/13 7:28:00(Same as: Mag-Ox 400)Magnesium oxide [id number] elemental magnesiumDose=____mg magnesium oxide (___mg elemental magnesium) insulin aspart 15 unit, 0.15 mL, Route: 04/23/2013 04/30/2013 Discontinued SUB-Q, Drug form: SOLN, TID-Before Meals, Dosing Weight 121.5, kg, Start date: 04/23/13 11:30:00, Stop date: 05/23/13 7:30:00Roll in palms of hands gently; Do not shake vigorously. (Same as: NovoLog)"single patient use only" Stable for 28 days at room temperature.Expires in days from Date Toviaz 8 mg oral Daily, 0 Refill(s) 04/04/2013 Ordered tablet, extended release AMIODarone 400 mg, 2 tab, Route: 04/19/2013 04/28/2013 Discontinued PO, Drug form: TAB, BID, Dosing Weight 121.5, kg, Start date: 04/19/13 17:00:00, Duration: 30 day, Stop date: 05/19/13 9:00:00(Same as: Cordarone) aspirin 325 mg, 1 tab, Route: 04/04/2013 04/04/2013 Completed PO, Drug form: TAB, ONCE, Dosing Weight 121.5, kg, Start date: 04/04/13 4:10:00, Stop date: 04/04/13 4:10:00Take with food. Cymbalta 30 mg, Route: PO, Drug 04/26/2013 04/26/2013 Canceled form: DRC, Daily, Dosing Weight 121.5, kg, Start date: 04/26/13 9:00:00, Duration: 30 day, Stop date: 05/25/13 9:00:00 Klonopin 0.5 mg oral Bedtime, 0 Refill(s) 04/04/2013 04/30/2013 Discontinued tablet Myrbetriq 50 mg oral Daily, 0 Refill(s) 04/04/2013 Ordered tablet, extended release Lantus 60 unit, 0.6 mL, Route: 04/12/2013 04/20/2013 Discontinued SUB-Q, Drug form: INJ, Bedtime, Dosing Weight 121.5, kg, Start date: 04/12/13 21:00:00, Duration: 30 day, Stop date: 05/11/13 21:00:00Same as Lantus Solostar PEN"single patient use only" Stable for 28 days at room temperature.Expires in days from Date azithromycin 500 mg, Route: IVPB, 04/04/2013 04/06/2013 Discontinued Drug form: PDR/INJ, [id number], Dosing Weight 121.5, kg, Start date: 04/04/13 19:00:00, Duration: 30 day, Stop date: 05/03/13 19:00:00(Same As: Zithromax IV) fenofibrate 48 mg, 1 tab, Route: PO, 04/04/2013 04/30/2013 Discontinued Drug form: TAB, Daily, Start date: 04/04/13 9:00:00, Duration: 30 day, Stop date: 06/02/13 9:00:00(Same as: Tricor) Lyrica Daily, 0 Refill(s) 04/04/2013 04/30/2013 Discontinued Cymbalta 60 mg oral Daily, 0 Refill(s) 04/04/2013 Ordered delayed release capsule Protonix 40 mg, 1 tab, Route: PO, 04/10/2013 04/14/2013 Discontinued Drug form: ECTAB, Before Breakfast, Dosing Weight 121.5, kg, Start date: 04/10/13 7:30:00, Duration: 30 day, Stop date: 05/09/13 7:30:00Tablet should not be chewed or crushed.(Same as: Protonix) amLODIPine 5 mg, Route: PO, Drug 04/18/2013 04/18/2013 Completed form: TAB, ONCE, Dosing Weight 121.5, kg, Priority: Routine, Start date: 04/18/13 23:00:00, Stop date: 04/18/13 23:00:00 Norvasc 10 mg, 1 tab, Route: PO, 04/19/2013 04/30/2013 Discontinued Drug form: TAB, Daily, Dosing Weight 121.5, kg, Start date: 04/19/13 9:00:00, Duration: 30 day, Stop date: 05/18/13 9:00:00(Same as: Norvasc) hydrALAZINE 25 mg oral 25 mg, 1 tab, Route: PO, 04/18/2013 04/18/2013 Discontinued tablet Drug form: TAB, Q8H, Dosing Weight 121.5, kg, Start date: 04/18/13 16:00:00, Duration: 30 day, Stop date: 05/18/13 8:00:00(Same as: Apresoline) May interfere w/enteral feedings Take With Food. digoxin 125 mcg (0.125 125 microgram=1 tab, PO, 04/30/2013 Ordered mg) oral tablet Daily, # 90 tab, 2 Refill(s) atorvastatin 40 mg oral 40 mg=1 tab, PO, 04/30/2013 Ordered tablet Bedtime, # 90 tab, 3 Refill(s) Versed 2 mg, 2 mL, Route: IVP, 04/14/2013 04/20/2013 Discontinued Drug form: INJ, Q2H, Dosing Weight 121.5, kg, PRN Sedation, Start date: 04/14/13 17:05:00, Duration: 30 day, Stop date: 05/14/13 17:04:00, as needed for anxiety(Same as: Versed) simethicone 80 mg oral 80 mg=1 tab, NG, Q6H, 04/30/2013 Ordered tablet, chewable bloating, # 90 tab, 0 Refill(s) Colace 100 mg oral 100 mg, 1 cap, Route: 04/06/2013 04/20/2013 Discontinued capsule PO, Drug form: CAP, BID, Dosing Weight 121.5, kg, PRN as needed for constipation, Start date: 04/06/13 15:08:00, Duration: 30 day, Stop date: 05/06/13 15:07:00(Same as: Colace) (Do Not Crush) potassium chloride 20 30 mEq, 22.5 mL, Route: 04/05/2013 04/05/2013 Completed mEq/15 mL oral liquid PO, Drug form: LIQ, ONCE, Dosing Weight 121.5, kg, Start date: 04/05/13 7:28:00, Stop date: 04/05/13 7:28:00(Same as: Potassium Chloride) senna 8.6 mg oral 8.6 mg=1 tab, PO, Daily, 04/30/2013 Ordered tablet # 36 tab, 1 Refill(s) potassium chloride 20 mEq, 100 mL, Route: 04/19/2013 04/19/2013 Completed IVPB, Drug form: INJ, ONCE, Dosing Weight 121.5, kg, Start date: 04/19/13 11:06:00, Stop date: 04/19/13 11:06:00(Same as: KCL) Infuse no faster than 10 mEq/hr if given peripherally. Seroquel 50 mg, 2 tab, Route: PO, 04/22/2013 04/25/2013 Discontinued Drug form: TAB, Bedtime, Dosing Weight 121.5, kg, Start date: 04/22/13 21:00:00, Duration: 30 day, Stop date: 05/21/13 21:00:00(Same as: Seroquel) digoxin 125 mcg (0.125 Daily, 0 Refill(s) 04/04/2013 04/30/2013 Discontinued mg) oral tablet metoprolol 100 mg oral Daily, 0 Refill(s) 04/04/2013 04/30/2013 Discontinued tablet, extended release Trilipix 135 mg oral 135 mg=1 cap, PO, Daily, 04/04/2013 04/30/2013 Discontinued delayed release capsule # 30 cap, 0 Refill(s) AMIODarone 900 mg + 482 mL, Rate: Infuse as 04/15/2013 04/18/2013 Discontinued Dextrose 5% in Water directed, Dosing Weight (Titrate) IV 482 mL 121.5, kg, Route: IV, Total Volume: 500 mL, Start Date: 04/15/13 9:45:00, Duration: 30 day, Stop date: 05/15/13 9:44:00, Replace Every: 24 hrNon PVC bag ceftriaxone 1 gm, Route: IVPB, Drug 04/04/2013 04/10/2013 Discontinued form: PDR/INJ, [id number], Dosing Weight 121.5, kg, Start date: 04/04/13 19:00:00, Duration: 30 day, Stop date: 05/03/13 19:00:00(Same As: Rocephin). Use with 100ml NS mini-bag PLUS and infuse over 30 min Keppra 500 mg oral BID, 0 Refill(s) 04/04/2013 04/22/2013 Discontinued tablet Seroquel 25 mg, 1 tab, Route: PO, 04/23/2013 04/25/2013 Discontinued Drug form: TAB, QAM, Dosing Weight 121.5, kg, Start date: 04/23/13 9:00:00, Duration: 30 day, Stop date: 05/22/13 9:00:00(Same as: Seroquel) magnesium sulfate 2 gm, 50 mL, Route: IVPB, Drug form: INJ, PRN, Dosing Weight 121.5, kg, PRN Abnormal Lab Result, Start date: 04/14/13 14:15:00, Duration: 30 day, Stop date: 05/14/13 14:14:00, FOR ICU USE ONLY 04/14/2013 Discontinued FOR ICU USE ONLY calcium gluconate + 1 gm, 10 mL, Route: IVPB, PRN, Dosing Weight 121.5, kg, PRN Abnormal Lab Result, Start date: 04/14/13 14:15:00, Duration: 30 day, Stop date: 05/14/13 14:14:00, FOR ICU USE ONLY 04/14/2013 04/25/2013 Discontinued Sodium Chloride 0.9% IV FOR ICU USE ONLY 50 mL potassium chloride 10 mEq, 50 mL, Route: IVPB, Drug form: INJ, PRN, Dosing Weight 121.5, kg, PRN Abnormal Lab Result, Via peripheral line, Start date: 14:15:00, Duration: 30 day, Stop date: 05/14/13 14:14:00, FOR ICU USE ONLY 04/14/2013 04/25/2013 Discontinued FOR ICU USE ONLY(Same as: KCL) Infuse over 2 hours. potassium chloride 20 mEq, 100 mL, Route: IVPB, Drug form: INJ, PRN, Dosing Weight 121.5, kg, PRN Abnormal Lab Result, Via central line, Start date: 14:15:00, Duration: 30 day, Stop date: 05/14/13 14:14:00, FOR ICU USE ONLY 04/14/2013 04/25/2013 Discontinued FOR ICU USE ONLY(Same as: KCL) Infuse no faster than 10 mEq/hr if given peripherally. sodium phosphate 30 mmol, Route: IVPB, PRN, Dosing Weight 121.5, kg, PRN Abnormal Lab Result, Start date: 04/14/13 14:15:00, Duration: 30 day, Stop date : 05/14/13 14:14:00, FOR ICU USE ONLY 04/14/2013 04/14/2013 Deleted FOR ICU USE ONLY sodium phosphate 15 mmol, Route: IVPB, PRN, Dosing Weight 121.5, kg, PRN Abnormal Lab Result, Start date: 04/14/13 14:15:00, Duration: 30 day, Stop date : 05/14/13 14:14:00, FOR ICU USE ONLY 04/14/2013 04/14/2013 Deleted FOR ICU USE ONLY potassium chloride 20 mEq, 15 mL, Route: NJ, Drug form: LIQ, PRN, Dosing Weight 121.5, kg, PRN Abnormal Lab Result, Start date: 04/14/13 14:15:00, Duration: 30 day, Stop date: 05/14/13 14:14:00, FOR ICU USE ONLY 04/14/2013 Discontinued FOR ICU USE ONLY(Same as: Potassium Chloride) potassium chloride 20 mEq, 1 tab, Route: PO, Drug form: ERTAB, PRN, Dosing Weight 121.5, kg, PRN Abnormal Lab Result, Start date: 04/14/13 14:15:00, Duration: 30 day, Stop date: 05/14/13 14:14:00, FOR ICU USE ONLY 04/14/2013 Discontinued FOR ICU USE ONLY(Same as: K-Dur 20)"Do Not Crush" With food and full glass of water sodium phosphate 45 mmol, Route: IVPB, PRN, Dosing Weight 121.5, kg, PRN Abnormal Lab Result, Start date: 04/14/13 14:15:00, Duration: 30 day, Stop date : 05/14/13 14:14:00, FOR ICU USE ONLY 04/14/2013 04/14/2013 Deleted FOR ICU USE ONLY potassium phosphate 45 mmol, 15 mL, Route: IVPB, Drug form: INJ, PRN, Dosing Weight 121.5, kg, PRN Abnormal Lab Result, Start date: 04/14/13 14:15:00, Duration: 30 day, Stop date: 05/14/13 14:14:00, FOR ICU USE ONLY 04/14/2013 Discontinued FOR ICU USE ONLY(Same as: K Phosphate.) 1 mMol phoshate has 1.47 mEq potassium Infuse over 4 hours potassium phosphate + 15 mmol, 5 mL, Route: IVPB, PRN, Dosing Weight 121.5, kg , PRN Abnormal Lab Result, Start date: 04/14/13 14:15:00, Duration: 30 day, Stop date: 05/14/13 14:14:00, FOR ICU USE ONLY 04/14/2013 04/25/2013 Discontinued Sodium Chloride 0.9% IV FOR ICU USE ONLY(Same as: K Phosphate.) 1 mMol phoshate has 1.47 mEq potassium Infuse over 4 hours 250 mL potassium phosphate + 30 mmol, 10 mL, Route: IVPB, PRN, Dosing Weight 121.5, kg, PRN Abnormal Lab Result, Start date: 04/14/13 14:15:00, Duration: 30 day, Stop date: 05/14/13 14:14:00, FOR ICU USE ONLY 04/14/2013 04/25/2013 Discontinued Sodium Chloride 0.9% IV FOR ICU USE ONLY(Same as: K Phosphate.) 1 mMol phoshate has 1.47 mEq potassium Infuse over 4 hours 250 mL hydrALAZINE 25 mg oral 50 mg, 1 tab, Route: PO, 04/19/2013 04/30/2013 Discontinued tablet Drug form: TAB, Q8H, Dosing Weight 121.5, kg, Start date: 04/19/13 0:00:00, Duration: 30 day, Stop date: 05/18/13 16:00:00(Same as: Apresoline) May interfere w/enteral feedings Take With Food digoxin 500 microgram, Route: 04/05/2013 04/05/2013 Discontinued IV, ONCE, Dosing Weight 121.5, kg, Start date: 04/05/13 12:01:00, Stop date: 04/05/13 12:01:00 metoprolol tartrate 25 mg, 1 tab, Route: PO, 04/06/2013 04/18/2013 Discontinued Drug form: TAB, Q8H, Dosing Weight 121.5, kg, HOLD with SBP < 95., Start date: 04/06/13 16:00:00, Duration: 30 day, Stop date: 05/06/13 8:00:00(Same as: Lopressor) bacitracin-polymyxin B 1 appl, Route: TOP, BID, 04/22/2013 04/30/2013 Discontinued topical Drug form: OINT, Start date: 04/22/13 17:00:00, Duration: 30 day, Stop date: 05/22/13 9:00:00(Same As: Polysporin) insulin aspart 10 unit, 0.1 mL, Route: 04/23/2013 04/30/2013 Discontinued SUB-Q, Drug form: SOLN, TID-Before Meals, Dosing Weight 121.5, kg, PRN Blood Glucose Results, Start date: 04/23/13 10:10:00, Duration: 30 day, Stop date: 05/23/13 10:09:00Roll in palms of hands gently; Do not shake vigorously. (Same as: NovoLog)"single patient use only" Stable for 28 days at room temperature.Expires in days from Date insulin aspart 8 unit, 0.08 mL, Route: 04/23/2013 04/30/2013 Discontinued SUB-Q, Drug form: SOLN, TID-Before Meals, Dosing Weight 121.5, kg, PRN Blood Glucose Results, Start date: 04/23/13 10:10:00, Duration: 30 day, Stop date: 05/23/13 10:09:00Roll in palms of hands gently; Do not shake vigorously. (Same as: NovoLog)"single patient use only" Stable for 28 days at room temperature.Expires in days from Date insulin aspart 2 unit, 0.02 mL, Route: 04/23/2013 04/30/2013 Discontinued SUB-Q, Drug form: SOLN, TID-Before Meals, Dosing Weight 121.5, kg, PRN Blood Glucose Results, Start date: 04/23/13 10:10:00, Duration: 30 day, Stop date: 05/23/13 10:09:00Roll in palms of hands gently; Do not shake vigorously. (Same as: NovoLog)"single patient use only" Stable for 28 days at room temperature.Expires in days from Date insulin aspart 6 unit, 0.06 mL, Route: 04/23/2013 04/30/2013 Discontinued SUB-Q, Drug form: SOLN, TID-Before Meals, Dosing Weight 121.5, kg, PRN Blood Glucose Results, Start date: 04/23/13 10:10:00, Duration: 30 day, Stop date: 05/23/13 10:09:00Roll in palms of hands gently; Do not shake vigorously. (Same as: NovoLog)"single patient use only" Stable for 28 days at room temperature.Expires in days from Date insulin aspart 4 unit, 0.04 mL, Route: 04/23/2013 04/30/2013 Discontinued SUB-Q, Drug form: SOLN, TID-Before Meals, Dosing Weight 121.5, kg, PRN Blood Glucose Results, Start date: 04/23/13 10:10:00, Duration: 30 day, Stop date: 05/23/13 10:09:00Roll in palms of hands gently; Do not shake vigorously. (Same as: NovoLog)"single patient use only" Stable for 28 days at room temperature.Expires in days from Date glucagon 1 mg, Route: IM, PRN, 04/23/2013 04/23/2013 Deleted Dosing Weight 121.5, kg, PRN Blood Glucose Results, Start date: 04/23/13 10:10:00, Duration: 30 day, Stop date: 05/23/13 10:09:00 Dextrose 50% Syringe 50 mL, Route: IVP, 04/23/2013 04/23/2013 Deleted Dosing Weight 121.5, kg, PRN, PRN Blood Glucose Results, Start date: 04/23/13 10:10:00, Duration: 30 day, Stop date: 05/23/13 10:09:00 Dextrose 50% Syringe 25 mL, Route: IVP, 04/23/2013 04/23/2013 Deleted Dosing Weight 121.5, kg, PRN, PRN Blood Glucose Results, Start date: 04/23/13 10:10:00, Duration: 30 day, Stop date: 05/23/13 10:09:00 Lopressor 5 mg, 5 mL, Route: IVP, 04/15/2013 04/15/2013 Completed Drug form: INJ, ONCE, Dosing Weight 121.5, kg, Start date: 04/15/13 20:20:00, Stop date: 04/15/13 20:20:00(Same as: Lopressor) multivitamin with 1 tab, Route: PO, Drug 04/27/2013 04/30/2013 Discontinued minerals Form: TAB, Daily, Start date: 04/27/13 11:30:00, Duration: 30 day, Stop date: 05/27/13 9:00:00(Same as:Thera-M, Theragran-M) Give with food. vancomycin 1.5 gm, Route: IVPB, 04/14/2013 04/14/2013 Completed ONCE, Dosing Weight 121.5, kg, Start date: 04/14/13 8:20:00, Stop date: 04/14/13 8:20:00 Lasix 40 mg, 4 mL, Route: IVP, 04/20/2013 04/24/2013 Discontinued Drug form: INJ, BID, Dosing Weight 121.5, kg, Start date: 04/20/13 17:00:00, Duration: 30 day, Stop date: 05/20/13 9:00:00(Same as: Lasix) MiraLax 17 gm, 1 pkt, Route: PO, 04/06/2013 04/30/2013 Discontinued Drug form: PWDR, Daily, Dosing Weight 121.5, kg, PRN Constipation, Start date: 04/06/13 15:08:00, Duration: 30 day, Stop date: 05/06/13 15:07:00Dissolve in 8 oz of water or juice.(Same as: Miralax) Norvasc 5 mg, 1 tab, Route: PO, 04/18/2013 04/18/2013 Discontinued Drug form: TAB, Daily, Dosing Weight 121.5, kg, Start date: 04/18/13 14:52:00, Duration: 30 day, Stop date: 05/18/13 9:00:00(Same as: Norvasc) lisinopril 5 mg oral 5 mg=1 tab, PO, Daily, # 04/30/2013 Ordered tablet 90 tab, 2 Refill(s) Lyrica 100 mg, 1 cap, Route: 04/04/2013 04/16/2013 Discontinued PO, Drug form: CAP, Daily, Dosing Weight 121.5, kg, Start date: 04/04/13 9:00:00, Duration: 30 day, Stop date: 05/03/13 9:00:00(Same as: Lyrica) sodium glycerophosphate 15 mmol, 15 mL, Route: 04/14/2013 04/30/2013 Discontinued + Sodium Chloride 0.9% IV, Drug form: INJ, PRN, IV 250 mL PRN Abnormal Lab Result, Start date: 04/14/13 14:39:00, Duration: 30 day, Stop date: 05/14/13 14:38:00Same as: Glycophos Non-Formulary Zofran 4 mg, 2 mL, Route: IVP, 04/14/2013 04/30/2013 Discontinued Drug form: INJ, Q6H, Dosing Weight 121.5, kg, PRN Nausea, Start date: 04/14/13 17:04:00, Duration: 30 day, Stop date: 05/14/13 17:03:00(Same as: Zofran) levetiracetam 500 mg 500 mg=1 tab, PO, Q12H, 04/30/2013 Ordered oral tablet # 180 tab, 3 Refill(s) Lasix 100 mg in 100 ml 100 mg, 10 mL, Rate: 5 mg/hour, Dosing Weight 121.5, kg, Route: IV, Total Volume: 100, Priority: NOW, Start Date: 04/15/13 10:32:00, Duration: 30 day, Stop date: 05/15/13 10:31:00, Replace Every: 24 hr, continuous 04/15/2013 04/20/2013 Discontinued IV titrate 100 mg + continuous(Same as: Lasix) Sodium Chloride 0.9% IV 90 mL pantoprazole 40 mg, Route: IVP, Drug 04/15/2013 04/20/2013 Discontinued form: INJ, Daily, Dosing Weight 121.5, kg, Start date: 04/15/13 9:00:00, Duration: 30 day, Stop date: 05/14/13 9:00:00For IV push reconstitute with 10 ml 0.9% sodium chloride and push over 2 minutes. (Same as: Protonix) Dextrose 50% Syringe 25 gm, 50 mL, Route: 04/14/2013 04/20/2013 Discontinued IVP, Drug Form: INJ, Dosing Weight 121.5, kg, PRN, PRN Blood Glucose Results, Start date: 04/14/13 14:15:00, Duration: 30 day, Stop date: 05/14/13 14:14:00 Dextrose 50% Syringe 12.5 gm, 25 mL, Route: 04/14/2013 04/20/2013 Discontinued IVP, Drug Form: INJ, Dosing Weight 121.5, kg, PRN, PRN Blood Glucose Results, Start date: 04/14/13 14:15:00, Duration: 30 day, Stop date: 05/14/13 14:14:00 Insulin regular 100 99 mL, Rate: Start Insulin Drip Per ICU Protocol, Dosing Weight 121.5, kg, Route: IVPB, Total Volume: 100, Start Date: 04/14/13 14:15:00 , Duration: 30 day, Stop date: 05/14/13 14:14:00, Replace Every: 2 04/14/2013 04/20/2013 Discontinued unit + Sodium Chloride 4 hr, Initial Insulin Drip Rate (units/hour)=(Fas... 0.9% (titrate) 99 mL Initial Insulin Drip Rate (units/hour)=(Fasting Blood Glucose-60)X0.03 "multiplier". epinephrine 8 mg + 242 mL, Rate: Start at 04/14/2013 04/18/2013 Discontinued Sodium Chloride 0.9% 0.1 micrograms/kg/min., (titrate) 242 mL Dosing Weight 121.5, kg, Route: IV, Total Volume: 250, Start Date: 04/14/13 14:15:00, Stop date: 05/14/13 14:14:00, Replace Every: 24 hr milrinone 20 mg in D5W 20 mg, 100 mL, Rate: 04/14/2013 04/18/2013 Discontinued 100 ml Premix (titrate) 0.375 microgram/kg/min, 20 mg Dosing Weight 121.5, kg, Route: IV, Total Volume: 100, Titrate to cardiac Index >2.5., Start date: 04/14/13 14:15:00, Duration: 30 day, Stop date: 05/14/13 14:14:00, Replace Every: 24 hr(Same as:Primacor) Final conc=0.2 mg/ml. Premix solution. fentanyl 50 microgram, 1 mL, 04/14/2013 04/18/2013 Discontinued Route: IVP, Drug form: INJ, Q2H, Dosing Weight 121.5, kg, PRN Pain Score 6-10, Start date: 04/14/13 14:15:00, Duration: 30 day, Stop date: 05/14/13 14:14:00(Same as: Sublimaze) Preservative free. fentanyl 25 microgram, 0.5 mL, 04/14/2013 04/20/2013 Discontinued Route: IVP, Drug form: INJ, Q2H, Dosing Weight 121.5, kg, PRN Pain Score 1-5, Start date: 04/14/13 14:15:00, Duration: 30 day, Stop date: 05/14/13 14:14:00(Same as: Sublimaze) Preservative free. Saline Flush 0.9% 10 ml, Route: IVP, Drug 04/14/2013 04/30/2013 Discontinued Form: INJ, Dosing Weight 121.5, kg, PRN, PRN Line Flush, Start date: 04/14/13 14:15:00, Duration: 30 day, Stop date: 05/14/13 14:14:00(Same as: BD Posiflush) acetaminophen-10 mg/mL 1,000 mg, 100 mL, Route: 04/14/2013 04/15/2013 Completed INTRAVENOUS solution IV, Drug form: INJ, Q6H, Dosing Weight 121.5, kg, For > or=50 kg, Start date: 04/14/13 14:15:00, Stop date: 04/15/13 12:00:00Infuse over 15 minutes Do not exceed 4gm/day of acetaminophen Sodium Chloride 0.45% 1,000 mL, Rate: 75 04/14/2013 04/19/2013 Discontinued IV 1,000 mL ml/hr, Infuse over: 13.3 hr, Route: IV, Dosing Weight 121.5 kg, Total Volume: 1,000, Start date: 04/14/13 14:15:00, Duration: 30 day, Stop date: 05/14/13 14:14:00 hydrALAZINE 50 mg oral 50 mg=1 tab, PO, Q8H, # 04/30/2013 Ordered tablet 90 tab, 3 Refill(s) aspirin 81 mg tablet, 81 mg, Route: PO, Drug 04/15/2013 04/14/2013 Deleted enteric coated form: ECTAB, Daily, Dosing Weight 121.5, kg, Start date: 04/15/13 9:00:00, Duration: 30 day, Stop date: 05/14/13 9:00:00 vancomycin (SCIP) + 1,750 mg, Route: IVPB, 04/14/2013 04/15/2013 Completed Sodium Chloride 0.9% IV [id number], Dosing Weight 250 mL 121.5, kg, Start date: 04/14/13 20:00:00, Duration: 2 doses or times, Stop date: 04/15/13 8:00:00(Same As: Vancocin) Vancomycin FOR IV SET ONLY magnesium sulfate 2 gm, 50 mL, Route: 04/08/2013 04/08/2013 Completed IVPB, Drug form: INJ, ONCE, Dosing Weight 121.5, kg, Total dose=2 gm, Start date: 04/08/13 6:33:00, Duration: 1 doses or times, Stop date: 04/08/13 6:33:00 Detrol LA 2 mg, 1 cap, Route: PO, 04/04/2013 04/16/2013 Discontinued Drug form: ERCAP, Daily, Start date: 04/04/13 9:00:00, Duration: 30 day, Stop date: 05/03/13 9:00:00(Same As: Detrol LA) (Do Not Crush) phenol topical 1.4% 1 spray, Route: TOP, 04/20/2013 04/28/2013 Discontinued spray QID, Drug form: SPRY, Start date: 04/20/13 13:00:00, Duration: 30 day, Stop date: 05/20/13 9:00:00Chloraseptic Gila(Same as: Chloraseptic, Sore Throat Gila) Insulin regular 4 unit, 0.04 mL, Route: 04/06/2013 04/08/2013 Discontinued SUB-Q, Drug form: SOLN, TID-Before Meals, Dosing Weight 121.5, kg, PRN Blood Glucose Results, Start date: 04/06/13 14:17:00, Duration: 30 day, Stop date: 05/06/13 14:16:00(Same as: Humulin R) Roll in palms of hands gently; Do not shake vigorously. "single patient use only"(Restricted to patients requiring a dose > 60 units) Stable for 28 days at room temperatureExpires in days from Date Insulin regular 3 unit, 0.03 mL, Route: 04/06/2013 04/08/2013 Discontinued SUB-Q, Drug form: SOLN, TID-Before Meals, Dosing Weight 121.5, kg, PRN Blood Glucose Results, Start date: 04/06/13 14:17:00, Duration: 30 day, Stop date: 05/06/13 14:16:00(Same as: Humulin R) Roll in palms of hands gently; Do not shake vigorously. "single patient use only"(Restricted to patients requiring a dose > 60 units) Stable for 28 days at room temperatureExpires in days from Date Insulin regular 5 unit, 0.05 mL, Route: 04/06/2013 04/08/2013 Discontinued SUB-Q, Drug form: SOLN, TID-Before Meals, Dosing Weight 121.5, kg, PRN Blood Glucose Results, Start date: 04/06/13 14:17:00, Duration: 30 day, Stop date: 05/06/13 14:16:00(Same as: Humulin R) Roll in palms of hands gently; Do not shake vigorously. "single patient use only"(Restricted to patients requiring a dose > 60 units) Stable for 28 days at room temperatureExpires in days from Date Insulin regular 1 unit, 0.01 mL, Route: 04/06/2013 04/08/2013 Discontinued SUB-Q, Drug form: SOLN, TID-Before Meals, Dosing Weight 121.5, kg, PRN Blood Glucose Results, Start date: 04/06/13 14:17:00, Duration: 30 day, Stop date: 05/06/13 14:16:00(Same as: Humulin R) Roll in palms of hands gently; Do not shake vigorously. "single patient use only"(Restricted to patients requiring a dose > 60 units) Stable for 28 days at room temperatureExpires in days from Date Insulin regular 2 unit, 0.02 mL, Route: 04/06/2013 04/08/2013 Discontinued SUB-Q, Drug form: SOLN, Bedtime, Dosing Weight 121.5, kg, PRN Blood Glucose Results, Start date: 04/06/13 14:17:00, Duration: 30 day, Stop date: 05/06/13 14:16:00(Same as: Humulin R) Roll in palms of hands gently; Do not shake vigorously. "single patient use only"(Restricted to patients requiring a dose > 60 units) Stable for 28 days at room temperatureExpires in days from Date Insulin regular 4 unit, 0.04 mL, Route: 04/06/2013 04/08/2013 Discontinued SUB-Q, Drug form: SOLN, Bedtime, Dosing Weight 121.5, kg, PRN Blood Glucose Results, Start date: 04/06/13 14:17:00, Duration: 30 day, Stop date: 05/06/13 14:16:00(Same as: Humulin R) Roll in palms of hands gently; Do not shake vigorously. "single patient use only"(Restricted to patients requiring a dose > 60 units) Stable for 28 days at room temperatureExpires in days from Date Insulin regular 3 unit, 0.03 mL, Route: 04/06/2013 04/08/2013 Discontinued SUB-Q, Drug form: SOLN, Bedtime, Dosing Weight 121.5, kg, PRN Blood Glucose Results, Start date: 04/06/13 14:17:00, Duration: 30 day, Stop date: 05/06/13 14:16:00(Same as: Humulin R) Roll in palms of hands gently; Do not shake vigorously. "single patient use only"(Restricted to patients requiring a dose > 60 units) Stable for 28 days at room temperatureExpires in days from Date Insulin regular 2 unit, 0.02 mL, Route: 04/06/2013 04/08/2013 Discontinued SUB-Q, Drug form: SOLN, TID-Before Meals, Dosing Weight 121.5, kg, PRN Blood Glucose Results, Start date: 04/06/13 14:17:00, Duration: 30 day, Stop date: 05/06/13 14:16:00(Same as: Humulin R) Roll in palms of hands gently; Do not shake vigorously. "single patient use only"(Restricted to patients requiring a dose > 60 units) Stable for 28 days at room temperatureExpires in days from Date Insulin regular 1 unit, 0.01 mL, Route: 04/06/2013 04/08/2013 Discontinued SUB-Q, Drug form: SOLN, Bedtime, Dosing Weight 121.5, kg, PRN Blood Glucose Results, Start date: 04/06/13 14:17:00, Duration: 30 day, Stop date: 05/06/13 14:16:00(Same as: Humulin R) Roll in palms of hands gently; Do not shake vigorously. "single patient use only"(Restricted to patients requiring a dose > 60 units) Stable for 28 days at room temperatureExpires in days from Date Dextrose 50% Syringe 12.5 gm, 25 mL, Route: 04/06/2013 04/08/2013 Discontinued IVP, Drug Form: INJ, Dosing Weight 121.5, kg, PRN, PRN Blood Glucose Results, Start date: 04/06/13 14:17:00, Duration: 30 day, Stop date: 05/06/13 14:16:00 Dextrose 50% Syringe 25 gm, 50 mL, Route: 04/06/2013 04/08/2013 Discontinued IVP, Drug Form: INJ, Dosing Weight 121.5, kg, PRN, PRN Blood Glucose Results, Start date: 04/06/13 14:17:00, Duration: 30 day, Stop date: 05/06/13 14:16:00 glucagon 1 mg, Route: IM, Drug 04/06/2013 04/08/2013 Discontinued form: PDR/INJ, PRN, Dosing Weight 121.5, kg, PRN Blood Glucose Results, Start date: 04/06/13 14:17:00, Duration: 30 day, Stop date: 05/06/13 14:16:00 AMIODarone 400 mg, 2 tab, Route: 04/08/2013 04/08/2013 Discontinued PO, Drug form: TAB, BID, Dosing Weight 121.5, kg, Start date: 04/08/13 9:00:00, Duration: 30 day, Stop date: 05/07/13 17:00:00(Same as: Cordarone) heparin 7,500 unit, 1.5 mL, 04/28/2013 04/30/2013 Discontinued Route: SUB-Q, Drug form: INJ, Q8H, Dosing Weight 121.5, kg, Start date: 04/28/13 16:00:00, Duration: 30 day, Stop date: 05/28/13 8:00:00porcine heparin ipratropium 0.5 mg, 2.5 mL, Route: 04/15/2013 04/30/2013 Discontinued NEB, Drug form: SOLN, Q8H, Dosing Weight 121.5, kg, Start date: 04/15/13 0:00:00, Duration: 30 day, Stop date: 05/14/13 15:00:00SEE RT DOCUMENTATION(Same as:Atrovent) ipratropium 0.5 mg, 2.5 mL, Route: 04/14/2013 04/30/2013 Discontinued NEB, Drug form: SOLN, PRN, Dosing Weight 121.5, kg, PRN Wheezing, Start date: 04/14/13 17:03:00, Duration: 30 day, Stop date: 05/14/13 17:02:00SEE RT DOCUMENTATION(Same as:Atrovent) FENTanyl 1000 mcg in 20 1,000 microgram, 20 mL, 04/14/2013 04/15/2013 Discontinued mL (titrate) IV 1,000 Rate: Titrate as microgram directed, Dosing Weight 121.5, kg, Route: IV, Total Volume: 20 mL, Start Date: 04/14/13 17:03:00, Duration: 30 day, Stop date: 05/14/13 17:02:00, Replace Every: 24 hr digoxin 250 mcg (0.25 0.25 mg, 1 tab, Route: 04/05/2013 04/05/2013 Discontinued mg) oral tablet PO, Drug form: TAB, Daily, Dosing Weight 121.5, kg, Start date: 04/05/13 9:00:00, Duration: 30 day, Stop date: 05/04/13 9:00:00Take on an Empty Stomach (Same as: Lanoxin) insulin aspart 12 unit, 0.12 mL, Route: 04/22/2013 04/23/2013 Discontinued SUB-Q, Drug form: SOLN, Sliding Scale, Dosing Weight 121.5, kg, PRN Blood Glucose Results, Start date: 04/22/13 7:57:00, Duration: 30 day, Stop date: 05/22/13 7:56:00Roll in palms of hands gently; Do not shake vigorously. (Same as: NovoLog)"single patient use only" Stable for 28 days at room temperature.Expires in days from Date insulin aspart 15 unit, 0.15 mL, Route: 04/22/2013 04/23/2013 Discontinued SUB-Q, Drug form: SOLN, Sliding Scale, Dosing Weight 121.5, kg, PRN Blood Glucose Results, Start date: 04/22/13 7:57:00, Duration: 30 day, Stop date: 05/22/13 7:56:00Roll in palms of hands gently; Do not shake vigorously. (Same as: NovoLog)"single patient use only" Stable for 28 days at room temperature.Expires in days from Date insulin aspart 6 unit, 0.06 mL, Route: 04/22/2013 04/23/2013 Discontinued SUB-Q, Drug form: SOLN, Sliding Scale, Dosing Weight 121.5, kg, PRN Blood Glucose Results, Start date: 04/22/13 7:57:00, Duration: 30 day, Stop date: 05/22/13 7:56:00Roll in palms of hands gently; Do not shake vigorously. (Same as: NovoLog)"single patient use only" Stable for 28 days at room temperature.Expires in days from Date insulin aspart 9 unit, 0.09 mL, Route: 04/22/2013 04/23/2013 Discontinued SUB-Q, Drug form: SOLN, Sliding Scale, Dosing Weight 121.5, kg, PRN Blood Glucose Results, Start date: 04/22/13 7:57:00, Duration: 30 day, Stop date: 05/22/13 7:56:00Roll in palms of hands gently; Do not shake vigorously. (Same as: NovoLog)"single patient use only" Stable for 28 days at room temperature.Expires in days from Date insulin aspart 3 unit, 0.03 mL, Route: 04/22/2013 04/23/2013 Discontinued SUB-Q, Drug form: SOLN, Sliding Scale, Dosing Weight 121.5, kg, PRN Blood Glucose Results, Start date: 04/22/13 7:57:00, Duration: 30 day, Stop date: 05/22/13 7:56:00Roll in palms of hands gently; Do not shake vigorously. (Same as: NovoLog)"single patient use only" Stable for 28 days at room temperature.Expires in days from Date insulin aspart 25 unit, 0.25 mL, Route: 04/09/2013 04/12/2013 Discontinued SUB-Q, Drug form: SOLN, TID-Before Meals, Dosing Weight 121.5, kg, Start date: 04/09/13 9:30:00, Stop date: 05/09/13 7:30:00Roll in palms of hands gently; Do not shake vigorously. (Same as: NovoLog)"single patient use only" Stable for 28 days at room temperature.Expires in days from Date fentanyl 50 microgram, 1 mL, 04/14/2013 04/18/2013 Discontinued Route: IV, Drug form: INJ, Q1H, Dosing Weight 121.5, kg, PRN Pain, Start date: 04/14/13 17:02:00, Duration: 30 day, Stop date: 05/14/13 17:01:00(Same as: Sublimaze) Preservative free. fesoterodine 8 mg, Route: PO, Drug 04/04/2013 04/04/2013 Canceled form: ERTAB, Daily, Dosing Weight 121.5, kg, Start date: 04/04/13 9:00:00, Duration: 30 day, Stop date: 05/03/13 9:00:00 Lasix 40 mg oral tablet 40 mg=1 tab, PO, Daily, 04/30/2013 Ordered # 90 tab, 2 Refill(s) magnesium sulfate 2 gm, 50 mL, Route: 04/05/2013 04/05/2013 Completed IVPB, Drug form: INJ, ONCE, Dosing Weight 121.5, kg, Total dose=2 gm, Start date: 04/05/13 22:15:00, Duration: 1 doses or times, Stop date: 04/05/13 22:15:00 Insulin regular 9 unit, 0.09 mL, Route: 04/04/2013 04/04/2013 Discontinued SUB-Q, Drug form: SOLN, Sliding Scale, Dosing Weight 121.5, kg, PRN Blood Glucose Results, Start date: 04/04/13 5:05:00, Duration: 30 day, Stop date: 05/04/13 5:04:00(Same as: Humulin R) Roll in palms of hands gently; Do not shake vigorously. "single patient use only"(Restricted to patients requiring a dose > 60 units) Stable for 28 days at room temperatureExpires in days from Date Insulin regular 15 unit, 0.15 mL, Route: 04/04/2013 04/04/2013 Discontinued SUB-Q, Drug form: SOLN, Sliding Scale, Dosing Weight 121.5, kg, PRN Blood Glucose Results, Start date: 04/04/13 5:05:00, Duration: 30 day, Stop date: 05/04/13 5:04:00(Same as: Humulin R) Roll in palms of hands gently; Do not shake vigorously. "single patient use only"(Restricted to patients requiring a dose > 60 units) Stable for 28 days at room temperatureExpires in days from Date Insulin regular 6 unit, 0.06 mL, Route: 04/04/2013 04/04/2013 Discontinued SUB-Q, Drug form: SOLN, Sliding Scale, Dosing Weight 121.5, kg, PRN Blood Glucose Results, Start date: 04/04/13 5:05:00, Duration: 30 day, Stop date: 05/04/13 5:04:00(Same as: Humulin R) Roll in palms of hands gently; Do not shake vigorously. "single patient use only"(Restricted to patients requiring a dose > 60 units) Stable for 28 days at room temperatureExpires in days from Date Insulin regular 3 unit, 0.03 mL, Route: 04/04/2013 04/04/2013 Discontinued SUB-Q, Drug form: SOLN, Sliding Scale, Dosing Weight 121.5, kg, PRN Blood Glucose Results, Start date: 04/04/13 5:05:00, Duration: 30 day, Stop date: 05/04/13 5:04:00(Same as: Humulin R) Roll in palms of hands gently; Do not shake vigorously. "single patient use only"(Restricted to patients requiring a dose > 60 units) Stable for 28 days at room temperatureExpires in days from Date Insulin regular 12 unit, 0.12 mL, Route: 04/04/2013 04/04/2013 Discontinued SUB-Q, Drug form: SOLN, Sliding Scale, Dosing Weight 121.5, kg, PRN Blood Glucose Results, Start date: 04/04/13 5:05:00, Duration: 30 day, Stop date: 05/04/13 5:04:00(Same as: Humulin R) Roll in palms of hands gently; Do not shake vigorously. "single patient use only"(Restricted to patients requiring a dose > 60 units) Stable for 28 days at room temperatureExpires in days from Date Ofirmev 1,000 mg, 100 mL, Route: 04/17/2013 04/19/2013 Discontinued IV, Drug form: INJ, Q6H, Dosing Weight 121.5, kg, for > or=50 kg, Start date: 04/17/13 12:00:00, Stop date: 05/19/13 6:00:00Infuse over 15 minutes Do not exceed 4gm/day of acetaminophen insulin detemir 40 unit, 0.4 mL, Route: 04/19/2013 04/20/2013 Discontinued SUB-Q, Drug form: INJ, Q12H, Dosing Weight 121.5, kg, Start date: 04/19/13 11:30:00, Duration: 30 day, Stop date: 05/19/13 9:00:00Same as Levemir "single patient use only" Insulin regular 100 99 mL, Rate: Start Insulin Drip Per ICU Protocol, Dosing Weight 121.5, kg, Route: IVPB, Total Volume: 100, Start Date: 04/04/13 19:53:00 , Duration: 30 day, Stop date: 05/04/13 19:52:00, Replace Every: 2 04/04/2013 04/06/2013 Discontinued unit + Sodium Chloride 4 hr, Initial Insulin Drip Rate (units/hour)=(Fas... 0.9% (titrate) 99 mL Initial Insulin Drip Rate (units/hour)=(Fasting Blood Glucose-60)X0.03 "multiplier". Dextrose 50% Syringe 12.5 gm, 25 mL, Route: 04/04/2013 04/06/2013 Discontinued IVP, Drug Form: INJ, Dosing Weight 121.5, kg, PRN, PRN Blood Glucose Results, Start date: 04/04/13 19:53:00, Duration: 30 day, Stop date: 05/04/13 19:52:00 Dextrose 50% Syringe 25 gm, 50 mL, Route: 04/04/2013 04/06/2013 Discontinued IVP, Drug Form: INJ, Dosing Weight 121.5, kg, PRN, PRN Blood Glucose Results, Start date: 04/04/13 19:53:00, Duration: 30 day, Stop date: 05/04/13 19:52:00 influenza virus 0.5 mL, Route: IM, Drug 04/04/2013 04/04/2013 Pending Complete vaccine, inactivated Form: SUSP, Daily, Start date: 04/04/13 9:00:00, Duration: 1 doses or times, Stop date: 04/04/13 9:00:00(Same as: Fluzone) Seroquel 25 mg, 1 tab, Route: PO, 04/21/2013 04/22/2013 Discontinued Drug form: TAB, BID, Dosing Weight 121.5, kg, Start date: 04/21/13 9:00:00, Duration: 30 day, Stop date: 05/20/13 17:00:00(Same as: Seroquel) Keppra 500 mg, 5 mL, Route: [place], 04/20/2013 04/25/2013 Discontinued Drug form: SOLN, Q12H, Dosing Weight 121.5, kg, Start date: 04/20/13 21:00:00, Duration: 30 day, Stop date: 05/20/13 9:00:00 lisinopril 5 mg, 1 tab, Route: PO, 04/18/2013 04/22/2013 Discontinued Drug form: TAB, Daily, Dosing Weight 121.5, kg, Start date: 04/18/13 9:00:00, Duration: 30 day, Stop date: 05/17/13 9:00:00(Same as: Prinivil, Zestril) furosemide 40 mg, 4 mL, Route: IV, 04/14/2013 04/14/2013 Completed Drug form: INJ, ONCE, Dosing Weight 121.5, kg, Priority: NOW, Start date: 04/14/13 22:54:00, Stop date: 04/14/13 22:54:00(Same as: Lasix) Keppra 500 mg oral 500 mg, 1 tab, Route: 04/04/2013 04/22/2013 Discontinued tablet PO, Drug form: TAB, BID, Dosing Weight 121.5, kg, Start date: 04/04/13 9:00:00, Duration: 30 day, Stop date: 05/03/13 17:00:00(Same as:Keppra) Lantus 100 units/mL =45 unit, SUB-Q, QPM, 0 04/09/2013 04/30/2013 Discontinued Refill(s) fenofibrate 48 mg oral 48 mg=1 tab, PO, Daily, 04/30/2013 Ordered tablet # 90 tab, 2 Refill(s) Trilipix 135 mg, Route: PO, Drug 04/04/2013 04/04/2013 Canceled form: CAP, Daily, Dosing Weight 121.5, kg, Start date: 04/04/13 9:00:00, Duration: 30 day, Stop date: 05/03/13 9:00:00 Cymbalta 60 mg, 2 cap, Route: PO, 04/04/2013 04/30/2013 Discontinued Drug form: DRC, Bedtime, Dosing Weight 121.5, kg, Start date: 04/04/13 9:00:00, Stop date: 05/03/13 21:00:00Non-Formulary Drug. (Same as: Cymbalta) (Do Not Crush) Colace 100 mg oral 100 mg=1 cap, PO, BID, # 04/30/2013 Ordered capsule 90 cap, 2 Refill(s) atorvastatin 40 mg, 1 tab, Route: PO, 04/04/2013 04/30/2013 Discontinued Drug form: TAB, Bedtime, Dosing Weight 121.5, kg, Start date: 04/04/13 21:00:00, Duration: 30 day, Stop date: 06/02/13 21:00:00(Same as: Lipitor) Lantus 45 unit, 0.45 mL, Route: 04/04/2013 04/12/2013 Discontinued SUB-Q, Drug form: INJ, Bedtime, Dosing Weight 121.5, kg, Start date: 04/04/13 21:00:00, Stop date: 05/03/13 21:00:00Same as Lantus Solostar PEN"single patient use only" Stable for 28 days at room temperature.Expires in days from Date Versed 50 mg in NS 50 50 mg, 50 mL, Rate: 04/14/2013 04/18/2013 Discontinued ml (titrate) IV 50 mg Titrate as directed, Dosing Weight 121.5, kg, Route: IV, Total Volume: 50 mL, Start Date: 04/14/13 21:20:00, Duration: 30 day, Stop date: 05/14/13 21:19:00, Replace Every: 24 hr(Same as: Versed) Plavix 75 mg, 1 tab, Route: PO, 04/19/2013 04/30/2013 Discontinued Drug form: TAB, Daily, Dosing Weight 121.5, kg, Start date: 04/19/13 9:48:00, Duration: 30 day, Stop date: 05/19/13 9:00:00(Same As: Plavix) clopidogrel 75 mg oral 75 mg=1 tab, PO, Daily, 04/30/2013 Ordered tablet # 90 tab, 2 Refill(s) Immunizations Vaccine Date Status pneumococcal 23-valent vaccine 04/08/2013 Auth (Verified) Vital Signs Most recent to oldest 1 2 3 [Reference Range]: Height 162.56 cm (04/04/2013 02:15:00) Current Weight 183.545 kg 184.409 kg 120 kg (04/30/2013 06:00:00) (04/28/2013 07:23:00) (04/26/2013 07:05:00) Temperature Oral 97.2 DegF 97.2 DegF 96.4 DegF [96.4-99.1 DegF] (04/30/2013 11:00:00) (04/30/2013 07:00:00) *LOW* (04/30/2013 04:00:00) Systolic Blood Pressure 142 mmHg 142 mmHg 155 mmHg [90-140 mmHg] *HI* *HI* *HI* (04/30/2013 10:44:00) (04/30/2013 09:25:00) (04/30/2013 07:00:00) Diastolic Blood Pressure 59 mmHg 59 mmHg 66 mmHg [60-90 mmHg] *LOW* *LOW* (04/30/2013 07:00:00) (04/30/2013 10:44:00) (04/30/2013 09:25:00) Respiratory Rate [14-20 17 BRMIN 18 BRMIN 20 BRMIN BRMIN] (04/30/2013 10:44:00) (04/30/2013 09:25:00) (04/30/2013 07:00:00) Weight 121.5 kg (04/04/2013 02:15:00) Results BACTERIAL - SEROLOGY Most recent to oldest [Reference Range]: 1 2 3 MRSA by PCR Negative 1 (04/04/2013 02:30:00) U S pneumo Ag [Negative] Negative (04/04/2013 19:00:00) 1Interpretive Data: Interpretive Data: The [employer] LightCycler MRSA assay is a qualitative test for thedirect detection of nasal colonization with methicillin- resistant Staphylococcus aureus (MRSA) to aid in the prevention and control of MRSA infections in healthcare settings. A positive result does notindicate an infection or require treatment. A negative result does not exclude colonization or infection. The polymerase chain reaction (PCR) assay detects a proprietary sequence indicative of the integration of the SCCmec cassette into the Staphylococcus aureus chromosome, indicating the presence of MRSA DNA. The assay utilizes FDA cleared IVD reagents. Performance characteristics have been verified by the [facility] within the [facility]. The [facility] is authorized under the Clinical Laboratory Improvement Amendment of 1988 (CLIA-88) to performhigh complexity testing.INFECTIOUS DISEASES Most recent to oldest [Reference 1 2 3 Range]: Source Adenovirus PCR Fl[employer] Swab (04/05/2013 13:45:25) Adenovirus PCR [Negative] Negative 2 (04/05/2013 13:45:25) Source Parainfluenza Virus PCR [employer] Swab (04/05/2013 13:45:25) Parainfluenza 1 PCR [Negative] Negative (04/05/2013 13:45:25) Parainfluenza 2 PCR [Negative] Negative (04/05/2013 13:45:25) Parainfluenza 3 PCR [Negative] Negative 3 (04/05/2013 13:45:25) Source Respiratory Panel PCR [employer] Swab Fl[employer] Swab (04/06/2013 15:01:33) (04/05/2013 13:45:25) Influenza A PCR [Negative] Negative Negative (04/06/2013::33) (04/05/2013 13:45:25) Influenza B PCR [Negative] Negative Negative (04/06/2013 15:01:33) (04/05/2013 13:45:25) RSV PCR [Negative] Negative 4 Negative 5 (04/06/2013::33) (04/05/2013 13:45:25) 2Interpretive Data: The Adenovirus PCR assay is a multiplex Real-Time PCR test for the detection of the human Adenovirus. The test detects but does not differentiate serotypes 1-51. A negative result does [...] verified by the [facility] within [facility]. The [facility] is authorized under the Clinical Laboratory Improvement Amendments of 1988 (CLIA-88) to perform high complexity testing.3Interpretive Data: The Parainfluenza PCR assay is a multiplex Real-Time PCR test for the detection and discrimination of the Parainfluenza 1 Virus, Parainfluezna 2 Virus and the Parainfluenza 3 Virus. This assay targets the conserved regions of the Hemagglutinin-Neuraminidase [...] verified by the [facility] within [facility]. The [facility] is authorized under the Clinical Laboratory Improvement Amendments of 1988 (CLIA-88) to perform high complexity testing.4Interpretive Data: Gen-Probe Prodesse ProFlu plus assay is a multiplex real-time PCR test for the qualitative detection and discrimination of Influenza A Virus, Influenza B Virus, and Respiratory Syncytial Virus. A negative result does not rule out [...] verified by the [facility] within [facility]. The [facility] is authorized under the Clinical Laboratory Improvement Amendments of 1988 (CLIA-88) to perform high complexity testing.5Interpretive Data: Gen-Probe Prodesse ProFlu plus assay is a multiplex real-time PCR test for the qualitative detection and discrimination of Influenza A Virus, Influenza B Virus, and Respiratory Syncytial Virus. A negative result does not rule out [...] verified by the [facility] within [facility]. The [facility] is authorized under the Clinical Laboratory Improvement Amendments of 1988 (CLIA-88) to perform high complexity testing.MICRO MISC - SEROLOGY Most recent to oldest [Reference Range]: 1 2 3 U Legion Ag [Negative] Negative 6 (04/04/2013 19:00:00) 6Interpretive Data: This kit tests for Legionella pneumophila Serogroup 1 Antigen.BEDSIDE GLUCOSE TESTING Most recent to oldest 1 2 3 [Reference Range]: Glucose POC [70-99 185 mg/dL 7 176 mg/dL 8 203 mg/dL 9 mg/dL] *HI* *HI* *HI* (04/30/2013 11:15:00) (04/30/2013 07:21:00) (04/29/2013 21:24:00) Gluc POC Comment 1 Notified RN/MD Notified RN/MD Notified RN/MD *NA* *NA* *NA* (04/29/2013 21:24:00) (04/29/2013 16:51:00) (04/29/2013 11:44:00) Gluc POC Comment 2 Cleaned Meter Cleaned Meter *NA* *NA* (04/13/2013 17:33:00) (04/13/2013 11:40:00) 7Interpretive Data: Upper Reportable Limit: 200 mg/dL.8Interpretive Data: Upper Reportable Limit: 200 mg/dL.9Interpretive Data: Upper Reportable Limit: 200 mg/dL.URINALYSIS Most recent to oldest 1 2 3 [Reference Range]: UA Turbidity [Clear] Slight Clear Clear *ABN* (04/27/2013 06:45:00) (04/15/2013 23:02:50) (04/29/2013 03:00:42) UA Color [Yellow] Yellow Yellow Light Yellow *NA* *NA* *NA* (04/29/2013 03:00:42) (04/27/2013 06:45:00) (04/15/2013 23:02:50) UA pH [5.0-8.0] 6.5 5.0 5.0 (04/29/2013 03:00:42) (04/27/2013 06:45:00) (04/15/2013 23:02:50) UA Spec Grav [<=1.030] 1.012 1.012 1.006 (04/29/2013 03:00:42) (04/27/2013 06:45:00) (04/15/2013 23:02:50) UA Glucose [Negative Negative mg/dL Negative mg/dL Negative mg/dL mg/dL] *NA* *NA* *NA* (04/29/2013 03:00:42) (04/27/2013 06:45:00) (04/15/2013 23:02:50) UA Blood [Negative] Negative Negative Negative (04/29/2013 03:00:42) (04/27/2013 06:45:00) (04/15/2013 23:02:50) UA Ketones [Negative Negative mg/dL Negative mg/dL Negative mg/dL mg/dL] *NA* *NA* *NA* (04/29/2013 03:00:42) (04/27/2013 06:45:00) (04/15/2013 23:02:50) UA Protein [Negative 10 mg/dL Negative mg/dL Negative mg/dL mg/dL] *ABN* (04/27/2013 06:45:00) (04/15/2013 23:02:50) (04/29/2013 03:00:42) UA Urobilinogen [0.1-1.0 <=1.0 mg/dL <=1.0 mg/dL <=1.0 mg/dL mg/dL] *NA* *NA* *NA* (04/29/2013 03:00:42) (04/27/2013 06:45:00) (04/15/2013 23:02:50) UA Bili [Negative] Negative Negative Negative *NA* *NA* *NA* (04/29/2013 03:00:42) (04/27/2013 06:45:00) (04/15/2013 23:02:50) UA Leuk Est [Negative] Large Negative Negative *ABN* (04/27/2013 06:45:00) (04/15/2013 23:02:50) (04/29/2013 03:00:42) UA Nitrite [Negative] Negative Negative Negative (04/29/2013 03:00:42) (04/27/2013 06:45:00) (04/15/2013 23:02:50) UA WBC [0-5 /HPF] 146 /HPF 1 /HPF 1 /HPF *HI* (04/27/2013 06:45:00) (04/15/2013 23:02:50) (04/29/2013 03:00:42) UA RBC [0-2 /HPF] <1 /HPF 2 /HPF (04/27/2013 06:45:00) (04/04/2013 18:12:41) UA Bacteria [None Seen Many /HPF Occasional /HPF /HPF] *ABN* *NA* (04/29/2013 03:00:42) (04/15/2013 23:02:50) UA Sq Epi None Seen *NA* (04/29/2013 03:00:42) UA Sq Epi [Few /LPF] Many /LPF Few /LPF *ABN* *NA* (04/27/2013 06:45:00) (04/15/2013 23:02:50) UA Hyal Cast [0-2 /LPF] 1 /LPF (04/15/2013 23:02:50) UA Amorph Tayler [None Occasional /HPF Seen /HPF] *NA* (04/12/2013 10:15:00) UA Mucus [None Seen Many /LPF Few /LPF Few /LPF /LPF] *ABN* *NA* *NA* (04/29/2013 03:00:42) (04/27/2013 06:45:00) (04/15/2013 23:02:50) Micro? Not Indicated *NA* (04/15/2013 23:02:50) STOOL TESTS Most recent to oldest [Reference 1 2 3 Range]: Occult Bld Stl [Negative] Negative Positive (04/29/2013 14:00:00) *ABN* (04/27/2013 04:41:09) BLOOD BANK RESULTS Most recent to oldest 1 2 3 [Reference Range]: ABO/Rh B POS B POS B POS *Unknown* *Unknown* *Unknown* (04/16/2013 12:30:00) (04/13/2013 21:02:00) (04/04/2013 02:30:28) Antibody Scrn Negative Negative Negative (04/16/2013 12:30:00) (04/13/2013 21:02:00) (04/04/2013 02:30:28) FFP product Product available Product available (04/16/2013 13:14:00) (04/13/2013 17:49:00) Platelet product Product available (04/13/2013 17:49:00) RBC product Product available Product available Product available (04/16/2013 14:04:00) (04/16/2013 13:14:00) (04/15/2013 01:55:00) CHEMISTRY Most recent to oldest 1 2 3 [Reference Range]: Sodium Lvl [135-145 mEq/L] 144 mEq/L 141 mEq/L 139 mEq/L (04/30/2013 04:12:00) (04/29/2013 03:00:00) (04/28/2013 03:25:00) Potassium Lvl [3.5-5.1 4.3 mEq/L 10 4.3 mEq/L 4.5 mEq/L mEq/L] (04/30/2013 04:12:00) (04/29/2013 03:00:00) (04/28/2013 03:25:00) Chloride Lvl [95-109 107 mEq/L 104 mEq/L 102 mEq/L mEq/L] (04/30/2013 04:12:00) (04/29/2013 03:00:00) (04/28/2013 03:25:00) CO2 [24-32 mEq/L] 28 mEq/L 28 mEq/L 30 mEq/L (04/30/2013 04:12:00) (04/29/2013 03:00:00) (04/28/2013 03:25:00) AGAP [10.0-20.0 mEq/L] 13.3 mEq/L 13.3 mEq/L 11.5 mEq/L (04/30/2013 04:12:00) (04/29/2013 03:00:00) (04/28/2013 03:25:00) Creatinine Lvl [0.5-1.4 0.9 mg/dL 1.3 mg/dL 1.1 mg/dL mg/dL] (04/30/2013 04:12:00) (04/29/2013 03:00:00) (04/28/2013 03:25:00) eGFR 68 mL/min/1.73m2 11 44 mL/min/1.73m2 12 54 mL/min/1.73m2 13 *NA* *NA* *NA* (04/30/2013 04:12:00) (04/29/2013 03:00:00) (04/28/2013 03:25:00) BUN [7-22 mg/dL] 66 mg/dL 83 mg/dL 81 mg/dL *HI* *HI* *HI* (04/30/2013 04:12:00) (04/29/2013 03:00:00) (04/28/2013 03:25:00) B/C Ratio [6-25] 61 16 20 *HI* (04/15/2013 09:03:00) (04/14/2013 14:41:00) (04/27/2013 04:30:00) Glucose Lvl [70-99 mg/dL] 144 mg/dL 14 187 mg/dL 15 172 mg/dL 16 *HI* *HI* *HI* (04/30/2013 04:12:00) (04/29/2013 03:00:00) (04/28/2013 03:25:00) Total Protein [6.4-8.4 6.0 g/dL 6.1 g/dL 5.8 g/dL g/dL] *LOW* *LOW* *LOW* (04/27/2013 04:30:00) (04/17/2013 02:29:49) (04/16/2013 16:41:00) Albumin Lvl [3.5-5.0 g/dL] 2.7 g/dL 3.6 g/dL 3.8 g/dL *LOW* (04/17/2013 02:29:49) (04/16/2013 16:41:00) (04/27/2013 04:30:00) Globulin [2.0-4.0 g/dL] 3.3 g/dL 2.5 g/dL 2.0 g/dL (04/27/2013 04:30:00) (04/17/2013 02:29:49) (04/16/2013 16:41:00) A/G Ratio [0.7-1.6] 0.8 1.4 1.9 (04/27/2013 04:30:00) (04/17/2013 02:29:49) *HI* (04/16/2013 16:41:00) Calcium Lvl [8.5-10.5 8.3 mg/dL 8.5 mg/dL 8.5 mg/dL mg/dL] *LOW* (04/29/2013 03:00:00) (04/28/2013 03:25:00) (04/30/2013 04:12:00) Phosphorus [2.5-4.5 mg/dL] 3.0 mg/dL 3.3 mg/dL 3.4 mg/dL (04/30/2013 04:12:00) (04/29/2013 03:00:00) (04/28/2013 03:25:00) Magnesium Lvl [1.8-2.4 2.1 mg/dL 2.3 mg/dL 2.7 mg/dL mg/dL] (04/30/2013 04:12:00) (04/29/2013 03:00:00) *HI* (04/28/2013 03:25:00) ALT [0-65 unit/L] 38 unit/L 38 unit/L 44 unit/L (04/27/2013 04:30:00) (04/17/2013 02:29:49) (04/16/2013 16:41:00) AST [0-37 unit/L] 37 unit/L 40 unit/L 43 unit/L (04/27/2013 04:30:00) *HI* *HI* (04/17/2013 02:29:49) (04/16/2013 16:41:00) Alk Phos [39-136 unit/L] 76 unit/L 58 unit/L 40 unit/L (04/27/2013 04:30:00) (04/17/2013 02:29:49) (04/16/2013 16:41:00) Bili Total [0.2-1.3 mg/dL] 0.5 mg/dL 1.1 mg/dL 1.6 mg/dL (04/27/2013 04:30:00) (04/17/2013 02:29:49) *HI* (04/16/2013 16:41:00) Bili Direct [0.0-0.3 0.5 mg/dL 0.7 mg/dL 1.1 mg/dL mg/dL] *HI* *HI* *HI* (04/17/2013 02:29:49) (04/16/2013 16:41:00) (04/15/2013 09:03:00) Bili Indirect [0.0-1.0 0.6 mg/dL 0.9 mg/dL 1.0 mg/dL mg/dL] (04/17/2013 02:29:49) (04/16/2013 16:41:00) (04/15/2013 09:03:00) Amylase Lvl [25-115 23 unit/L 21 unit/L unit/L] *LOW* *LOW* (04/17/2013 02:29:49) (04/16/2013 16:41:00) Lipase Lvl [73-393 unit/L] 100 unit/L 69 unit/L (04/17/2013 02:29:49) *LOW* (04/16/2013 16:41:00) Lactic Acid Lvl [0.5-2.2 1.2 mMol/L 0.9 mMol/L 5.3 mMol/L mMol/L] (04/17/2013 02:29:49) (04/16/2013 16:41:00) *HI* (04/15/2013 00:22:49) Total CK [12-191 unit/L] 364 unit/L 472 unit/L 769 unit/L *HI* *HI* *HI* (04/05/2013 08:20:00) (04/04/2013 23:35:00) (04/04/2013 13:55:00) CK MB [0.5-3.6 ng/mL] 1.1 ng/mL 1.2 ng/mL 3.9 ng/mL (04/05/2013 08:20:00) (04/04/2013 23:35:00) *HI* (04/04/2013 13:55:00) CK MB Index [0.0-2.5] 0.3 0.3 0.5 (04/05/2013 08:20:00) (04/04/2013 23:35:00) (04/04/2013 13:55:00) Troponin-T [0.000-0.100 0.451 ng/mL 17 0.570 ng/mL 18 0.323 ng/mL 19 ng/mL] *CRIT* *CRIT* *CRIT* (04/05/2013 08:24:45) (04/04/2013 23:16:23) (04/04/2013 02:30:00) Troponin-I [0.00-0.40 2.45 ng/mL 20 3.60 ng/mL 21 4.01 ng/mL 22 ng/mL] *CRIT* *CRIT* *CRIT* (04/05/2013 08:20:00) (04/04/2013 23:35:00) (04/04/2013 13:55:00) BNP [<=100 pg/mL] 118 pg/mL 23 153 pg/mL 24 *HI* *HI* (04/06/2013 02:10:41) (04/04/2013 13:55:00) Hgb A1C [<=5.6 %] 6.2 % *HI* (04/04/2013 02:30:00) T4 Free [0.76-1.46 ng/dL] 1.43 ng/dL (04/08/2013 13:10:00) TSH [0.360-3.740 uIU/mL] 0.974 uIU/mL (04/04/2013 02:30:00) T3 Free [2.18-3.98 pg/mL] 1.05 pg/mL *LOW* (04/08/2013 13:10:00) Ca Ion WB [1.05-1.25 1.00 mMol/L 1.07 mMol/L 1.08 mMol/L mMol/L] *LOW* (04/28/2013 03:25:07) (04/26/2013 04:35:00) (04/30/2013 04:12:00) Ca Norm WB [1.05-1.25 1.03 mMol/L 1.06 mMol/L 1.06 mMol/L mMol/L] *LOW* (04/28/2013 03:25:07) (04/26/2013 04:35:00) (04/30/2013 04:12:00) Vanco Tr TND 04/19 *NA* (04/18/2013 13:33:06) Vanco Tr 17.1 ug/ml 25 *NA* (04/18/2013 13:33:06) Digoxin Lvl [0.8-2.0 1.1 ng/mL 1.0 ng/mL 1.7 ng/mL ng/mL] (04/30/2013 04:12:00) (04/15/2013 22:10:00) (04/09/2013 00:29:00) U Microalb 21.0 mg/L *NA* (04/15/2013 13:53:56) U Alb/Crea [<=30.0 mcg/mg 27.0 mcg/mg creat creat] (04/15/2013 13:53:56) U Creatinine 77.9 mg/dL 26 *NA* (04/15/2013 13:53:56) U Sodium 20 mEq/L 27 39 mEq/L 28 *NA* *NA* (04/27/2013 06:45:00) (04/15/2013 13:53:56) U Potassium 20.9 mEq/L 29 *NA* (04/27/2013 06:45:00) U Chloride <10 mEq/L *NA* (04/27/2013 06:45:00) U Eos [None Seen] None Seen (04/15/2013 13:53:53) POC A Hct [36.0-48.0 %] 32.0 % 34.0 % 33.0 % *LOW* *LOW* *LOW* (04/26/2013 08:12:00) (04/25/2013 16:11:00) (04/20/2013 07:21:00) POC A Ca Ion [1.05-1.25 1.12 mMol/L 1.11 mMol/L 1.19 mMol/L mMol/L] (04/26/2013 08:12:00) (04/25/2013 16:11:00) (04/20/2013 07:21:00) POC A K [3.5-5.1 mEq/L] 3.9 mEq/L 4.6 mEq/L 3.3 mEq/L (04/26/2013 08:12:00) (04/25/2013 16:11:00) *LOW* (04/20/2013 07:21:00) POC A Source ART ART ART *NA* *NA* *NA* (04/26/2013 08:12:00) (04/25/2013 16:11:00) (04/23/2013 05:23:00) POC A Temp 37.0 DegC 37.0 DegC 37.0 DegC *NA* *NA* *NA* (04/26/2013 08:12:00) (04/25/2013 16:11:00) (04/23/2013 05:23:00) POC A pH [7.35-7.45] 7.48 7.48 7.47 *HI* *HI* *HI* (04/26/2013 08:12:00) (04/25/2013 16:11:00) (04/23/2013 05:23:00) POC A PCO2 [35-45 mmHg] 43 mmHg 44 mmHg 46 mmHg (04/26/2013 08:12:00) (04/25/2013 16:11:00) *HI* (04/23/2013:23:00) POC A PO2 [80-100 mmHg] 123 mmHg 69 mmHg 69 mmHg *HI* *LOW* *LOW* (04/26/2013 08:12:00) (04/25/2013 16:11:00) (04/23/2013:23:00) POC A HCO3 [22-26 mMol/L] 32 mMol/L 33 mMol/L 34 mMol/L *HI* *HI* *HI* (04/26/2013 08:12:00) (04/25/2013 16:11:00) (04/23/2013 05:23:00) POC A BE [-2-2 mMol/L] 8 mMol/L 8 mMol/L 9 mMol/L *HI* *HI* *HI* (04/26/2013 08:12:00) (04/25/2013 16:11:00) (04/23/2013:23:00) POC A O2 Sat [95.0-100.0 99.0 % 95.0 % 95.0 % %] (04/26/2013 08:12:00) (04/25/2013 16:11:00) (04/23/2013 05:23:00) POC A Glu [70-99 mg/dL] 241 mg/dL 257 mg/dL 99 mg/dL *HI* *HI* (04/20/2013 07:21:00) (04/26/2013 08:12:00) (04/25/2013 16:11:00) POC A LA [0.5-2.2 mMol/L] 0.6 mMol/L 0.6 mMol/L 1.3 mMol/L (04/26/2013 08:12:00) (04/25/2013 16:11:00) (04/20/2013 07:21:00) POC A Na [135-145 mEq/L] 138 mEq/L 136 mEq/L 146 mEq/L (04/26/2013 08:12:00) (04/25/2013 16:11:00) *HI* (04/20/2013 07:21:00) POC A Mode 4LPM CPAP SIMV *NA* *NA* *NA* (04/25/2013 16:11:00) (04/19/2013 06:00:00) (04/18/2013 23:19:00) POC A Mech Rate [0-70 bpm] 16 bpm 14 bpm 14 bpm (04/18/2013 23:19:00) (04/16/2013 23:01:00) (04/16/2013 16:14:00) POC A VT [2-1200 mL] 550 mL 550 mL 550 mL (04/18/2013 23:19:00) (04/18/2013 07:11:00) (04/16/2013 23:01:00) POC A PEEP [0.0-40.0 5.0 cmH20 5.0 cmH20 5.0 cmH20 cmH20] (04/19/2013 08:56:00) (04/19/2013 06:00:00) (04/18/2013 23:19:00) POC A CPAP [0.0-40.0 0.0 cmH20 cmH20] (04/19/2013 08:56:00) POC A %FIO2 [18.0-100.0 %] 40.0 % 40.0 % 50.0 % (04/19/2013 08:56:00) (04/19/2013 06:00:00) (04/18/2013 23:19:00) POC A Peak [0.0-100.0 15.0 cmH20 cmH20] (04/19/2013 06:00:00) POC A BIPAP(I) [0.0-50.0 10.0 cmH20 10.0 cmH20 10.0 cmH20 cmH20] (04/06/2013 05:59:00) (04/05/2013 15:53:00) (04/05/2013 11:27:00) POC V Source EVANGELINA EVANGELINA EVANGELINA *NA* *NA* *NA* (04/16/2013 23:05:00) (04/16/2013 16:42:00) (04/15/2013 05:35:00) POC V Temp 37.0 DegC 37.0 DegC 37.0 DegC *NA* *NA* *NA* (04/16/2013 23:05:00) (04/16/2013 16:42:00) (04/15/2013 05:35:00) POC V pH [7.28-7.42] 7.33 7.30 7.34 (04/16/2013 23:05:00) (04/16/2013 16:42:00) (04/15/2013 05:35:00) POC V PCO2 [38-52 mmHg] 45 mmHg 46 mmHg 49 mmHg (04/16/2013 23:05:00) (04/16/2013 16:42:00) (04/15/2013 05:35:00) POC V PO2 [20-49 mmHg] 33 mmHg 31 mmHg 32 mmHg (04/16/2013 23:05:00) (04/16/2013 16:42:00) (04/15/2013 05:35:00) POC V HCO3 [22-26 mmol/L] 24 mmol/L 23 mmol/L 26 mmol/L (04/16/2013 23:05:00) (04/16/2013 16:42:00) (04/15/2013 05:35:00) POC V BE [-2-2 mmol/L] -2 mmol/L -4 mmol/L 0 mmol/L (04/16/2013 23:05:00) *LOW* (04/15/2013 05:35:00) (04/16/2013 16:42:00) POC V O2 Sat [40.0-70.0 %] 58.0 % 52.0 % 57.0 % (04/16/2013 23:05:00) (04/16/2013 16:42:00) (04/15/2013 05:35:00) POC V Mode AC AC *NA* *NA* (04/16/2013 23:05:00) (04/14/2013 15:47:00) POC V Mech Rate [0-70 bpm] 14 bpm 15 bpm (04/16/2013 23:05:00) (04/14/2013 15:47:00) POC V VT [2-1200 mL] 550 mL 550 mL (04/16/2013 23:05:00) (04/14/2013 15:47:00) POC V PEEP [0.0-40.0 7.0 cmH20 8.0 cmH20 cmH20] (04/16/2013 23:05:00) (04/14/2013 15:47:00) POC V %FIO2 [18.0-100.0 %] 60.0 % 80.0 % (04/16/2013 23:05:00) (04/14/2013 15:47:00) POC V Glu [70-99 mg/dL] 110 mg/dL 132 mg/dL 223 mg/dL *HI* *HI* *HI* (04/16/2013 23:05:00) (04/16/2013 16:42:00) (04/14/2013 15:47:00) POC V Hct [36.0-48.0 %] 30.0 % 31.0 % 30.0 % *LOW* *LOW* *LOW* (04/16/2013 23:05:00) (04/16/2013 16:42:00) (04/15/2013 05:35:00) POC V Ion Ca [1.05-1.25 1.14 mMol/L 1.18 mMol/L 1.22 mMol/L mMol/L] (04/16/2013 23:05:00) (04/16/2013 16:42:00) (04/15/2013 05:35:00) POC V K [3.5-5.1 mEq/L] 3.9 mEq/L 4.2 mEq/L 4.3 mEq/L (04/16/2013 23:05:00) (04/16/2013 16:42:00) (04/15/2013 05:35:00) POC V LA [0.5-2.2 mMol/L] 0.7 mMol/L 0.7 mMol/L 3.7 mMol/L (04/16/2013 23:05:00) (04/16/2013 16:42:00) *HI* (04/14/2013 15:47:00) POC V Na [135-145 mEq/L] 147 mEq/L 149 mEq/L 147 mEq/L *HI* *HI* *HI* (04/16/2013 23:05:00) (04/16/2013 16:42:00) (04/15/2013 05:35:00) 10Result Comment: Specimen Slightly Hemolyzed.11Result Comment: The eGFR is calculated using the CKD-EPI formula. In most young, healthy individualsthe eGFR will be >90 mL/min/1.73m2. The eGFR declines with age. An eGFR of 60-89 may be normal in some populations, particularly the elderly, for whom the CKD- EPI formula has not been extensively validated. Use of the eGFR is not recommended in the following populations: Individuals with unstable creatinine concentrations, including patients and those with serious co-morbid conditions. Patients with extremes in muscle mass or diet. The data above are obtained from the National Kidney Disease Education Program ( NK[employer]) which additionally recommends that when the eGFR is used in patients with extremes of body mass index for purposesof drug dosing, the eGFR should be multiplied by the estimated BMI.12Result Comment: The eGFR is calculated using the CKD-EPI formula. In most young, healthy individualsthe eGFR will be >90 mL/ min/1.73m2. The eGFR declines with age. An eGFR of 60-89 may be normal in some populations, particularly the elderly, for whom the CKD-EPI formula has not been extensively validated. Use of the eGFR is not recommended in the following populations: Individuals with unstable creatinine concentrations, including patients and those with serious co-morbid conditions. Patients with extremes in muscle mass or diet. The data above are obtained from the National Kidney Disease Education Program ( NKDEP) which additionally recommends that when the eGFR is used in patients with extremes of body mass index for purposesof drug dosing, the eGFR should be multiplied by the estimated BMI.13Result Comment: The eGFR is calculated using the CKD-EPI formula. In most young, healthy individualsthe eGFR will be >90 mL/ min/1.73m2. The eGFR declines with age. An eGFR of 60-89 may be normal in some populations, particularly the elderly, for whom the CKD-EPI formula has not been extensively validated. Use of the eGFR is not recommended in the following populations: Individuals with unstable creatinine concentrations, including patients and those with serious co-morbid conditions. Patients with extremes in muscle mass or diet. The data above are obtained from the National Kidney Disease Education Program ( NKDEP) which additionally recommends that when the eGFR is used in patients with extremes of body mass index for purposesof drug dosing, the eGFR should be multiplied by the estimated BMI.14Interpretive Data: Adult reference range values reflect the clinical guidelines of the [employer].15Interpretive Data: Adult reference range values reflect the clinical guidelines of the [employer].16Interpretive Data: Adult reference range values reflect the clinical guidelines of the [employer].17Result Comment: Critical Result(s) called to Mariia Hurst at 04/05/2013 10:59 byMIA. Read back OK.18Result Comment: Critical Result(s) called to Jonathon Del Toro at 04/05/2013 00:45_ by_ mgm. Read back OK.19Result Comment: Critical Result(s) called to Tracie Simmons at 04/04/2013 03:53_ by_mgm. Read back OK.20Result Comment: Critical Result(s) called to LULIKORY vasquez at 04/05/2013 09:27 by ADALID. Read backOK.21Result Comment: Critical Result(s) called to jonathon mills at 04/05/2013 00:22 byharpreet. Read back OK.22Result Comment: Critical Result(s) called to luci tobin at 04/04/2013 15:43_ by_nvj. Read back OK.23Interpretive Data: Elevated results are in line with increasing severity of congestive heart failure. Minor elevations between 100 and 300 may be seen with Myocardial Ischemia, Sodium retaining drugs, and compensated/treated heart failure.24Interpretive Data: Elevated results are in line with increasing severity of congestive heart failure. Minor elevations between 100 and 300 may be seen with Myocardial Ischemia, Sodium retaining drugs, and compensated/treated heart failure.25Interpretive Data: Therapeutic Range: Trough: 10 - 20 ug/mL Peak: 20 - 40 ug/mL Potential Toxicity: >80 ug/[id number] Data: No established reference ranges.27Interpretive Data: No established reference ranges.28Interpretive Data: No established reference ranges.29Interpretive Data : No established reference ranges.HEMATOLOGY Most recent to oldest 1 2 3 [Reference Range]: WBC [3.7-10.4 K/CMM] 12.2 K/CMM 13.2 K/CMM 16.3 K/CMM *HI* *HI* *HI* (04/30/2013 04:12:00) (04/29/2013 03:00:00) (04/28/2013 03:25:00) RBC [4.20-5.40 M/CMM] 3.00 M/CMM 3.13 M/CMM 3.01 M/CMM *LOW* *LOW* *LOW* (04/30/2013 04:12:00) (04/29/2013 03:00:00) (04/28/2013 03:25:00) Hgb [12.0-16.0 g/dL] 8.9 g/dL 9.4 g/dL 9.1 g/dL *LOW* *LOW* *LOW* (04/30/2013 04:12:00) (04/29/2013 03:00:00) (04/28/2013 03:25:00) Hct [36.0-48.0 %] 27.9 % 29.1 % 28.1 % *LOW* *LOW* *LOW* (04/30/2013 04:12:00) (04/29/2013 03:00:00) (04/28/2013 03:25:00) MCV [81.0-99.0 fL] 92.9 fL 92.9 fL 93.2 fL (04/30/2013 04:12:00) (04/29/2013 03:00:00) (04/28/2013 03:25:00) MCH [27.0-31.0 pg] 29.8 pg 30.1 pg 30.3 pg (04/30/2013 04:12:00) (04/29/2013 03:00:00) (04/28/2013 03:25:00) MCHC [32.0-36.0 g/dL] 32.0 g/dL 32.4 g/dL 32.6 g/dL (04/30/2013 04:12:00) (04/29/2013 03:00:00) (04/28/2013 03:25:00) RDW [11.5-14.5 %] 16.5 % 16.8 % 16.3 % *HI* *HI* *HI* (04/30/2013 04:12:00) (04/29/2013 03:00:00) (04/28/2013 03:25:00) Platelet [133-450 K/CMM] 441 K/CMM 476 K/CMM 466 K/CMM (04/30/2013 04:12:00) *HI* *HI* (04/29/2013 03:00:00) (04/28/2013 03:25:00) MPV [7.4-10.4 fL] 9.2 fL 9.2 fL 8.7 fL (04/30/2013 04:12:00) (04/29/2013 03:00:00) (04/28/2013 03:25:00) Segs [45.0-75.0 %] 76.8 % 80.2 % 81.8 % *HI* *HI* *HI* (04/30/2013 04:12:00) (04/29/2013 03:00:00) (04/27/2013 04:30:00) Bands [0.0-11.0 %] 0.0 % 0.0 % (04/12/2013 01:08:00) (04/11/2013 00:49:00) Lymphocytes [20.0-40.0 %] 9.2 % 6.4 % 7.0 % *LOW* *LOW* *LOW* (04/30/2013 04:12:00) (04/29/2013 03:00:00) (04/27/2013 04:30:00) Atypical Lymphs [<=0.0 %] 0.0 % 0.0 % (04/12/2013 01:08:00) (04/11/2013 00:49:00) Monocytes [2.0-12.0 %] 9.4 % 8.8 % 6.6 % (04/30/2013 04:12:00) (04/29/2013 03:00:00) (04/27/2013 04:30:00) Eosinophils [0.0-4.0 %] 3.6 % 3.4 % 4.0 % (04/30/2013 04:12:00) (04/29/2013 03:00:00) (04/27/2013 04:30:00) Basophils [0.0-1.0 %] 1.0 % 1.2 % 0.6 % (04/30/2013 04:12:00) *HI* (04/27/2013 04:30:00) (04/29/2013 03:00:00) Metamyelocytes [0.0-1.0 %] 2.0 % 6.0 % *HI* *HI* (04/12/2013 01:08:00) (04/11/2013 00:49:00) Segs-Bands # [1.5-8.1 9.4 K/CMM 10.6 K/CMM 11.7 K/CMM K/CMM] *HI* *HI* *HI* (04/30/2013 04:12:00) (04/29/2013 03:00:00) (04/27/2013 04:30:00) Lymphocytes # [1.0-5.5 1.1 K/CMM 0.8 K/CMM 1.0 K/CMM K/CMM] (04/30/2013 04:12:00) *LOW* (04/27/2013 04:30:00) (04/29/2013 03:00:00) Monocytes # [0.0-0.8 K/CMM] 1.1 K/CMM 1.2 K/CMM 0.9 K/CMM *HI* *HI* *HI* (04/30/2013 04:12:00) (04/29/2013 03:00:00) (04/27/2013 04:30:00) Eosinophils # [0.0-0.5 0.4 K/CMM 0.4 K/CMM 0.6 K/CMM K/CMM] (04/30/2013 04:12:00) (04/29/2013 03:00:00) *HI* (04/27/2013 04:30:00) Basophils # [0.0-0.2 K/CMM] 0.1 K/CMM 0.2 K/CMM 0.1 K/CMM (04/30/2013 04:12:00) (04/29/2013 03:00:00) (04/27/2013 04:30:00) NRBC 2 /100WB *NA* (04/11/2013 00:49:00) RBC Morph Normal Normal (04/11/2013 00:49:00) (04/08/2013 02:30:00) Anisocyte [None Seen] 1+ 1+ 1+ *ABN* *ABN* *ABN* (04/30/2013 04:12:00) (04/18/2013 03:40:00) (04/16/2013 23:27:20) Polychrom [None Seen] Slight Slight Slight (04/22/2013 03:12:00) (04/21/2013 02:11:00) (04/20/2013 02:54:00) Hypochrom [None Seen] Slight Slight Slight (04/22/2013 03:12:00) (04/12/2013 01:08:00) (04/04/2013 18:13:00) Elliptocyte [None Seen] Slight Slight Slight *ABN* *ABN* *ABN* (04/30/2013 04:12:00) (04/22/2013 03:12:00) (04/20/2013 02:54:00) Baso [place]ipplin [None Seen] Slight Slight *ABN* *ABN* (04/15/2013 09:03:00) (04/15/2013 00:22:00) Toxic Gran [None Seen] Slight Slight Slight *ABN* *ABN* *ABN* (04/20/2013 02:54:00) (04/18/2013 03:40:00) (04/12/2013 01:08:00) Rouleaux [None Seen] Present *ABN* (04/22/2013 03:12:00) Smudge Rare *NA* (04/30/2013 04:12:00) Smudge [None Seen] Slight Slight (04/21/2013 02:11:00) (04/12/2013 01:08:00) [place] Cell [None Seen] Slight *ABN* (04/22/2013 03:12:00) Stomatocyte [None Seen] Slight *ABN* (04/12/2013 01:08:00) Plt Morph Normal Normal Normal (04/30/2013 04:12:00) (04/21/2013 02:11:00) (04/20/2013 02:54:00) Large Plt [None Seen] Slight Slight Slight *ABN* *ABN* *ABN* (04/22/2013 03:12:00) (04/11/2013 00:49:00) (04/04/2013 18:13:00) PT [12.0-14.7 seconds] 13.5 seconds 14.1 seconds 15.7 seconds (04/23/2013 04:18:00) (04/22/2013 03:12:00) *HI* (04/19/2013 02:00:00) INR [0.85-1.17] 1.04 30 1.10 31 1.27 32 (04/23/2013 04:18:00) (04/22/2013 03:12:00) *HI* (04/19/2013 02:00:00) PTT [22.9-35.8 seconds] 23.2 seconds 33 26.5 seconds 34 32.3 seconds 35 (04/23/2013 04:18:00) (04/22/2013 03:12:00) (04/19/2013 02:00:00) 30Interpretive Data: RECOMMENDED RANGES FOR PROTIME INR: 2.0-3.0 for most medical and surgical thromboembolic states. 2.5-3.5 for artificial heart valves and recurrent embolism. INR SHOULD BE USED ONLY FOR PATIENTS ON STABLE ANTICOAGULANT THERAPY.31Interpretive Data: RECOMMENDED RANGES FOR PROTIME INR: 2.0-3.0 for most medical and surgical thromboembolic states. 2.5-3.5 for artificial heart valves and recurrent embolism. INR SHOULD BE USED ONLY FOR PATIENTS ON STABLE ANTICOAGULANT THERAPY.32Interpretive Data: RECOMMENDED RANGES FOR PROTIME INR: 2.0-3.0 for most medical and surgical thromboembolic states. 2.5-3.5 for artificial heart valves and recurrent embolism. INR SHOULD BE USED ONLY FOR PATIENTS ON STABLE ANTICOAGULANT THERAPY.33Interpretive Data: Heparin Therapeutic Range: 57 - 92 [id number] Data: Heparin Therapeutic Range: 57 - 92 [id number] Data: Heparin Therapeutic Range: 57 - 92 Seconds Microbiology Reports (Most Recent Ten) PROCEDURE:Culture: Urine STATUS: Auth (Verified) BODY SITE: COLLECTED DATE/TIME: 04/29/2013 05:00:00 SOURCE: Urine, Clean Catch FREE TEXT SOURCE: FINAL REPORTS Final Report>100,000 CFU/mL Klebsiella pneumoniae ssp pneumoniaePRELIMINARY REPORTS Preliminary Report>100,000 CFU/mL Gram Negative Rods, Lactose Fermenters Identification And Sensitivity PendingSUSCEPTIBILITY REPORT Klebsiella pneumoniae ssp pneumoniae Antibiotic Vitek Dilution Vitek Interpretation Amikacin Susceptible Ampicillin Resistant Ampicillin/Sulbactam Susceptible Cefazolin Susceptible Cefepime Susceptible Ceftriaxone Susceptible ESBL Confirmation Negative Gentamicin Susceptible Levofloxacin Susceptible Meropenem Susceptible Nitrofurantoin Susceptible Piperacillin/Tazobactam Susceptible Tetracycline Susceptible Tobramycin Susceptible Trimethoprim/Sulfamethoxazole Susceptible PROCEDURE:Culture: Blood STATUS: Order in Progress BODY SITE: Left Wrist COLLECTED DATE/TIME: 04/26/2013 11:00:00 SOURCE: Blood FREE TEXT SOURCE: set PRELIMINARY REPORTS Preliminary ReportNo Growth At 4 Days Preliminary ReportNo Growth At 1 Day Preliminary ReportNo Growth At 5 Days Preliminary ReportNo Growth At 3 Days Preliminary ReportNo Growth At 2 Days PROCEDURE:Culture: Blood STATUS: Order in Progress BODY SITE: Right Wrist COLLECTED DATE/TIME: 04/26/2013 11:00:00 SOURCE: Blood FREE TEXT SOURCE: set PRELIMINARY REPORTS Preliminary ReportNo Growth At 2 Days Preliminary ReportNo Growth At 1 Day Preliminary ReportNo Growth At 4 Days Preliminary ReportNo Growth At 3 Days Preliminary ReportNo Growth At 5 Days PROCEDURE:Culture: MRSA Rapid Screen, Nasal Only STATUS: Auth (Verified) BODY SITE: COLLECTED DATE/TIME: 04/18/2013 11:00:00 SOURCE: Nasal Swab FREE TEXT SOURCE: FINAL REPORTS Final ReportNo Methicillin Resistant Staphylococcus Aureus Isolated PROCEDURE:Culture: Urine STATUS: Auth (Verified) BODY SITE: COLLECTED DATE/TIME: 04/17/2013 16:00:00 SOURCE: Urine, Martin FREE TEXT SOURCE: FINAL REPORTS Final ReportNo GrowthPRELIMINARY REPORTS Preliminary ReportNo Growth; Holding PROCEDURE:Culture: Blood STATUS: Auth (Verified) BODY SITE: Left Wrist COLLECTED DATE/TIME: 04/17/2013 13:30:40 SOURCE: Blood FREE TEXT SOURCE: set FINAL REPORTS Final ReportNo Growth At 5 DaysPRELIMINARY REPORTS* Preliminary ReportNo Growth At 4 Days Preliminary ReportNo Growth At 1 Day Preliminary ReportNo Growth At 5 Days Preliminary ReportNo Growth At 3 Days Preliminary ReportNo Growth At 2 Days PROCEDURE:Culture: Blood STATUS: Auth (Verified) BODY SITE: Right Wrist COLLECTED DATE/TIME: 04/17/2013 13:30:05 SOURCE: Blood FREE TEXT SOURCE: set FINAL REPORTS Final ReportNo Growth At 5 DaysPRELIMINARY REPORTS* Preliminary ReportNo Growth At 5 Days Preliminary ReportNo Growth At 4 Days Preliminary ReportNo Growth At 3 Days Preliminary ReportNo Growth At 1 Day Preliminary ReportNo Growth At 2 Days PROCEDURE:Gram Stain STATUS: Auth (Verified) BODY SITE: Endotrachial Tube COLLECTED DATE/TIME: 04/16/2013 04:16:46 SOURCE: Sputum FREE TEXT SOURCE: STAIN REPORTS Stain ReportMany Wbc'S; No Squamous Epithelial Cells; Rare Gram Positive Cocci In Pairs PROCEDURE:Culture: Respiratory w/Gram Stain STATUS: Auth (Verified) BODY SITE: Endotrachial Tube COLLECTED DATE/TIME: 04/16/2013 04:16:46 SOURCE: Sputum FREE TEXT SOURCE: FINAL REPORTS Final ReportFew Yeast Normal Respiratory Pinky IsolatedPRELIMINARY REPORTS Preliminary ReportNormal Respiratory Pinky Isolated Preliminary ReportNormal Respiratory Pinky IsolatedSTAIN REPORTS Stain ReportGram Stain Performed By: [facility] [place] PROCEDURE:Culture: Viral Complete STATUS: Auth (Verified) BODY SITE: COLLECTED DATE/TIME: 04/06/2013 15:01:06 SOURCE: Nasal Swab FREE TEXT SOURCE: [facility] [place] FINAL REPORTS Final ReportNo Adenovirus No Influenza A or B Virus No Parainfluenza Virus , And No Respiratory Syncytial Virus IsolatedPRELIMINARY REPORTS Preliminary ReportCulture In Progress
--- NOTE | 2017-12-26 12:42 | ER ---
Nurse's Notes [facility] Name: Olive Morgan Age: 67 yrs Sex: Female : 1950 Arrival Date: 12/26/2017 Time: 11:29 Bed Waiting Private MD: out of town, doctor Diagnosis: Presentation: 12/26 11:57 Presenting complaint: Patient states: Sent by Dr Thompson to be admitted for IV ABX for aj chronic UTI. Transition of care: patient was not received from another setting of care. Onset of symptoms was December 26, 2017. Risk Assessment: Do you want to hurt yourself or someone else? Patient reports no desire to harm self or others. Initial Sepsis Screen: Does the patient meet any 2 criteria? No. Patient's initial sepsis screen is negative. Does the patient have a suspected source of infection? No. Patient's initial sepsis screen is negative. Care prior to arrival: None. 11:57 Method Of Arrival: Wheelchair aj 11:57 Acuity: LAKISHA 3 aj 12:[address] Thompson and was told that they would call in an RX for ABX for aj patient so that she wouldn't have to be in admitted. Triage Assessment: 11:59 General: Appears in no apparent distress. comfortable, Behavior is calm, cooperative, aj appropriate for age. Pain: Denies pain. Neuro: Level of Consciousness is awake, alert, obeys commands, Oriented to person, place, time, situation, Appropriate for age. Respiratory: Airway is patent Respiratory effort is even, unlabored, Respiratory pattern is regular, symmetrical. : Reports Chronic UTI. Derm: Skin is intact, is healthy with good turgor, Skin is pink, warm \T\ dry. normal. Historical: - Allergies: 11:59 PENICILLINS; aj - PMHx: 11:59 chronic UTI; Diabetes - NIDDM; CVA; Myocardial infarction; aj - PSHx: 11:59 CABG; Gastric Sleeve; aj - Immunization history:: Adult Immunizations up to date. - Social history:: Smoking status: Patient/guardian denies using tobacco. - Ebola Screening: : Patient negative for fever greater than or equal to 101.5 degrees Fahrenheit, and additional compatible Ebola Virus Disease symptoms Patient denies exposure to infectious person Patient denies travel to an Ebola-affected area in the 21 days before illness onset No symptoms or risks identified at this time. Vital Signs: 11:59 BP 125 / 59; Pulse 84; Resp 16; Temp 97.9; Pulse Ox 99% on R/A; Weight 79.38 kg; Height aj 5 ft. 4 in. (162.56 cm); 11:59 Body Mass Index 30.04 (79.38 kg, 162.56 cm) aj ED Course: 11:29 Patient arrived in ED. mr 11:29 out of town, doctor is Private Physician. mr 11:58 Triage completed. aj 11:59 Arm band placed on left wrist. Patient placed in waiting room, Patient notified of wait aj time. 12:40 Graham Lobo MD is Attending Physician. aj Administered Medications: No medications were administered Outcome: 12:40 Eloped from waiting room, before seeing physician Time discovered patient gone: aj December 26, 2017 at 12:40 12:40 Patient left the ED. aj Signatures: Mi Granado, RN RN Nella Dubois mr
== END 2017-12-26 12:40 | disposition left against medical advice (07) ==
LOC: ER 11:23
DX: Z53.21 Procedure and treatment not carried out due to patient leaving prior to being seen by health care provider (principal)
CPT/HCPCS: 99281

== ENCOUNTER 2018-05-19 12:08 | Day surgery (SDC) | payer OTHER ==
[2018-05-19] MEDS: TETRACAINE HCL 0.5% 2ML OPTH ONE ×2 (11:35→13:05)
--- OUTSIDE RECORDS SUMMARY | 2018-05-19 12:22 | XMS REPORT | Continuity of Care Document ---
:1950 Author Organization Interface Problems Problem Status Onset Classification Date Comments Source Date Reported A-FIB, RVR, TROPONIN Active [address] SPASTIC HEMAPLEGIA, Active [employer] PUMP ICD-9# 007 [facility] CKD - chronic kidney Active Problem 12/25/2012 [facility] Constipation Active Problem 12/25/2012 [facility] CVA - Cerebrovascular Resolved Problem 12/25/2012 [facility] Diabetes mellitus Active Problem 12/25/2012 [facility] Hypercholesterolemia Active Problem 12/25/2012 [facility] Hypertension Active Problem 12/25/2012 [facility] 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 [facility] morbid obesity Active Problem 05/01/2013 [facility] Spastic hemiplegia Active Problem 12/25/2012 [facility] Atrial fibrillation Active Problem 05/01/2013 [facility] CKD - chronic kidney Active Problem 05/01/2013 [facility] Constipation Active Problem 05/01/2013 [facility] CVA - Cerebrovascular Resolved Problem 05/01/2013 [facility] Diabetes mellitus Active Problem 05/01/2013 [facility] Hypercholesterolemia Active Problem 05/01/2013 [facility] Hypertension Active Problem 05/01/2013 [facility] NSTEMI - Non-ST segment Active Problem 05/01/[address] [facility] Spastic hemiplegia Active Problem 05/01/2013 [facility] ADMINISTRTVE ENCOUNT Active [facility] Medications Medication Details Route Status Patient Ordering Order Source Instructions Provider Date Flomax 0.4 mg, 1 cap, Inactive Zavala [employer] Route: PO, Drug 2013 Medical form: [facility], Center Daily, Dosing Weight 121.5, kg, Start date: 04/30/13 10:30:00, Duration: 30 day, Stop date: 05/30/13 9:00:00(Same As: Flomax) "Do Not Crush" carvedilol 3.125 3.125 mg=1 tab, Active [facility] [employer] mg oral tablet PO, Q12H, # 180 2013 Medical tab, 2 Center Refill(s) bisacodyl 10 mg 10 mg=1 supp, Active [facility] [employer] rectal suppository [place], Daily, 2014 Medical Constipation, # Center 10 supp, 0 Refill(s) bacitracin-polymyx 1 appl, TOP, Active [facility] [employer] in B topical BID, # 10 gm, 0 2013 Medical powder Refill(s) Center aspirin 325 mg 325 mg=1 tab, Active [facility] [employer] tablet PO, Daily, # 2013 Medical 100 tab, 2 Center Refill(s) Klonopin 0.5 mg 0.5 mg=1 tab, Active [facility] [employer] oral tablet PO, Bedtime, # 2013 Medical 30 tab, 1 Center Refill(s) amLODIPine 10 mg 10 mg=1 tab, Active [facility] [employer] oral tablet PO, Daily, # 90 2014 Medical tab, 2 Center Refill(s) AMIODarone 200 mg 200 mg=1 tab, Active [facility] [employer] oral tablet PO, Daily, # 90 2014 Medical tab, 2 Center Refill(s) pregabalin 100 mg 100 mg=1 cap, Active [facility] [employer] oral capsule PO, Daily, # 30 2014 Medical cap, 1 Center Refill(s) insulin glargine 50 unit=0.5 mL, Active [facility] [employer] 100 units/mL SUB-Q, Daily, # 2013 Medical subcutaneous 10 mL, 0 Center solution Refill(s) insulin aspart 100 15 unit=0.15 Active [facility] [employer] units/mL mL, SUB-Q, 2013 Medical subcutaneous TID-Before Center solution Meals, # 15 mL, 3 Refill(s) digoxin 125 mcg 125 microgram=1 Active [facility] [employer] (0.125 mg) oral tab, PO, Daily, 2014 Medical tablet # 90 tab, 2 Center Refill(s) atorvastatin 40 mg 40 mg=1 tab, Active [facility] [employer] oral tablet PO, Bedtime, # 2013 Medical 90 tab, 3 Center Refill(s) simethicone 80 mg 80 mg=1 tab, Active [facility] [employer] oral tablet, NG, Q6H, 2014 Medical chewable bloating, # 90 Center tab, 0 Refill(s) senna 8.6 mg oral 8.6 mg=1 tab, Active [facility] [place] tablet PO, Daily, # 36 2014 Medical tab, 1 Center Refill(s) lisinopril 5 mg 5 mg=1 tab, PO, Active [facility] [employer] oral tablet Daily, # 90 2014 Medical tab, 2 Center Refill(s) levetiracetam 500 500 mg=1 tab, Active [facility] [employer] mg oral tablet PO, Q12H, # 180 2014 Medical tab, 3 Center Refill(s) hydrALAZINE 50 mg 50 mg=1 tab, Active [facility] [employer] oral tablet PO, Q8H, # 90 2014 Medical tab, 3 Center Refill(s) Lasix 40 mg oral 40 mg=1 tab, Active [facility] [employer] tablet PO, Daily, # 90 2014 Medical tab, 2 Center Refill(s) fenofibrate 48 mg 48 mg=1 tab, Active [facility] [employer] oral tablet PO, Daily, # 90 2014 Medical tab, 2 Center Refill(s) Colace 100 mg oral 100 mg=1 cap, Active [facility] [employer] capsule PO, BID, # 90 2014 Medical cap, 2 Center Refill(s) clopidogrel 75 mg 75 mg=1 tab, Active [facility] [employer] oral tablet PO, Daily, # 90 2014 Medical tab, 2 Center Refill(s) insulin aspart 3 unit, 0.03 Inactive Tao [employer] mL, Route: [address] [place] [address] SUB-Q, Drug Center form: SOLN, ONCE, Dosing Weight 121.5, kg, Priority: NOW, Start date: 04/29/13 12:31:00, Stop date: 04/29/13 12:31:00Roll in palms of hands gently; Do not shake vigorously. (Same as: NovoLog) "single patient use only" Stable for 28 days at room temperature. Expires in days from D ate tolterodine 2 mg, 1 tab, No Longer Zavala [employer] Route: PO, Drug Active 2013 Medical form: TAB, Center Q12H, Dosing Weight 121.5, kg, Start date: 04/29/13 12:30:00, Duration: 30 day, Stop date: 05/29/13 9:00:00(Same As: Detrol) tolterodine 1 mg, 1 tab, Inactive [facility] [employer] Route: PO, Drug 2013 Medical form: TAB, BID, Center Dosing Weight 121.5, kg, Start date: 04/29/13 12:15:00, Duration: 30 day, Stop date: 05/29/13 9:00:00(Same As: Detrol) AMIODarone 200 mg, 1 tab, No Longer Felix [employer] Route: PO, Drug Active 2013 Medical form: TAB, Center Daily, Dosing Weight 121.5, kg, Start date: 04/29/13 9:00:00, Duration: 30 day, Stop date: 05/28/13 9:00:00(Same as: Cordarone) AMIODarone 200 mg, Route: Inactive Isidro 04/28[facility] Katja PO, Drug form: 2013 Medical TAB, BID, Center Dosing Weight 121.5, kg, Start date: 04/28/13 17:00:00, Duration: 30 day, Stop date: 05/28/13 9:00:00 heparin 7,500 unit, 1.5 No Longer Isidro 04/28[facility] Katja mL, Route: Active 2013 Medical SUB-Q, Drug Center form: INJ, Q8H, Dosing Weight 121.5, kg, Start date: 04/28/13 16:00:00, Duration: 30 day, Stop date: 05/28/13 8:00:00porcine heparin multivitamin with 1 tab, Route: No Longer Sid 04/28[facility] Katja iron PO, Drug Form: Active 2013 Medical TAB, Dosing Center Weight 121.5, kg, Daily, Start date: 04/28/13 9:00:00, Duration: 30 day, Stop date: 05/27/13 9:00:00 Coreg 3.125 mg, 1 No Longer Sid 04/28[facility] Katja tab, Route: PO, Active 2013 Medical Drug form: TAB, Center Q12H, Dosing Weight 121.5, kg, Start date: 04/27/13 21:00:00, Duration: 30 day, Stop date: 05/27/13 9:00:00Give with food. (Same As: Coreg) multivitamin with 1 tab, Route: No Longer Sid [employer] minerals PO, Drug Form: Active 2013 Medical TAB, Daily, Center Start date: 04/27/13 11:30:00, Duration: 30 day, Stop date: 05/27/13 9:00:00(Same as:Thera-M, Theragran-M) Give with food. senna 8.6 mg, 1 tab, No Longer [facility] [place] Route: PO, Drug Active 2013 Medical Form: TAB, Center Dosing Weight 121.5, kg, Daily, Start date: 04/27/13 9:00:00, Duration: 30 day, Stop date: 05/26/13 9:00:00(Same as: Senokot) Dulcolax Laxative 10 mg, 1 supp, No Longer [facility] [employer] Route: KS, Drug Active 2013 Medical form: SUPP, Center Daily, Dosing Weight 121.5, kg, PRN Constipation, Start date: 04/26/13 14:13:00, Duration: 30 day, Stop date: 05/26/13 14:12:00(Same As: Dulcolax, Bisco-Lax) Cymbalta 30 mg, Route: Inactive [facility] [place] PO, Drug form: 2013 Medical DRC, Daily, Center Dosing Weight 121.5, kg, Start date: 04/26/13 9:00:00, Duration: 30 day, Stop date: 05/25/13 9:00:00 Keppra 500 mg, 1 tab, No Longer [facility] [employer] Route: PO, Drug Active 2013 Medical form: TAB, Center Q12H, Dosing Weight 121.5, kg, Start date: 04/25/13 9:00:00, Duration: 30 day, Stop date: 05/24/13 21:00:00(Same as:Keppra) docusate 100 mg, 10 mL, No Longer [facility] [employer] Route: PO, Drug Active 2013 Medical form: LIQ, BID, Center Dosing Weight 121.5, kg, Start date: 04/25/13 9:00:00, Duration: 30 day, Stop date: 05/24/13 17:00:00(Same as: Colace) insulin glargine 50 unit, 0.5 No Longer Tao [employer] mL, Route: Active 2013 Medical [facility] Drug Center form: INJ, Daily, Dosing Weight 121.5, kg, Start date: 04/24/13 9:00:00, Stop date: 05/23/13 9:00:00Same as Lantus Solostar PEN "single patient use only" Stable for 28 days at room temperature. Expires in days from D ate insulin aspart 15 unit, 0.15 No Longer Tao [employer] mL, Route: Active 2013 Medical [facility], Drug Center form: SOLN, TID-Before Meals, Dosing Weight 121.5, kg, Start date: 04/23/13 11:30:00, Stop date: 05/23/13 7:30:00Roll in palms of hands gently; Do not shake vigorously. (Same as: NovoLog) "single patient use only" Stable for 28 days at room temperature. Expires in days from D ate insulin aspart 10 unit, 0.1 No Longer Tao [employer] mL, Route: Active 2013 [facility], Drug Center form: SOLN, TID-Before Meals, Dosing Weight 121.5, kg, PRN Blood Glucose Results, Start date: 04/23/13 10:10:00, Duration: 30 day, Stop date: 05/23/13 10:09:00Roll in palms of hands gently; Do not shake vigorously. (Same as: NovoLog) "single patient use only" Stable for 28 days at room temperature. Expires in days from D ate glucagon 1 mg, Route: Inactive [facility] [employer] IM, PRN, Dosing 2013 Medical Weight 121.5, Center kg, PRN Blood Glucose Results, Start date: 04/23/13 10:10:00, Duration: 30 day, Stop date: 05/23/13 10:09:00 Dextrose 50% 50 mL, Route: Inactive Tao [employer] Syringe IVP, Dosing 2013 Medical Weight 121.5, Center kg, PRN, PRN Blood Glucose Results, Start date: 04/23/13 10:10:00, Duration: 30 day, Stop date: 05/23/13 10:09:00 Seroquel 25 mg, 1 tab, No Longer [facility] [employer] Route: PO, Drug Active 2013 Medical form: TAB, QAM, Center Dosing Weight 121.5, kg, Start date: 04/23/13 9:00:00, Duration: 30 day, Stop date: 05/22/13 9:00:00(Same as: Seroquel) Seroquel 50 mg, 2 tab, No Longer [facility] [employer] Route: PO, Drug Active 2013 Medical form: TAB, Center Bedtime, Dosing Weight 121.5, kg, Start date: 04/22/13 21:00:00, Duration: 30 day, Stop date: 05/21/13 21:00:00(Same as: Seroquel) Triple Antibiotic 1 appl, Route: Inactive [facility] 04/[facility] topical ointment TOP, BID, Drug ales 2013 Medical form: OINT, Center Start date: 04/22/13 17:00:00, Duration: 30 day, Stop date: 05/22/13 9:00:00 bacitracin-polymyx 1 appl, Route: No Longer [facility] 04/22[facility] in B topical TOP, BID, Drug Active ales 2013 Medical form: OINT, Center Start date: 04/22/13 17:00:00, Duration: 30 day, Stop date: 05/22/13 9:00:00(Same As: Polysporin) Prinivil 5 mg, 1 tab, No Longer [facility] 04/22[facility] Route: PO, Drug Active ales 2013 Medical form: TAB, Center Daily, Dosing Weight 121.5, kg, Start date: 04/22/13 9:00:00, Duration: 30 day, Stop date: 05/21/13 9:00:00(Same as: Prinivil Zestril) insulin aspart 12 unit, 0.12 No Longer Tao [employer] mL, Route: Active 2013 Medical SUB-Q, Drug [...] sodium 15 mmol, 15 mL, Inactive [facility] [place] glycerophosphate + Route: IVPB, 2013 Medical Sodium Chloride PRN, Dosing Center 0.9% IV 250 mL Weight 121.5, kg, PRN Abnormal Lab Result, Start date: 04/22/13 7:40:00, Duration: 1 doses or times, Stop date: 04/22/13 16:00:00 insulin detemir 40 unit, 0.4 No Longer Tao [employer] mL, Route: Active 2013 Medical SUB-Q, Drug Center form: INJ, Q12H, Dosing Weight 121.5, kg, Start date: 04/21/13 21:00:00, Stop date: 05/21/13 9:00:00Same as Levemir "single patient use only" aspirin 325 mg, 1 tab, No Longer Jasbir [employer] Route: DHT, Active 2012 Medical Drug form: TAB, Center Daily, Dosing Weight 121.5, kg, Start date: 04/21/13 9:00:00, Duration: 30 day, Stop date: 05/20/13 9:00:00Take with food. Dulcolax Laxative 10 mg, 1 supp, No Longer Jasbir [facility] Route: KS, Drug Active 2012 Medical form: SUPP, Center Daily, Dosing Weight 121.5, kg, Start date: 04/21/13 9:00:00, Duration: 30 day, Stop date: 05/20/13 9:00:00(Same As: Dulcolax, Bisco-Lax) Lyrica 100 mg, 1 cap, No Longer Jasbir [place] Route: PO, Drug Active 2012 Medical form: CAP, Center Daily, Dosing Weight 121.5, kg, Start date: 04/21/13 9:00:00, Duration: 30 day, Stop date: 05/19/13 21:00:00(Same as: Lyrica) Prevacid 30 mg, 10 mL, No Longer [facility] [place] Route: DHT, Active 2012 Medical Drug form: Center SUSP, Daily, Dosing Weight 121.5, kg, Start date: 04/21/13 9:00:00, Duration: 30 day, Stop date: 05/20/13 9:00:00Take 1 hour before or 2 hours after meal; Expires in 14 days. Shake well before use. (Same as:Prevacid) Compounded Product - formulation not commercially available Seroquel 25 mg, 1 tab, No Longer [facility] [place] Route: PO, Drug Active ales 2012 Medical form: TAB, BID, Center Dosing Weight 121.5, kg, Start date: 04/21/13 9:00:00, Duration: 30 day, Stop date: 05/20/13 17:00:00(Same as: Seroquel) insulin detemir 35 unit, 0.35 Inactive Yimi [place] mL, Route: 2012 Medical SUB-Q, Drug Center form: INJ, Q12H, Dosing Weight 121.5, kg, Start date: 04/20/13 21:00:00, Duration: 30 day, Stop date: 05/20/13 9:00:00Same as Levemir "single patient use only" Keppra 500 mg, 5 mL, No Longer [facility] [place] Route: NJ, Drug Active 2012 Medical form: SOLN, Center Q12H, Dosing Weight 121.5, kg, Start date: 04/20/13 21:00:00, Duration: 30 day, Stop date: 05/20/13 9:00:00 diphenhydrAMINE 25 mg, 0.5 mL, Inactive [facility] [place] Route: IVP, 2012 Medical Drug form: INJ, Center ONCE, Dosing Weight 121.5, kg, PRN Insomnia, Start date: 04/20/13 20:08:00(Same as: Benadryl) docusate 100 mg, 10 mL, No Longer [facility] [employer] Route: DHT, Active 2012 Medical Drug form: LIQ, Center BID, Dosing Weight 121.5, kg, Start date: 04/20/13 17:00:00, Duration: 30 day, Stop date: 05/20/13 9:00:00(Same as: Colace) Lasix 40 mg, 4 mL, No Longer Hay [employer] Route: IVP, Active 2012 Medical Drug form: INJ, Center BID, Dosing Weight 121.5, kg, Start date: 04/20/13 17:00:00, Duration: 30 day, Stop date: 05/20/13 9:00:00(Same as: Lasix) lactulose 20 gm, 30 ml, Inactive Jasbir [place] Route: PO, Drug 2012 Medical Form: SYRP, Center Dosing Weight 121.5, kg, ONCE, Within 4 hours, Start date: 04/20/13 14:48:00, Stop date: 04/20/13 14:48:00(Same as:Chronulac) phenol topical 1 spray, Route: No Longer Elvin [place] 1.4% spray TOP, QID, Drug Active 2012 Medical form: SPRY, Center Start date: 04/20/13 13:00:00, Duration: 30 day, Stop date: 05/20/13 9:00:00Chlorase ptic [place] (Same as: Chloraseptic, Sore Throat [place]) simethicone 80 mg, 1 tab, No Longer Jasbir [employer] Route: NG, Drug Active 2012 Medical form: [place], Center Q6H, Dosing Weight 121.5, kg, Priority: NOW, Start date: 04/20/13 12:00:00, Stop date: 05/20/13 6:00:00(Same as: Mylicon) Milk of Magnesia 30 ml, Route: No Longer Zavala [employer] PO, Drug Form: Active 2012 Medical SUSP, Dosing Center Weight 121.5, kg, Daily, NOW, Start date: 04/20/13 12:00:00, Duration: 30 day, Stop date: 05/20/13 9:00:00(Same as: Milk of Sammy, MOM) insulin aspart 6 unit, 0.06 No Longer Swann-Roni [employer] mL, Route: Active ales 2012 Medical SUB-Q, [...] 50% 12.5 gm, 25 mL, No Longer [facility] [employer] Syringe Route: IVP, Active 2012 Medical Drug Form: INJ, Center Dosing Weight 121.5, kg, PRN, PRN Blood Glucose Results, Start date: 04/20/13 2:28:00, Duration: 30 day, Stop date: 05/20/13 2:27:00 glucagon 1 mg, Route: No Longer [facility] [employer] IM, Drug form: Active 2012 Medical PDR/INJ, PRN, Center Dosing Weight 121.5, kg, PRN Blood Glucose Results, Start date: 04/20/13 2:28:00, Duration: 30 day, Stop date: 05/20/13 2:27:00 acetaminophen 650 mg, 2 tab, No Longer Akkanti [employer] Route: PO, Drug Active 2012 Medical form: TAB, Q6H, Center Dosing Weight 121.5, kg, PRN Pain, Priority: NOW, Start date: 04/19/13 19:23:00, Duration: 30 day, Stop date: 05/19/13 19:22:00Do not exceed 4 gm/day. (Same as: Tylenol) AMIODarone 400 mg, 2 tab, No Longer Felix [place] Route: PO, Drug Active 2012 Medical form: TAB, BID, Center Dosing Weight 121.5, kg, Start date: 04/19/13 17:00:00, Duration: 30 day, Stop date: 05/19/13 9:00:00(Same as: Cordarone) heparin 5,000 unit, 1 No Longer Felix [employer] mL, Route: Active 2012 Medical SUB-Q, Drug Center form: INJ, Q8H, Dosing Weight 121.5, kg, Start date: 04/19/13 16:00:00, Duration: 30 day, Stop date: 05/19/13 8:00:00porcine heparin insulin detemir 40 unit, 0.4 No Longer Yimi [employer] mL, Route: Active 2012 Medical SUB-Q, Drug Center form: INJ, Q12H, Dosing Weight 121.5, kg, Start date: 04/19/13 11:30:00, Duration: 30 day, Stop date: 05/19/13 9:00:00Same as Levemir "single patient use only" potassium chloride 20 mEq, 100 mL, Inactive [facility] [employer] Route: IVPB, 2012 Medical Drug form: INJ, Center ONCE, Dosing Weight 121.5, kg, Start date: 04/19/13 11:06:00, Stop date: 04/19/13 11:06:00(Same as: KCL) Infuse no faster than 10 mEq/hr if given peripherally. Plavix 75 mg, 1 tab, No Longer [facility] [place] Route: PO, Drug Active 2012 Medical form: TAB, Center Daily, Dosing Weight 121.5, kg, Start date: 04/19/13 9:48:00, Duration: 30 day, Stop date: 05/19/13 9:00:00(Same As: Plavix) Norvasc 10 mg, 1 tab, No Longer Tellez [employer] Route: PO, Drug Active 2012 Medical form: TAB, Center Daily, Dosing Weight 121.5, kg, Start date: 04/19/13 9:00:00, Duration: 30 day, Stop date: 05/18/13 9:00:00(Same as: Norvasc) hydrALAZINE 25 mg 50 mg, 1 tab, No Longer Tellez [employer] oral tablet Route: PO, Drug Active 2012 Medical form: TAB, Q8H, Center Dosing Weight 121.5, kg, Start date: 04/19/13 0:00:00, Duration: 30 day, Stop date: 05/18/13 16:00:00(Same as: Apresoline) May interfere w/enteral feedings Take With Food amLODIPine 5 mg, Route: Inactive [facility] 04/[facility] PO, Drug form: 2012 Medical TAB, ONCE, Center Dosing Weight 121.5, kg, Priority: Routine, Start date: 04/18/13 23:00:00, Stop date: 04/18/13 23:00:00 hydrALAZINE 25 mg 25 mg, 1 tab, Inactive [facility] 04/18[facility] oral tablet Route: PO, Drug 2012 Medical form: TAB, Q8H, Center Dosing Weight 121.5, kg, Start date: 04/18/13 16:00:00, Duration: 30 day, Stop date: 05/18/13 8:00:00(Same as: Apresoline) May interfere w/enteral feedings Take With Food. Norvasc 5 mg, 1 tab, Inactive [facility] 04/18[facility] Route: PO, Drug 2012 Medical form: TAB, Center Daily, Dosing Weight 121.5, kg, Start date: 04/18/13 14:52:00, Duration: 30 day, Stop date: 05/18/13 9:00:00(Same as: Norvasc) Procardia 30 mg, Route: Inactive [facility] 04/18[facility] PO, Drug form: alerosario 2012 Medical CAP, Q8H, Center Dosing Weight 121.5, kg, Start date: 04/18/13 14:30:00, Duration: 30 day, Stop date: 05/18/13 8:00:00 hydrALAZINE 10 mg, 0.5 mL, No Longer [facility] 04/18[facility] Route: IVP, Active ales 2012 Medical Drug form: INJ, Center Q4H, Dosing Weight 121.5, kg, PRN Elevated BP, Start date: 04/18/13 14:25:00, Duration: 30 day, Stop date: 05/18/13 14:24:00, SBP >130 metoprolol 5 mg/5 5 mg, 5 mL, Inactive [facility] 04/18[facility] ml INJ Route: IVP, ales 2012 Medical Drug form: INJ, Center ONCE, Dosing Weight 121.5, kg, Start date: 04/18/13 11:05:00, Stop date: 04/18/13 11:05:00 metoprolol 12.5 mg, 1 ea, Inactive Maci [place] tartrate Route: PO, Drug 2012 Medical form: TAB, Center ONCE, Dosing Weight 121.5, kg, Start date: 04/18/13 10:20:00, Stop date: 04/18/13 10:20:00(Same as: Lopressor) Coreg 6.25 mg, 1 tab, No Longer Sid [employer] Route: PO, Drug Active 2012 Medical form: TAB, Center Q12H, Dosing Weight 121.5, kg, Start date: 04/18/13 9:00:00, Duration: 30 day, Stop date: 05/17/13 21:00:00Give with food. (Same As: Coreg) lisinopril 5 mg, 1 tab, No Longer [facility] [employer] Route: PO, Drug Active ales 2012 Medical form: TAB, Center Daily, Dosing Weight 121.5, kg, Start date: 04/18/13 9:00:00, Duration: 30 day, Stop date: 05/17/13 9:00:00(Same as: Prinivil, Zestril) metoprolol 5 mg/5 5 mg, 5 mL, Inactive Urvashi [employer] ml INJ Route: IVP, 2012 Medical Drug form: INJ, Center ONCE, Dosing Weight 121.5, kg, Start date: 04/17/13 15:59:00, Stop date: 04/17/13 15:59:00(Same as: Lopressor) Push over 2 minutes Ofirmev 1,000 mg, 100 No Longer [facility] 04/17[facility] mL, Route: IV, Active ales 2012 Medical Drug form: INJ, Center Q6H, Dosing Weight 121.5, kg, for > or=50 kg, Start date: 04/17/13 12:00:00, Stop date: 05/19/13 6:00:00Infuse over 15 minutes Do not exceed 4gm/day of acetaminophen AMIODarone 900 mg 482 mL, Rate: No Longer [facility] 04/17[facility] + Dextrose 5% in Infuse as Active ales 2012 Medical Water (Titrate) IV directed, Center 482 mL Dosing Weight 121.5, kg, Route: IV, Total Volume: 500 mL, Start Date: 04/17/13 3:57:00, Duration: 30 day, Stop date: 05/17/13 3:56:00, Replace Every: 24 hrNon PVC bag vancomycin 2 gm, Route: Inactive Tellez 04/16[facility] IVPB, ONCE, 2012 Medical Dosing Weight Center 121.5, kg, Start date: 04/16/13 14:44:00, Stop date: 04/16/13 14:44:00 Flagyl 500 mg, 100 mL, No Longer [facility] 04/16[facility] Route: IVPB, Active ale2012 Medical Drug form: INJ, Center [id number], Dosing Weight 121.5, kg, Priority: NOW, Start date: 04/16/13 13:13:00, Duration: 30 day, Stop date: 05/16/13 5:13:00(Same as: Flagyl) Avoid alcohol. cefepime 1 gm, Route: No Longer [facility] 04/16[facility] IVPB, Drug Active ale2012 Medical form: INJ, Center [id number], Dosing Weight 121.5, kg, (CrCl 30 - 49 ml/min), Priority: NOW, Start date: 04/16/13 13:13:00, Duration: 30 day, Stop date: 05/16/13 1:13:00(Same As: Maxipime) vancomycin 1 gm, Route: No Longer [facility] 04/16[facility] IVPB, Drug Active ale2012 Medical form: INJ, Center [id number], Dosing Weight 121.5, kg, Priority: NOW, Start date: 04/16/13 13:12:00, Stop date: 05/15/13 13:12:00(Same As: Vancocin) Detrol LA 2 mg, 1 cap, No Longer [facility] 04/[facility] Route: PO, Drug Active 2012 Medical form: ERCAP, Center Daily, Start date: 04/16/13 9:00:00, Duration: 30 day, Stop date: 05/15/13 9:00:00(Same As: Detrol LA) (Do Not Crush) Lyrica 100 mg, 1 cap, No Longer Jasbir 04/16[facility] Route: PO, Drug Active 2012 Medical form: CAP, Center Daily, Dosing Weight 121.5, kg, Start date: 04/16/13 9:00:00, Duration: 30 day, Stop date: 05/15/13 9:00:00(Same as: Lyrica) Lopressor 5 mg, 5 mL, Inactive Lauro [employer] Route: IVP, 2012 Medical Drug form: INJ, Center ONCE, Dosing Weight 121.5, kg, Start date: 04/15/13 20:20:00, Stop date: 04/15/13 20:20:00(Same as: Lopressor) Ofirmev 1,000 mg, 100 No Longer Jabsir 04/15[facility] mL, Route: IV, Active 2012 Medical Drug form: INJ, Center Q6H, Dosing Weight 121.5, kg, for > or=50 kg, Priority: NOW, Start date: 04/15/13 17:45:00, Duration: 6 doses or times, Stop date: 04/17/13 0:00:00Infuse over 15 minutes Do not exceed 4gm/day of acetaminophen albumin human 25% 25 gm, 100 mL, No Longer Jasbir [employer] intravenous Route: IVPB, Active 2012 Medical solution Drug form: INJ, Center Q4H, Dosing Weight 121.5, kg, Priority: NOW, Start date: 04/15/13 13:43:00, Duration: 6 doses or times, Stop date: 04/16/13 10:00:00Lot #: Mfg: (Same as: Plasbumin-25) "blood product derivative" Lasix 100 mg in 100 mg, 10 mL, No Longer Parmar [employer] 100 ml IV titrate Rate: 5 Active [...] Sodium 500 mg, Route: No Longer Jasbir Katja Chloride 0.9% IV IVPB, Q12H, Active 2012 Medical 100 mL Dosing Weight Center 121.5, kg, Start date: 04/15/13 9:00:00, Duration: 30 day, Stop date: 05/14/13 21:00:00Same as Keppra Mix with 100ml NS, LR, or D5W pantoprazole 40 mg, Route: No Longer Jasbir Katja IVP, Drug form: Active 2012 Medical [...] 50 50 mg, 50 mL, [facility] Rate: 0.5 Active ales 2012 Medical mg/hr, Dosing Center Weight 121.5, kg, Route: IV, Total Volume: 50, Start date: 04/15/13 8:15:00, Duration: 30 day, Stop date: 05/15/13 8:14:00, Replace Every: 24 hr sodium 15 mmol, 15 mL, Inactive Bon 04/15[facility] glycerophosphate + Route: IV, Drug 2012 Medical Sodium Chloride form: INJ, Center 0.9% IV 250 mL ONCE, Start date: 04/15/13 8:13:00, Stop date: 04/15/13 8:13:00Same as: Glycophos Non-Formulary Sodium Chloride 100 mL, Rate: Inactive Jasbir 04/15[facility] 0.9% IV 100 mL + 0.5 mg/hr, 2012 Medical hydromorphone 20 Route: IV, Center mg Dosing Weight 121.5 kg, Total Volume: 100, Priority: NOW, Start date: 04/15/13 8:10:00, Duration: 30 day, Stop date: 05/15/13 8:09:00 sodium phosphate 15 mmol, Route: Inactive Bon [address] IVPB, PRN, 2012 Medical Dosing Weight Center 121.5, kg, PRN Abnormal Lab Result, Start date: 04/15/13 8:09:00, Duration: 30 day, Stop date: 05/15/13 8:08:00 Lasix 40 mg, 4 mL, Inactive [facility] 04/15[facility] Route: IV, Drug 2012 Medical form: INJ, Center ONCE, Dosing Weight 121.5, kg, Start date: 04/15/13 1:54:00, Stop date: 04/15/13 1:54:00(Same as: Lasix) ipratropium 0.5 mg, 2.5 mL, No Longer Jasbir 04/15[facility] Route: NEB, Active 2012 Medical Drug form: Center SOLN, Q8H, Dosing Weight 121.5, kg, Start date: 04/15/13 0:00:00, Duration: 30 day, Stop date: 05/14/13 15:00:00SEE RT DOCUMENTATION (Same as:Atrovent) furosemide 40 mg, 4 mL, Inactive Keyshawn [address] [place] [address] Route: IV, Drug 2012 Medical form: INJ, Center ONCE, Dosing Weight 121.5, kg, Priority: NOW, Start date: 04/14/13 22:54:00, Stop date: 04/14/13 22:54:00(Same as: Lasix) albumin human 25% 25 gm, 100 mL, Inactive Keyshawn 12/25[facility] intravenous Route: IV, Drug 2012 Medical solution form: INJ, Center ONCE, Dosing Weight 121.5, kg, Start date: 04/14/13 21:30:00, Stop date: 04/14/13 21:30:00Lot #: Mfg: (Same as: Plasbumin-25) "blood product derivative" Lasix 40 mg, 4 mL, Inactive [facility] [employer] Route: IV, Drug 2012 Medical form: INJ, Center ONCE, Dosing Weight 121.5, kg, Start date: 04/14/13 21:22:00, Stop date: 04/14/13 21:22:00(Same as: Lasix) Versed 50 mg in NS 50 mg, 50 mL, No Longer Swann-Roni [employer] 50 ml (titrate) IV Rate: Titrate Active ales 2012 Medical 50 mg as directed, Center Dosing Weight 121.5, kg, Route: IV, Total Volume: 50 mL, Start Date: 04/14/13 21:20:00, Duration: 30 day, Stop date: 05/14/13 21:19:00, Replace Every: 24 hr(Same as: Versed) vancomycin (SCIP) 1,750 mg, No Longer Rice 04/15[facility] + Sodium Chloride Route: IVPB, Active 2012 Medical 0.9% IV 250 mL [id number], Dosing Center Weight 121.5, kg, Start date: 04/14/13 20:00:00, Duration: 2 doses or times, Stop date: 04/15/13 8:00:00(Same As: Vancocin) Vancomycin FOR IV SET ONLY albumin human 25% 25 gm, 100 mL, No Longer Jasbir 04/15[facility] intravenous Route: IV, Drug Active 2012 Medical solution form: INJ, Center ONCE, Dosing Weight 121.5, kg, Start date: 04/14/13 19:45:00, Stop date: 04/14/13 19:45:00Lot #: Mfg: (Same as: Plasbumin-25) "blood product derivative" NS (Bolus) IV 500 500 mL, Rate: Inactive [place] [id number] [place] [address] mL 500 ml/hr, 2012 Medical Infuse over: 1 Center hr, Route: IV, Dosing Weight 121.5 kg, Total Volume: 500, Priority: STAT, Start date: 04/14/13 19:45:00, Duration: 1 doses or times, Stop date: 04/14/13 20:44:00, Bolus DoseBolus Dose albumin human 25% 25 gm, 100 mL, Inactive [place] [id number] [place] [address] intravenous Route: IV, Drug 2012 Medical solution form: INJ, Center ONCE, Dosing Weight 121.5, kg, Start date: 04/14/13 19:14:00, Stop date: 04/14/13 19:14:00Lot #: Mfg: (Same as: Plasbumin-25) "blood product derivative" Versed 2 mg, 2 mL, [facility] [address] [facility]: [facility], Active 2012 Medical Drug form: INJ, Center Q2H, Dosing Weight 121.5, kg, PRN Sedation, Start date: 04/14/13 17:05:00, Duration: 30 day, Stop date: 05/14/13 17:04:00, as needed for anxiety(Same as: Versed) Zofran 4 mg, 2 mL, No Longer [address] Route: IVP, Active 2012 Medical Drug form: INJ, Center Q6H, Dosing Weight 121.5, kg, PRN Nausea, Start date: 04/14/13 17:04:00, Duration: 30 day, Stop date: 05/14/13 17:03:00(Same as: Zofran) ipratropium 0.5 mg, 2.5 mL, [facility] [address]: NEB, Active 2012 Medical Drug form: Center SOLN, PRN, Dosing Weight 121.5, kg, PRN Wheezing, Start date: 04/14/13 17:03:00, Duration: 30 day, Stop date: 05/14/13 17:02:00SEE RT DOCUMENTATION (Same as:Atrovent) FENTanyl 1000 mcg 1,000 No Longer Jasbir [employer] in 20 mL (titrate) microgram, 20 Active [...] 45 mmol, 45 mL, No Longer Rice [employer] glycerophosphate + Route: IV, Drug Active 2012 Medical Sodium Chloride form: INJ, PRN, Center 0.9% IV 250 mL PRN Abnormal Lab Result, Start date: 04/14/13 14:43:00, Duration: 30 day, Stop date: 05/14/13 14:42:00Same as: Glycophos Non-Formulary sodium 30 mmol, 30 mL, No Longer Rice [employer] glycerophosphate + Route: IV, Drug Active 2012 Medical Sodium Chloride form: INJ, PRN, Center 0.9% IV 250 mL PRN Abnormal Lab Result, Start date: 04/14/13 14:40:00, Duration: 30 day, Stop date: 05/14/13 14:39:00Same as: Glycophos Non-Formulary sodium 15 mmol, 15 mL, No Longer Rice [employer] glycerophosphate + Route: IV, Drug Active 2012 Medical Sodium Chloride form: INJ, PRN, Center 0.9% IV 250 mL PRN Abnormal Lab Result, Start date: 04/14/13 14:39:00, Duration: 30 day, Stop date: 05/14/13 14:38:00Same as: Glycophos Non-Formulary magnesium sulfate 2 gm, 50 mL, No Longer Spiritism [employer] Route: IVPB, Active 2012 Medical Drug form: INJ, Center PRN, Dosing Weight 121.5, kg, PRN Abnormal Lab Result, Start date: 04/14/13 14:15:00, Duration: 30 day, Stop date: 05/14/13 14:14:00, FOR ICU USE ONLYFOR ICU USE ONLY calcium gluconate 1 gm, 10 mL, No Longer Spiritism [employer] + Sodium Chloride Route: IVPB, 2012 Medical 0.9% IV 50 mL PRN, Dosing Center Weight 121.5, kg, PRN Abnormal Lab Result, Start date: 04/14/13 14:15:00, Duration: 30 day, Stop date: 05/14/13 14:14:00, FOR ICU USE ONLYFOR ICU USE ONLY potassium chloride 10 mEq, 50 mL, No Longer Spiritism [employer] Route: IVPB, Active 2012 Medical Drug form: INJ, Center PRN, Dosing Weight 121.5, kg, PRN Abnormal Lab Result, Via peripheral line, Start date: 04/14/13 14:15:00, Duration: 30 day, Stop date: 05/14/13 14:14:00, FOR ICU USE ONLYFOR ICU USE ONLY(Same as: KCL) Infuse over 2 hours. sodium phosphate 30 mmol, Route: Inactive Rice [employer] IVPB, PRN, 2012 Medical Dosing Weight Center 121.5, kg, PRN Abnormal Lab Result, Start date: 04/14/13 14:15:00, Duration: 30 day, Stop date: 05/14/13 14:14:00, FOR ICU USE ONLYFOR ICU USE ONLY potassium 45 mmol, 15 mL, No Longer Spiritism [employer] phosphate Route: IVPB, Active 2012 Medical Drug form: INJ, Center PRN, Dosing Weight 121.5, kg, PRN Abnormal Lab Result, Start date: 04/14/13 14:15:00, Duration: 30 day, Stop date: 05/14/13 14:14:00, FOR ICU USE ONLYFOR ICU USE ONLY(Same as: K Phosphate.) 1 mMol phoshate has 1.47 mEq potassium Infuse over 4 hours potassium 15 mmol, 5 mL, No Longer Spiritism 04/14[facility] phosphate + Sodium Route: IVPB, Active [...] 25 gm, 50 mL, No Longer Rice [employer] Syringe Route: IVP, Active 2012 Medical Drug Form: INJ, Center Dosing Weight 121.5, kg, PRN, PRN Blood Glucose Results, Start date: 04/14/13 14:15:00, Duration: 30 day, Stop date: 05/14/13 14:14:00 Insulin regular 99 mL, Rate: No Longer Yimi [employer] 100 unit + Sodium Start Insulin Active [...] mg + 242 mL, Rate: No Longer [facility] [employer] Sodium Chloride Start at 0.1 Active ales 2012 Medical 0.9% (titrate) 242 micrograms/kg/m Center mL in., Dosing Weight 121.5, kg, Route: IV, Total Volume: 250, Start Date: 04/14/13 14:15:00, Stop date: 05/14/13 14:14:00, Replace Every: 24 hr milrinone 20 mg in 20 mg, 100 mL, No Longer [facility] [employer] D5W 100 ml Premix Rate: 0.375 Active ales 2012 Medical (titrate) 20 mg microgram/kg/mi Center n, Dosing Weight 121.5, kg, Route: IV, Total Volume: 100, Titrate to cardiac Index >2.5., Start date: 04/14/13 14:15:00, Duration: 30 day, Stop date: 05/14/13 14:14:00, Replace Every: 24 hr(Same as:Primacor) Final conc=0.2 mg/ml. Premix solution. fentanyl 50 microgram, 1 No Longer [facility] Katja mL, Route: IVP, Active ales 2012 Medical Drug form: INJ, Center Q2H, Dosing Weight 121.5, kg, PRN Pain Score 6-10, Start date: 04/14/13 14:15:00, Duration: 30 day, Stop date: 05/14/13 14:14:00(Same as: Sublimaze) Preservative free. Saline Flush 0.9% 10 ml, Route: No Longer Rice Katja IVP, Drug Form: Active 2012 Medical INJ, Dosing Center Weight 121.5, kg, PRN, PRN Line Flush, Start date: 04/14/13 14:15:00, Duration: 30 day, Stop date: 05/14/13 14:14:00(Same as: BD Posiflush) acetaminophen-10 1,000 mg, 100 No Longer Jasbir 04/14[facility] Katja mg/mL INTRAVENOUS mL, Route: IV, Active 2012 Medical solution Drug form: INJ, Center Q6H, Dosing Weight 121.5, kg, For > or=50 kg, Start date: 04/14/13 14:15:00, Stop date: 04/15/13 12:00:00Infuse over 15 minutes Do not exceed 4gm/day of acetaminophen Sodium Chloride 1,000 mL, Rate: No Longer [facility] Katja 0.45% IV 1,000 mL 75 ml/hr, [...] hydrALAZINE 10 mg, 0.5 mL, Inactive Urvashi [employer] Route: IVP, 2012 Medical Drug form: INJ, Center ONCE, Dosing Weight 121.5, kg, Start date: 04/14/13 1:19:00, Stop date: 04/14/13 1:19:00(Same as: Apresoline) Push over 5 minutes Lantus 50 unit, 0.5 Inactive Yimi [employer] mL, Route: 2012 Medical SUB-Q, Drug Center form: INJ, ONCE, Dosing Weight 121.5, kg, Start date: 04/13/13 21:25:00, Stop date: 04/13/13 21:25:00Same as Lantus Solostar PEN "single patient use only" Stable for 28 days at room temperature. Expires in days from D ate Sodium Chloride 250 mL, Rate: No Longer Velez Katja 0.9% (titrate) 250 will call clerk for use Active 2012 Medical mL with blood Center product administration, Dosing Weight 121.5, kg, Route: IV, Total Volume: 250, Start Date: 04/13/13 17:48:00, Duration: 30 day, Stop date: 05/13/13 17:47:00, Replace Every: 24 hr Dextrose 50% 25 gm, 50 mL, No Longer Rice 04/13[facility] Syringe Route: IVP, Active 2012 Medical Drug Form: INJ, Center Dosing Weight 121.5, kg, PRN, PRN Blood Glucose Results, Start date: 04/13/13 12:07:00, Duration: 30 day, Stop date: 05/13/13 12:06:00 glucagon 1 mg, Route: No Longer Rice 04/13[facility] IM, Drug form: Active 2012 Medical PDR/INJ, PRN, Center Dosing Weight 121.5, kg, PRN Blood Glucose Results, Start date: 04/13/13 12:07:00, Duration: 30 day, Stop date: 05/13/13 12:06:00 insulin aspart 6 unit, 0.06 No Longer Rice 04/13[facility] mL, Route: Active 2012 Medical SUB-Q, [...] 35 unit, 0.35 No Longer Yimi 04/13/ [employer] mL, Route: Active 2012 Medical SUB-, Drug Center form: SOLN, TID-Before Meals, Dosing Weight 121.5, kg, Start date: 04/13/13 11:30:00, Duration: 30 day, Stop date: 05/13/13 7:30:00Roll in palms of hands gently; Do not shake vigorously. (Same as: NovoLog) "single patient use only" Stable for 28 days at room temperature. Expires in days from D ate insulin aspart 2 unit, 0.02 Inactive Yimi 04/13[facility] mL, Route: 2012 Medical SUB-Q, Drug Center [...] 12.5 gm, 25 mL, Inactive Yimi 04/13/ [facility] Syringe Route: IVP, 2012 Medical Drug Form: INJ, Center Dosing Weight 121.5, kg, PRN, PRN Blood Glucose Results, Start date: 04/13/13 10:14:00, Duration: 30 day, Stop date: 05/13/13 10:13:00 glucagon 1 mg, Route: Inactive [facility] [employer] IM, Drug form: 2012 Medical PDR/INJ, PRN, Center Dosing Weight 121.5, kg, PRN Blood Glucose Results, Start date: 04/13/13 10:14:00, Duration: 30 day, Stop date: 05/13/13 10:13:00 lisinopril 10 mg, 1 tab, No Longer Adkins [employer] Route: PO, Drug Active 2012 Medical form: TAB, Center Daily, Dosing Weight 121.5, kg, Start date: 04/13/13 9:00:00, Duration: 30 day, Stop date: 05/12/13 9:00:00(Same as: Prinivil, Zestril) Lantus 60 unit, 0.6 No Longer [facility] 04/13[facility] mL, Route: Active 2012 Medical SUB-Q, Drug Center form: INJ, Daily, Dosing Weight 121.5, kg, Start date: 04/13/13 9:00:00, Duration: 30 day, Stop date: 05/12/13 9:00:00Same as Lantus Solostar PEN "single patient use only" Stable for 28 days at room temperature. Expires in days from D ate Lantus 60 unit, 0.6 No Longer [facility] 04/13[facility] mL, Route: Active 2012 Medical SUB-Q, Drug Center form: INJ, Bedtime, Dosing Weight 121.5, kg, Start date: 04/12/13 21:00:00, Duration: 30 day, Stop date: 05/11/13 21:00:00Same as Lantus Solostar PEN "single patient use only" Stable for 28 days at room temperature. Expires in days from D ate insulin glargine 15 unit, 0.15 Inactive Mallesara 04/12[facility] mL, Route: Phani 2012 Medical SUB-Q, Drug Center form: INJ, ONCE, Dosing Weight 121.5, kg, Priority: NOW, Start date: 04/12/13 12:07:00, Stop date: 04/12/13 12:07:00Same as Lantus Solostar PEN "single patient use only" Stable for 28 days at room temperature. Expires in days from D ate magnesium sulfate 2 gm, 50 mL, Inactive Ibekwe [employer] Route: IVPB, 2012 Medical Drug form: INJ, Center Q2H, Dosing Weight 121.5, kg, Total dose=4 gm, Start date: 04/12/13 10:00:00, Duration: 2 doses or times, Stop date: 04/12/13 12:00:00 insulin aspart 30 unit, 0.3 No Longer Yimi [employer] mL, Route: Active 2012 Medical SUB-Q, Drug [...] aspart 8 unit, 0.08 No Longer Yimi [employer] mL, Route: Active 2012 Medical SUB-Q, Drug [...] 25 gm, 50 mL, No Longer Mallesara [employer] Syringe Route: IVP, Active 2012 Medical Drug Form: INJ, Center Dosing Weight 121.5, kg, PRN, PRN Blood Glucose Results, Start date: 04/12/13 8:24:00, Duration: 30 day, Stop date: 05/12/13 8:23:00 glucagon 1 mg, Route: No Longer [facility] 04/12[facility] IM, Drug form: Active Phani 2012 Medical PDR/INJ, PRN, Center Dosing Weight 121.5, kg, PRN Blood Glucose Results, Start date: 04/12/13 8:24:00, Duration: 30 day, Stop date: 05/12/13 8:23:00 Lantus 45 unit, 0.45 No Longer [facility] 04/11[facility] mL, Route: Active Phani 2012 Medical SUB-Q, Drug Center form: INJ, Daily, Dosing Weight 121.5, kg, Start date: 04/11/13 9:00:00, Duration: 30 day, Stop date: 05/10/13 9:00:00Same as Lantus Solostar PEN "single patient use only" Stable for 28 days at room temperature. Expires in days from D ate Kayexalate 15 gm, 60 mL, Inactive Tellez [employer] Route: PO, Drug 2012 Medical form: SUSP, Center ONCE, Dosing Weight 121.5, kg, Start date: 04/10/13 15:20:00, Stop date: 04/10/13 15:20:00(sodium polystyrene sulfonate 15 gm/60 ml KODAK) Shake well before use. (Same as: Kayexalate, SPS) Lantus 45 unit, 0.45 Inactive Yimi [employer] mL, Route: 2012 Medical SUB-Q, Drug Center form: INJ, ONCE, Dosing Weight 121.5, kg, Priority: STAT, Start date: 04/10/13 12:10:00, Stop date: 04/10/13 12:10:00Same as Lantus Solostar PEN "single patient use only" Stable for 28 days at room temperature. Expires in days from D ate digoxin 125 mcg 0.125 mg, 1 No Longer Ibekwe [employer] (0.125 mg) oral tab, Route: PO, Active 2012 Medical tablet Drug form: TAB, Center Daily, Dosing Weight 121.5, kg, Start date: 04/10/13 9:00:00, Duration: 30 day, Stop date: 05/09/13 9:00:00Take on an Empty Stomach (Same as: Lanoxin) Protonix 40 mg, 1 tab, No Longer [facility] [place] Route: PO, Drug Active 2012 Medical form: ECTAB, Center Before Breakfast, Dosing Weight 121.5, kg, Start date: 04/10/13 7:30:00, Duration: 30 day, Stop date: 05/09/13 7:30:00Tablet should not be chewed or crushed. (Same as: Protonix) heparin 25,000 500 mL, Rate: No Longer Jasbir [place] unit [14 22.8 ml/hr, Active 2012 Medical unit/kg/hr] + Infuse over: [place] Premix Diluent 21.9 hr, Route: Sodium Chloride IV, Dosing 0.9% 500 mL Weight 81.42 kg, Total Volume: 500, Start date: 04/09/13 16:17:00, Duration: 30 day, Stop date: 05/09/13 16:16:00 insulin aspart 10 unit, 0.1 Inactive Ibekwe [place] mL, Route: 2012 Medical SUB-Q, Drug Center [...] aspart 25 unit, 0.25 No Longer Mallesara 12/19[facility], Route: Active Phani 2012 Medical SUB-Q, Drug Center form: SOLN, TID-Before Meals, Dosing Weight 121.5, kg, Start date: 04/09/13 9:30:00, Stop date: 05/09/13 7:30:00Roll in palms of hands gently; Do not shake vigorously. (Same as: NovoLog) "single patient use only" Stable for 28 days at room temperature. Expires in days from D ate NovoLog FlexPen 5 unit, 0.05 Inactive Urvashi [facility], Route: 2012 Medical SUB-Q, Drug Center form: SOLN, ONCE, Dosing Weight 121.5, kg, Start date: 04/08/13 18:10:00, Stop date: 04/08/13 18:10:00Roll in palms of hands gently; Do not shake vigorously. (Same as: NovoLog) "single patient use only" Stable for 28 days at room temperature. Expires in days from D ate AMIODarone 400 mg, 2 tab, No Longer Manoukian [employer] Route: PO, Drug Active 2012 Medical form: TAB, TID, Center Dosing Weight 121.5, kg, Start date: 04/08/13 16:00:00, Duration: 5 day, Stop date: 04/13/13 8:00:00(Same as: Cordarone) insulin aspart 3 unit, 0.03 No Longer Mallesara [facility], Route: Active Phani 2012 Medical [...] 50% 25 gm, 50 mL, No Longer [facility] 04/08[facility] Syringe Route: IVP, Active Phani 2012 Medical Drug Form: INJ, Center Dosing Weight 121.5, kg, PRN, PRN Blood Glucose Results, Start date: 04/08/13 12:34:00, Duration: 30 day, Stop date: 05/08/13 12:33:00 glucagon 1 mg, Route: No Longer [facility] 04/08[facility] IM, Drug form: Active Phani 2012 Medical PDR/INJ, PRN, Center Dosing Weight 121.5, kg, PRN Blood Glucose Results, Start date: 04/08/13 12:34:00, Duration: 30 day, Stop date: 05/08/13 12:33:00 AMIODarone 400 mg, 2 tab, Inactive Manoukian 04/08[facility] Route: PO, Drug 2012 Medical form: TAB, BID, Center Dosing Weight 121.5, kg, Start date: 04/08/13 9:00:00, Duration: 30 day, Stop date: 05/07/13 17:00:00(Same as: Cordarone) magnesium sulfate 2 gm, 50 mL, Inactive Maci 04/08[facility] Route: IVPB, 2012 Medical Drug form: INJ, Center ONCE, Dosing Weight 121.5, kg, Total dose=2 gm, Start date: 04/08/13 6:33:00, Duration: 1 doses or times, Stop date: 04/08/13 6:33:00 lisinopril 2.5 mg, 1 tab, No Longer Ibekwe 04/07[facility] Route: PO, Drug Active 2012 Medical form: TAB, Center Daily, Dosing Weight 121.5, kg, Start date: 04/07/13 9:00:00, Duration: 30 day, Stop date: 05/06/13 9:00:00(Same as: Prinivil) Lasix 40 mg, 1 tab, No Longer Hay 04/07[facility] Route: PO, Drug Active 2012 Medical form: TAB, Center Daily, Dosing Weight 121.5, kg, Start date: 04/07/13 9:00:00, Stop date: 05/06/13 9:00:00(Same as: Lasix) May cause GI upset. Give with food or milk. pneumococcal 0.5 ml, Route: Inactive SYSTEM [employer] 23-valent vaccine IM, Drug Form: 2012 Medical INJ, Daily, Center Start date: 04/07/13 9:00:00, Duration: 1 doses or times, Stop date: 04/07/13 9:00:00(Same as: Pneumovax 23) Refrigerate Insulin regular 99 mL, Rate: Inactive Marcum [employer] 100 unit + Sodium Start Insulin 2012 [...] 25 gm, 50 mL, No Longer Mallesara [employer] Syringe Route: IVP, Active Phani 2012 Medical Drug Form: INJ, Center Dosing Weight 121.5, kg, PRN, PRN Blood Glucose Results, Start date: 04/07/13 2:19:00, Duration: 30 day, Stop date: 05/07/13 2:18:00 Saline Flush 0.9% 10 mL, Route: No Longer Farrar [employer] IVP, Drug Form: Active 2012 Medical INJ, Dosing Center Weight 121.5, kg, Q8H, Start date: 04/07/13 0:00:00, Duration: 30 day, Stop date: 06/05/13 16:00:00(Same as: BD Posiflush) Insulin regular 8 unit, 0.08 Inactive Urvashi [employer] mL, Route: 2012 Medical SUB-Q, Drug Center [...] chloride 30 mEq, 3 tab, Inactive Urvashi [place] Route: PO, Drug 2012 Medical form: ERTAB, Center ONCE, Dosing Weight 121.5, kg, Start date: 04/06/13 20:14:00, Stop date: 04/06/13 20:14:00(Same as: Klor-Con 10) "Do Not Crush" With food and full glass of water Saline Flush 0.9% 10 mL, Route: No Longer Farrar [employer] IVP, Drug Form: Active 2012 Medical INJ, Dosing Center Weight 121.5, kg, PRN, PRN Line Flush, Start date: 04/06/13 16:28:00, Duration: 30 day, Stop date: 06/05/13 16:27:00(Same as: BD Posiflush) metoprolol 25 mg, 1 tab, No Longer Maci [place] tartrate Route: PO, Drug Active 2012 Medical form: TAB, Q8H, Center Dosing Weight 121.5, kg, HOLD with SBP Colace 100 mg oral 100 mg, 1 cap, No Longer Jasbir [place] capsule Route: PO, Drug Active 2012 Medical form: CAP, BID, Center Dosing Weight 121.5, kg, PRN as needed for constipation, Start date: 04/06/13 15:08:00, Duration: 30 day, Stop date: 05/06/13 15:07:00(Same as: Colace) (Do Not Crush) MiraLax 17 gm, 1 pkt, No Longer Chance [employer] Route: PO, Drug Active 2012 Medical form: PWDR, Center Daily, Dosing Weight 121.5, kg, PRN Constipation, Start date: 04/06/13 15:08:00, Duration: 30 day, Stop date: 05/06/13 15:07:00Dissolv e in 8 oz of water or juice. (Same as: Miralax) Insulin regular 4 unit, 0.04 No Longer Johnson [employer] mL, Route: Active Kamel 2012 Medical SUB-Q, Drug Center form: SOLN, [...] 50% 12.5 gm, 25 mL, No Longer [facility] 04/06[facility] Syringe [facility]: [facility] Drug Form: INJ, Center Dosing Weight 121.5, kg, PRN, PRN Blood Glucose Results, Start date: 04/06/13 14:17:00, Duration: 30 day, Stop date: 05/06/13 14:16:00 glucagon 1 mg, Route: No Longer Johnson 04/06[facility] IM, Drug form: Active Keyshawn 2012 Medical PDR/INJ, PRN, Center Dosing Weight 121.5, kg, PRN Blood Glucose Results, Start date: 04/06/13 14:17:00, Duration: 30 day, Stop date: 05/06/13 14:16:00 potassium chloride 20 mEq, 1 tab, Inactive Rosalinda 04/06[facility] Route: PO, Drug 2012 Medical form: ERTAB, [place] ONCE, Dosing Weight 121.5, kg, Start date: 04/06/13 12:00:00, Stop date: 04/06/13 12:00:00(Same as: K-Dur 20) "Do Not Crush" With food and full glass of water potassium chloride 40 mEq, 2 tab, Inactive Rosalinda 04/06[facility] Route: PO, Drug 2012 Medical form: ERTAB, [place] ONCE, Dosing Weight 121.5, kg, Start date: 04/06/13 10:33:00, Stop date: 04/06/13 10:33:00(Same as: K-Dur 20) "Do Not Crush" With food and full glass of water Lasix 40 mg, 4 mL, Inactive Locan [employer] Route: IVP2012 Medical Drug form: INJ, Center BID, Dosing Weight 121.5, kg, Start date: 04/06/13 9:00:00, Duration: 30 day, Stop date: 05/05/13 17:00:00(Same as: Lasix) digoxin 250 mcg 0.125 mg, No Longer Ibekwe [place] (0.25 mg) oral Route: PO, Drug Active 2012 Medical tablet form: TAB, Center Daily, Dosing Weight 121.5, kg, Start date: 04/06/13 9:00:00, Duration: 30 day, Stop date: 05/05/13 9:00:00Take on an Empty Stomach (Same as: Lanoxin) magnesium sulfate 2 gm, 50 mL, Inactive [facility] [employer] Route: IVPB2012 Medical Drug form: INJ, Center ONCE, Dosing Weight 121.5, kg, Total dose=2 gm, Start date: 04/05/13 22:15:00, Duration: 1 doses or times, Stop date: 04/05/13 22:15:00 Lasix 40 mg, 4 mL, Inactive [facility] [employer] Route: IV, Drug 2012 Medical form: INJ, Center ONCE, Dosing Weight 121.5, kg, Start date: 04/05/13 17:01:00, Stop date: 04/05/13 17:01:00(Same as: Lasix) furosemide 40 mg, 4 mL, Inactive H[facility]mat [employer] Route: IVP2012 Medical Drug form: INJ, Center ONCE, Dosing Weight 121.5, kg, Start date: 04/05/13 16:33:00, Stop date: 04/05/13 16:33:00(Same as: Lasix) digoxin 500 microgram, Inactive Bijal [employer] Route: IV, 2012 Medical ONCE, Dosing Center Weight 121.5, kg, Start date: 04/05/13 12:01:00, Stop date: 04/05/13 12:01:00 Imdur 30 mg, 1 tab, No Longer Manoukian [employer] Route: PO, Drug Active 2012 Medical form: [...] magnesium oxide 400 mg, 1 tab, Inactive [facility] 04/[facility] Route: PO, Drug [facility] 2012 Medical form: TAB, Center ONCE, Dosing Weight 121.5, kg, Start date: 04/05/13 7:28:00, Stop date: 04/05/13 7:28:00(Same as: Mag-Ox 400) Magnesium oxide [id number] elemental magnesium Dose=____mg magnesium oxide (___mg elemental magnesium) potassium chloride 30 mEq, 22.5 Inactive [facility] 04/05[facility] 20 mEq/15 mL oral mL, [facility] liquid Drug form: LIQ, Center ONCE, Dosing Weight 121.5, kg, Start date: 04/05/13 7:28:00, Stop date: 04/05/13 7:28:00(Same as: Potassium Chloride) magnesium sulfate 2 gm, 50 mL, Inactive [facility] 04/05[facility] 2gm / NS 50ml Route: IVPBKeyshawn 2012 Medical (premixed) Drug form: INJ, Center ONCE, Dosing Weight 121.5, kg, Start date: 04/05/13 6:50:00, Duration: 2 hr, Stop date: 04/05/13 6:50:00 Lasix 40 mg, 4 mL, No Longer Adkins 04/05[facility] Route: IVP, Active 2012 Medical Drug form: INJ, Center Daily, Dosing Weight 121.5, kg, Start date: 04/05/13 6:35:00, Duration: 30 day, Stop date: 05/04/13 9:00:00(Same as: Lasix) digoxin 0.25 mg, 1 mL, Inactive [facility] 04/05[facility] Route: IVPKeyshawn 2012 Medical Drug form: INJ, Center ONCE, Dosing Weight 121.5, kg, Start date: 04/04/13 21:19:00, Stop date: 04/04/13 21:19:00(Same as: Lanoxin) atorvastatin 40 mg, 1 tab, No Longer Elvin 04/05[facility] Route: PO, Drug Active 2012 Medical form: TAB, Center Bedtime, Dosing Weight 121.5, kg, Start date: 04/04/13 21:00:00, Duration: 30 day, Stop date: 06/02/13 21:00:00(Same as: Lipitor) Lantus 45 unit, 0.45 No Longer [facility] [employer] mL, Route: Active [facility] Medical SUB-Q, Drug Center form: INJ, Bedtime, Dosing Weight 121.5, kg, Start date: 04/04/13 21:00:00, Stop date: 05/03/13 21:00:00Same as Lantus Solostar PEN "single patient use only" Stable for 28 days at room temperature. Expires in days from D ate AMIODarone 900 mg 482 mL, Rate: No Longer Ibekwe [place] + Dextrose 5% in Infuse as Active 2012 Medical Water (Titrate) IV directed, Center 482 mL Dosing Weight 121.5, kg, Route: IV, Total Volume: 500 mL, Start Date: 04/04/13 20:53:00, Duration: 30 day, Stop date: 05/04/13 20:52:00, Replace Every: 24 hrNon PVC bag heparin additive 500 mL, Rate: No Longer ek [place] 25,000 unit [14 22.8 ml/hr, Active 2012 Medical unit/kg/hr] + Infuse over: Center Premix Diluent 21.9 hr, Route: Dextrose 5% 500 mL IV, Dosing Weight 81.42 kg, Total Volume: 500 mL, Start date: 04/04/13 20:26:00, Duration: 30 day, Stop date: 05/04/13 20:25:00 Insulin regular 99 mL, Rate: No Longer [facility] [employer] 100 unit + Sodium Start Insulin Active [...] 12.5 gm, 25 mL, No Longer Johnson 04/05[facility] Syringe Route: IVP, Active Kamel 2012 Medical Drug Form: INJ, Center Dosing Weight 121.5, kg, PRN, PRN Blood Glucose Results, Start date: 04/04/13 19:53:00, Duration: 30 day, Stop date: 05/04/13 19:52:00 metoprolol 50 mg, 1 tab, No Longer [facility] [employer] tartrate Route: PO, Drug Active 2012 Medical form: TAB, Q6H, Center Dosing Weight 121.5, kg, Start date: 04/04/13 19:06:00, Stop date: 05/04/13 18:00:00(Same as: Lopressor) azithromycin 500 mg, Route: No Longer Adkins 04/05[facility] IVPB, Drug Active 2012 Medical form: PDR/INJ, Center [id number], Dosing Weight 121.5, kg, Start date: 04/04/13 19:00:00, Duration: 30 day, Stop date: 05/03/13 19:00:00(Same As: Zithromax IV) ceftriaxone 1 gm, Route: No Longer Ibekwe 04/05[facility] IVPB, Drug Active 2012 Medical form: PDR/INJ, Center [id number], Dosing Weight 121.5, kg, Start date: 04/04/13 19:00:00, Duration: 30 day, Stop date: 05/03/13 19:00:00(Same As: Rocephin). Use with 100ml NS mini-bag PLUS and infuse over 30 min Corvert 1 mg, 10 mL, Inactive Trini 04/05[facility] Route: IV, Drug 2012 Medical form: INJ, Center ONCE, Start date: 04/04/13 18:00:00, Stop date: 04/04/13 18:00:00(Same as: Corvert) Infuse over 10 minutes. Tylenol 650 mg, 2 tab, No Longer [facility]ir [employer] Route: PO, Drug Active 2012 Medical form: TAB, Q4H, Center Dosing Weight 121.5, kg, PRN Fever, Start date: 04/04/13 17:54:00, Duration: 30 day, Stop date: 05/04/13 17:53:00Do not exceed 4 gm/day. (Same as: Tylenol) Protonix 40 mg, Route: Inactive Trini 04/04[facility] IV, Drug form: 2012 Medical INJ, ONCE, Center Dosing Weight 121.5, kg, Start date: 04/04/13 16:01:00, Stop date: 04/04/13 16:01:00For IV push reconstitute with 10 ml 0.9% sodium chloride and push over 2 minutes. (Same as: Protonix) metoprolol 5 mg/5 5 mg, 5 mL, Inactive Johnson 04/04[facility] ml INJ Route: IVP, Keyshawn 2012 Medical Drug form: INJ, Center ONCE, Dosing Weight 121.5, kg, Priority: STAT, Start date: 04/04/13 14:30:00, Stop date: 04/04/13 14:30:00(Same as: Lopressor) Push over 2 minutes metoprolol 5 mg/5 5 mg, Route: Inactive Johnson 04/04[facility] ml INJ IVP, Drug form: Keyshawn 2012 Medical INJ, ONCE, Center Dosing Weight 121.5, kg, Start date: 04/04/13 14:26:00, Stop date: 04/04/13 14:26:00 Lasix 60 mg, 6 mL, Inactive Parmar [employer] Route: IV, Drug 2012 Medical form: INJ, Center ONCE, Dosing Weight 121.5, kg, Priority: STAT, Start date: 04/04/13 13:15:00, Stop date: 04/04/13 13:15:00(Same as: Lasix) Zofran 4 mg, 2 mL, No Longer Jasbir [employer] Route: IV, Drug Active 2012 Medical form: INJ, Q8H, Center Dosing Weight 121.5, kg, PRN Nausea, Start date: 04/04/13 12:42:00, Duration: 30 day, Stop date: 05/04/13 12:41:00(Same as: Zofran) Prinivil 2.5 mg, 1 tab, No Longer [facility] [employer] Route: PO, Drug Active 2012 Medical form: TAB, Center Daily, Dosing Weight 121.5, kg, Start date: 04/04/13 10:30:00, Duration: 30 day, Stop date: 05/04/13 9:00:00(Same as: Prinivil) digoxin 0.5 mg, 2 tab, Inactive Ghulam 04/04[facility] Route: PO, Drug 2012 Medical form: TAB, Center ONCE, Dosing Weight 121.5, kg, Start date: 04/04/13 9:46:00, Stop date: 04/04/13 9:46:00Take on an Empty Stomach (Same as: Lanoxin) lisinopril 2.5 mg, 1 tab, Inactive Maci 04/04[facility] Route: PO, Drug 2012 Medical form: TAB, Center Daily, Dosing Weight 121.5, kg, Start date: 04/04/13 9:00:00, Duration: 30 day, Stop date: 05/03/13 9:00:00(Same as: Prinivil) metoprolol 12.5 mg, 1 ea, Inactive [facility] [employer] tartrate Route: PO, Drug Kamel 2012 Medical form: TAB, BID, Center Dosing Weight 121.5, kg, Start date: 04/04/13 9:00:00, Duration: 30 day, Stop date: 05/03/13 17:00:00(Same as: Lopressor) 12.5mg=1/4 X 50 mg tab. fenofibrate 48 mg, 1 tab, No Longer Elvin 04/04[facility] Route: PO, Drug Active 2012 Medical form: TAB, Center Daily, Start date: 04/04/13 9:00:00, Duration: 30 day, Stop date: 06/02/13 9:00:00(Same as: Tricor) Lyrica 100 mg, 1 cap, No Longer Maci 04/04[facility] Route: PO, Drug Active 2012 Medical form: CAP, Center Daily, Dosing Weight 121.5, kg, Start date: 04/04/13 9:00:00, Duration: 30 day, Stop date: 05/03/13 9:00:00(Same as: Lyrica) Detrol LA 2 mg, 1 cap, No Longer Maci 04/04[facility] Route: PO, Drug Active 2012 Medical form: ERCAP, Center Daily, Start date: 04/04/13 9:00:00, Duration: 30 day, Stop date: 05/03/13 9:00:00(Same As: Jimbo KAUR) (Do Not Crush) fesoterodine 8 mg, Route: Inactive [facility] [employer] PO, Drug form: 2012 Medical ERTAB, Daily, Center Dosing Weight 121.5, kg, Start date: 04/04/13 9:00:00, Duration: 30 day, Stop date: 05/03/13 9:00:00 influenza virus 0.5 mL, Route: Inactive [facility] [employer] vaccine, IM, Drug Form: 2012 Medical inactivated SUSP, Daily, Center Start date: 04/04/13 9:00:00, Duration: 1 doses or times, Stop date: 04/04/13 9:00:00(Same as: Fluzone) Keppra 500 mg oral 500 mg, 1 tab, No Longer Swann-Roni [employer] tablet Route: PO, Drug Active ales 2012 Medical form: TAB, BID, Center Dosing Weight 121.5, kg, Start date: 04/04/13 9:00:00, Duration: 30 day, Stop date: 05/03/13 17:00:00(Same as:Keppra) Trilipix 135 mg, Route: Inactive Maci [employer] PO, Drug form: 2012 Medical CAP, Daily, Center Dosing Weight 121.5, kg, Start date: 04/04/13 9:00:00, Duration: 30 day, Stop date: 05/03/13 9:00:00 Cymbalta 60 mg, 2 cap, No Longer Chance [employer] Route: PO, Drug Active 2012 Medical form: DRC, Center Bedtime, Dosing Weight 121.5, kg, Start date: 04/04/13 9:00:00, Stop date: 05/03/13 21:00:00Non-For mulary Drug. (Same as: Cymbalta) (Do Not Crush) heparin 5,000 unit, 1 Inactive Maci 04/04[facility] mL, Route: 2012 Medical SUB-Q, Drug Center form: INJ, Q8H, Dosing Weight 121.5, kg, Start date: 04/04/13 8:00:00, Duration: 30 day, Stop date: 05/04/13 0:00:00porcine heparin Dextrose 50% 12.5 gm, 25 mL, Inactive [facility] 04/04[facility] Syringe Route: IVP, 2012 Medical Drug Form: INJ, Center Dosing Weight 121.5, kg, PRN, PRN Blood Glucose Results, Start date: 04/04/13 5:05:00, Duration: 30 day, Stop date: 05/04/13 5:04:00 glucagon 1 mg, Route: No Longer [facility] 04/04[facility] IM, Drug form: Active 2012 Medical PDR/INJ, PRN, Center Dosing Weight 121.5, kg, PRN Blood Glucose Results, Start date: 04/04/13 5:05:00, Duration: 30 day, Stop date: 05/04/13 5:04:00 Insulin regular 9 unit, 0.09 Inactive [facility] 04/04[facility] mL, Route: 2012 Medical SUB-Q, Drug [...] D ate heparin 4,900 unit, 4.9 Inactive [facility] 04/04[facility] mL, Route: IV, 2012 Medical Drug form: INJ, Center PRN, PRN Abnormal Lab Result, Start date: 04/04/13 4:51:00, Duration: 30 day, Stop date: 05/04/13 4:50:00 Lotrel 5 mg-20 mg Daily, 0 No Longer 04/04[facility] oral capsule Refill(s) Active 2012 [facility] Lipitor 20 mg oral Bedtime, 0 No Longer [facility] 04/04[facility] tablet Refill(s) Active 2012 [facility] Toviaz 8 mg oral Daily, 0 Active [facility] 04/04[facility] tablet, extended Refill(s) 2012 [facility] Klonopin 0.5 mg Bedtime, 0 No Longer [facility] [employer] oral tablet Refill(s) Active 2012 [facility] Myrbetriq 50 mg Daily, 0 Active [employer] oral tablet, Refill(s) 2012 [facility] extended release [place] Lyrica Daily, 0 No Longer [facility] [employer] Refill(s) Active 2012 [facility] Cymbalta 60 mg Daily, 0 Active [facility] [employer] oral delayed Refill(s) 2012 Medical release capsule [place] digoxin 125 mcg Daily, 0 No Longer [facility] [employer] (0.125 mg) oral Refill(s) Active 2012 [facility] tablet [place] metoprolol 100 mg Daily, 0 No Longer [employer] oral tablet, Refill(s) Active 2012 [facility] extended release [place] Trilipix 135 mg 135 mg=1 cap, No Longer [facility] [employer] oral delayed PO, Daily, # 30 Active 2012 [facility] capsule cap, 0 Center Refill(s) Keppra 500 mg oral BID, 0 No Longer [facility] [employer] tablet Refill(s) Active 2012 [facility] Plavix 300 mg, 1 tab, Inactive [facility] [employer] Route: PO, Drug 2012 Medical form: TAB, [place] ONCE, Dosing Weight 121.5, kg, Start date: 04/04/13 4:17:00, Duration: 1 doses or times, Stop date: 04/04/13 4:17:00( Same as: Plavix) heparin additive 500 mL, Rate: Inactive [facility] 04/04[facility] Katja 25,000 unit [12 19.54 ml/hr, 2013 Medical unit/kg/hr] + Infuse over: [place] Premix Diluent 25.6 hr, Route: Dextrose 5% 500 mL IV, Dosing Weight 81.42 kg, Total Volume: 500 mL, Start date: 04/04/13 4:14:00, Stop date: 05/04/13 4:13:00 Heparin 30 unit/kg Route: IVP, Inactive [facility] Katja Bolus (Heparin PRN, 2,400 2012 Medical Dosing Weight) unit, 2.4 mL, [place] Drug form: INJ, PRN, Heparin Protocol, Start [...] acetaminophen-hydr 1 tab, Route: No Longer Rice [employer] ocodone 325 mg-5 PO, Drug Form: Active 2012 Medical mg oral tablet TAB, Dosing Center Weight 121.5, kg, Q4H, PRN Pain Score 1-3, Start date: 04/04/13 3:05:00, Duration: 30 day, Stop date: 05/04/13 3:04:00(Same as: [place] 325/5) Do not exceed 4gm/day of acetaminophen. [...] 4 mg, 2 mL, [facility]P [facility] [employer] Route: IVP, 2012 Medical Drug form: INJ, Center ONCE, Dosing Weight 113.636, kg, PRN Nausea & Vomiting, Start date: 12/23/12 15:48:00 flumazenil 0.2 mg, 2 mL, IVP [facility] Long[facility] [employer] Route: IVP, Active 2012 Medical Drug form: INJ, Center PRN, Dosing Weight 113.636, kg, PRN Benzodiazepine Reversal, Initial dose, Start date: 12/23/12 15:48:00, Duration: 1 day, Stop date: 12/24/12 15:47:00 naloxone 0.04 mg, 0.1 IVP [facility] Longer [facility] [employer] mL, Route: IVP, 2012 Medical Drug form: INJ, Center Q2MIN, Dosing Weight 113.636, kg, PRN Narcotic Reversal, Start date: 12/23/12 15:48:00, Duration: 8 doses or times, Stop date: 12/24/12 0:00:00 labetalol 5 mg, 1 mL, IVP [facility] Longer [facility] Route: IVP, 2012 Medical Drug form: INJ, Center Q5Min, Dosing Weight 113.636, kg, PRN Elevated BP, Start date: 12/23/12 15:48:00, Duration: 5 doses or times, Stop date: 12/24/12 0:00:00 hydrALAZINE 5 mg, 0.25 mL, IVP [facility] Long[facility] Route: IVP, Active 2012 Medical Drug form: INJ, Center Q5Min, Dosing Weight 113.636, kg, PRN Elevated BP, Start date: 12/23/12 15:48:00, Duration: 4 doses or times, Stop date: 12/24/12 0:00:00 hydromorphone 0.25 mg, 0.13 IVP No Longer [facility] mL, Route: IVP, Active 2012 Medical Drug form: INJ, Center Q5Min, Dosing Weight 113.636, kg, PRN Pain Score 7-10, Start date: 12/23/12 15:48:00, Duration: 5 doses or times, Stop date: 12/24/12 0:00:00 Allergies, Adverse Reactions, Alerts Substance Category Reaction Severity Reaction Status Date Comments Source type Reported penicillins drug Allergy [employer] allergy [facility] Immunizations Immunization Date Given Site Status Last Updated Comments Source pneumococcal 04/08/2013 completed [place] [employer] 23-valent vaccine [facility] Results Order Name Results Value Reference Date Interpretation Comments Source Range BEDSIDE Glucose POC 185 mg/dL 70 - 04/30 [place] 7Interpretive [employer] GLUCOSE Data: [facility] TESTING Center Upper Reportable Limit: 200 mg/dL. BEDSIDE Glucose POC 176 mg/dL 04/30 [place] 8Interpretive [employer] GLUCOSE Data: [facility] TESTING Center Upper Reportable Limit: 200 mg/dL. CHEMISTRY Ca Norm WB 1.03 1.05 - 04/30 LOW [place] mMol/L 1. [facility] CHEMISTRY Ca Ion WB 1.00 1.05 - 04/30 LOW [employer] mMol/L 1. [facility] CHEMISTRY Phosphorus 3.0 mg/dL 2.5 - 4.5 04/30 Normal [employer] [facility] CHEMISTRY Magnesium Lvl 2.1 mg/dL 1.8 - 2.4 04/30 Normal [facility] CHEMISTRY AGAP 13.3 meq/L 10.0 - 04/30 Normal [employer] 20.0 [facility] CHEMISTRY eGFR 68 04/30 11Result Comment: The eGFR is calculated using the CKD-EPI formula. In most young, healthy individuals the eGFR will be >90 mL/ min/1.73m2. The eGFR declines with age. An eGFR of 60-89 may be normal in [employer] mL/min/1.7 some populations, particularly the elderly, for whom the CKD-EPI formula has not been extensively validated. Use of the eGFR is not recommended in the following populations: [address] Individuals with unstable creatinine concentrations, including [...] Lvl 144 mg/dL 70 - 99 04/30 [place] 14Interpretive Data: Adult reference range values reflect the clinical guidelines of the [place] [employer]. Medical Center CHEMISTRY BUN 66 mg/dL 7 - 22 04/30 [facility] CHEMISTRY Sodium Lvl 144 meq/L 135 - 145 04/30 Normal Medical Center CHEMISTRY Potassium Lvl 4.3 meq/L 3.5 - 5.1 04/30 Normal 10Result Comment: Medical Specimen Center Slightly Hemolyzed. CHEMISTRY Calcium Lvl 8.3 mg/dL 8.5 - 10.5 04/30 LOW [facility] Center CHEMISTRY Chloride Lvl 107 meq/L 95 - 109 04/30 Normal [facility] Center CHEMISTRY CO2 28 meq/L 24 - 32 04/30 Normal [facility] Center CHEMISTRY Creatinine 0.9 mg/dL 0.5 - 1.4 04/30 Normal [facility] [employer] [facility] CHEMISTRY Digoxin Lvl 1.1 ng/mL 0.8 - 2.0 04/30 Normal [facility] Center HEMATOLOGY Platelet 441 K/CMM 133 - 450 04/30 Normal [facility] Center HEMATOLOGY MPV 9.2 fL 7.4 - 10.4 04/30 Normal [facility] HEMATOLOGY RDW 16.5 % 11.5 - 04/30 [facility] 14.5 Medical [place] HEMATOLOGY MCHC 32.0 g/dL 32.0 - 04/30 Normal [employer] 36.0 [facility] Center HEMATOLOGY RBC X 10x6 3.00 M/CMM 4.20 - 04/30 [facility] 5.40 /2013 Medical Center HEMATOLOGY Hgb 8.9 g/dL 12.0 - 04/30 [facility] 16.0 Medical Center HEMATOLOGY MCH 29.8 pg 27.0 - 04/30 Normal [employer] 31.0 [facility] Center HEMATOLOGY Hct 27.9 % 36.0 - 04/30 [facility] 48.0 /2013 [facility] Center HEMATOLOGY MCV 92.9 fL 81.0 - 04/30 Normal [facility] 99.0 Medical Center HEMATOLOGY WBC X 10x3 12.2 K/CMM 3.7 - 10.4 04/30 [facility] Medical Center HEMATOLOGY Basophils 1.0 % 0.0 - 1.0 04/30 Normal [facility] HEMATOLOGY Anisocyte 1+ None Seen 04/30 [facility] (04/30/2013 04:12:00) HEMATOLOGY Monocytes # 1.1 K/CMM 0.0 - 0.8 04/30 [facility] HEMATOLOGY Lymphocytes # 1.1 K/CMM 1.0 - 5.5 04/30 Normal [facility] HEMATOLOGY Segs-Bands # 9.4 K/CMM 1.5 - 8.1 04/30 [facility] HEMATOLOGY Eosinophils 3.6 % 0.0 - 4.0 04/30 Normal [facility] HEMATOLOGY Monocytes 9.4 % 2.0 - 12.0 04/30 Normal [employer] [facility] HEMATOLOGY Elliptocyte Slight None Seen 04/30 [facility] (04/30/2013 04:12:00) HEMATOLOGY Smudge Rare 04/30 [facility] HEMATOLOGY Lymphocytes 9.2 % 20.0 - 04/30 LOW [employer] 40.0 [facility] HEMATOLOGY Segs 76.8 % 45.0 - 04/30 [facility] 75.0 [facility] HEMATOLOGY Plt Morph Normal 04/30 Normal [facility] (04/30/2013 04:12:00) [place] HEMATOLOGY Eosinophils # 0.4 K/CMM 0.0 - 0.5 04/30 Normal [employer] [facility] HEMATOLOGY Basophils # 0.1 K/CMM 0.0 - 0.2 04/30 Normal [facility] Chest 1view Chest 1view Chest one view, April 30, 2013 at 8:36 a.m. - - [facility] HISTORY: 62-year-old female with abnormal chest [...] or atelectasis. BEDSIDE Gluc POC Notified 04/30 [employer] GLUCOSE Comment 1 RN/ /2014 [facility] TESTING Center BEDSIDE Glucose POC 203 mg/dL 70 - 99 04/30 [place] 9Interpretive [facility] Data: [facility] Upper Reportable Limit: 200 mg/dL. BEDSIDE Gluc POC Notified 04/29 [employer] GLUCOSE Comment 1 RN/ /2014 [facility] TESTING Center STOOL TESTS Occult Bld Negative Negative 04/29 Normal [facility] (04/29/2013 14:00:00) Center BEDSIDE Gluc POC Notified 04/29 [employer] GLUCOSE Comment 1 RN/ /2014 [facility] TESTING Center URINALYSIS UA Color Yellow Yellow 04/29 Medical *NA* [place] (04/29/2013 03:00:42) URINALYSIS UA Turbidity Slight Clear 04/29 ABN Medical *ABN* [place] (04/29/2013 03:00:42) URINALYSIS UA pH 6.5 5.0 - 8.0 04/29 Normal [facility] URINALYSIS UA Spec Grav 1.012 <=1.030 04/29 Normal [facility] URINALYSIS UA Sq Epi None Seen 04/29 [facility] URINALYSIS UA Protein 10 mg/dL Negative 04/29 ABN [facility] URINALYSIS UA Ketones Negative Negative 04/29 [employer] /dL [facility] URINALYSIS UA Blood Negative Negative 04/29 Normal [facility] (04/29/2013 03:00:42) Center URINALYSIS UA Glucose Negative Negative 04/29 [employer] mg/dL [facility] URINALYSIS UA Bili Negative Negative 04/29 Medical *NA* Center (04/29/2013 03:00:42) URINALYSIS UA Nitrite Negative Negative 04/29 Normal [facility] (04/29/2013 03:00:42) Center URINALYSIS UA Leuk Est Large Negative 04/29 [facility] Medical *ABN* Center (04/29/2013 03:00:42) URINALYSIS UA WBC 146 /HPF 0 - 5 04/29 [facility] URINALYSIS UA Bacteria Many /HPF None Seen 04/29 [facility] URINALYSIS UA Mucus Many /LPF None Seen 04/29 [facility] URINALYSIS UA <=1.0 0.1 - 1.0 04/29 [employer] Urobilinogen mg/dL [facility] CHEMISTRY Magnesium Lvl 2.3 mg/dL 1.8 - 2.4 04/29 Normal [facility] CHEMISTRY Phosphorus 3.3 mg/dL 2.5 - 4.5 04/29 Normal [employer] [facility] CHEMISTRY eGFR 44 04/29 12Result Comment: The eGFR is calculated using the CKD-EPI formula. In most young, healthy individuals the eGFR will be >90 mL/ min/1.73m2. The eGFR declines with age. An eGFR of 60-89 may be normal in [employer] mL/min/1.7 some populations, particularly the elderly, for whom the CKD-EPI formula has not been extensively validated. Use of the eGFR is not recommended in the following populations: [address] Individuals with unstable creatinine concentrations, including [...] Lvl 187 mg/dL 70 - 99 04/29 [place] 15Interpretive Data: Adult reference range values reflect the clinical guidelines of the [place] [employer]. [facility] CHEMISTRY BUN 83 mg/dL 7 - 22 04/29 [facility] CHEMISTRY Creatinine 1.3 mg/dL 0.5 - 1.4 04/29 [facility] CHEMISTRY CO2 28 meq/L 24 - 32 04/29 Normal [facility] CHEMISTRY Calcium Lvl 8.5 mg/dL 8.5 - 10.5 04/29 Normal Medical [place] CHEMISTRY Chloride Lvl 104 meq/L 95 - 109 04/29 Normal [facility] CHEMISTRY Sodium Lvl 141 meq/L 135 - 145 04/29 Normal [facility] CHEMISTRY Potassium Lvl 4.3 meq/L 3.5 - 5.1 04/29 Normal [facility] CHEMISTRY AGAP 13.3 meq/L 10.0 - 04/29 Normal [employer] 20.0 Medical [place] HEMATOLOGY MCHC 32.4 g/dL 32.0 - 04/29 Normal [employer] 36.0 [facility] HEMATOLOGY RDW 16.8 % 11.5 - 04/29 [facility] 14.5 [facility] HEMATOLOGY Platelet 476 K/CMM 133 - 450 04/29 [facility] HEMATOLOGY MPV 9.2 fL 7.4 - 10.4 04/29 Normal [facility] HEMATOLOGY RBC X 10x6 3.13 M/CMM 4.20 - 04/29 LOW [employer] 5.40 [facility] HEMATOLOGY Hgb 9.4 g/dL 12.0 - 04/29 LOW [employer] 16.0 [facility] HEMATOLOGY Hct 29.1 % 36.0 - 04/29 [facility] [facility] 48.0 [facility] HEMATOLOGY WBC X 10x3 13.2 K/CMM 3.7 - 10.4 04/29 [facility] HEMATOLOGY MCV 92.9 fL 81.0 - 04/29 Normal [employer] 99.0 [facility] [place] HEMATOLOGY MCH 30.1 pg 27.0 - 04/29 Normal [employer] 31.0 [facility] HEMATOLOGY Monocytes # 1.2 K/CMM 0.0 - 0.8 04/29 [facility] [place] HEMATOLOGY Eosinophils # 0.4 K/CMM 0.0 - 0.5 04/29 Normal [facility] HEMATOLOGY Basophils # 0.2 K/CMM 0.0 - 0.2 04/29 Normal [facility] HEMATOLOGY Segs-Bands # 10.6 K/CMM 1.5 - 8.1 04/29 [facility] [place] HEMATOLOGY Lymphocytes 6.4 % 20.0 - 04/29 [facility] 40.0 /2013 [facility] HEMATOLOGY Lymphocytes # 0.8 K/CMM 1.0 - 5.5 04/29 [facility] HEMATOLOGY Basophils 1.2 % 0.0 - 1.0 04/29 [facility] HEMATOLOGY Eosinophils 3.4 % 0.0 - 4.0 04/29 [facility] HEMATOLOGY Segs 80.2 % 45.0 - 04/29 [facility] 75.0 [facility] HEMATOLOGY Monocytes 8.8 % 2.0 - 12.0 04/29 Normal [facility] Chest 1view Chest 1view Chest one view, April 29, 2013 at 8:07 a.m. - - [facility] HISTORY: 62-year-old female with shortness of [...] Ion WB 1.07 1. - 04/28 Normal [employer] mMol/L . [facility] CHEMISTRY Ca Norm WB 1.06 1.05 - 04/28 Normal [employer] mMol/L 05.16 [facility] CHEMISTRY Magnesium Lvl 2.7 mg/dL 1.8 - 2.4 04/28 [facility] CHEMISTRY Phosphorus 3.4 mg/dL 2.5 - 4.5 04/28 Normal [facility] CHEMISTRY CO2 30 meq/L 24 - 32 04/28 Normal [facility] CHEMISTRY AGAP 11.5 meq/L 10.0 - 04/28 Normal [employer] 20.0 [facility] CHEMISTRY Calcium Lvl 8.5 mg/dL 8.5 - 10.5 04/28 Normal [facility] CHEMISTRY eGFR 54 04/28 13Result Comment: The eGFR is calculated using the CKD-EPI formula. In most young, healthy individuals the eGFR will be >90 mL/ min/1.73m2. The eGFR declines with age. An eGFR of 60-89 may be normal in [employer] mL/min/1.7 some populations, particularly the elderly, for whom the CKD-EPI formula has not been extensively validated. Use of the eGFR is not recommended in the following populations: [address] Individuals with unstable creatinine concentrations, including [...] BUN 81 mg/dL 7 - 22 04/28 [facility] CHEMISTRY Creatinine 1.1 mg/dL 0.5 - 1.4 04/28 Normal [employer] Lvl [facility] CHEMISTRY Glucose Lvl 172 mg/dL 70 - 99 04/28 [place] 16Interpretive Data: Adult reference range values reflect the clinical guidelines of the [place] [employer]. [facility] CHEMISTRY Chloride Lvl 102 meq/L 95 - 109 04/28 Normal [facility] CHEMISTRY Potassium Lvl 4.5 meq/L 3.5 - 5.1 04/28 Normal [facility] CHEMISTRY Sodium Lvl 139 meq/L 135 - 145 04/28 Normal [facility] HEMATOLOGY MPV 8.7 fL 7.4 - 10.4 04/28 Normal [facility] HEMATOLOGY MCV 93.2 fL 81.0 - 04/28 Normal [employer] 99.0 [facility] HEMATOLOGY MCH 30.3 pg 27.0 - 04/28 Normal [employer] 31.0 [facility] HEMATOLOGY MCHC 32.6 g/dL 32.0 - 04/28 Normal [employer] 36.0 [facility] HEMATOLOGY RDW 16.3 % 11.5 - 04/28 [facility] 14.5 [facility] HEMATOLOGY Platelet 466 K/CMM 133 - 450 04/28 [facility] HEMATOLOGY WBC X 10x3 16.3 K/CMM 3.7 - 10.4 04/28 [facility] HEMATOLOGY Hct 28.1 % 36.0 - 04/28 [facility] 48.0 /2013 [facility] HEMATOLOGY Hgb 9.1 g/dL 12.0 - 04/28 [facility] 16.0 /2013 [facility] HEMATOLOGY RBC X 10x6 3.01 M/CMM 4.20 - 04/28 [facility] 5.40 /2013 [facility] Center Chest 1view Chest 1view EXAM: XR CHEST 1 VIEW 04/28 - - Medical This report was dictated by a [employer] Aide/Fellow. I have personally reviewed the images as [...] significant change. CHEMISTRY U Chloride null 04/27 [facility] CHEMISTRY U Potassium 20.9 meq/L 04/27 29Interpretiv e Data: No [facility] Center reference ranges. CHEMISTRY U Sodium 20 meq/L 04/27 27Interpretiv e Data: No [facility] Center reference ranges. URINALYSIS UA Mucus Few /LPF None Seen 04/27 [facility] URINALYSIS UA Ketones Negative Negative 04/27 [employer] mg/dL [facility] URINALYSIS UA Glucose Negative Negative 04/27 [employer] mg/dL [facility] URINALYSIS UA Nitrite Negative Negative 04/27 Normal [facility] (04/27/2013 06:45:00) Center URINALYSIS UA Protein Negative Negative 04/27 Normal [employer] mg/dL [facility] URINALYSIS UA Leuk Est Negative Negative 04/27 Normal [facility] (04/27/2013 06:45:00) Center URINALYSIS UA WBC 1 /HPF 0 - 5 04/27 Normal [facility] URINALYSIS UA Blood Negative Negative 04/27 Normal [facility] (04/27/2013 06:45:00) Center URINALYSIS UA Bili Negative Negative 04/27 [facility] *NA* [place] (04/27/2013 06:45:00) URINALYSIS UA Sq Epi Many /LPF Few 04/27 ABN [facility] URINALYSIS UA RBC null 0 - 2 04/27 Normal [facility] URINALYSIS UA Color Yellow Yellow 04/27 [facility] *NA* [place] (04/27/2013 06:45:00) URINALYSIS UA pH 5.0 5.0 - 8.0 04/27 Normal [facility] URINALYSIS UA Spec Grav 1.012 <=1.030 04/27 Normal [facility] URINALYSIS UA Turbidity Clear Clear 04/27 Normal [facility] (04/27/2013 06:45:00) [place] URINALYSIS UA <=1.0 0.1 - 1.0 04/27 [employer] Urobilinogen mg/dL [facility] STOOL TESTS Occult Bld Positive Negative 04/[address] [facility] [address] [facility] *ABN* [place] (04/27/2013 04:41:09) CHEMISTRY A/G Ratio 0.8 0.7 - 1.6 04/27 Normal [facility] CHEMISTRY Globulin 3.3 g/dL 2.0 - 4.0 04/27 Normal [facility] CHEMISTRY B/C Ratio 61 6 - 25 04/27 HI [facility] CHEMISTRY Total Protein 6.0 g/dL 6.4 - 8.4 04/27 LOW [facility] CHEMISTRY Bili Total 0.5 mg/dL 0.2 - 1.3 04/27 Normal [facility] CHEMISTRY ASPARTATE 37 unit/L 0 - 37 04/27 Normal [employer] TRANSAMINASE [facility] CHEMISTRY Alk Phos 76 unit/L 39 - 136 04/27 Normal [employer] [facility] CHEMISTRY Albumin Lvl 2.7 g/dL 3.5 - 5.0 04/27 LOW [facility]2013 [facility] CHEMISTRY ALANINE 38 unit/L 0 - 65 04/27 Normal [employer] AMINOTRANSFER [facility] HEMATOLOGY Basophils # 0.1 K/CMM 0.0 - 0.2 04/27 Normal [facility]2013 [facility] HEMATOLOGY Lymphocytes # 1.0 K/CMM 1.0 - 5.5 04/27 Normal [employer] [facility] HEMATOLOGY Monocytes # 0.9 K/CMM 0.0 - 0.8 04/27 [facility]2013 [facility] HEMATOLOGY Eosinophils # 0.6 K/CMM 0.0 - 0.5 04/27 [facility]2013 [facility] HEMATOLOGY Segs 81.8 % 45.0 - 04/27 [facility] 75.0 [facility] HEMATOLOGY Lymphocytes 7.0 % 20.0 - 04/27 LOW [employer] 40.0 [facility] HEMATOLOGY Monocytes 6.6 % 2.0 - 12.0 04/27 Normal [employer] [facility] HEMATOLOGY Basophils 0.6 % 0.0 - 1.0 04/27 [facility] HEMATOLOGY Eosinophils 4.0 % 0.0 - 4.0 04/27 Normal [facility] HEMATOLOGY Segs-Bands # 11.7 K/CMM 1.5 - 8.1 04/[address] Chest 1view Chest 1view PORTABLE CHEST 2013-04-27 11:17:00 04/27 - - [facility] COMPARISON: 04/26/2013 Read by: Yoav Reinoso [...] 138 meq/L 135 - 145 04/26 Normal [facility] CHEMISTRY POC A K 3.9 meq/L 3.5 - 5.1 04/26 Normal [facility] CHEMISTRY POC A Ca Ion 1.12 1.05 - 04/26 Normal [employer] mMol/L 1. [facility] CHEMISTRY POC A Temp 37.0 Felisha 04/26 [facility] CHEMISTRY POC A Source ART 04/26 [facility] CHEMISTRY POC A O2 Sat 99.0 % 95.0 - 04/26 Normal [employer] 100.0 [facility] CHEMISTRY POC A HCO3 32 mMol/L 22 - 26 04/26 HI [facility] CHEMISTRY POC A Hct 32.0 % 36.0 - 04/26 LOW [place] 48.0 [facility] CHEMISTRY POC A BE 8 mMol/L -2-2 - 2 04/26 [facility] CHEMISTRY POC A LA 0.6 mMol/L 0.5 - 2.2 04/26 Normal [facility] CHEMISTRY POC A pH 7.48 7.35 - 04/26 [facility] 7.45 [facility] CHEMISTRY POC A PO2 123 mm[Hg] 80 - 100 04/26 [facility] CHEMISTRY POC A PCO2 43 mm[Hg] 35 - 45 04/26 Normal [facility] CHEMISTRY POC A Glu 241 mg/dL 70 - 99 04/26 [facility] CHEMISTRY Ca Ion WB 1.08 1.05 - 04/26 Normal [place] mMol/L 1. [facility] CHEMISTRY Ca Norm WB 1.06 1.05 - 04/26 Normal [employer] mMol/L 1. [facility] Chest 1view Chest 1view EXAM: Portable chest radiograph 04/26/2013 at 7:44. 04/26 - - [facility] COMPARISON: Portable chest 04/24/2013. Read by: [...] opacity. CHEMISTRY POC A Mode 4LPM 04/25 [facility] CHEMISTRY POC A PCO2 44 mm[Hg] 35 - 45 04/25 Normal [facility] CHEMISTRY POC A Ca Ion 1.11 1.05 - 04/25 Normal [employer] mMol/L 1. [facility] CHEMISTRY POC A K 4.6 meq/L 3.5 - 5.1 04/25 Normal [facility] CHEMISTRY POC A LA 0.6 mMol/L 0.5 - 2.2 04/25 Normal [facility] CHEMISTRY POC A Glu 257 mg/dL 70 - 99 04/25 [facility] CHEMISTRY POC A O2 Sat 95.0 % 95.0 - 04/25 Normal [employer] 100.0 [facility] CHEMISTRY POC A BE 8 mMol/L -2-2 - 2 04/25 HI [facility] CHEMISTRY POC A HCO3 33 mMol/L 22 - 26 04/25 [facility] CHEMISTRY POC A Hct 34.0 % 36.0 - 04/25 LOW [employer] 48.0 [facility] CHEMISTRY POC A Na 136 meq/L 135 - 145 04/25 Normal [facility] CHEMISTRY POC A Source ART 04/25 [facility] CHEMISTRY POC A pH 7.48 7.35 - 04/25 [facility] 7.45 [facility] CHEMISTRY POC A Temp 37.0 Felisha 04/25 [facility] CHEMISTRY POC A PO2 69 mm[Hg] 80 - 100 04/25 LOW [facility] Chest 1view Chest 1view EXAM: Portable chest radiograph 04/24/2013 at 20:01 compared to portable chest radiograph 04/24/2013. 04/24 - - [facility] HISTORY: Chest pain. Read by: Kenzie [...] view, April 24, 2013 at 4:[address] HISTORY: 62-year-old female with abnormal chest [...] view, April 23, 2013 at 1628 04/[address] HISTORY: 62-year-old female with tube placement/removal/reposition. [...] HVI VAS INDICATION: Limb swelling 04/23 - [employer] Venous Venous Lower /2014 - Medical Lower Ext Ext Unilat This report was dictated by a Soil [employer] Aide /Fellow. I have personally reviewed the images as Center [facility] Doppler well as the Resident's interpretation and [...] PCO2 46 mm[Hg] 35 - 45 04/23 HI [facility] CHEMISTRY POC A HCO3 34 mMol/L 22 - 26 04/23 [facility] CHEMISTRY POC A BE 9 mMol/L -2-2 - 2 04/23 [facility] CHEMISTRY POC A PO2 69 mm[Hg] 80 - 100 04/23 LOW [facility] CHEMISTRY POC A Source ART 04/23 [facility] CHEMISTRY POC A Temp 37.0 Felisha 04/23 [facility] CHEMISTRY POC A pH 7.47 7.35 - 04/23 [facility] 7.45 [facility] CHEMISTRY POC A O2 Sat 95.0 % 95.0 - 04/23 Normal [employer] 100.0 [facility] HEMATOLOGY aPTT 23.2 s 22.9 - 04/23 Normal 33Interpretiv [employer] 35.8 /2013 e Data: [facility] Therapeutic Range: 57 - 92 Seconds HEMATOLOGY PROTIME 13.5 s 12.0 - 04/23 Normal [employer] 14.7 [facility] HEMATOLOGY INR 1.04 0.85 - 04/23 Normal 30Interpretive Data: RECOMMENDED RANGES FOR PROTIME INR: [employer] . 2.0-3.0 for most medical and surgical thromboembolic states. Medical 2.5-3.5 for artificial heart valves and recurrent embolism. Center INR SHOULD BE USED ONLY FOR PATIENTS ON STABLE ANTICOAGULANT THERAPY. Chest 1view Chest 1view Chest one view, April 23, 2013 at 1:09 a.m. - - [facility] HISTORY: 62-year-old female with abnormal chest [...] 31Interpretive Data: RECOMMENDED RANGES FOR PROTIME INR: [employer] . 2.0-3.0 for most medical and surgical thromboembolic states. Medical 2.5-3.5 for artificial heart valves and recurrent embolism. Center INR SHOULD BE USED ONLY FOR PATIENTS ON STABLE ANTICOAGULANT THERAPY. HEMATOLOGY aPTT 26.5 s 22.9 - 04/22 Normal 34Interpretiv [employer] 35.8 /2013 e Data: [facility] Heparin [place] Therapeutic Range: 57 - 92 Seconds HEMATOLOGY PROTIME 14.1 s 12.0 - 04/22 Normal [employer] 14.7 [facility] HEMATOLOGY [place] Cell Slight None Seen 04/22 [facility] (04/22/2013 03:12:00) HEMATOLOGY Large Plt Slight None Seen 04/22 [facility] (04/22/2013 03:12:00) HEMATOLOGY Elliptocyte Slight None Seen 04/22 [facility] (04/22/2013 03:12:00) HEMATOLOGY Polychrom Slight None Seen 04/22 Normal [facility] (04/22/2013 03:12:00) [place] HEMATOLOGY Rouleaux Present None Seen 04/22 [facility] (04/22/2013 03:12:00) HEMATOLOGY Hypochrom Slight None Seen 04/22 Normal [facility] (04/22/2013 03:12:00) [place] Chest 1view Chest 1view PORTABLE CHEST 2013-04-22 01:26:00 04/22 - - [facility] COMPARISON: 04/21/2013 at 1:45 a.m. Read [...] HEMATOLOGY Smudge Slight None Seen 04/21 Normal [facility] (04/21/2013 02:11:00) [place] HEMATOLOGY Polychrom Slight None Seen 04/21 Normal [employer] [facility] (04/21/2013 02:11:00) [place] HEMATOLOGY Plt Morph Normal 04/21 Normal [facility] (04/21/2013 02:11:00) [place] Chest 1view Chest 1view Chest one view, April 21, 2013 at 1:45 a.m. - [employer] - [facility] HISTORY: 62-year-old female with coughing. Read [...] Ca Ion 1.19 1.05 - 04/20 Normal [employer] mMol/L 1. [facility] CHEMISTRY POC A [place] 1.3 mMol/L 0.5 - 2.2 04/[address] CHEMISTRY POC A Glu 99 mg/dL 70 - 99 04/[address] CHEMISTRY POC A Hct 33.0 % 36.0 - 04/20 [facility] 48.0 /2012 [facility] CHEMISTRY POC A Na 146 meq/L 135 - 145 04/20 [facility] CHEMISTRY POC A K 3.3 meq/L 3.5 - 5.1 04/[address] Abdomen AP Abdomen AP EXAM: Abdomen 1 view 04/20 [facility] view view [facility] DATE: Apr 20, 2013 12:48:00 PM. Read [...] HEMATOLOGY Polychrom Slight None Seen 04/20 Normal [employer] [facility] (04/20/2013 02:54:00) [place] HEMATOLOGY Elliptocyte Slight None Seen 04/20 [facility]* [place] (04/20/2013 02:54:00) HEMATOLOGY Toxic Gran Slight None Seen 04/20 [facility]* [place] (04/20/2013 02:54:00) HEMATOLOGY Plt Morph Normal 04/20 Normal [facility] (04/20/2013 02:54:00) [place] Chest 1view Chest 1view EXAM: CHEST 1 VIEW 04/20 [facility] DATE: Apr 20, 2013 02:39:00 AM Read [...] PEEP 5.0 0.0 - 40.0 04/19 Normal [employer] cm[H2O] /2012 [facility] CHEMISTRY POC A CPAP 0.0 0.0 - 40.0 04/19 Normal [employer] cm[H2O] [facility] CHEMISTRY POC A %FIO2 40.0 % 18.0 - 04/19 Normal [employer] 100.0 [facility] CHEMISTRY POC A PEEP 5.0 0.0 - 40.0 04/19 Normal [employer] cm[H2O] [facility] CHEMISTRY POC A %FIO2 40.0 % 18.0 - 04/19 Normal [employer] 100.0 [facility] CHEMISTRY POC A Mode CPAP 04/19 /2012 [facility] CHEMISTRY POC A Peak 15.0 0.0 - 04/19 Normal [employer] cm[H2O] 100.0 [facility] HEMATOLOGY aPTT 32.3 s 22.9 - 04/19 Normal 35Interpretiv [employer] 35.8 /2012 e Data: [facility] Therapeutic Range: 57 - 92 Seconds HEMATOLOGY PROTIME 15.7 s 12.0 - 04/19 HI [employer] 14.7 /2012 [facility] HEMATOLOGY INR 1.27 0.85 - 04/19 [place] 32Interpretive Data: RECOMMENDED RANGES FOR PROTIME INR: [employer] 1.17 2.0-3.0 for most medical and surgical thromboembolic states. Medical 2.5-3.5 for artificial heart valves and recurrent embolism. Center INR SHOULD BE USED ONLY FOR PATIENTS ON STABLE ANTICOAGULANT THERAPY. CHEMISTRY POC A PEEP 5.0 0.0 - 40.0 04/19 Normal [employer] cm[H2O] [facility] CHEMISTRY POC A %FIO2 50.0 % 18.0 - 04/19 Normal [employer] 100.0 [facility] CHEMISTRY POC A VT 550 mL 2 - 1200 04/19 Normal [employer] [facility] CHEMISTRY POC A Mech 16 bpm 0 - 70 04/19 Normal [employer] [facility] CHEMISTRY POC A Mode SIMV 04/19 [facility] Chest 1view Chest 1view EXAM: XR CHEST 1 VIEW 04/19 - [employer] - [facility] DATE: Apr 19, 2013 01:35:00 AM [...] Therapeutic Range: Trough: 10 - 20 ug/mL [facility] Peak: 20 - 40 ug/mL [place] Potential Toxicity: >80 ug/mL CHEMISTRY Vanco Tr TND 04/19 04/18 [facility] Chest 1view Chest 1view EXAM: XR CHEST 1 VIEW 04/18 - [employer] [facility] DATE: Apr 18, 2013 06:27:00 PM Read by: Delio Bui Dictated Date/time: 04/19/13 07:50 Electronically Signed by: Delio Bui MD 04/19/13 07:51 FINAL REPORT INDICATION: tube placement COMPARISON: 04/18/2013 at 1:53 p.m. TECHNIQUE: AP semi- upright view of the chest FINDINGS: The Fallentimber-Leah catheter has been removed. The right IJ access remains in place. Other tubes and lines remain stable in position. There is increased attenuation at the lung bases bilaterally, mo st likely representing atelectasis. Small left effusion is present. The cardiopericardial silhouette and mediastinal contours are stable. IMPRESSION: Removal OF Fallentimber-Leah catheter. No significant changes otherwise Abdomen AP Abdomen AP EXAM: XR ABDOMEN 1 VIEW 04/18 - [employer] view view /2012 [facility] DATE: Apr 18, 2013 02:43:00 PM Read [...] EXAM: XR CHEST 1 VIEW 04/18 - [employer] /2012 [facility] DATE: Apr 18, 2013 02:42:00 PM Read [...] 550 mL 2 - 1200 04/18 Normal [facility] Brain wo Brain wo EXAMINATION: CT head without contrast. 04/18 - [employer] contrast CT contrast CT /2012 [facility] DATE: 04/18/2013. Read by: Clint Chatterjee Dictated [...] abnormality HEMATOLOGY Anisocyte 1+ None Seen 04/18 [facility] (04/18/2013 03:40:00) HEMATOLOGY Toxic Gran Slight None Seen 04/18 [facility] (04/18/2013 03:40:00) Chest 1view Chest 1view EXAM: XR CHEST 1 VIEW 04/18 - [employer] [facility] DATE: Apr 18, 2013 01:39:00 AM Read [...] 1.2 mMol/L 0.5 - 2.2 04/17 [facility] CHEMISTRY Lipase Lvl 100 unit/L 73 - 393 04/17 Normal [facility] CHEMISTRY Amylase Lvl 23 unit/L 25 - 115 04/17 LOW [facility] CHEMISTRY A/G Ratio 1.4 0.7 - 1.6 04/17 Normal [facility] CHEMISTRY Bili Indirect 0.6 mg/dL 0.0 - 1.0 04/17 Normal [facility] CHEMISTRY Globulin 2.5 g/dL 2.0 - 4.0 04/[address] CHEMISTRY Bili Total 1.1 mg/dL 0.2 - 1.3 04/17 Normal [facility] CHEMISTRY Total Protein 6.1 g/dL 6.4 - 8.4 04/17 LOW [facility] CHEMISTRY ASPARTATE 40 unit/L 0 - 37 04/17 HI TRANSAMINASE [facility] CHEMISTRY Alk Phos 58 unit/L 39 - 136 04/17 Normal [facility] CHEMISTRY Bili Direct 0.5 mg/dL 0.0 - 0.3 04/17 HI [facility] CHEMISTRY Albumin Lvl 3.6 g/dL 3.5 - 5.0 04/17 Normal [facility] CHEMISTRY ALANINE 38 unit/L 0 - 65 04/17 Normal [employer] AMINO [facility] HEMATOLOGY Anisocyte 1+ None Seen 04/17 ABN Medical *ABN* Center (04/16/2013 23:27:20) CHEMISTRY POC V BE -2 mmol/L -2-2 - 2 04/17 Normal [facility] CHEMISTRY POC V PO2 33 mm[Hg] 20 - 49 04/17 Normal [facility] CHEMISTRY POC V HCO3 24 mmol/L 22 - 26 04/17 Normal [facility] CHEMISTRY POC V VT 550 mL 2 - 1200 04/17 Normal [facility] CHEMISTRY POC V Mech 14 bpm 0 - 70 04/17 Normal [facility] CHEMISTRY POC V Mode AC 04/17 [facility] CHEMISTRY POC V Glu 110 mg/dL 70 - 99 04/17 HI [facility] CHEMISTRY POC V O2 Sat 58.0 % 40.0 - 04/17 Normal 70.0 [facility] CHEMISTRY POC V %FIO2 60.0 % 18.0 - 04/17 Normal 100.0 [facility] CHEMISTRY POC V PEEP 7.0 0.0 - 40.0 04/17 Normal [employer] cm[H2O] [facility] CHEMISTRY POC V LA 0.7 mMol/L 0.5 - 2.2 04/17 Normal [facility] CHEMISTRY POC V pH 7.33 7.28 - 04/17 Normal [employer] 7.42 [facility] CHEMISTRY POC V PCO2 45 mm[Hg] 38 - 52 04/17 Normal [facility] CHEMISTRY POC V K 3.9 meq/L 3.5 - 5.1 04/17 Normal [facility] CHEMISTRY POC V Na 147 meq/L 135 - 145 04/17 HI [facility] CHEMISTRY POC V Ion Ca 1.14 1.05 - 04/17 Normal [employer] mMol/L 1. [facility] CHEMISTRY POC V Temp 37.0 Felisha 04/17 [facility] CHEMISTRY POC V Hct 30.0 % 36.0 - 04/17 LOW [employer] 48.0 [facility] CHEMISTRY POC V Source EVANGELINA 04/17 [facility] CHEMISTRY POC A VT 550 mL 2 - 1200 04/17 Normal [facility] CHEMISTRY POC A Mech 14 bpm 0 - 70 04/17 Normal [employer] Rate [facility] Chest 1view Chest 1view Portable ap semierect chest 04/17/201304/17 - - [facility] HISTORY: Cough. Comparison is made with yesterday. Read by: Kady Arrington Dictated Date/time: 04/17/13 09:05 Electronically Signed by: Kady Arrington MD 04/17/13 09:42 FINAL REPORT FINDINGS: Cardiomediastinal silhouette, postoperative changes and life support lines remains stable. The tip of the Fallentimber-Leah catheter is in the pulmonary trunk; however, the Fallentimber-Leah catheter is loope d in the right [...] V pH 7.30 7.28 - 04/16 Normal [employer] 7.42 [facility] CHEMISTRY POC V [place] 0.7 mMol/L 0.5 - 2.2 04/16 Normal [facility] CHEMISTRY POC V PCO2 46 mm[Hg] 38 - 52 04/16 Normal [facility] CHEMISTRY POC V Ion Ca 1.18 1.05 - 04/16 Normal [employer] mMol/L 1. [facility] CHEMISTRY POC V Hct 31.0 % 36.0 - 04/16 LOW [employer] 48.0 Medical Center CHEMISTRY POC V Source EVANGELINA 04/16 Medical [place] CHEMISTRY POC V Temp 37.0 Felisha 04/16 [facility] CHEMISTRY POC V Glu 132 mg/dL 70 - 99 04/16 HI [facility] [place] CHEMISTRY POC V O2 Sat 52.0 % 40.0 - 04/16 Normal 70.0 Medical Center CHEMISTRY POC V PO2 31 mm[Hg] 20 - 49 04/16 Normal [facility] CHEMISTRY POC V HCO3 23 mmol/L - 26 04/16 Normal [facility] CHEMISTRY POC V K 4.2 meq/L 3.5 - 5.1 04/16 Normal [facility] CHEMISTRY POC V Na 149 meq/L 135 - 145 04/16 [facility] CHEMISTRY POC V BE -4 mmol/L -2-2 - 2 04/16 LOW [facility] CHEMISTRY Lactic Acid 0.9 mMol/L 0.5 - 2.2 04/16 Normal [employer] Lvl [facility] CHEMISTRY Lipase Lvl 69 unit/L 73 - 393 04/16 LOW [facility] CHEMISTRY Amylase Lvl 21 unit/L 25 - 115 04/16 LOW [facility] CHEMISTRY ALANINE 44 unit/L 0 - 65 04/16 Normal [employer] AMINO [facility] CHEMISTRY Total Protein 5.8 g/dL 6.4 - 8.4 04/16 LOW [facility] CHEMISTRY Bili Total 1.6 mg/dL 0.2 - 1.3 04/16 HI [facility] CHEMISTRY Bili Direct 0.7 mg/dL 0.0 - 0.3 04/16 [facility] [place] CHEMISTRY ASPARTATE 43 unit/L 0 - 37 04/16 [facility] CHEMISTRY Alk Phos 40 unit/L 39 - 136 04/16 Normal [facility] CHEMISTRY Albumin Lvl 3.8 g/dL 3.5 - 5.0 04/16 Normal [facility] CHEMISTRY A/G Ratio 1.9 0.7 - 1.6 04/16 [facility] CHEMISTRY Globulin 2.0 g/dL 2.0 - 4.0 04/16 Normal [facility] CHEMISTRY Bili Indirect 0.9 mg/dL 0.0 - 1.0 04/16 Normal [facility] 0 - 70 04/16 Normal [facility] BLOOD BANK RBC product Product available 04/16 Normal [facility] (04/16/2013 14:04:00) [place] BLOOD BANK FFP product Product available 04/16 Normal Medical (04/16/2013 13:14:00) [place] BLOOD BANK RBC product Product available 04/16 Normal [facility] Medical (04/16/2013 13:14:00) [place] BLOOD BANK ABO/Rh B POS 04/16 [facility] BLOOD BANK Antibody Scrn Negative 04/16 Normal [facility] Medical (04/16/2013 12:30:00) [place] Chest 1view Chest 1view EXAM: XR CHEST 1 VIEW 04/16 - - [facility] This report was dictated by a Soil Conservation Aide/Fellow. I have personally reviewed the images as [...] the stomach. Note is again made of Fallentimber-G anz catheter making a loop within the right atrium. The tip of the Fallentimber- Leah catheter is in the pulmonary trunk. [...] pleural effusions and left retrocardiac opacity. 2. Fallentimber-Leah catheter making a loop within the right atrium with tip in the pulmonary trunk. Chest 2 Chest 2 views EXAM: XR CHEST 2 VIEWS 04/16 - [facility] - [facility] This report was dictated by a Soil Conservation Aide/Fellow. I have personally reviewed the images as [...] abnormality identified. URINALYSIS Micro? Not Indicated 04/16 [facility] *NA* [place] (04/15/2013 23:02:50) URINALYSIS UA <=1.0 0.1 - 1.0 04/16 [facility] Urobilinogen mg/dL [facility] URINALYSIS UA Sq Epi Few /LPF Few 04/16 [facility] URINALYSIS UA WBC 1 /HPF 0 - 5 04/16 Normal [facility] URINALYSIS UA Bacteria Occasional None Seen 04/16 [facility] [employer] [facility] /HPF [facility] URINALYSIS UA Glucose Negative Negative 04/16 [facility] [employer] [facility] [employer] mg/dL [facility] URINALYSIS UA Protein Negative Negative 04/16 Normal [employer] mg/dL [facility] URINALYSIS UA pH 5.0 5.0 - 8.0 04/16 Normal [facility] URINALYSIS UA Leuk Est Negative Negative 04/16 Normal Medical (04/15/2013 23:02:50) [place] URINALYSIS UA Bili Negative Negative 04/16 [facility] *NA* [place] (04/15/2013 23:02:50) URINALYSIS UA Nitrite Negative Negative 04/16 Normal [facility] (04/15/2013 23:02:50) [place] URINALYSIS UA Blood Negative Negative 04/16 Normal [facility] (04/15/2013 23:02:50) [place] URINALYSIS UA Ketones Negative Negative 04/16 [employer] [employer] [facility] mg/dL [facility] URINALYSIS UA Mucus Few /LPF None Seen 04/16 [facility] URINALYSIS UA Hyal Cast 1 /LPF 0 - 2 04/16 Normal [facility] URINALYSIS UA Spec Grav 1.006 <=1.030 04/16 Normal [facility] URINALYSIS UA Color Light Yellow Yellow 04/16 [employer] [employer] [facility] [employer] [facility] *NA* [place] (04/15/2013 23:02:50) URINALYSIS UA Turbidity Clear Clear 04/16 Normal [facility] (04/15/2013 23:02:50) [place] CHEMISTRY Digoxin Lvl 1.0 ng/mL 0.8 - 2.0 04/16 Normal [employer] [employer] [facility] [employer] [facility] Chest 1view Chest 1view Portable ap semierect chest 04/16/201304/16 - [facility] [employer] [facility] - [facility] HISTORY: Cough. Comparison is made with yesterday. Read by: Kady Arrington Dictated Date/time: 04/16/13 09:12 Electronically Signed by: Kady Arrington MD 04/16/13 10:01 FINAL REPORT FINDINGS: Cardiomediastinal silhouette, postoperative changes and life support lines are stable. Although the tip of the Fallentimber-Leah catheter is in the pulmonary trunk it [...] 39 meq/L 04/15 28Interpretiv e Data: No [facility] established Center reference ranges. CHEMISTRY U Microalb 21.0 mg/L 04/15 [facility] CHEMISTRY U Creatinine 77.9 mg/dL 04/15 26Interpretiv e Data: No [facility] Center reference ranges. CHEMISTRY U Alb/Crea 27.0 <=30.0 04/15 Normal [employer] [facility] [employer] mcg/ [facility] creat Center CHEMISTRY U Eos None Seen None Seen 04/15 Normal [facility] (04/15/2013 13:53:53) Center CHEMISTRY Bili Direct 1.1 mg/dL 0.0 - 0.3 04/15 [facility] CHEMISTRY Bili Indirect 1.0 mg/dL 0.0 - 1.0 04/15 Normal [facility] CHEMISTRY B/C Ratio 16 - 25 04/15 Normal [facility] HEMATOLOGY Baso Stipplin Slight None Seen 04/15 ABN [facility] *ABN* Center (04/15/2013 09:03:00) CHEMISTRY POC V PCO2 49 mm[Hg] 38 - 52 04/15 Normal [facility] CHEMISTRY POC V PO2 32 mm[Hg] 20 - 49 04/15 Normal [facility] CHEMISTRY POC V BE 0 mmol/L -2-2 - 2 04/15 Normal [facility] CHEMISTRY POC V HCO3 26 mmol/L 22 - 26 04/15 Normal [facility] CHEMISTRY POC V Na 147 meq/L 135 - 145 04/15 [facility] CHEMISTRY POC V K 4.3 meq/L 3.5 - 5.1 04/15 Normal [facility] CHEMISTRY POC V pH 7.34 7.28 - 04/15 [facility] 7.42 [facility] CHEMISTRY POC V O2 Sat 57.0 % 40.0 - 04/15 [facility] 70.0 [facility] CHEMISTRY POC V Temp 37.0 Felisha 04/15 [facility] CHEMISTRY POC V Source EVANGELINA 04/15 [facility] CHEMISTRY POC V Ion Ca 1.22 1.05 - 04/15 Normal [facility] [employer] [facility] [employer] mMol/L 1. [facility] CHEMISTRY POC V Hct 30.0 % 36.0 - 04/15 LOW [facility] 48.0 [facility] BLOOD BANK RBC product Product available 04/15 Normal [employer] [facility] (04/15/2013 01:55:00) [place] CHEMISTRY Lactic Acid 5.3 mMol/L 0.5 - 2.2 04/15 [facility] [employer] Lvl [facility] HEMATOLOGY Baso Stipplin Slight None Seen 04/15 ABN Medical *ABN* Center (04/15/2013 00:22:00) Chest 1view Chest 1view PORTABLE CHEST 2013-04-15 03:35:00 04/15 - - [facility] COMPARISON: Yesterday Read by: Yoav Reinoso Dictated Date/time: 04/15/13 10:39 Electronically Signed by: Yoav Reinoso MD 04/15/13 10:41 FINAL REPORT CLINICAL INDICATION: Coughing DISCUSSION: Support devices are unchanged. Fallentimber-Leah catheter continues to make a loop within [...] %FIO2 80.0 % 18.0 - 04/14 Normal [facility] [employer] [facility] 100.0 [facility] CHEMISTRY POC V PEEP 8.0 0.0 - 40.0 04/14 Normal [facility] [facility] cm[H2O] [facility] CHEMISTRY POC V Mech 15 bpm 0 - 70 04/14 Normal [employer] [facility] CHEMISTRY POC V VT 550 mL 2 - 1200 04/14 Normal [facility] CHEMISTRY POC V Mode AC 04/14 [employer] [employer] [facility] CHEMISTRY POC V Glu 223 mg/dL 70 - 99 04/14 [facility] CHEMISTRY POC V LA 3.7 mMol/L 0.5 - 2.2 04/14 [facility] CHEMISTRY B/C Ratio 20 6 - 25 04/14 Normal [facility] Chest 1view Chest 1view EXAM: CHEST [address] DATE: Apr 14, 2013 06:08:00 PM Read by: Tommie Oneill Dictated Date/time: 04/15/13 00:29 Electronically Signed by: Tommie Oneill MD 04/15/13 00:30 FINAL REPORT INDICATION: Central Line Placement COMPARISON: Prior exam dated 04/14/2013 used for comparison. TECHNIQUE: Single portable radiograph of the chest FINDINGS: The cardiac silhouette is unchanged in appearance. The Fallentimber- Leah catheter has been adjusted the loop seen in the catheter lying within the right atrium has been removed the tip is within may right pulmonary artery. The remainder the support tubes and lines are unchanged in position. The lungs are unchanged in appearance bilaterally. The remainder of the exam is unchanged. IMPRESSION: Repositioning of the Fallentimber-Leah catheter, the previously noted loop within the right atrium has been removed, the tip is in the proximal aspect of the right pulmonary artery. The remainder of the exam is unchanged. Chest 1view Chest 1view PORTABLE CHEST 2013-04-14 14:20:[address] [place] [address] COMPARISON: 04/09/2013 Read by: Yoav Reinoso Dictated Date/time: 04/14/13 15:56 Electronically Signed by: Yoav Reinoso MD 04/14/13 16:01 FINAL REPORT CLINICAL INDICATION: Respiratory distress DISCUSSION: Note again of left upper extremity PICC. New endotracheal tube terminates in satisfactory position. New NG tube terminates within stomach. New right IJ Fallentimber-Leah catheter makes a loop within right atrium [...] right may represent a lap sponge. 2. Fallentimber-Leah catheter makes a loop within right atrium with tip within right pulmonary artery. Nurse Jonathon was notified at 4:00 p.m. on 04/14/2013. 3. Interstitial edema. BLOOD BANK Antibody Scrn Negative 04/14 Normal [place] RESULTS Medical (04/13/2013 21:02:00) Center BLOOD BANK ABO/Rh B POS 04/14 [place] RESULTS [facility] Center BLOOD BANK Platelet Product available 04/13 Normal [facility] RESULTS Medical (04/13/2013 17:49:00) Center BLOOD BANK FFP product Product available 04/13 Normal [place] RESULTS Medical (04/13/2013 17:49:00) Center BEDSIDE Gluc POC Cleaned 04/13 [facility] GLUCOSE Comment 2 Meter Medical TESTING [place] BEDSIDE Gluc POC Cleaned 04/13 [facility] GLUCOSE Comment 2 Meter [facility]ING [facility] URINALYSIS UA Amorph Occasional None Seen 04/12 [facility] [place] [facility] Center HEMATOLOGY Hypochrom Slight None Seen 04/12 Normal Medical (04/12/2013 01:08:00) Center HEMATOLOGY Toxic Gran Slight None Seen 04/12 [facility] Medical *ABN* [place] (04/12/2013 01:08:00) HEMATOLOGY Smudge Slight None Seen 04/12 Normal Medical (04/12/2013 01:08:00) Center HEMATOLOGY Stomatocyte Slight None Seen 04/12 [facility] Medical *ABN* [place] (04/12/2013 01:08:00) HEMATOLOGY Atypical 0.0 % <=0.0 04/12 Normal [facility] HEMATOLOGY Metamyelocyte 2.0 % 0.0 - 1.0 04/12 [facility] HEMATOLOGY Bands 0.0 % 0.0 - 11.0 04/12 Normal [facility] HEMATOLOGY Atypical 0.0 % <=0.0 04/11 Normal [facility] Lymph [facility] HEMATOLOGY Metamyelocyte 6.0 % 0.0 - 1.0 04/11 [facility] s [facility] HEMATOLOGY Bands 0.0 % 0.0 - 11.0 04/11 Normal [facility] HEMATOLOGY RBC Morph Normal 04/11 Normal Medical (04/11/2013 00:49:00) Center HEMATOLOGY NUCLEATED 2 /100WB 04/11 [facility] RBC'S [facility] HEMATOLOGY Large Plt Slight None Seen 04/11 [facility] Medical *ABN* [place] (04/11/2013 00:49:00) Chest 1view Chest 1view EXAM: CHEST 1 VIEW 04/09 - [facility] [employer] [facility] /2012 - Medical This report was dictated by a Soil Conservation Aide/Fellow. I have personally reviewed the images as [...] 1.7 ng/mL 0.8 - 2.0 04/09 Normal [place] /2012 [facility] CHEMISTRY T4 Free 1.43 ng/dL 0.76 - 04/08 Normal [employer] 1.46 /2012 [facility] CHEMISTRY T3 Free 1.05 pg/mL 2.18 - 04/08 LOW [employer] [facility] 3.98 /2012 [facility] HVI VAS HVI VAS INDICATION: Carotid bruit . 04/08 - [facility] [employer] [facility] Arterial Arterial /2012 - Medical Extracrania Extracranial This report was dictated by a Soil Conservation Aide/Fellow. I have personally reviewed the images as [...] 1view EXAM: XR CHEST 1 VIEW 04/08 - [facility] - Medical This report was dictated by a Soil Conservation Aide/Fellow. I have personally reviewed the images as [...] VAS INDICATION: Pain in limbs. 04/07 - [facility] [employer] [facility] Venous Venous Lower /2012 - Medical Lower Ext Ext Bilat This report was dictated by a Soil Conservation Aide /Fellow. I have personally reviewed the images as Center Bilat Doppler well as the Resident's interpretation and agree with the findings. Doppler IMPRESSION: Read by: [id number] -LEONEL Restrepo [id number] Resident: [id number] -LEONEL Restrepo [id number] Dictated Date/time: 04/07/13 11:21 1. There is [...] INFECTIOUS Influenza A Negative Negative 04/06 Normal [facility] DISEASES PCR /2012 Medical (04/06/2013 15:01:33) Center INFECTIOUS Source Flocked PROVIDER RELATIONS ADVOCATE Swab 04/06 Normal [facility] Respiratory /2012 Medical Panel PCR (04/06/2013 15:01:33) Center INFECTIOUS RSV PCR Negative 4 Negative 04/06 Normal 4Interpretive Data: Gen-Probe Prodesse ProFlu plus assay is a multiplex real-time PCR test [facility] [facility] DISEASES /2012 for the qualitative detection and [...] verified by the [facility] within [facility]. The Molecular Diagnostic Laboratory is authorized under the Clinical Laboratory Improvement Amendments of 1988 (CLIA-88) to perform high complexity testing. INFECTIOUS Influenza B Negative Negative 04/06 Normal [facility] DISEASES Medical (04/06/2013 15:01:33) Center Chest 1view Chest 1view EXAM: XR CHEST 1 VIEW 04/06 - [facility] [facility] DATE: 2013-04-06 1651 hours Read by: Gisselle [...] A 10.0 0.0 - 50.0 04/06 Normal [facility] [facility] BIPAP(I) cm[H2O] [facility] CHEMISTRY BNP 118 pg/mL <=100 04/06 HI 23Interpretive Data: Elevated results are in line with increasing severity of [employer] congestive heart failure. Minor elevations between 100 and 300 Medical may be seen with Myocardial Ischemia, Sodium retaining drugs, Center and compensated/treated heart failure. Chest 1view Chest 1view Portable ap semierect chest 04/06/201304/06 - [facility] [facility] - [facility] HISTORY: Chest pain. Comparison is made [...] A 10.0 0.0 - 50.0 04/05 Normal [facility] [facility] BIPAP(I) cm[H2O] /2012 Medical Center INFECTIOUS Source Flocked PROVIDER RELATIONS ADVOCATE Swab 04/05 Normal [facility] DISEASES Respiratory /2012 Medical Panel PCR (04/05/2013 13:45:25) Center INFECTIOUS RSV PCR Negative 5 Negative 04/05 Normal 5Interpretive Data: Gen-Probe Prodesse ProFlu plus assay is a multiplex real-time PCR test [facility] [facility] for the qualitative detection and discrimination of [...] verified by the [facility] within [facility]. The [facility] is authorized under the Clinical Laboratory Improvement Amendments of 1988 (CLIA-88) to perform high complexity testing. INFECTIOUS Influenza B Negative Negative 04/05 Normal [facility] DISEASES PCR /2012 Medical (04/05/2013 13:45:25) Center INFECTIOUS Influenza A Negative Negative 04/05 Normal [facility] DISEASES PCR /2012 Medical (04/05/2013 13:45:25) Center INFECTIOUS Adenovirus Negative 2 Negative 04/05 Normal 2Interpretive Data : The Adenovirus PCR assay is a multiplex Real-Time PCR test for the [facility] PCR detection of the human Adenovirus. The test [...] verified by the [facility] within [facility]. The Molecular Diagnostic Laboratory is authorized under the Clinical Laboratory Improvement Amendments of 1988 (CLIA-88) to perform high complexity testing. INFECTIOUS Source Flocked PROVIDER RELATIONS ADVOCATE Swab 04/05 Normal [facility] DISEASES Adenovirus /2012 Medical PCR (04/05/2013 13:45:25) Center INFECTIOUS Parainfluenza Negative 3 Negative 04/05 Normal 3Interpretive Data: The Parainfluenza PCR assay is a multiplex Real-Time PCR test for [employer] DISEASES 3 the detection and discrimination of the Parainfluenza [...] verified by the [facility] within [facility]. The Molecular Diagnostic Laboratory is authorized under the Clinical Laboratory Improvement Amendments of 1988 (CLIA-88) to perform high complexity testing. INFECTIOUS Parainfluenza Negative Negative 04/05 Normal [facility] DISEASES 2 PCR /2012 Medical (04/05/2013 13:45:25) Center INFECTIOUS Parainfluenza Negative Negative 04/05 Normal [facility] [facility] DISEASES 1 PCR /2012 Medical (04/05/2013 13:45:25) Center INFECTIOUS Source Flocked PROVIDER RELATIONS ADVOCATE Swab 04/05 Normal [facility] DISEASES Parainfluenza /2012 Medical Virus PCR (04/05/2013 13:45:25) Center CHEMISTRY POC A 10.0 0.0 - 50.0 04/05 Normal [employer] [facility] BIPAP(I) cm[H2O] [facility] CHEMISTRY Troponin-T 0.451 0.000 - 04/05 CRIT 17Result [facility] [facility] ng/mL 0.100 Comment: Medical Critical Center Result(s) called to Mariia Hurst at 04/05/2013 10:59 byMIA. Read back OK. CHEMISTRY CK MB 1.1 ng/mL 0.5 - 3.6 04/05 Normal [place] /2012 [facility] CHEMISTRY CK-MB INDEX 0.3 0.0 - 2.5 04/05 Normal [facility] CHEMISTRY Total CK 364 unit/L 04/05 [place] [facility] CHEMISTRY Troponin-I 2.45 ng/mL 0.00 - 04/05 CRIT 20Result [facility] 0.40 Comment: Medical Critical Center Result(s) called to CHINYERE vasquez at 04/05/2013 09:[address] Read back OK. CHEMISTRY Total CK 472 unit/L 04/05 [facility] CHEMISTRY Troponin-I 3.60 ng/mL 0.00 - 04/05 CRIT 21Result [employer] [facility] [employer] 0.40 Comment: [facility] Critical Center Result(s) called to jonathon mills at 04/05/2013 00:22 byharpreet. Read back OK. CHEMISTRY CK MB 1.2 ng/mL 0.5 - 3.6 04/05 Normal [facility] CHEMISTRY CK-MB INDEX 0.3 0.0 - 2.5 04/05 Normal [facility] CHEMISTRY Troponin-T 0.570 0.000 - 04/05 CRIT 18Result [employer] ng/mL 0.100 /2012 Comment: [facility] Critical Center Result(s) called to Jonathon Del Toro at 04/05/2013 00:45_ by_mgm. Read back OK. Chest 1view Chest 1view PORTABLE CHEST 2013-04-05 05:13:00 04/05 - - [facility] COMPARISON: 04/04/2013 Read by: Vik Larkin [...] S pneumo Ag Negative Negative 04/05 Normal Medical (04/04/2013 19:00:00) Center MICRO MISC U Legion Ag Negative 6 Negative 04/05 Normal 6Interpretive [facility] - Data: This Medical (04/04/2013 19:00:00) kit tests for Center Legionella pneumophila Serogroup 1 Antigen. HEMATOLOGY Large Plt Slight None Seen 04/05 ABN Medical *ABN* Center (04/04/2013 18:13:00) HEMATOLOGY Hypochrom Slight None Seen 04/05 Normal [facility] Medical (04/04/2013 18:13:00) Center URINALYSIS UA RBC 2 /HPF 0 - 2 04/05 Normal [facility] CHEMISTRY CK-MB INDEX 0.5 0.0 - 2.5 04/04 Normal [facility] CHEMISTRY CK MB 3.9 ng/mL 0.5 - 3.6 04/04 HI [facility] CHEMISTRY BNP 153 pg/mL <=100 04/04 HI 24Interpretive Data: Elevated results are in line with increasing severity of congestive heart failure. Minor elevations between 100 and 300 Medical may be seen with Myocardial Ischemia, Sodium retaining drugs, Center and compensated/treated heart failure. CHEMISTRY Troponin-I 4.01 ng/mL 0.00 - 04/04 CRIT 22Result [facility] [facility] 0.40 /2013 Comment: [facility] Critical [place] Result(s) called to [facility] at 04/04/2013 15:43_ by_ferdinand. Read back OK. CHEMISTRY Total CK 769 unit/L 12 - 04/[address] Chest 1view Chest 1view PORTABLE CHEST 2013-04-04 15:14:00 04/04 - - [facility] COMPARISON: April 04, 2013 at 2:47 [...] infection. BLOOD BANK ABO/Rh B POS 04/04 [employer] [facility] RESULTS [facility] BLOOD BANK Antibody Scrn Negative 04/04 Normal [employer] [facility] (04/04/2013 02:30:28) [place] BACTERIAL - MRSA by PCR Negative 1 04/04 Normal 1Interpretive Data: Interpretive Data: The [employer] LightCycler MRSA assay is a qualitative test for the direct detection of nasal colonization with methicillin-resistant Staphylococcus aureus (MRSA) to aid [employer] in the prevention and control of MRSA infections in healthcare settings. A positive result does not indicate an infection or require treatment. A negative result does not exclude colonization or infection. [facility] (04/04/2013 02:30:00) Center The polymerase chain reaction (PCR) assay detects a proprietary sequence indicative of the integration of the SCCmec cassette into the Staphylococcus aureus chromosome, indicating the presence of MRSA D NA. The assay utilizes FDA cleared IVD reagents. Performance characteristics have been verified by the Molecular Diagnostic Laboratory within the [facility]. The Molecular Diagnostic Labor atory is authorized under the Clinical Laboratory Improvement Amendment of 1988 (CLIA-88) to perform high complexity testing. CHEMISTRY Hgb A1C 6.2 % <=5.6 04/04 [place] [facility] CHEMISTRY TSH 0.974 0.360 - 04/04 Normal [facility] [facility] [employer] uIU/mL 3.740 [facility] CHEMISTRY Troponin-T 0.323 0.000 - 04/04 CRIT 19Result [facility] [facility] [employer] ng/mL 0.100 Comment: [facility] Critical Center Result(s) called to Tracie Simmons at 04/04/2013 03:53_ by_mgm. Read back OK. Chest 1view Chest 1view PORTABLE CHEST 2013-04-04 02:51:00 04/04 - - [facility] COMPARISON: September 27, 2006 Read by: [...] prior radiograph. BEDSIDE Comment1 Notify 12/23 NA [facility] GLUCOSE RN/MD /2012 Medical TESTING Center BEDSIDE Gluc POC 187 mg/dL 12/23 [place] 1Interpretive [facility] [employer] [facility] GLUCOSE Lifscn Data: Medical TESTING Center Upper Reportable Limit: 200 mg/dL. BEDSIDE Gluc POC 247 mg/dL - 12/23 [facility] 2Interpretive [facility] [facility] GLUCOSE Lifscn Data: Medical TESTING Center Upper Reportable Limit: 200 mg/dL. Vital Signs Vital Sign Value Date Comments Source Temperature Oral (F) 97.2 F 04/30/2013 [facility] [place] Systolic (mm Hg) 142 04/30/2013 [facility] Diastolic (mm Hg) 59 04/30/2013 [facility] Respitory Rate 17 04/30/2013 [facility] Respitory Rate 18 04/30/2013 [facility] Systolic (mm Hg) 142 04/30/2013 [facility] Diastolic (mm Hg) 59 04/30/2013 [facility] Respitory Rate 20 04/30/2013 [facility] Diastolic (mm Hg) 66 04/30/2013 [facility] Systolic (mm Hg) 155 04/30/2013 [facility] Temperature Oral (F) 97.2 F 04/30/2013 [facility] Temperature Oral (F) 96.4 F 04/30/2013 [facility] Height 162.56 cm 04/04/2013 [facility] Weight 121.5 04/04/2013 [facility] Respitory Rate 16 12/23/2012 [facility] Heart Rate 72 12/23/2012 [facility] Systolic (mm Hg) 155 12/23/2012 [facility] Diastolic (mm Hg) 70 12/23/2012 [facility] Diastolic (mm Hg) 54 12/23/2012 [facility] Systolic (mm Hg) 131 12/23/2012 [facility] Respitory Rate 14 12/23/2012 [facility] Respitory Rate 22 12/23/2012 [facility] Diastolic (mm Hg) 56 12/23/2012 [facility] Systolic (mm Hg) 126 12/23/2012 [facility] Heart Rate 70 12/23/2012 [facility] Height 162.56 cm 12/23/2012 [facility] Weight 113.636 12/23/2012 [facility] Encounters Location Location Encounter Encounter Reason Attending ADM DC Status Source Details Type Number For Provider Date Date Visit [employer] DS [id number] TORRES BECK 12/23 12/23 Active [facility] HEMAPLEG GAEL JR /2012 [facility] PUMP ICD-9# 342.1, 996.2 [employer] Inpatient [id number] Jose KAUR 04/04 04/29 Active [facility] /2012 [facility] Procedures Procedure Code Date Perfomer Comments Source Carpal tunnel release [id number] [facility] Cholecystectomy [id number] [facility] Operation [id number] [facility] Tonsillectomy [id number] [facility]
--- OUTSIDE RECORDS SUMMARY | 2018-05-19 12:24 | XMS REPORT | CCD ---
:1950 Author Organization [facility] Care Team Providers Name Role Phone [...]
--- OUTSIDE RECORDS SUMMARY | 2018-05-19 12:25 | XMS REPORT | CCD ---
:1950 Author Organization [facility] Care Team Providers Name Role Phone Jose Andrews Consulting Provider Allergies, Adverse Reactions, Alerts Substance Reaction Status penicillins Active Problem List Condition Effective Dates Status Atrial fibrillation Active CKD - chronic kidney disease Active Constipation Active CVA - Cerebrovascular accident Resolved Diabetes mellitus Active Hypercholesterolemia Active Hypertension Active hypertonicity of bladder Active morbid obesity Active NSTEMI - Non-ST segment elevation GA Active Spastic hemiplegia Active Medications Medication Instructions [...] IVPB, Drug 04/16/2013 04/19/2013 Discontinued form: INJ, [id number], Dosing Weight 121.5, kg, (CrCl 30 - 49 ml/min), Priority: NOW, Start date: 04/16/13 13:13:00, Duration: 30 day, Stop date: 05/16/13 1:13:00(Same As: Maxipime) vancomycin 1 gm, Route: IVPB, Drug 04/16/2013 04/19/2013 Discontinued form: INJ, [id number], Dosing Weight 121.5, kg, Priority: NOW, Start [...] mg, 1 supp, Route: 04/21/2013 04/26/2013 Discontinued [place], Drug form: SUPP, Daily, Dosing Weight 121.5, kg, Start date: 04/21/13 9:00:00, Duration: 30 day, Stop date: 05/20/13 9:00:00(Same As: Dulcolax, Bisco-Lax) bisacodyl 10 mg rectal 10 mg=1 supp, [place], Daily, 04/30/2013 Ordered suppository Constipation, # 10 [...] mg, 1 supp, Route: 04/26/2013 04/30/2013 Discontinued [place], Drug form: SUPP, Daily, Dosing Weight 121.5, [...] 30 day, Stop date: 05/04/13 3:04:00(Same as: [place] 325/5) Do not exceed 4gm/day of acetaminophen. [...] derivative" Sodium Chloride 0.9% 250 mL, Rate: scalloper 04/13/2013 04/28/2013 Discontinued (titrate) 250 mL for [...] date: 04/05/13 7:28:00(Same as: Mag-Ox 400)Magnesium oxide [id number] elemental magnesiumDose=____mg magnesium oxide (___mg elemental magnesium) [...] IVPB, 04/04/2013 04/06/2013 Discontinued Drug form: PDR/INJ, [id number], Dosing Weight 121.5, kg, Start date: 04/04/13 [...] IVPB, Drug 04/04/2013 04/10/2013 Discontinued form: PDR/INJ, [id number], Dosing Weight 121.5, kg, Start date: 04/04/13 [...] 04/14/2013 04/15/2013 Completed Sodium Chloride 0.9% IV [id number], Dosing Weight 250 mL 121.5, kg, Start [...] Duration: 30 day, Stop date: 05/20/13 9:00:00Chloraseptic Orient(Same as: Chloraseptic, Sore Throat Orient) Insulin regular 4 unit, 0.04 mL, Route: [...] by the [facility] within the [facility]. The [facility] is authorized under the Clinical Laboratory Improvement Amendment of 1988 (CLIA-88) to performhigh complexity testing.INFECTIOUS DISEASES Most recent to oldest [Reference 1 2 3 Range]: Source Adenovirus PCR [employer] Swab (04/05/2013 13:45:25) Adenovirus PCR [Negative] Negative 2 (04/05/2013 13:45:25) Source Parainfluenza Virus PCR [employer] Swab (04/05/2013 13:45:25) Parainfluenza 1 PCR [Negative] Negative (04/05/2013 13:45:25) Parainfluenza 2 PCR [Negative] Negative (04/05/2013 13:45:25) Parainfluenza 3 PCR [Negative] Negative 3 (04/05/2013 13:45:25) Source Respiratory Panel PCR [employer] Swab [employer] Swab (04/06/2013 15:01:33) (04/05/2013 13:45:25) Influenza A [...] verified by the [facility] within [facility]. The [facility] is authorized [...] verified by the [facility] within [facility]. The [facility] is authorized [...] values reflect the clinical guidelines of the [place] [employer].15Interpretive Data: Adult reference range values reflect the clinical guidelines of the [place] [employer].16Interpretive Data: Adult reference range values reflect the clinical guidelines of the [place] [employer].17Result Comment: Critical Result(s) called to [...] 20 - 40 ug/mL Potential Toxicity: >80 ug/[id number] Data: No established reference ranges.27Interpretive Data: No [...] Seen] Slight Slight (04/21/2013 02:11:00) (04/12/2013 01:08:00) [place] Cell [None Seen] Slight *ABN* (04/22/2013 03:12:00) [...] Data: Heparin Therapeutic Range: 57 - 92 [id number] Data: Heparin Therapeutic Range: 57 - 92 [id number] Data: Heparin Therapeutic Range: 57 - 92 [...] IsolatedSTAIN REPORTS Stain ReportGram Stain Performed By: [facility] PROCEDURE:Culture: Viral Complete STATUS: Auth (Verified) BODY SITE: COLLECTED DATE/TIME: 04/06/2013 15:01:06 SOURCE: Nasal Swab FREE TEXT SOURCE: [facility] FINAL REPORTS Final ReportNo Adenovirus No Influenza A or B Virus No Parainfluenza Virus , And No Respiratory Syncytial Virus IsolatedPRELIMINARY REPORTS Preliminary ReportCulture In Progress
--- OUTSIDE RECORDS SUMMARY | 2018-05-19 12:26 | XMS REPORT ---
:1950 [facility] [address] [place] [address] Care Team Providers Name Role Phone Unavailable Unavailable Unavailable Payers Payer Name Policy Type Policy Number Effective Date Expiration Date Problems This patient has no known problems. Allergies, Adverse Reactions, Alerts Allergy Name Allergy Status Severity Reaction(s) Onset Inactive Treating Comments Type Date Date Clinician Hedy RUTH Active LENCHO 2017-12 00:00:0 0 Medications This patient has no known medications.
[2018-05-19] MEDS ORDERED: NA CHLORIDE 0.9% 500 ML ONE (12:47)
[2018-05-19] MEDS: CYCLOPENTOLATE 1% OPTH 2 ML ONE ×3 (12:55→13:20)
[2018-05-19] MEDS: PHENYLEPHRINE 10% OPTH 5ML ONE ×3 (12:55→13:20)
[2018-05-19] MEDS: BUPIVACAINE 0.25% PF 10 ML VIAL ONE ×2 (13:05→13:59)
[2018-05-19] MEDS: LIDOCAINE 2% MPF 5 ML VIAL ONE ×2 (13:06→13:59)
[2018-05-19] MEDS ORDERED: EPINEPHRINE/PF 1 MG/ML AMP ONE (13:20)
[2018-05-19] MEDS ORDERED: MOXIFLOXACIN HCL 10 DROPS/ML **OR USE OPTH ONE (13:20)
[2018-05-19] MEDS ORDERED: BALANCED SALT IRRIG PLAIN 500 ML BTL IRR ONE (13:20)
[2018-05-19] MEDS ORDERED: DUOVISC 1 KIT OPTH ONE (13:20)
[2018-05-19] MEDS ORDERED: PROPOFOL 200 MG/20 ML VIAL IV ONE (13:46)
[2018-05-19] MEDS ORDERED: FENTANYL CITR 100 MCG/2 ML ONE (14:29)
--- NOTE | 2018-05-19 14:58 | P.BOP ---
Preoperative diagnosis: Nuclear sclerotic cataract OD Postoperative diagnosis: Same Primary procedure: Phacoemulsification with IOL OD Estimated blood loss: None Anesthesia: General Complications: None Implants: ZCB00 +18.0 Transferred to: Recovery Room Condition: Good
--- NOTE | 2018-05-20 02:01 | OP ---
Date of Procedure: 05/19/2018 Surgeon: Annie Lowery MD Anesthesiologist: Hugo Pablo CRNA and Xavier Anderson MD. Preoperative Diagnosis: Nuclear sclerotic cataract, right eye. Operation Performed: Phacoemulsification with intraocular lens implant, right eye. Anesthesia: General. Complications: None. Description Of Procedure: In the operating room the patient was prepped and draped in the usual ster ile fashion for ophthalmic surgery. A lid speculum was placed in the right eye. Two paracentesis si caryn were made superiorly and inferiorly in the limbal cornea. Viscoat was placed in the anterior rox mber and a crescent blade was used to make a corneal groove and tunnel, and a keratome was used to en ter the anterior chamber. Provisc was placed in the anterior chamber and a 360 degree capsulotomy wa s performed with a cystitome. The lens was hydrodissected with BSS and rotated freely. The lens was removed with a stop and chop technique. 4.81 phaco CDE was used to remove the lens. Residual chikis x was removed with the irrigation and aspiration. Provisc was placed in the capsular bag. A ZCB00 + 18.0 lens was placed in the capsular bag without complications. Irrigation and aspiration were used to remove residual viscoelastic. The paracentesis sites were hydrated with BSS. The wound and parac entesis sites were inspected and found to be watertight. Vigamox 0.07 cc was placed intracamerally a t the end of the procedure. The eye was irrigated with balanced salt solution. The eye was patched with a soft cotton patch and Chen metal shield. The patient was returned to day surgery in good condition. Comments: The patient was put under general anesthesia because she could not lay flat without pain. Discharge Instructions: Ms. Morgan is discharged to home in good condition and is to follow up with Dr. Lowery in the morning. ALEXANDER/MODL Voice ID: [id number] Report ID: [id number]
== END 2018-05-19 16:14 | disposition home or self-care (01) ==
LOC: OR 12:08
PROVIDERS: ATTEND Ophthalmology Retina Specialist
PROC: 08RJ3JZ Replacement of Right Lens with Synthetic Substitute, Percutaneous Approach (ICD-10-PCS; principal; 2018-05-19 12:15)
DX: H25.11 Age-related nuclear cataract, right eye (principal); H40.10X0 Unspecified open-angle glaucoma, stage unspecified; E11.319 Type 2 diabetes mellitus with unspecified diabetic retinopathy without macular edema; I10 Essential (primary) hypertension; I25.10 Atherosclerotic heart disease of native coronary artery without angina pectoris; E78.00 Pure hypercholesterolemia, unspecified; I25.2 Old myocardial infarction; Z79.82 Long term (current) use of aspirin; Z88.0 Allergy status to penicillin; Z95.1 Presence of aortocoronary bypass graft; Z98.84 Bariatric surgery status; Z83.3 Family history of diabetes mellitus
CPT/HCPCS: 66984; 82962 ×2; J0171; J2704; J3010

== ENCOUNTER 2018-07-21 11:41 | Day surgery (SDC) | payer OTHER ==
[2018-07-17 12:33] LABS: Hematocrit 34.6 % (36.0-45.0); RBC Red Blood Cell Count 3.59 M/uL (3.86-4.86)
[2018-07-17 12:34] LABS: Absolute Lymphocytes (CBC) 1.4 K/uL (0.7-4.9); Absolute Monocytes 0.7 K/uL (0.1-1.3); Absolute Neutrophil 4.7 K/uL (1.8-8.0); Basophils % 0.4 % (0-1.3); Lymphocytes % 19.4 % (15.3-44.8); MPV 8.3 fL (7.6-11.3); Monocytes % 10.2 % (3.3-12.3)
[2018-07-17 12:42] LABS: Potassium 4.4 mmol/L (3.5-5.1)
--- OUTSIDE RECORDS SUMMARY | 2018-07-21 12:06 | XMS REPORT | Continuity of Care Document ---
:1950 Author Organization Interface Problems Problem Status Onset Classification Date Comments Source Date Reported A-FIB, RVR, TROPONIN Active [address] SPASTIC HEMAPLEGIA, Active [facility] PUMP ICD-9# 007 [facility] CKD - chronic kidney Active Problem 12/25/2012 [facility] Constipation Active Problem 12/25/2012 [facility] CVA - Cerebrovascular Resolved Problem 12/25/[address] 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 Diabetes mellitus Active Problem 05/01/2013 [facility] Hypercholesterolemia Active Problem 05/01/2013 [facility] Hypertension Active Problem 05/01/2013 [facility] NSTEMI - Non-ST segment Active Problem 05/01/2013 [facility] Spastic hemiplegia Active Problem 05/01/2013 [facility] ADMINISTRTVE ENCOUNT Active [facility] Medications Medication Details Route Status Patient Ordering Order Source Instructions Provider Date Flomax 0.4 mg, 1 cap, Inactive [facility] Route: PO, Drug 2013 Medical form: [facility], Center Daily, Dosing Weight 121.5, kg, Start date: 04/30/13 10:30:00, Duration: 30 day, Stop date: 05/30/13 9:00:00(Same As: Flomax) "Do Not Crush" carvedilol 3.125 3.125 mg=1 tab, Active [facility] mg oral tablet PO, Q12H, # 180 2013 Medical tab, 2 Center Refill(s) bisacodyl 10 mg 10 mg=1 supp, Active [facility] rectal suppository DC, Daily, 2014 Medical Constipation, # Center 10 supp, 0 Refill(s) bacitracin-polymyx 1 appl, TOP, Active [facility] in B topical BID, # 10 gm, 0 2013 Medical powder Refill(s) Center aspirin 325 mg 325 mg=1 tab, Active [facility] tablet PO, Daily, # 2013 Medical 100 tab, 2 Center Refill(s) Klonopin 0.5 mg 0.5 mg=1 tab, Active [facility] oral tablet PO, Bedtime, # 2013 Medical 30 tab, 1 Center Refill(s) amLODIPine 10 mg 10 mg=1 tab, Active [facility] oral tablet PO, Daily, # 90 2014 Medical tab, 2 Center Refill(s) AMIODarone 200 mg 200 mg=1 tab, Active [facility] oral tablet PO, Daily, # 90 2014 Medical tab, 2 Center Refill(s) pregabalin 100 mg 100 mg=1 cap, Active [facility] oral capsule PO, Daily, # 30 2014 Medical cap, 1 Center Refill(s) insulin glargine 50 unit=0.5 mL, Active [facility] 100 units/mL SUB-Q, Daily, # 2013 Medical subcutaneous 10 mL, 0 Center solution Refill(s) insulin aspart 100 15 unit=0.15 Active [facility] units/mL mL, SUB-Q, 2013 Medical subcutaneous TID-Before Center solution Meals, # 15 mL, 3 Refill(s) digoxin 125 mcg 125 microgram=1 Active [facility] (0.125 mg) oral tab, PO, Daily, 2014 Medical tablet # 90 tab, 2 Center Refill(s) atorvastatin 40 mg 40 mg=1 tab, Active [facility] oral tablet PO, Bedtime, # 2013 Medical 90 tab, 3 Center Refill(s) simethicone 80 mg 80 mg=1 tab, Active [facility] oral tablet, NG, Q6H, 2014 Medical chewable bloating, # 90 Center tab, 0 Refill(s) senna 8.6 mg oral 8.6 mg=1 tab, Active [facility] tablet PO, Daily, # 36 2014 Medical tab, 1 Center Refill(s) lisinopril 5 mg 5 mg=1 tab, PO, Active [facility] oral tablet Daily, # 90 2014 Medical tab, 2 Center Refill(s) levetiracetam 500 500 mg=1 tab, Active [facility] mg oral tablet PO, Q12H, # 180 2014 Medical tab, 3 Center Refill(s) hydrALAZINE 50 mg 50 mg=1 tab, Active [facility] oral tablet PO, Q8H, # 90 2014 Medical tab, 3 Center Refill(s) Lasix 40 mg oral 40 mg=1 tab, Active [facility] tablet PO, Daily, # 90 2014 Medical tab, 2 Center Refill(s) fenofibrate 48 mg 48 mg=1 tab, Active [facility] oral tablet PO, Daily, # 90 2014 Medical tab, 2 Center Refill(s) Colace 100 mg oral 100 mg=1 cap, Active [facility] capsule PO, BID, # 90 2014 Medical cap, 2 Center Refill(s) clopidogrel 75 mg 75 mg=1 tab, Active [facility] oral tablet PO, Daily, # 90 2014 Medical tab, 2 Center Refill(s) insulin aspart 3 unit, 0.03 Inactive [facility] mL, Route: [address] [place] [address] SUB-Q, Drug Center form: SOLN, ONCE, Dosing Weight 121.5, kg, Priority: NOW, Start date: 04/29/13 12:31:00, Stop date: 04/29/13 12:31:00Roll in palms of hands gently; Do not shake vigorously. (Same as: NovoLog) "single patient use only" Stable for 28 days at room temperature. Expires in days from D ate tolterodine 2 mg, 1 tab, No Longer [facility] Route: PO, Drug Active 2013 Medical form: TAB, Center Q12H, Dosing Weight 121.5, kg, Start date: 04/29/13 12:30:00, Duration: 30 day, Stop date: 05/29/13 9:00:00(Same As: Detrol) tolterodine 1 mg, 1 tab, Inactive [facility] Route: PO, Drug 2013 Medical form: TAB, BID, Center Dosing Weight 121.5, kg, Start date: 04/29/13 12:15:00, Duration: 30 day, Stop date: 05/29/13 9:00:00(Same As: Detrol) AMIODarone 200 mg, 1 tab, No Longer [facility] Route: PO, Drug Active 2013 Medical form: TAB, Center Daily, Dosing Weight 121.5, kg, Start date: 04/29/13 9:00:00, Duration: 30 day, Stop date: 05/28/13 9:00:00(Same as: Cordarone) AMIODarone 200 mg, Route: Inactive [facility] 04/28[facility] Katja PO, Drug form: 2013 Medical TAB, BID, Center Dosing Weight 121.5, kg, Start date: 04/28/13 17:00:00, Duration: 30 day, Stop date: 05/28/13 9:00:00 heparin 7,500 unit, 1.5 No Longer [facility] 04/28[facility] Kat[facility] mL, Route: Active 2013 Medical SUB-Q, Drug Center form: INJ, Q8H, Dosing Weight 121.5, kg, Start date: 04/28/13 16:00:00, Duration: 30 day, Stop date: 05/28/13 8:00:00porcine heparin multivitamin with 1 tab, Route: No Longer [facility] 04/28[facility] Katja iron PO, Drug Form: Active 2013 Medical TAB, Dosing Center Weight 121.5, kg, Daily, Start date: 04/28/13 9:00:00, Duration: 30 day, Stop date: 05/27/13 9:00:00 Coreg 3.125 mg, 1 No Longer [facility] 04/28[facility] Katja tab, Route: PO, Active 2013 Medical Drug form: TAB, Center Q12H, Dosing Weight 121.5, kg, Start date: 04/27/13 21:00:00, Duration: 30 day, Stop date: 05/27/13 9:00:00Give with food. (Same As: Coreg) multivitamin with 1 tab, Route: No Longer [facility] minerals PO, Drug Form: Active 2013 Medical TAB, Daily, Center Start date: 04/27/13 11:30:00, Duration: 30 day, Stop date: 05/27/13 9:00:00(Same as:Thera-M, Theragran-M) Give with food. senna 8.6 mg, 1 tab, No Longer [facility] [place] Route: PO, Drug Active 2013 Medical Form: TAB, Center Dosing Weight 121.5, kg, Daily, Start date: 04/27/13 9:00:00, Duration: 30 day, Stop date: 05/26/13 9:00:00(Same as: Senokot) Dulcolax Laxative 10 mg, 1 supp, No Longer [facility] Route: DC, Drug Active 2013 Medical form: SUPP, Center Daily, Dosing Weight 121.5, kg, PRN Constipation, Start date: 04/26/13 14:13:00, Duration: 30 day, Stop date: 05/26/13 14:12:00(Same As: Dulcolax, Bisco-Lax) Cymbalta 30 mg, Route: Inactive [facility] [place] PO, Drug form: 2013 Medical DRC, Daily, Center Dosing Weight 121.5, kg, Start date: 04/26/13 9:00:00, Duration: 30 day, Stop date: 05/25/13 9:00:00 Keppra 500 mg, 1 tab, No Longer [facility] Route: PO, Drug Active 2013 Medical form: TAB, Center Q12H, Dosing Weight 121.5, kg, Start date: 04/25/13 9:00:00, Duration: 30 day, Stop date: 05/24/13 21:00:00(Same as:Keppra) docusate 100 mg, 10 mL, No Longer [facility] Route: PO, Drug Active 2013 Medical form: LIQ, BID, Center Dosing Weight 121.5, kg, Start date: 04/25/13 9:00:00, Duration: 30 day, Stop date: 05/24/13 17:00:00(Same as: Colace) insulin glargine 50 unit, 0.5 No Longer [facility] mL, Route: Active 2013 Medical [facility] form: INJ, Daily, Dosing Weight 121.5, kg, Start date: 04/24/13 9:00:00, Stop date: 05/23/13 9:00:00Same as Lantus Solostar PEN "single patient use only" Stable for 28 days at room temperature. Expires in days from D ate insulin aspart 15 unit, 0.15 No Longer [facility] mL, Route: Active 2013 Medical [facility], Drug Center form: SOLN, TID-Before Meals, Dosing Weight 121.5, kg, Start date: 04/23/13 11:30:00, Stop date: 05/23/13 7:30:00Roll in palms of hands gently; Do not shake vigorously. (Same as: NovoLog) "single patient use only" Stable for 28 days at room temperature. Expires in days from D ate insulin aspart 10 unit, 0.1 No Longer [facility] mL, Route: Active 2013 [facility], Drug Center form: SOLN, TID-Before Meals, Dosing Weight 121.5, kg, PRN Blood Glucose Results, Start date: 04/23/13 10:10:00, Duration: 30 day, Stop date: 05/23/13 10:09:00Roll in palms of hands gently; Do not shake vigorously. (Same as: NovoLog) "single patient use only" Stable for 28 days at room temperature. Expires in days from D ate glucagon 1 mg, Route: Inactive [facility] IM, PRN, Dosing 2013 Medical Weight 121.5, Center kg, PRN Blood Glucose Results, Start date: 04/23/13 10:10:00, Duration: 30 day, Stop date: 05/23/13 10:09:00 Dextrose 50% 50 mL, Route: Inactive [facility] Syringe IVP, Dosing 2013 Medical Weight 121.5, Center kg, PRN, PRN Blood Glucose Results, Start date: 04/23/13 10:10:00, Duration: 30 day, Stop date: 05/23/13 10:09:00 Seroquel 25 mg, 1 tab, No Longer [facility] Route: PO, Drug Active 2013 Medical form: TAB, QAM, Center Dosing Weight 121.5, kg, Start date: 04/23/13 9:00:00, Duration: 30 day, Stop date: 05/22/13 9:00:00(Same as: Seroquel) Seroquel 50 mg, 2 tab, No Longer [facility] Route: PO, Drug Active 2013 Medical form: TAB, Center Bedtime, Dosing Weight 121.5, kg, Start date: 04/22/13 21:00:00, Duration: 30 day, Stop date: 05/21/13 21:00:00(Same as: Seroquel) Triple Antibiotic 1 appl, Route: Inactive [facility] 04/22[facility] topical ointment TOP, BID, Drug ales 2013 Medical form: OINT, Center Start date: 04/22/13 17:00:00, Duration: 30 day, Stop date: 05/22/13 9:00:00 bacitracin-polymyx 1 appl, Route: No Longer [facility] 04/22[facility] in B topical TOP, BID, Drug Active ales 2013 Medical form: OINT, Center Start date: 04/22/13 17:00:00, Duration: 30 day, Stop date: 05/22/13 9:00:00(Same As: Polysporin) Prinivil 5 mg, 1 tab, No Longer [facility] 04/22[facility] Route: PO, Drug Active ales 2013 Medical form: TAB, Center Daily, Dosing Weight 121.5, kg, Start date: 04/22/13 9:00:00, Duration: 30 day, Stop date: 05/21/13 9:00:00(Same as: Prinivil Zestril) insulin aspart 12 unit, 0.12 No Longer [facility] mL, Route: Active 2013 Medical SUB-Q, [...] sodium 15 mmol, 15 mL, Inactive [facility] [place] glycerophosphate + Route: IVPB, 2013 Medical Sodium Chloride PRN, Dosing Center 0.9% IV 250 mL Weight 121.5, kg, PRN Abnormal Lab Result, Start date: 04/22/13 7:40:00, Duration: 1 doses or times, Stop date: 04/22/13 16:00:00 insulin detemir 40 unit, 0.4 No Longer [facility] mL, Route: Active 2013 Medical SUB-Q, Drug Center form: INJ, Q12H, Dosing Weight 121.5, kg, Start date: 04/21/13 21:00:00, Stop date: 05/21/13 9:00:00Same as Levemir "single patient use only" aspirin 325 mg, 1 tab, No Longer [facility] Route: DHT, Active 2012 Medical Drug form: TAB, Center Daily, Dosing Weight 121.5, kg, Start date: 04/21/13 9:00:00, Duration: 30 day, Stop date: 05/20/13 9:00:00Take with food. Dulcolax Laxative 10 mg, 1 supp, No Longer [facility] Route: DC, Drug Active 2012 Medical form: SUPP, Center Daily, Dosing Weight 121.5, kg, Start date: 04/21/13 9:00:00, Duration: 30 day, Stop date: 05/20/13 9:00:00(Same As: Dulcolax, Bisco-Lax) Lyrica 100 mg, 1 cap, No Longer [facility] [place] Route: PO, Drug Active 2012 Medical form: CAP, Center Daily, Dosing Weight 121.5, kg, Start date: 04/21/13 9:00:00, Duration: 30 day, Stop date: 05/19/13 21:00:00(Same as: Lyrica) Prevacid 30 mg, 10 mL, No Longer [facility] [place] Route: DHT, Active 2012 Medical Drug form: Center SUSP, Daily, Dosing Weight 121.5, kg, Start date: 04/21/13 9:00:00, Duration: 30 day, Stop date: 05/20/13 9:00:00Take 1 hour before or 2 hours after meal; Expires in 14 days. Shake well before use. (Same as:Prevacid) Compounded Product - formulation not commercially available Seroquel 25 mg, 1 tab, No Longer [facility] [place] Route: PO, Drug Active ales 2012 Medical form: TAB, BID, Center Dosing Weight 121.5, kg, Start date: 04/21/13 9:00:00, Duration: 30 day, Stop date: 05/20/13 17:00:00(Same as: Seroquel) insulin detemir 35 unit, 0.35 Inactive [facility] [place] mL, Route: 2012 Medical SUB-Q, Drug Center form: INJ, Q12H, Dosing Weight 121.5, kg, Start date: 04/20/13 21:00:00, Duration: 30 day, Stop date: 05/20/13 9:00:00Same as Levemir "single patient use only" Keppra 500 mg, 5 mL, No Longer [facility] [place] Route: NJ, Drug Active 2012 Medical form: SOLN, Center Q12H, Dosing Weight 121.5, kg, Start date: 04/20/13 21:00:00, Duration: 30 day, Stop date: 05/20/13 9:00:00 diphenhydrAMINE 25 mg, 0.5 mL, Inactive [facility] [place] Route: IVP, 2012 Medical Drug form: INJ, Center ONCE, Dosing Weight 121.5, kg, PRN Insomnia, Start date: 04/20/13 20:08:00(Same as: Benadryl) docusate 100 mg, 10 mL, No Longer [facility] Route: DHT, Active 2012 Medical Drug form: LIQ, Center BID, Dosing Weight 121.5, kg, Start date: 04/20/13 17:00:00, Duration: 30 day, Stop date: 05/20/13 9:00:00(Same as: Colace) Lasix 40 mg, 4 mL, No Longer [facility] Route: IVP, Active 2012 Medical Drug form: INJ, Center BID, Dosing Weight 121.5, kg, Start date: 04/20/13 17:00:00, Duration: 30 day, Stop date: 05/20/13 9:00:00(Same as: Lasix) lactulose 20 gm, 30 ml, Inactive [facility] [place] Route: PO, Drug 2012 Medical Form: SYRP, Center Dosing Weight 121.5, kg, ONCE, Within 4 hours, Start date: 04/20/13 14:48:00, Stop date: 04/20/13 14:48:00(Same as:Chronulac) phenol topical 1 spray, Route: No Longer [facility] [place] 1.4% spray TOP, QID, Drug Active 2012 Medical form: SPRY, Center Start date: 04/20/13 13:00:00, Duration: 30 day, Stop date: 05/20/13 9:00:00Chlorase ptic [place] (Same as: Chloraseptic, Sore Throat [place]) simethicone 80 mg, 1 tab, No Longer [facility] Route: NG, Drug Active 2012 Medical form: [place], Center Q6H, Dosing Weight 121.5, kg, Priority: NOW, Start date: 04/20/13 12:00:00, Stop date: 05/20/13 6:00:00(Same as: Mylicon) Milk of Magnesia 30 ml, Route: No Longer [facility] PO, Drug Form: Active 2012 Medical SUSP, Dosing Center Weight 121.5, kg, Daily, NOW, Start date: 04/20/13 12:00:00, Duration: 30 day, Stop date: 05/20/13 9:00:00(Same as: Milk of Sammy, MOM) insulin aspart 6 unit, 0.06 No Longer [facility] mL, Route: Active ales 2012 Medical [...] 50% 12.5 gm, 25 mL, No Longer [facility] Syringe Route: IVP, Active 2012 Medical Drug Form: INJ, Center Dosing Weight 121.5, kg, PRN, PRN Blood Glucose Results, Start date: 04/20/13 2:28:00, Duration: 30 day, Stop date: 05/20/13 2:27:00 glucagon 1 mg, Route: No Longer [facility] IM, Drug form: Active 2012 Medical PDR/INJ, PRN, Center Dosing Weight 121.5, kg, PRN Blood Glucose Results, Start date: 04/20/13 2:28:00, Duration: 30 day, Stop date: 05/20/13 2:27:00 acetaminophen 650 mg, 2 tab, No Longer [facility] Route: PO, Drug Active 2012 Medical form: TAB, Q6H, Center Dosing Weight 121.5, kg, PRN Pain, Priority: NOW, Start date: 04/19/13 19:23:00, Duration: 30 day, Stop date: 05/19/13 19:22:00Do not exceed 4 gm/day. (Same as: Tylenol) AMIODarone 400 mg, 2 tab, No Longer [facility] [place] Route: PO, Drug Active 2012 Medical form: TAB, BID, Center Dosing Weight 121.5, kg, Start date: 04/19/13 17:00:00, Duration: 30 day, Stop date: 05/19/13 9:00:00(Same as: Cordarone) heparin 5,000 unit, 1 No Longer [facility] mL, Route: Active 2012 Medical SUB-Q, Drug Center form: INJ, Q8H, Dosing Weight 121.5, kg, Start date: 04/19/13 16:00:00, Duration: 30 day, Stop date: 05/19/13 8:00:00porcine heparin insulin detemir 40 unit, 0.4 No Longer [facility] mL, Route: Active 2012 Medical SUB-Q, Drug Center form: INJ, Q12H, Dosing Weight 121.5, kg, Start date: 04/19/13 11:30:00, Duration: 30 day, Stop date: 05/19/13 9:00:00Same as Levemir "single patient use only" potassium chloride 20 mEq, 100 mL, Inactive [facility] Route: IVPB, 2012 Medical Drug form: INJ, Center ONCE, Dosing Weight 121.5, kg, Start date: 04/19/13 11:06:00, Stop date: 04/19/13 11:06:00(Same as: KCL) Infuse no faster than 10 mEq/hr if given peripherally. Plavix 75 mg, 1 tab, No Longer [facility] [place] Route: PO, Drug Active 2012 Medical form: TAB, Center Daily, Dosing Weight 121.5, kg, Start date: 04/19/13 9:48:00, Duration: 30 day, Stop date: 05/19/13 9:00:00(Same As: Plavix) Norvasc 10 mg, 1 tab, No Longer [facility] Route: PO, Drug Active 2012 Medical form: TAB, Center Daily, Dosing Weight 121.5, kg, Start date: 04/19/13 9:00:00, Duration: 30 day, Stop date: 05/18/13 9:00:00(Same as: Norvasc) hydrALAZINE 25 mg 50 mg, 1 tab, No Longer [facility] oral tablet Route: PO, Drug Active 2012 Medical form: TAB, Q8H, Center Dosing Weight 121.5, kg, Start date: 04/19/13 0:00:00, Duration: 30 day, Stop date: 05/18/13 16:00:00(Same as: Apresoline) May interfere w/enteral feedings Take With Food amLODIPine 5 mg, Route: Inactive [facility] 04/19[facility] PO, Drug form: 2012 Medical TAB, ONCE, Center Dosing Weight 121.5, kg, Priority: Routine, Start date: 04/18/13 23:00:00, Stop date: 04/18/13 23:00:00 hydrALAZINE 25 mg 25 mg, 1 tab, Inactive [facility] 04/18[facility] oral tablet Route: PO, Drug 2012 Medical form: TAB, Q8H, Center Dosing Weight 121.5, kg, Start date: 04/18/13 16:00:00, Duration: 30 day, Stop date: 05/18/13 8:00:00(Same as: Apresoline) May interfere w/enteral feedings Take With Food. Norvasc 5 mg, 1 tab, Inactive [facility] 04/18[facility] Route: PO, Drug 2012 Medical form: TAB, Center Daily, Dosing Weight 121.5, kg, Start date: 04/18/13 14:52:00, Duration: 30 day, Stop date: 05/18/13 9:00:00(Same as: Norvasc) Procardia 30 mg, Route: Inactive [facility] 04/18[facility] PO, Drug form: alerosario 2012 Medical CAP, Q8H, Center Dosing Weight 121.5, kg, Start date: 04/18/13 14:30:00, Duration: 30 day, Stop date: 05/18/13 8:00:00 hydrALAZINE 10 mg, 0.5 mL, No Longer [facility] 04/18[facility] Route: IVP, Active ales 2012 Medical Drug form: INJ, Center Q4H, Dosing Weight 121.5, kg, PRN Elevated BP, Start date: 04/18/13 14:25:00, Duration: 30 day, Stop date: 05/18/13 14:24:00, SBP >130 metoprolol 5 mg/5 5 mg, 5 mL, Inactive [facility] 04/18[facility] ml INJ Route: IVP, ales 2012 Medical Drug form: INJ, Center ONCE, Dosing Weight 121.5, kg, Start date: 04/18/13 11:05:00, Stop date: 04/18/13 11:05:00 metoprolol 12.5 mg, 1 ea, Inactive [facility] [place] tartrate Route: PO, Drug 2012 Medical form: TAB, Center ONCE, Dosing Weight 121.5, kg, Start date: 04/18/13 10:20:00, Stop date: 04/18/13 10:20:00(Same as: Lopressor) Coreg 6.25 mg, 1 tab, No Longer [facility] Route: PO, Drug Active 2012 Medical form: TAB, Center Q12H, Dosing Weight 121.5, kg, Start date: 04/18/13 9:00:00, Duration: 30 day, Stop date: 05/17/13 21:00:00Give with food. (Same As: Coreg) lisinopril 5 mg, 1 tab, No Longer [facility] Route: PO, Drug Active ales 2012 Medical form: TAB, Center Daily, Dosing Weight 121.5, kg, Start date: 04/18/13 9:00:00, Duration: 30 day, Stop date: 05/17/13 9:00:00(Same as: Prinivil, Zestril) metoprolol 5 mg/5 5 mg, 5 mL, Inactive [facility] ml INJ Route: IVP, 2012 Medical Drug form: INJ, Center ONCE, Dosing Weight 121.5, kg, Start date: 04/17/13 15:59:00, Stop date: 04/17/13 15:59:00(Same as: Lopressor) Push over 2 minutes Ofirmev 1,000 mg, 100 No Longer [facility] 04/17[facility] mL, Route: IV, Active ales 2012 Medical Drug form: INJ, Center Q6H, Dosing Weight 121.5, kg, for > or=50 kg, Start date: 04/17/13 12:00:00, Stop date: 05/19/13 6:00:00Infuse over 15 minutes Do not exceed 4gm/day of acetaminophen AMIODarone 900 mg 482 mL, Rate: No Longer [facility] 04/17[facility] + Dextrose 5% in Infuse as Active ales 2012 Medical Water (Titrate) IV directed, Center 482 mL Dosing Weight 121.5, kg, Route: IV, Total Volume: 500 mL, Start Date: 04/17/13 3:57:00, Duration: 30 day, Stop date: 05/17/13 3:56:00, Replace Every: 24 hrNon PVC bag vancomycin 2 gm, Route: Inactive [facility] 04/16[facility] IVPB, ONCE, 2012 Medical Dosing Weight Center 121.5, kg, Start date: 04/16/13 14:44:00, Stop date: 04/16/13 14:44:00 Flagyl 500 mg, 100 mL, No Longer [facility] 04/16[facility] Route: IVPB, Active ale2012 Medical Drug form: INJ, Center [id number], Dosing Weight 121.5, kg, Priority: NOW, Start date: 04/16/13 13:13:00, Duration: 30 day, Stop date: 05/16/13 5:13:00(Same as: Flagyl) Avoid alcohol. cefepime 1 gm, Route: No Longer [facility] 04/16[facility] IVPB, Drug Active ale2012 Medical form: INJ, Center [id number], Dosing Weight 121.5, kg, (CrCl 30 - 49 ml/min), Priority: NOW, Start date: 04/16/13 13:13:00, Duration: 30 day, Stop date: 05/16/13 1:13:00(Same As: Maxipime) vancomycin 1 gm, Route: No Longer [facility] 04/16[facility] IVPB, Drug Active ale2012 Medical form: INJ, Center [id number], Dosing Weight 121.5, kg, Priority: NOW, Start date: 04/16/13 13:12:00, Stop date: 05/15/13 13:12:00(Same As: Vancocin) Detrol LA 2 mg, 1 cap, No Longer [facility] 04[facility] Route: PO, Drug Active 2012 Medical form: ERCAP, Center Daily, Start date: 04/16/13 9:00:00, Duration: 30 day, Stop date: 05/15/13 9:00:00(Same As: Detrol LA) (Do Not Crush) Lyrica 100 mg, 1 cap, No Longer [facility] 04/16[facility] Route: PO, Drug Active 2012 Medical form: CAP, Center Daily, Dosing Weight 121.5, kg, Start date: 04/16/13 9:00:00, Duration: 30 day, Stop date: 05/15/13 9:00:00(Same as: Lyrica) Lopressor 5 mg, 5 mL, Inactive [facility] Route: IVP, 2012 Medical Drug form: INJ, Center ONCE, Dosing Weight 121.5, kg, Start date: 04/15/13 20:20:00, Stop date: 04/15/13 20:20:00(Same as: Lopressor) Ofirmev 1,000 mg, 100 No Longer [facility] 04/15[facility] mL, Route: IV, Active 2012 Medical Drug form: INJ, Center Q6H, Dosing Weight 121.5, kg, for > or=50 kg, Priority: NOW, Start date: 04/15/13 17:45:00, Duration: 6 doses or times, Stop date: 04/17/13 0:00:00Infuse over 15 minutes Do not exceed 4gm/day of acetaminophen albumin human 25% 25 gm, 100 mL, No Longer [facility] intravenous Route: IVPB, Active 2012 Medical solution Drug form: INJ, Center Q4H, Dosing Weight 121.5, kg, Priority: NOW, Start date: 04/15/13 13:43:00, Duration: 6 doses or times, Stop date: 04/16/13 10:00:00Lot #: Mfg: (Same as: Plasbumin-25) "blood product derivative" Lasix 100 mg in 100 mg, 10 mL, No Longer [facility] 100 ml IV titrate Rate: 5 [...] 50 50 mg, 50 mL, [facility]: 0.5 Active ales 2012 Medical mg/hr, Dosing Center Weight 121.5, kg, Route: IV, Total Volume: 50, Start date: 04/15/13 8:15:00, Duration: 30 day, Stop date: 05/15/13 8:14:00, Replace Every: 24 hr sodium 15 mmol, 15 mL, Inactive Bon 04/15[facility] glycerophosphate + Route: IV, Drug 2012 Medical Sodium Chloride form: INJ, Center 0.9% IV 250 mL ONCE, Start date: 04/15/13 8:13:00, Stop date: 04/15/13 8:13:00Same as: Glycophos Non-Formulary Sodium Chloride 100 mL, Rate: Inactive Jasbir 04/15[facility] 0.9% IV 100 mL + 0.5 mg/hr, 2012 Medical hydromorphone 20 Route: IV, Center mg Dosing Weight 121.5 kg, Total Volume: 100, Priority: NOW, Start date: 04/15/13 8:10:00, Duration: 30 day, Stop date: 05/15/13 8:09:00 sodium phosphate 15 mmol, Route: Inactive Bon [address] IVPB, PRN, 2012 Medical Dosing Weight Center 121.5, kg, PRN Abnormal Lab Result, Start date: 04/15/13 8:09:00, Duration: 30 day, Stop date: 05/15/13 8:08:00 Lasix 40 mg, 4 mL, Inactive [facility] 04/15[facility] Route: IV, Drug 2012 Medical form: INJ, Center ONCE, Dosing Weight 121.5, kg, Start date: 04/15/13 1:54:00, Stop date: 04/15/13 1:54:00(Same as: Lasix) ipratropium 0.5 mg, 2.5 mL, No Longer Jasbir 04/15[facility] Route: NEB, Active 2012 Medical Drug form: Center SOLN, Q8H, Dosing Weight 121.5, kg, Start date: 04/15/13 0:00:00, Duration: 30 day, Stop date: 05/14/13 15:00:00SEE RT DOCUMENTATION (Same as:Atrovent) furosemide 40 mg, 4 mL, Inactive Keyshawn [address] [place] [address] Route: IV, Drug 2012 Medical form: INJ, Center ONCE, Dosing Weight 121.5, kg, Priority: NOW, Start date: 04/14/13 22:54:00, Stop date: 04/14/13 22:54:00(Same as: Lasix) albumin human 25% 25 gm, 100 mL, Inactive Keyshawn 12/25[facility] intravenous Route: IV, Drug 2012 Medical solution form: INJ, Center ONCE, Dosing Weight 121.5, kg, Start date: 04/14/13 21:30:00, Stop date: 04/14/13 21:30:00Lot #: Mfg: (Same as: Plasbumin-25) "blood product derivative" Lasix 40 mg, 4 mL, Inactive [facility] Route: IV, Drug 2012 Medical form: INJ, Center ONCE, Dosing Weight 121.5, kg, Start date: 04/14/13 21:22:00, Stop date: 04/14/13 21:22:00(Same as: Lasix) Versed 50 mg in NS 50 mg, 50 mL, No Longer [facility] 50 ml (titrate) IV Rate: Titrate Active ales 2012 Medical 50 mg as directed, Center Dosing Weight 121.5, kg, Route: IV, Total Volume: 50 mL, Start Date: 04/14/13 21:20:00, Duration: 30 day, Stop date: 05/14/13 21:19:00, Replace Every: 24 hr(Same as: Versed) vancomycin (SCIP) 1,750 mg, No Longer Rice 04/15[facility] + Sodium Chloride Route: IVPB, Active 2012 Medical 0.9% IV 250 mL [id number], Dosing Center Weight 121.5, kg, Start date: 04/14/13 20:00:00, Duration: 2 doses or times, Stop date: 04/15/13 8:00:00(Same As: Vancocin) Vancomycin FOR IV SET ONLY albumin human 25% 25 gm, 100 mL, No Longer Jasbir 04/15[facility] intravenous Route: IV, Drug Active 2012 Medical solution form: INJ, Center ONCE, Dosing Weight 121.5, kg, Start date: 04/14/13 19:45:00, Stop date: 04/14/13 19:45:00Lot #: Mfg: (Same as: Plasbumin-25) "blood product derivative" NS (Bolus) IV 500 500 mL, Rate: Inactive [place] [id number] [place] [address] mL 500 ml/hr, 2012 Medical Infuse over: 1 Center hr, Route: IV, Dosing Weight 121.5 kg, Total Volume: 500, Priority: STAT, Start date: 04/14/13 19:45:00, Duration: 1 doses or times, Stop date: 04/14/13 20:44:00, Bolus DoseBolus Dose albumin human 25% 25 gm, 100 mL, Inactive [place] [id number] [place] [address] intravenous Route: IV, Drug 2012 Medical solution form: INJ, Center ONCE, Dosing Weight 121.5, kg, Start date: 04/14/13 19:14:00, Stop date: 04/14/13 19:14:00Lot #: Mfg: (Same as: Plasbumin-25) "blood product derivative" Versed 2 mg, 2 mL, [facility] Longer [address] [facility]: IVP, Active 2012 Medical Drug form: INJ, Center Q2H, Dosing Weight 121.5, kg, PRN Sedation, Start date: 04/14/13 17:05:00, Duration: 30 day, Stop date: 05/14/13 17:04:00, as needed for anxiety(Same as: Versed) Zofran 4 mg, 2 mL, No Longer [address] Route: IVP, Active 2012 Medical Drug form: INJ, Center Q6H, Dosing Weight 121.5, kg, PRN Nausea, Start date: 04/14/13 17:04:00, Duration: 30 day, Stop date: 05/14/13 17:03:00(Same as: Zofran) ipratropium 0.5 mg, 2.5 mL, No Longer [address] [facility] Route: NEB, Active 2012 Medical Drug form: Center SOLN, PRN, Dosing Weight 121.5, kg, PRN Wheezing, Start date: 04/14/13 17:03:00, Duration: 30 day, Stop date: 05/14/13 17:02:00SEE RT DOCUMENTATION (Same as:Atrovent) FENTanyl 1000 mcg 1,000 No Longer [facility] in 20 mL (titrate) microgram, 20 Active [...] 45 mmol, 45 mL, No Longer [facility] glycerophosphate + Route: IV, Drug Active 2012 Medical Sodium Chloride form: INJ, PRN, Center 0.9% IV 250 mL PRN Abnormal Lab Result, Start date: 04/14/13 14:43:00, Duration: 30 day, Stop date: 05/14/13 14:42:00Same as: Glycophos Non-Formulary sodium 30 mmol, 30 mL, No Longer [facility] glycerophosphate + Route: IV, Drug Active 2012 Medical Sodium Chloride form: INJ, PRN, Center 0.9% IV 250 mL PRN Abnormal Lab Result, Start date: 04/14/13 14:40:00, Duration: 30 day, Stop date: 05/14/13 14:39:00Same as: Glycophos Non-Formulary sodium 15 mmol, 15 mL, No Longer [facility] glycerophosphate + Route: IV, Drug Active 2012 Medical Sodium Chloride form: INJ, PRN, Center 0.9% IV 250 mL PRN Abnormal Lab Result, Start date: 04/14/13 14:39:00, Duration: 30 day, Stop date: 05/14/13 14:38:00Same as: Glycophos Non-Formulary magnesium sulfate 2 gm, 50 mL, No Longer [facility] Route: IVPB, Active 2012 Medical Drug form: INJ, Center PRN, Dosing Weight 121.5, kg, PRN Abnormal Lab Result, Start date: 04/14/13 14:15:00, Duration: 30 day, Stop date: 05/14/13 14:14:00, FOR ICU USE ONLYFOR ICU USE ONLY calcium gluconate 1 gm, 10 mL, No Longer [facility] + Sodium Chloride Route: IVPB, 2012 Medical 0.9% IV 50 mL PRN, Dosing Center Weight 121.5, kg, PRN Abnormal Lab Result, Start date: 04/14/13 14:15:00, Duration: 30 day, Stop date: 05/14/13 14:14:00, FOR ICU USE ONLYFOR ICU USE ONLY potassium chloride 10 mEq, 50 mL, No Longer [facility] Route: IVPB, Active 2012 Medical Drug form: INJ, Center PRN, Dosing Weight 121.5, kg, PRN Abnormal Lab Result, Via peripheral line, Start date: 04/14/13 14:15:00, Duration: 30 day, Stop date: 05/14/13 14:14:00, FOR ICU USE ONLYFOR ICU USE ONLY(Same as: KCL) Infuse over 2 hours. sodium phosphate 30 mmol, Route: Inactive [facility] IVPB, PRN, 2012 Medical Dosing Weight Center 121.5, kg, PRN Abnormal Lab Result, Start date: 04/14/13 14:15:00, Duration: 30 day, Stop date: 05/14/13 14:14:00, FOR ICU USE ONLYFOR ICU USE ONLY potassium 45 mmol, 15 mL, No Longer [facility] phosphate Route: IVPB, Active 2012 Medical Drug form: INJ, Center PRN, Dosing Weight 121.5, kg, PRN Abnormal Lab Result, Start date: 04/14/13 14:15:00, Duration: 30 day, Stop date: 05/14/13 14:14:00, FOR ICU USE ONLYFOR ICU USE ONLY(Same as: K Phosphate.) 1 mMol phoshate has 1.47 mEq potassium Infuse over 4 hours potassium 15 mmol, 5 mL, No Longer [facility]ism 04/14[facility] phosphate + Sodium Route: IVPB, Active 2012 [...] 25 gm, 50 mL, No Longer [facility] Syringe Route: IVP, Active 2012 Medical Drug Form: INJ, Center Dosing Weight 121.5, kg, PRN, PRN Blood Glucose Results, Start date: 04/14/13 14:15:00, Duration: 30 day, Stop date: 05/14/13 14:14:00 Insulin regular 99 mL, Rate: No Longer [facility] 100 unit + Sodium Start Insulin [...] mg + 242 mL, Rate: No Longer [facility] Sodium Chloride Start at 0.1 Active ales 2012 Medical 0.9% (titrate) 242 micrograms/kg/m Center mL in., Dosing Weight 121.5, kg, Route: IV, Total Volume: 250, Start Date: 04/14/13 14:15:00, Stop date: 05/14/13 14:14:00, Replace Every: 24 hr milrinone 20 mg in 20 mg, 100 mL, No Longer [facility] D5W 100 ml Premix Rate: 0.375 Active ales 2012 Medical (titrate) 20 mg microgram/kg/mi Center n, Dosing Weight 121.5, kg, Route: IV, Total Volume: 100, Titrate to cardiac Index >2.5., Start date: 04/14/13 14:15:00, Duration: 30 day, Stop date: 05/14/13 14:14:00, Replace Every: 24 hr(Same as:Primacor) Final conc=0.2 mg/ml. Premix solution. fentanyl 50 microgram, 1 No Longer [facility] mL, Route: IVP, Active ales 2012 [...] acetaminophen-10 1,000 mg, 100 No Longer Jasbir 04/14[facility]ja mg/mL INTRAVENOUS mL, Route: IV, Active 2012 Medical solution Drug form: INJ, Center Q6H, Dosing Weight 121.5, kg, For > or=50 kg, Start date: 04/14/13 14:15:00, Stop date: 04/15/13 12:00:00Infuse over 15 minutes Do not exceed 4gm/day of acetaminophen Sodium Chloride 1,000 mL, Rate: No Longer [facility] [place] 0.45% IV 1,000 mL 75 ml/hr, [...] hydrALAZINE 10 mg, 0.5 mL, Inactive [facility] Route: IVP, 2012 Medical Drug form: INJ, Center ONCE, Dosing Weight 121.5, kg, Start date: 04/14/13 1:19:00, Stop date: 04/14/13 1:19:00(Same as: Apresoline) Push over 5 minutes Lantus 50 unit, 0.5 Inactive [facility] mL, Route: 2012 Medical SUB-Q, Drug Center form: INJ, ONCE, Dosing Weight 121.5, kg, Start date: 04/13/13 21:25:00, Stop date: 04/13/13 21:25:00Same as Lantus Solostar PEN "single patient use only" Stable for 28 days at room temperature. Expires in days from D ate Sodium Chloride 250 mL, Rate: No Longer [facility] [place] 0.9% (titrate) 250 scallop cutter for use Active 2012 Medical mL with blood Center product administration, Dosing Weight 121.5, kg, Route: IV, Total Volume: 250, Start Date: 04/13/13 17:48:00, Duration: 30 day, Stop date: 05/13/13 17:47:00, Replace Every: 24 hr Dextrose 50% 25 gm, 50 mL, No Longer Rice 04/13[facility] Syringe Route: IVP, Active 2012 Medical Drug Form: INJ, Center Dosing Weight 121.5, kg, PRN, PRN Blood Glucose Results, Start date: 04/13/13 12:07:00, Duration: 30 day, Stop date: 05/13/13 12:06:00 glucagon 1 mg, Route: No Longer [facility] 04/13[facility] IM, Drug form: Active 2012 Medical PDR/INJ, PRN, Center Dosing Weight 121.5, kg, PRN Blood Glucose Results, Start date: 04/13/13 12:07:00, Duration: 30 day, Stop date: 05/13/13 12:06:00 insulin aspart 6 unit, 0.06 No Longer [facility] 04/13[facility] mL, Route: Active 2012 Medical SUB-Q, Drug [...] 35 unit, 0.35 No Longer Yimi 04/13[facility] mL, Route: Active 2012 Medical SUB-, Drug Center form: SOLN, TID-Before Meals, Dosing Weight 121.5, kg, Start date: 04/13/13 11:30:00, Duration: 30 day, Stop date: 05/13/13 7:30:00Roll in palms of hands gently; Do not shake vigorously. (Same as: NovoLog) "single patient use only" Stable for 28 days at room temperature. Expires in days from D ate insulin aspart 2 unit, 0.02 Inactive Yimi 04/13[facility] mL, Route: 2012 Medical SUB-Q, Drug Center [...] 12.5 gm, 25 mL, Inactive Yimi 04/13/ [facility] Syringe Route: IVP, 2012 Medical Drug Form: INJ, Center Dosing Weight 121.5, kg, PRN, PRN Blood Glucose Results, Start date: 04/13/13 10:14:00, Duration: 30 day, Stop date: 05/13/13 10:13:00 glucagon 1 mg, Route: Inactive [facility] IM, Drug form: 2012 Medical PDR/INJ, PRN, Center Dosing Weight 121.5, kg, PRN Blood Glucose Results, Start date: 04/13/13 10:14:00, Duration: 30 day, Stop date: 05/13/13 10:13:00 lisinopril 10 mg, 1 tab, No Longer [facility] Route: PO, Drug Active 2012 Medical form: TAB, Center Daily, Dosing Weight 121.5, kg, Start date: 04/13/13 9:00:00, Duration: 30 day, Stop date: 05/12/13 9:00:00(Same as: Prinivil, Zestril) Lantus 60 unit, 0.6 No Longer [facility] 04/13[facility] mL, Route: Active 2012 Medical SUB-Q, Drug Center form: INJ, Daily, Dosing Weight 121.5, kg, Start date: 04/13/13 9:00:00, Duration: 30 day, Stop date: 05/12/13 9:00:00Same as Lantus Solostar PEN "single patient use only" Stable for 28 days at room temperature. Expires in days from D ate Lantus 60 unit, 0.6 No Longer [facility] 04/13[facility] mL, Route: Active 2012 Medical SUB-Q, Drug Center form: INJ, Bedtime, Dosing Weight 121.5, kg, Start date: 04/12/13 21:00:00, Duration: 30 day, Stop date: 05/11/13 21:00:00Same as Lantus Solostar PEN "single patient use only" Stable for 28 days at room temperature. Expires in days from D ate insulin glargine 15 unit, 0.15 Inactive Mallesara 04/12[facility] mL, Route: Phani 2012 Medical SUB-Q, Drug Center form: INJ, ONCE, Dosing Weight 121.5, kg, Priority: NOW, Start date: 04/12/13 12:07:00, Stop date: 04/12/13 12:07:00Same as Lantus Solostar PEN "single patient use only" Stable for 28 days at room temperature. Expires in days from D ate magnesium sulfate 2 gm, 50 mL, Inactive [facility] Route: IVPB, 2012 Medical Drug form: INJ, Center Q2H, Dosing Weight 121.5, kg, Total dose=4 gm, Start date: 04/12/13 10:00:00, Duration: 2 doses or times, Stop date: 04/12/13 12:00:00 insulin aspart 30 unit, 0.3 No Longer [facility] mL, Route: Active 2012 Medical SUB-Q, [...] aspart 8 unit, 0.08 No Longer [facility] mL, Route: Active 2012 Medical SUB-Q, [...] 25 gm, 50 mL, No Longer [facility] Syringe Route: IVP, Active 2012 Medical Drug Form: INJ, Center Dosing Weight 121.5, kg, PRN, PRN Blood Glucose Results, Start date: 04/12/13 8:24:00, Duration: 30 day, Stop date: 05/12/13 8:23:00 glucagon 1 mg, Route: No Longer [facility] 04/12[facility] IM, Drug form: Active Phani 2012 Medical PDR/INJ, PRN, Center Dosing Weight 121.5, kg, PRN Blood Glucose Results, Start date: 04/12/13 8:24:00, Duration: 30 day, Stop date: 05/12/13 8:23:00 Lantus 45 unit, 0.45 No Longer [facility] 04/11[facility] mL, Route: Active Phani 2012 Medical SUB-Q, Drug Center form: INJ, Daily, Dosing Weight 121.5, kg, Start date: 04/11/13 9:00:00, Duration: 30 day, Stop date: 05/10/13 9:00:00Same as Lantus Solostar PEN "single patient use only" Stable for 28 days at room temperature. Expires in days from D ate Kayexalate 15 gm, 60 mL, Inactive [facility] Route: PO, Drug 2012 Medical form: SUSP, Center ONCE, Dosing Weight 121.5, kg, Start date: 04/10/13 15:20:00, Stop date: 04/10/13 15:20:00(sodium polystyrene sulfonate 15 gm/60 ml KODAK) Shake well before use. (Same as: Kayexalate, SPS) Lantus 45 unit, 0.45 Inactive [facility] mL, Route: 2012 Medical SUB-Q, Drug Center form: INJ, ONCE, Dosing Weight 121.5, kg, Priority: STAT, Start date: 04/10/13 12:10:00, Stop date: 04/10/13 12:10:00Same as Lantus Solostar PEN "single patient use only" Stable for 28 days at room temperature. Expires in days from D ate digoxin 125 mcg 0.125 mg, 1 No Longer [facility] (0.125 mg) oral tab, Route: PO, Active 2012 Medical tablet Drug form: TAB, Center Daily, Dosing Weight 121.5, kg, Start date: 04/10/13 9:00:00, Duration: 30 day, Stop date: 05/09/13 9:00:00Take on an Empty Stomach (Same as: Lanoxin) Protonix 40 mg, 1 tab, No Longer [facility] [place] Route: PO, Drug Active 2012 Medical form: ECTAB, Center Before Breakfast, Dosing Weight 121.5, kg, Start date: 04/10/13 7:30:00, Duration: 30 day, Stop date: 05/09/13 7:30:00Tablet should not be chewed or crushed. (Same as: Protonix) heparin 25,000 500 mL, Rate: No Longer Jasbir [place] unit [14 22.8 ml/hr, Active 2012 Medical unit/kg/hr] + Infuse over: [place] Premix Diluent 21.9 hr, Route: Sodium Chloride IV, Dosing 0.9% 500 mL Weight 81.42 kg, Total Volume: 500, Start date: 04/09/13 16:17:00, Duration: 30 day, Stop date: 05/09/13 16:16:00 insulin aspart 10 unit, 0.1 Inactive Ibekwe [place] mL, Route: 2012 Medical SUB-Q, Drug Center [...] aspart 25 unit, 0.25 No Longer Mallesara 12/19[facility], Route: Active Phani 2012 Medical SUB-Q, Drug Center form: SOLN, TID-Before Meals, Dosing Weight 121.5, kg, Start date: 04/09/13 9:30:00, Stop date: 05/09/13 7:30:00Roll in palms of hands gently; Do not shake vigorously. (Same as: NovoLog) "single patient use only" Stable for 28 days at room temperature. Expires in days from D ate NovoLog FlexPen 5 unit, 0.05 Inactive [facility], Route: 2012 Medical SUB-Q, Drug Center form: SOLN, ONCE, Dosing Weight 121.5, kg, Start date: 04/08/13 18:10:00, Stop date: 04/08/13 18:10:00Roll in palms of hands gently; Do not shake vigorously. (Same as: NovoLog) "single patient use only" Stable for 28 days at room temperature. Expires in days from D ate AMIODarone 400 mg, 2 tab, No Longer [facility] Route: PO, Drug Active 2012 Medical form: TAB, TID, Center Dosing Weight 121.5, kg, Start date: 04/08/13 16:00:00, Duration: 5 day, Stop date: 04/13/13 8:00:00(Same as: Cordarone) insulin aspart 3 unit, 0.03 No Longer Mallesara [facility], Route: Active Phani 2012 Medical SUB-Q, Drug [...] 50% 25 gm, 50 mL, No Longer [facility] 04/08[facility] Syringe Route: IVP, Active Phani 2012 Medical Drug Form: INJ, Center Dosing Weight 121.5, kg, PRN, PRN Blood Glucose Results, Start date: 04/08/13 12:34:00, Duration: 30 day, Stop date: 05/08/13 12:33:00 glucagon 1 mg, Route: No Longer [facility] 04/08[facility] IM, Drug form: Active Phani 2012 Medical PDR/INJ, PRN, Center Dosing Weight 121.5, kg, PRN Blood Glucose Results, Start date: 04/08/13 12:34:00, Duration: 30 day, Stop date: 05/08/13 12:33:00 AMIODarone 400 mg, 2 tab, Inactive [facility] 04/08[facility] Route: PO, Drug 2012 Medical form: TAB, BID, Center Dosing Weight 121.5, kg, Start date: 04/08/13 9:00:00, Duration: 30 day, Stop date: 05/07/13 17:00:00(Same as: Cordarone) magnesium sulfate 2 gm, 50 mL, Inactive Maci 04/08[facility] Route: IVPB, 2012 Medical Drug form: INJ, Center ONCE, Dosing Weight 121.5, kg, Total dose=2 gm, Start date: 04/08/13 6:33:00, Duration: 1 doses or times, Stop date: 04/08/13 6:33:00 lisinopril 2.5 mg, 1 tab, No Longer Ibekwe 04/07[facility] Route: PO, Drug Active 2012 Medical form: TAB, Center Daily, Dosing Weight 121.5, kg, Start date: 04/07/13 9:00:00, Duration: 30 day, Stop date: 05/06/13 9:00:00(Same as: Prinivil) Lasix 40 mg, 1 tab, No Longer Hay 04/07[facility] Route: PO, Drug Active 2012 Medical form: TAB, Center Daily, Dosing Weight 121.5, kg, Start date: 04/07/13 9:00:00, Stop date: 05/06/13 9:00:00(Same as: Lasix) May cause GI upset. Give with food or milk. pneumococcal 0.5 ml, Route: Inactive [facility] 23-valent vaccine IM, Drug Form: 2012 Medical INJ, Daily, Center Start date: 04/07/13 9:00:00, Duration: 1 doses or times, Stop date: 04/07/13 9:00:00(Same as: Pneumovax 23) Refrigerate Insulin regular 99 mL, Rate: Inactive [facility] 100 unit + Sodium Start Insulin [...] 25 gm, 50 mL, No Longer [facility] Syringe Route: IVP, Active Phani 2012 Medical Drug Form: INJ, Center Dosing Weight 121.5, kg, PRN, PRN Blood Glucose Results, Start date: 04/07/13 2:19:00, Duration: 30 day, Stop date: 05/07/13 2:18:00 Saline Flush 0.9% 10 mL, Route: No Longer [facility] IVP, Drug Form: Active 2012 Medical INJ, Dosing Center Weight 121.5, kg, Q8H, Start date: 04/07/13 0:00:00, Duration: 30 day, Stop date: 06/05/13 16:00:00(Same as: BD Posiflush) Insulin regular 8 unit, 0.08 Inactive [facility] mL, Route: 2012 Medical SUB-Q, Drug [...] chloride 30 mEq, 3 tab, Inactive [facility] [place] Route: PO, Drug 2012 Medical form: ERTAB, Center ONCE, Dosing Weight 121.5, kg, Start date: 04/06/13 20:14:00, Stop date: 04/06/13 20:14:00(Same as: Klor-Con 10) "Do Not Crush" With food and full glass of water Saline Flush 0.9% 10 mL, Route: No Longer [facility] IVP, Drug Form: Active 2012 Medical INJ, Dosing Center Weight 121.5, kg, PRN, PRN Line Flush, Start date: 04/06/13 16:28:00, Duration: 30 day, Stop date: 06/05/13 16:27:00(Same as: BD Posiflush) metoprolol 25 mg, 1 tab, No Longer [facility] [place] tartrate Route: PO, Drug Active 2012 Medical form: TAB, Q8H, Center Dosing Weight 121.5, kg, HOLD with SBP Colace 100 mg oral 100 mg, 1 cap, No Longer Jasbir [place] capsule Route: PO, Drug Active 2012 Medical form: CAP, BID, Center Dosing Weight 121.5, kg, PRN as needed for constipation, Start date: 04/06/13 15:08:00, Duration: 30 day, Stop date: 05/06/13 15:07:00(Same as: Colace) (Do Not Crush) MiraLax 17 gm, 1 pkt, No Longer [facility] Route: PO, Drug Active 2012 Medical form: PWDR, Center Daily, Dosing Weight 121.5, kg, PRN Constipation, Start date: 04/06/13 15:08:00, Duration: 30 day, Stop date: 05/06/13 15:07:00Dissolv e in 8 oz of water or juice. (Same as: Miralax) Insulin regular 4 unit, 0.04 No Longer [facility] mL, Route: Active Kamel 2012 Medical SUB-Q, [...] 50% 12.5 gm, 25 mL, No Longer [facility] 04/06[facility] Syringe [facility] Form: [facility]J, Center Dosing Weight 121.5, kg, PRN, PRN Blood Glucose Results, Start date: 04/06/13 14:17:00, Duration: 30 day, Stop date: 05/06/13 14:16:00 glucagon 1 mg, Route: No Longer [facility] 04/06[facility] IM, Drug form: Active Keyshawn 2012 Medical PDR/INJ, PRN, Center Dosing Weight 121.5, kg, PRN Blood Glucose Results, Start date: 04/06/13 14:17:00, Duration: 30 day, Stop date: 05/06/13 14:16:00 potassium chloride 20 mEq, 1 tab, Inactive Rosalinda 04/06[facility] Route: PO, Drug 2012 Medical form: ERTAB, [place] ONCE, Dosing Weight 121.5, kg, Start date: 04/06/13 12:00:00, Stop date: 04/06/13 12:00:00(Same as: K-Dur 20) "Do Not Crush" With food and full glass of water potassium chloride 40 mEq, 2 tab, Inactive Rosalinda 04/06[facility] Route: PO, Drug 2012 Medical form: ERTAB, [place] ONCE, Dosing Weight 121.5, kg, Start date: 04/06/13 10:33:00, Stop date: 04/06/13 10:33:00(Same as: K-Dur 20) "Do Not Crush" With food and full glass of water Lasix 40 mg, 4 mL, Inactive [facility] Route: IVP2012 Medical Drug form: INJ, Center BID, Dosing Weight 121.5, kg, Start date: 04/06/13 9:00:00, Duration: 30 day, Stop date: 05/05/13 17:00:00(Same as: Lasix) digoxin 250 mcg 0.125 mg, No Longer I[facility] [place] (0.25 mg) oral Route: PO, Drug Active 2012 Medical tablet form: TAB, Center Daily, Dosing Weight 121.5, kg, Start date: 04/06/13 9:00:00, Duration: 30 day, Stop date: 05/05/13 9:00:00Take on an Empty Stomach (Same as: Lanoxin) magnesium sulfate 2 gm, 50 mL, Inactive [facility] Route: IVPB2012 Medical Drug form: INJ, Center ONCE, Dosing Weight 121.5, kg, Total dose=2 gm, Start date: 04/05/13 22:15:00, Duration: 1 doses or times, Stop date: 04/05/13 22:15:00 Lasix 40 mg, 4 mL, Inactive [facility] Route: IV, Drug 2012 Medical form: INJ, Center ONCE, Dosing Weight 121.5, kg, Start date: 04/05/13 17:01:00, Stop date: 04/05/13 17:01:00(Same as: Lasix) furosemide 40 mg, 4 mL, Inactive [facility] Route: IVP2012 Medical Drug form: INJ, Center ONCE, Dosing Weight 121.5, kg, Start date: 04/05/13 16:33:00, Stop date: 04/05/13 16:33:00(Same as: Lasix) digoxin 500 microgram, Inactive [facility] Route: IV, 2012 Medical ONCE, Dosing Center Weight 121.5, kg, Start date: 04/05/13 12:01:00, Stop date: 04/05/13 12:01:00 Imdur 30 mg, 1 tab, No Longer [facility] Route: PO, Drug Active 2012 Medical [...] magnesium oxide 400 mg, 1 tab, Inactive [facility] 04/05[facility] Route: PO, Drug [facility] 2012 Medical form: TAB, Center ONCE, Dosing Weight 121.5, kg, Start date: 04/05/13 7:28:00, Stop date: 04/05/13 7:28:00(Same as: Mag-Ox 400) Magnesium oxide [id number] elemental magnesium Dose=____mg magnesium oxide (___mg elemental magnesium) potassium chloride 30 mEq, 22.5 Inactive [facility] 04/05[facility] 20 mEq/15 mL oral mL, [facility]: [facility] liquid Drug form: LIQ, Center ONCE, Dosing Weight 121.5, kg, Start date: 04/05/13 7:28:00, Stop date: 04/05/13 7:28:00(Same as: Potassium Chloride) magnesium sulfate 2 gm, 50 mL, Inactive [facility] 04/05[facility] 2gm / NS 50ml Route: IVPBKeyshawn 2012 Medical (premixed) Drug form: INJ, Center ONCE, Dosing Weight 121.5, kg, Start date: 04/05/13 6:50:00, Duration: 2 hr, Stop date: 04/05/13 6:50:00 Lasix 40 mg, 4 mL, No Longer [facility] 04/05[facility] Route: IVP, Active 2012 Medical Drug form: INJ, Center Daily, Dosing Weight 121.5, kg, Start date: 04/05/13 6:35:00, Duration: 30 day, Stop date: 05/04/13 9:00:00(Same as: Lasix) digoxin 0.25 mg, 1 mL, Inactive [facility] 04/05[facility] Route: IVPKeyshawn 2012 Medical Drug form: INJ, Center ONCE, Dosing Weight 121.5, kg, Start date: 04/04/13 21:19:00, Stop date: 04/04/13 21:19:00(Same as: Lanoxin) atorvastatin 40 mg, 1 tab, No Longer Elvin 04/05[facility] Route: PO, Drug Active 2012 Medical form: TAB, Center Bedtime, Dosing Weight 121.5, kg, Start date: 04/04/13 21:00:00, Duration: 30 day, Stop date: 06/02/13 21:00:00(Same as: Lipitor) Lantus 45 unit, 0.45 No Longer [facility] mL, Route: Active Phani [facility] Medical SUB-Q, Drug Center form: INJ, Bedtime, Dosing Weight 121.5, kg, Start date: 04/04/13 21:00:00, Stop date: 05/03/13 21:00:00Same as Lantus Solostar PEN "single patient use only" Stable for 28 days at room temperature. Expires in days from D ate AMIODarone 900 mg 482 mL, Rate: No Longer Ibekwe [place] + Dextrose 5% in Infuse as Active 2012 Medical Water (Titrate) IV directed, Center 482 mL Dosing Weight 121.5, kg, Route: IV, Total Volume: 500 mL, Start Date: 04/04/13 20:53:00, Duration: 30 day, Stop date: 05/04/13 20:52:00, Replace Every: 24 hrNon PVC bag heparin additive 500 mL, Rate: No Longer ek [place] 25,000 unit [14 22.8 ml/hr, Active 2012 Medical unit/kg/hr] + Infuse over: Center Premix Diluent 21.9 hr, Route: Dextrose 5% 500 mL IV, Dosing Weight 81.42 kg, Total Volume: 500 mL, Start date: 04/04/13 20:26:00, Duration: 30 day, Stop date: 05/04/13 20:25:00 Insulin regular 99 mL, Rate: No Longer [facility] 100 unit + Sodium Start Insulin [...] 12.5 gm, 25 mL, No Longer [facility] 04/05[facility] Syringe Route: IVP, Active Kamel 2012 Medical Drug Form: INJ, Center Dosing Weight 121.5, kg, PRN, PRN Blood Glucose Results, Start date: 04/04/13 19:53:00, Duration: 30 day, Stop date: 05/04/13 19:52:00 metoprolol 50 mg, 1 tab, No Longer [facility] tartrate Route: PO, Drug Active 2012 Medical form: TAB, Q6H, Center Dosing Weight 121.5, kg, Start date: 04/04/13 19:06:00, Stop date: 05/04/13 18:00:00(Same as: Lopressor) azithromycin 500 mg, Route: No Longer [facility] 04/05[facility] IVPB, Drug Active 2012 Medical form: PDR/INJ, Center [id number], Dosing Weight 121.5, kg, Start date: 04/04/13 19:00:00, Duration: 30 day, Stop date: 05/03/13 19:00:00(Same As: Zithromax IV) ceftriaxone 1 gm, Route: No Longer Ibekwe 04/05[facility] IVPB, Drug Active 2012 Medical form: PDR/INJ, Center [id number], Dosing Weight 121.5, kg, Start date: 04/04/13 19:00:00, Duration: 30 day, Stop date: 05/03/13 19:00:00(Same As: Rocephin). Use with 100ml NS mini-bag PLUS and infuse over 30 min Corvert 1 mg, 10 mL, Inactive Trini 04/05[facility] Route: IV, Drug 2012 Medical form: INJ, Center ONCE, Start date: 04/04/13 18:00:00, Stop date: 04/04/13 18:00:00(Same as: Corvert) Infuse over 10 minutes. Tylenol 650 mg, 2 tab, No Longer [facility] Route: PO, Drug Active 2012 Medical form: TAB, Q4H, Center Dosing Weight 121.5, kg, PRN Fever, Start date: 04/04/13 17:54:00, Duration: 30 day, Stop date: 05/04/13 17:53:00Do not exceed 4 gm/day. (Same as: Tylenol) Protonix 40 mg, Route: Inactive Trini 04/04[facility] IV, Drug form: 2012 Medical INJ, ONCE, Center Dosing Weight 121.5, kg, Start date: 04/04/13 16:01:00, Stop date: 04/04/13 16:01:00For IV push reconstitute with 10 ml 0.9% sodium chloride and push over 2 minutes. (Same as: Protonix) metoprolol 5 mg/5 5 mg, 5 mL, Inactive Johnson 04/04[facility] ml INJ Route: IVP, Keyshawn 2012 Medical Drug form: INJ, Center ONCE, Dosing Weight 121.5, kg, Priority: STAT, Start date: 04/04/13 14:30:00, Stop date: 04/04/13 14:30:00(Same as: Lopressor) Push over 2 minutes metoprolol 5 mg/5 5 mg, Route: Inactive Johnson 04/04[facility] ml INJ IVP, Drug form: Keyshawn 2012 Medical INJ, ONCE, Center Dosing Weight 121.5, kg, Start date: 04/04/13 14:26:00, Stop date: 04/04/13 14:26:00 Lasix 60 mg, 6 mL, Inactive [facility] Route: IV, Drug 2012 Medical form: INJ, Center ONCE, Dosing Weight 121.5, kg, Priority: STAT, Start date: 04/04/13 13:15:00, Stop date: 04/04/13 13:15:00(Same as: Lasix) Zofran 4 mg, 2 mL, No Longer [facility] Route: IV, Drug Active 2012 Medical form: INJ, Q8H, Center Dosing Weight 121.5, kg, PRN Nausea, Start date: 04/04/13 12:42:00, Duration: 30 day, Stop date: 05/04/13 12:41:00(Same as: Zofran) Prinivil 2.5 mg, 1 tab, No Longer [facility] Route: PO, Drug Active 2012 Medical form: TAB, Center Daily, Dosing Weight 121.5, kg, Start date: 04/04/13 10:30:00, Duration: 30 day, Stop date: 05/04/13 9:00:00(Same as: Prinivil) digoxin 0.5 mg, 2 tab, Inactive Ghulam 04/04[facility] Route: PO, Drug 2012 Medical form: TAB, Center ONCE, Dosing Weight 121.5, kg, Start date: 04/04/13 9:46:00, Stop date: 04/04/13 9:46:00Take on an Empty Stomach (Same as: Lanoxin) lisinopril 2.5 mg, 1 tab, Inactive Maci 04/04[facility] Route: PO, Drug 2012 Medical form: TAB, Center Daily, Dosing Weight 121.5, kg, Start date: 04/04/13 9:00:00, Duration: 30 day, Stop date: 05/03/13 9:00:00(Same as: Prinivil) metoprolol 12.5 mg, 1 ea, Inactive [facility] tartrate Route: PO, Drug Kamel 2012 Medical form: TAB, BID, Center Dosing Weight 121.5, kg, Start date: 04/04/13 9:00:00, Duration: 30 day, Stop date: 05/03/13 17:00:00(Same as: Lopressor) 12.5mg=1/4 X 50 mg tab. fenofibrate 48 mg, 1 tab, No Longer Elvin 04/04[facility] Route: PO, Drug Active 2012 Medical form: TAB, Center Daily, Start date: 04/04/13 9:00:00, Duration: 30 day, Stop date: 06/02/13 9:00:00(Same as: Tricor) Lyrica 100 mg, 1 cap, No Longer Maci 04/04[facility] Route: PO, Drug Active 2012 Medical form: CAP, Center Daily, Dosing Weight 121.5, kg, Start date: 04/04/13 9:00:00, Duration: 30 day, Stop date: 05/03/13 9:00:00(Same as: Lyrica) Detrol LA 2 mg, 1 cap, No Longer Maci 04/04[facility] Route: PO, Drug Active 2012 Medical form: ERCAP, Center Daily, Start date: 04/04/13 9:00:00, Duration: 30 day, Stop date: 05/03/13 9:00:00(Same As: Jimbo KAUR) (Do Not Crush) fesoterodine 8 mg, Route: Inactive [facility] PO, Drug form: 2012 Medical ERTAB, Daily, Center Dosing Weight 121.5, kg, Start date: 04/04/13 9:00:00, Duration: 30 day, Stop date: 05/03/13 9:00:00 influenza virus 0.5 mL, Route: Inactive [facility] vaccine, IM, Drug Form: 2012 Medical inactivated SUSP, Daily, Center Start date: 04/04/13 9:00:00, Duration: 1 doses or times, Stop date: 04/04/13 9:00:00(Same as: Fluzone) Keppra 500 mg oral 500 mg, 1 tab, No Longer [facility] tablet Route: PO, Drug Active ales 2012 Medical form: TAB, BID, Center Dosing Weight 121.5, kg, Start date: 04/04/13 9:00:00, Duration: 30 day, Stop date: 05/03/13 17:00:00(Same as:Keppra) Trilipix 135 mg, Route: Inactive [facility] PO, Drug form: 2012 Medical CAP, Daily, Center Dosing Weight 121.5, kg, Start date: 04/04/13 9:00:00, Duration: 30 day, Stop date: 05/03/13 9:00:00 Cymbalta 60 mg, 2 cap, No Longer [facility] Route: PO, Drug Active 2012 Medical form: DRC, Center Bedtime, Dosing Weight 121.5, kg, Start date: 04/04/13 9:00:00, Stop date: 05/03/13 21:00:00Non-For mulary Drug. (Same as: Cymbalta) (Do Not Crush) heparin 5,000 unit, 1 Inactive Maci 04/04[facility] mL, Route: 2012 Medical SUB-Q, Drug Center form: INJ, Q8H, Dosing Weight 121.5, kg, Start date: 04/04/13 8:00:00, Duration: 30 day, Stop date: 05/04/13 0:00:00porcine heparin Dextrose 50% 12.5 gm, 25 mL, Inactive [facility] 04/04[facility] Syringe Route: IVP, 2012 Medical Drug Form: INJ, Center Dosing Weight 121.5, kg, PRN, PRN Blood Glucose Results, Start date: 04/04/13 5:05:00, Duration: 30 day, Stop date: 05/04/13 5:04:00 glucagon 1 mg, Route: No Longer [facility] 04/04[facility] IM, Drug form: Active 2012 Medical PDR/INJ, PRN, Center Dosing Weight 121.5, kg, PRN Blood Glucose Results, Start date: 04/04/13 5:05:00, Duration: 30 day, Stop date: 05/04/13 5:04:00 Insulin regular 9 unit, 0.09 Inactive [facility] 04/04[facility] mL, Route: 2012 Medical SUB-Q, Drug Center [...] D ate heparin 4,900 unit, 4.9 Inactive [facility] 04/04[facility] mL, Route: IV, 2012 Medical Drug form: INJ, Center PRN, PRN Abnormal Lab Result, Start date: 04/04/13 4:51:00, Duration: 30 day, Stop date: 05/04/13 4:50:00 Lotrel 5 mg-20 mg Daily, 0 No Longer 04/04[facility] oral capsule Refill(s) Active 2012 [facility] Lipitor 20 mg oral Bedtime, 0 No Longer [facility] 04/04[facility] tablet Refill(s) Active 2012 [facility] Toviaz 8 mg oral Daily, 0 Active [facility] 04/04[facility] tablet, extended Refill(s) 2012 [facility] Klonopin 0.5 mg Bedtime, 0 No Longer [facility] oral tablet Refill(s) Active 2012 [facility] Myrbetriq 50 mg Daily, 0 Active [facility] oral tablet, Refill(s) 2012 [facility] extended release [place] Lyrica Daily, 0 No Longer [facility] Refill(s) Active 2012 [facility] Cymbalta 60 mg Daily, 0 Active [facility] oral delayed Refill(s) 2012 Medical release capsule [place] digoxin 125 mcg Daily, 0 No Longer [facility] (0.125 mg) oral Refill(s) Active 2012 [facility] tablet [place] metoprolol 100 mg Daily, 0 No Longer [facility] oral tablet, Refill(s) Active 2012 [facility] extended release [place] Trilipix 135 mg 135 mg=1 cap, No Longer [facility] oral delayed PO, Daily, # 30 Active 2012 [facility] capsule cap, 0 Center Refill(s) Keppra 500 mg oral BID, 0 No Longer [facility] tablet Refill(s) Active 2012 [facility] Plavix 300 mg, 1 tab, Inactive [facility] Route: PO, Drug 2012 Medical form: TAB, [place] ONCE, Dosing Weight 121.5, kg, Start date: 04/04/13 4:17:00, Duration: 1 doses or times, Stop date: 04/04/13 4:17:00( Same as: Plavix) heparin additive 500 mL, Rate: Inactive [facility] 04/04[facility] Katja 25,000 unit [12 19.54 ml/hr, 2013 Medical unit/kg/hr] + Infuse over: [place] Premix Diluent 25.6 hr, Route: Dextrose 5% 500 mL IV, Dosing Weight 81.42 kg, Total Volume: 500 mL, Start date: 04/04/13 4:14:00, Stop date: 05/04/13 4:13:00 Heparin 30 unit/kg Route: IVP, Inactive [facility] Katja Bolus (Heparin PRN, 2,400 2012 Medical Dosing Weight) unit, 2.4 mL, [place] Drug form: INJ, PRN, Heparin Protocol, Start [...] acetaminophen-hydr 1 tab, Route: No Longer [facility] ocodone 325 mg-5 PO, Drug Form: Active 2012 Medical mg oral tablet TAB, Dosing Center Weight 121.5, kg, Q4H, PRN Pain Score 1-3, Start date: 04/04/13 3:05:00, Duration: 30 day, Stop date: 05/04/13 3:04:00(Same as: [place] 325/5) Do not exceed 4gm/day of acetaminophen. [...] 4 mg, 2 mL, [facility]P [facility] Route: IVP, 2012 Medical Drug form: INJ, Center ONCE, Dosing Weight 113.636, kg, PRN Nausea & Vomiting, Start date: 12/23/12 15:48:00 flumazenil 0.2 mg, 2 mL, IVP No Long[facility] Route: IVP, Active 2012 Medical Drug form: INJ, Center PRN, Dosing Weight 113.636, kg, PRN Benzodiazepine Reversal, Initial dose, Start date: 12/23/12 15:48:00, Duration: 1 day, Stop date: 12/24/12 15:47:00 naloxone 0.04 mg, 0.1 IVP No Longer [facility] mL, Route: IVP, 2012 Medical Drug form: INJ, Center Q2MIN, Dosing Weight 113.636, kg, PRN Narcotic Reversal, Start date: 12/23/12 15:48:00, Duration: 8 doses or times, Stop date: 12/24/12 0:00:00 labetalol 5 mg, 1 mL, IVP [facility] Longer [facility] 12[facility] Route: IVP, 2012 Medical Drug form: INJ, Center Q5Min, Dosing Weight 113.636, kg, PRN Elevated BP, Start date: 12/23/12 15:48:00, Duration: 5 doses or times, Stop date: 12/24/12 0:00:00 hydrALAZINE 5 mg, 0.25 mL, IVP No Longer [facility] 12[facility]23[facility] Route: IVP, Active 2012 Medical Drug form: INJ, Center Q5Min, Dosing Weight 113.636, kg, PRN Elevated BP, Start date: 12/23/12 15:48:00, Duration: 4 doses or times, Stop date: 12/24/12 0:00:00 hydromorphone 0.25 mg, 0.13 IVP No Longer [facility] 12/23[facility] mL, Route: IVP, Active 2012 Medical Drug form: INJ, Center Q5Min, Dosing Weight 113.636, kg, PRN Pain Score 7-10, Start date: 12/23/12 15:48:00, Duration: 5 doses or times, Stop date: 12/24/12 0:00:00 Allergies, Adverse Reactions, Alerts Substance Category Reaction Severity Reaction Status Date Comments Source type Reported penicillins drug Allergy [facility] allergy [facility] Immunizations Immunization Date Given Site Status Last Updated Comments Source pneumococcal 04/08/2013 completed [place] [facility] 23-valent vaccine [facility] Results Order Name Results Value Reference Date Interpretation Comments Source Range BEDSIDE Glucose POC 185 mg/dL 70 - 04/30 [place] 7Interpretive [facility] GLUCOSE Data: [facility] TESTING Center Upper Reportable Limit: 200 mg/dL. BEDSIDE Glucose POC 176 mg/dL 04/30 [place] 8Interpretive [facility] GLUCOSE Data: [facility] TESTING Center Upper Reportable Limit: 200 mg/dL. CHEMISTRY Ca Norm WB 1.03 1.05 - 04/30 LOW [place] mMol/L 1. [facility] CHEMISTRY Ca Ion WB 1.00 1.05 - 04/30 LOW [facility] mMol/L 1. [facility] CHEMISTRY Phosphorus 3.0 mg/dL 2.5 - 4.5 04/30 Normal [facility] CHEMISTRY Magnesium Lvl 2.1 mg/dL 1.8 - 2.4 04/30 Normal [facility] CHEMISTRY AGAP 13.3 meq/L 10.0 - 04/30 Normal [facility] 20.0 [facility] CHEMISTRY eGFR 68 04/30 11Result Comment: The eGFR is calculated using the CKD-EPI formula. In most young, healthy individuals the eGFR will be >90 mL/ min/1.73m2. The eGFR declines with age. An eGFR of 60-89 may be normal in [facility] mL/min/1.7 some populations, particularly the elderly, for whom the CKD-EPI formula has not been extensively validated. Use of the eGFR is not recommended in the following populations: [address] Individuals with unstable creatinine concentrations, including [...] Lvl 144 mg/dL 70 - 99 04/30 [place] 14Interpretive Data: Adult reference range values reflect the clinical guidelines of the [place] [employer]. Medical Center CHEMISTRY BUN 66 mg/dL 7 - 22 04/30 [facility] CHEMISTRY Sodium Lvl 144 meq/L 135 - 145 04/30 Normal Medical [facility] CHEMISTRY Potassium Lvl 4.3 meq/L 3.5 - 5.1 04/30 Normal 10Result Comment: Medical Specimen Center Slightly Hemolyzed. CHEMISTRY Calcium Lvl 8.3 mg/dL 8.5 - 10.5 04/30 LOW [facility] CHEMISTRY Chloride Lvl 107 meq/L 95 - 109 04/30 Normal [facility] CHEMISTRY CO2 28 meq/L 24 - 32 04/30 Normal [facility] CHEMISTRY Creatinine 0.9 mg/dL 0.5 - 1.4 04/30 Normal [facility] CHEMISTRY Digoxin Lvl 1.1 ng/mL 0.8 - 2.0 04/30 Normal [facility] HEMATOLOGY Platelet 441 K/CMM 133 - 450 04/30 Normal [facility] HEMATOLOGY MPV 9.2 fL 7.4 - 10.4 04/30 Normal [facility] HEMATOLOGY RDW 16.5 % 11.5 - 04/30 [facility] 14.5 Medical [place] HEMATOLOGY MCHC 32.0 g/dL 32.0 - 04/30 Normal [facility] 36.0 [facility] HEMATOLOGY RBC X 10x6 3.00 M/CMM 4.20 - 04/30 [facility] 5.40 /2013 Medical Center HEMATOLOGY Hgb 8.9 g/dL 12.0 - 04/30 [facility] 16.0 Medical Center HEMATOLOGY MCH 29.8 pg 27.0 - 04/30 Normal [facility] 31.0 [facility] HEMATOLOGY Hct 27.9 % 36.0 - 04/30 [facility] 48.0 /2013 [facility] HEMATOLOGY MCV 92.9 fL 81.0 - 04/30 Normal [facility] 99.0 Medical Center HEMATOLOGY WBC X 10x3 12.2 K/CMM 3.7 - 10.4 04/30 [facility] Medical Center HEMATOLOGY Basophils 1.0 % 0.0 - 1.0 04/30 Normal [facility] HEMATOLOGY Anisocyte 1+ None Seen 04/[address] [facility] (04/30/2013 04:12:00) HEMATOLOGY Monocytes # 1.1 K/CMM 0.0 - 0.8 04/30 [facility] HEMATOLOGY Lymphocytes # 1.1 K/CMM 1.0 - 5.5 04/30 Normal [facility] HEMATOLOGY Segs-Bands # 9.4 K/CMM 1.5 - 8.1 04/30 [facility] HEMATOLOGY Eosinophils 3.6 % 0.0 - 4.0 04/30 Normal [facility] HEMATOLOGY Monocytes 9.4 % 2.0 - 12.0 04/30 Normal [facility] HEMATOLOGY Elliptocyte Slight None Seen 04/[address] [facility] (04/30/2013 04:12:00) HEMATOLOGY Smudge Rare 04/30 [facility] HEMATOLOGY Lymphocytes 9.2 % 20.0 - 04/30 LOW [facility] 40.0 [facility] HEMATOLOGY Segs 76.8 % 45.0 - 04/30 [facility] 75.0 [facility] HEMATOLOGY Plt Morph Normal 04/30 Normal [facility] (04/30/2013 04:12:00) [place] HEMATOLOGY Eosinophils # 0.4 K/CMM 0.0 - 0.5 04/30 Normal [facility] HEMATOLOGY Basophils # 0.1 K/CMM 0.0 - 0.2 04/30 Normal [facility] Chest 1view Chest 1view Chest one view, April 30, 2013 at 8:36 a.m. - - [facility] HISTORY: 62-year-old female with abnormal chest [...] or atelectasis. BEDSIDE Gluc POC Notified 04/30 [facility] GLUCOSE Comment 1 RN/ /2014 [facility] TESTING Center BEDSIDE Glucose POC 203 mg/dL 70 - 99 04/30 [place] 9Interpretive [facility] Data: [facility] Upper Reportable Limit: 200 mg/dL. BEDSIDE Gluc POC Notified 04/29 [facility] GLUCOSE Comment 1 RN/ /2014 [facility] TESTING Center STOOL TESTS Occult Bld Negative Negative 04/29 Normal [facility] (04/29/2013 14:00:00) Center BEDSIDE Gluc POC Notified 04/29 [facility] GLUCOSE Comment 1 RN/ /2014 [facility] TESTING Center URINALYSIS UA Color Yellow Yellow 04/29 Medical *NA* [place] (04/29/2013 03:00:42) URINALYSIS UA Turbidity Slight Clear 04/29 ABN Medical *ABN* [place] (04/29/2013 03:00:42) URINALYSIS UA pH 6.5 5.0 - 8.0 04/29 Normal [facility] URINALYSIS UA Spec Grav 1.012 <=1.030 04/29 Normal [facility] URINALYSIS UA Sq Epi None Seen 04/29 [facility] URINALYSIS UA Protein 10 mg/dL Negative 04/29 ABN [facility] URINALYSIS UA Ketones Negative Negative 04/29 [facility] /dL [facility] URINALYSIS UA Blood Negative Negative 04/29 Normal [facility] (04/29/2013 03:00:42) Center URINALYSIS UA Glucose Negative Negative 04/29 [facility] mg/dL [facility] URINALYSIS UA Bili Negative Negative 04/29 Medical *NA* Center (04/29/2013 03:00:42) URINALYSIS UA Nitrite Negative Negative 04/29 Normal [facility] (04/29/2013 03:00:42) Center URINALYSIS UA Leuk Est Large Negative 04/29 [facility] Medical *ABN* Center (04/29/2013 03:00:42) URINALYSIS UA WBC 146 /HPF 0 - 5 04/29 [facility] URINALYSIS UA Bacteria Many /HPF None Seen 04/29 [facility] URINALYSIS UA Mucus Many /LPF None Seen 04/29 [facility] URINALYSIS UA <=1.0 0.1 - 1.0 04/29 [facility] Urobilinogen mg/dL [facility] CHEMISTRY Magnesium Lvl 2.3 mg/dL 1.8 - 2.4 04/29 Normal [facility] CHEMISTRY Phosphorus 3.3 mg/dL 2.5 - 4.5 04/29 Normal [facility] CHEMISTRY eGFR 44 04/29 12Result Comment: The eGFR is calculated using the CKD-EPI formula. In most young, healthy individuals the eGFR will be >90 mL/ min/1.73m2. The eGFR declines with age. An eGFR of 60-89 may be normal in [facility] mL/min/1.7 some populations, particularly the elderly, for whom the CKD-EPI formula has not been extensively validated. Use of the eGFR is not recommended in the following populations: [address] Individuals with unstable creatinine concentrations, including [...] Lvl 187 mg/dL 70 - 99 04/29 [place] 15Interpretive Data: Adult reference range values reflect the clinical guidelines of the [place] [employer]. [facility] CHEMISTRY BUN 83 mg/dL 7 - 22 04/29 [facility] CHEMISTRY Creatinine 1.3 mg/dL 0.5 - 1.4 04/29 Normal [facility] CHEMISTRY CO2 28 meq/L 24 - 32 04/29 Normal [facility] CHEMISTRY Calcium Lvl 8.5 mg/dL 8.5 - 10.5 04/29 Normal Medical [place] CHEMISTRY Chloride Lvl 104 meq/L 95 - 109 04/29 Normal [facility] CHEMISTRY Sodium Lvl 141 meq/L 135 - 145 04/29 Normal [facility] CHEMISTRY Potassium Lvl 4.3 meq/L 3.5 - 5.1 04/29 Normal [facility] CHEMISTRY AGAP 13.3 meq/L 10.0 - 04/29 Normal [facility] 20.0 Medical [place] HEMATOLOGY MCHC 32.4 g/dL 32.0 - 04/29 Normal [facility] 36.0 [facility] HEMATOLOGY RDW 16.8 % 11.5 - 04/29 [facility] 14.5 [facility] HEMATOLOGY Platelet 476 K/CMM 133 - 450 04/29 [facility] HEMATOLOGY MPV 9.2 fL 7.4 - 10.4 04/29 Normal [facility] HEMATOLOGY RBC X 10x6 3.13 M/CMM 4.20 - 04/29 LOW [facility] 5.40 [facility] HEMATOLOGY Hgb 9.4 g/dL 12.0 - 04/29 LOW [facility] 16.0 [facility] HEMATOLOGY Hct 29.1 % 36.0 - 04/29 [facility] 48.0 [facility] HEMATOLOGY WBC X 10x3 13.2 K/CMM 3.7 - 10.4 04/29 [facility] HEMATOLOGY MCV 92.9 fL 81.0 - 04/29 Normal [facility] 99.0 Medical [place] HEMATOLOGY MCH 30.1 pg 27.0 - 04/29 Normal [facility] 31.0 [facility] HEMATOLOGY Monocytes # 1.2 K/CMM 0.0 - 0.8 04/29 [facility] Medical [place] HEMATOLOGY Eosinophils # 0.4 K/CMM 0.0 - 0.5 04/29 Normal [facility] HEMATOLOGY Basophils # 0.2 K/CMM 0.0 - 0.2 04/29 Normal [facility] HEMATOLOGY Segs-Bands # 10.6 K/CMM 1.5 - 8.1 04/29 [facility] Medical [place] HEMATOLOGY Lymphocytes 6.4 % 20.0 - 04/29 [facility] 40.0 /2013 [facility] HEMATOLOGY Lymphocytes # 0.8 K/CMM 1.0 - 5.5 04/29 [facility] HEMATOLOGY Basophils 1.2 % 0.0 - 1.0 04/29 [facility] HEMATOLOGY Eosinophils 3.4 % 0.0 - 4.0 04/29 [facility] HEMATOLOGY Segs 80.2 % 45.0 - 04/29 [facility] 75.0 [facility] HEMATOLOGY Monocytes 8.8 % 2.0 - 12.0 04/29 Normal [facility] Chest 1view Chest 1view Chest one view, April 29, 2013 at 8:07 a.m. - - [facility] HISTORY: 62-year-old female with shortness of [...] Ion WB 1.07 1. - 04/28 Normal [facility] mMol/L . [facility] CHEMISTRY Ca Norm WB 1.06 1.05 - 04/28 Normal [facility] mMol/L 05.16 [facility] CHEMISTRY Magnesium Lvl 2.7 mg/dL 1.8 - 2.4 04/28 [facility] CHEMISTRY Phosphorus 3.4 mg/dL 2.5 - 4.5 04/28 Normal [facility] CHEMISTRY CO2 30 meq/L 24 - 32 04/28 Normal [facility] CHEMISTRY AGAP 11.5 meq/L 10.0 - 04/28 Normal [facility] 20.0 [facility] CHEMISTRY Calcium Lvl 8.5 mg/dL 8.5 - 10.5 04/28 Normal MH [facility] CHEMISTRY eGFR 54 04/28 13Result Comment: The eGFR is calculated using the CKD-EPI formula. In most young, healthy individuals the eGFR will be >90 mL/ min/1.73m2. The eGFR declines with age. An eGFR of 60-89 may be normal in [facility] mL/min/1.7 some populations, particularly the elderly, for whom the CKD-EPI formula has not been extensively validated. Use of the eGFR is not recommended in the following populations: [address] Individuals with unstable creatinine concentrations, including [...] BUN 81 mg/dL 7 - 22 04/28 [facility] CHEMISTRY Creatinine 1.1 mg/dL 0.5 - 1.4 04/28 Normal [facility] Lvl [facility] CHEMISTRY Glucose Lvl 172 mg/dL 70 - 99 04/28 [place] 16Interpretive Data: Adult reference range values reflect the clinical guidelines of the [place] [employer]. [facility] CHEMISTRY Chloride Lvl 102 meq/L 95 - 109 04/28 Normal [facility] CHEMISTRY Potassium Lvl 4.5 meq/L 3.5 - 5.1 04/28 Normal [facility] CHEMISTRY Sodium Lvl 139 meq/L 135 - 145 04/28 Normal [facility] HEMATOLOGY MPV 8.7 fL 7.4 - 10.4 04/28 Normal [facility] HEMATOLOGY MCV 93.2 fL 81.0 - 04/28 Normal [facility] 99.0 [facility] HEMATOLOGY MCH 30.3 pg 27.0 - 04/28 Normal [facility] 31.0 [facility] HEMATOLOGY MCHC 32.6 g/dL 32.0 - 04/28 Normal [facility] 36.0 [facility] HEMATOLOGY RDW 16.3 % 11.5 - 04/28 [facility] 14.5 [facility] HEMATOLOGY Platelet 466 K/CMM 133 - 450 04/28 [facility] HEMATOLOGY WBC X 10x3 16.3 K/CMM 3.7 - 10.4 04/28 [facility] HEMATOLOGY Hct 28.1 % 36.0 - 04/28 [facility] 48.0 /2013 [facility] HEMATOLOGY Hgb 9.1 g/dL 12.0 - 04/28 [facility] 16.0 /2013 [facility] HEMATOLOGY RBC X 10x6 3.01 M/CMM 4.20 - 04/28 [facility] 5.40 /2013 [facility] Chest 1view Chest 1view EXAM: XR CHEST 1 VIEW 04/28 - - Medical This report was dictated by a Bone Density Technician/Fellow. I have personally reviewed the images as [...] significant change. CHEMISTRY U Chloride null 04/27 [facility] CHEMISTRY U Potassium 20.9 meq/L 04/27 29Interpretiv e Data: No [facility] Center reference ranges. CHEMISTRY U Sodium 20 meq/L 04/27 27Interpretiv e Data: No [facility] Center reference ranges. URINALYSIS UA Mucus Few /LPF None Seen 04/27 [facility] URINALYSIS UA Ketones Negative Negative 04/27 [facility] mg/dL [facility] URINALYSIS UA Glucose Negative Negative 04/27 [facility] mg/dL [facility] URINALYSIS UA Nitrite Negative Negative 04/27 Normal [facility] (04/27/2013 06:45:00) Center URINALYSIS UA Protein Negative Negative 04/27 Normal [facility] mg/dL [facility] URINALYSIS UA Leuk Est Negative Negative 04/27 Normal [facility] (04/27/2013 06:45:00) Center URINALYSIS UA WBC 1 /HPF 0 - 5 04/27 Normal [facility] URINALYSIS UA Blood Negative Negative 04/27 Normal [facility] (04/27/2013 06:45:00) Center URINALYSIS UA Bili Negative Negative 04/27 [facility] *NA* [place] (04/27/2013 06:45:00) URINALYSIS UA Sq Epi Many /LPF Few 04/27 ABN [facility] URINALYSIS UA RBC null 0 - 2 04/27 Normal [facility] URINALYSIS UA Color Yellow Yellow 04/27 [facility] *NA* [place] (04/27/2013 06:45:00) URINALYSIS UA pH 5.0 5.0 - 8.0 04/27 Normal [facility] URINALYSIS UA Spec Grav 1.012 <=1.030 04/27 Normal [facility] URINALYSIS UA Turbidity Clear Clear 04/27 Normal [facility] (04/27/2013 06:45:00) [place] URINALYSIS UA <=1.0 0.1 - 1.0 04/27 [facility] Urobilinogen mg/dL [facility] STOOL TESTS Occult Bld Positive Negative 04/[address] [facility] [address] [facility] *ABN* [place] (04/27/2013 04:41:09) CHEMISTRY A/G Ratio 0.8 0.7 - 1.6 04/27 Normal [facility] CHEMISTRY Globulin 3.3 g/dL 2.0 - 4.0 04/27 Normal [facility] CHEMISTRY B/C Ratio 61 6 - 25 04/27 HI [facility] CHEMISTRY Total Protein 6.0 g/dL 6.4 - 8.4 04/27 LOW [facility] CHEMISTRY Bili Total 0.5 mg/dL 0.2 - 1.3 04/27 Normal [facility] CHEMISTRY ASPARTATE 37 unit/L 0 - 37 04/27 Normal [facility] TRANSAMINASE [facility] CHEMISTRY Alk Phos 76 unit/L 39 - 136 04/27 Normal [facility] CHEMISTRY Albumin Lvl 2.7 g/dL 3.5 - 5.0 04/27 LOW [facility]2013 [facility] CHEMISTRY ALANINE 38 unit/L 0 - 65 04/27 Normal [facility] AMINOTRANSFER [facility] HEMATOLOGY Basophils # 0.1 K/CMM 0.0 - 0.2 04/27 Normal [facility]2013 [facility] HEMATOLOGY Lymphocytes # 1.0 K/CMM 1.0 - 5.5 04/27 Normal [facility] HEMATOLOGY Monocytes # 0.9 K/CMM 0.0 - 0.8 04/27 [facility]2013 [facility] HEMATOLOGY Eosinophils # 0.6 K/CMM 0.0 - 0.5 04/27 [facility]2013 [facility] HEMATOLOGY Segs 81.8 % 45.0 - 04/27 [facility] 75.0 [facility] HEMATOLOGY Lymphocytes 7.0 % 20.0 - 04/27 LOW [facility] 40.0 [facility] HEMATOLOGY Monocytes 6.6 % 2.0 - 12.0 04/27 Normal [facility] HEMATOLOGY Basophils 0.6 % 0.0 - 1.0 04/27 [facility]2013 [facility] HEMATOLOGY Eosinophils 4.0 % 0.0 - 4.0 04/27 Normal [facility]2013 [facility] HEMATOLOGY Segs-Bands # 11.7 K/CMM 1.5 - 8.1 04/[address] Chest 1view Chest 1view PORTABLE CHEST 2013-04-27 11:17:00 04/27 - - [facility] COMPARISON: 04/26/2013 Read by: Yoav Reinoso [...] 138 meq/L 135 - 145 04/26 Normal [facility]2013 [facility] CHEMISTRY POC A K 3.9 meq/L 3.5 - 5.1 04/26 Normal [facility] CHEMISTRY POC A Ca Ion 1.12 1.05 - 04/26 Normal [facility] mMol/L 1. [facility] CHEMISTRY POC A Temp 37.0 Felisah 04/26 [facility] CHEMISTRY POC A Source ART 04/26 [facility] CHEMISTRY POC A O2 Sat 99.0 % 95.0 - 04/26 Normal [facility] 100.0 [facility] CHEMISTRY POC A HCO3 32 mMol/L 22 - 26 04/26 HI [facility] CHEMISTRY POC A Hct 32.0 % 36.0 - 04/26 LOW [place] 48.0 [facility] CHEMISTRY POC A BE 8 mMol/L -2-2 - 2 04/26 [facility] CHEMISTRY POC A LA 0.6 mMol/L 0.5 - 2.2 04/26 Normal [facility] CHEMISTRY POC A pH 7.48 7.35 - 04/26 [facility] 7.45 [facility] CHEMISTRY POC A PO2 123 mm[Hg] 80 - 100 04/26 [facility] CHEMISTRY POC A PCO2 43 mm[Hg] 35 - 45 04/26 Normal [facility] CHEMISTRY POC A Glu 241 mg/dL 70 - 99 04/26 [facility] CHEMISTRY Ca Ion WB 1.08 1.05 - 04/26 Normal [place] mMol/L 1. [facility] CHEMISTRY Ca Norm WB 1.06 1.05 - 04/26 Normal [facility] mMol/L 1. [facility] Chest 1view Chest 1view EXAM: Portable chest radiograph 04/26/2013 at 7:44. 04/26 - - [facility] COMPARISON: Portable chest 04/24/2013. Read by: [...] opacity. CHEMISTRY POC A Mode 4LPM 04/25 [facility] CHEMISTRY POC A PCO2 44 mm[Hg] 35 - 45 04/25 Normal [facility] CHEMISTRY POC A Ca Ion 1.11 1.05 - 04/25 Normal [facility] mMol/L 1. [facility] CHEMISTRY POC A K 4.6 meq/L 3.5 - 5.1 04/25 Normal [facility] CHEMISTRY POC A LA 0.6 mMol/L 0.5 - 2.2 04/25 Normal [facility] CHEMISTRY POC A Glu 257 mg/dL 70 - 99 04/25 [facility] CHEMISTRY POC A O2 Sat 95.0 % 95.0 - 04/25 Normal [facility] 100.0 [facility] CHEMISTRY POC A BE 8 mMol/L -2-2 - 2 04/25 HI [facility] CHEMISTRY POC A HCO3 33 mMol/L 22 - 26 04/25 [facility] CHEMISTRY POC A Hct 34.0 % 36.0 - 04/25 LOW [facility] 48.0 [facility] CHEMISTRY POC A Na 136 meq/L 135 - 145 04/25 Normal [facility] CHEMISTRY POC A Source ART 04/25 [facility] CHEMISTRY POC A pH 7.48 7.35 - 04/25 [facility] 7.45 [facility] CHEMISTRY POC A Temp 37.0 Felisha 04/25 [facility] CHEMISTRY POC A PO2 69 mm[Hg] 80 - 100 04/25 LOW [facility] Chest 1view Chest 1view EXAM: Portable chest radiograph 04/24/2013 at 20:01 compared to portable chest radiograph 04/24/2013. 04/24 - - [facility] HISTORY: Chest pain. Read by: Kenzie [...] view, April 24, 2013 at 4:[address] HISTORY: 62-year-old female with abnormal chest [...] view, April 23, 2013 at 1628 04/[address] HISTORY: 62-year-old female with tube placement/removal/reposition. [...] HVI VAS INDICATION: Limb swelling 04/23 - [facility] Venous Venous Lower /2014 - Medical Lower Ext Ext Unilat This report was dictated by a Bone Density Technician /Fellow. I have personally reviewed the images as Center [facility] Doppler well as the Resident's interpretation and [...] mm[Hg] 35 - 45 04/23 HI MH [facility] CHEMISTRY POC A HCO3 34 mMol/L 22 - 26 04/23 [facility] CHEMISTRY POC A BE 9 mMol/L -2-2 - 2 04/23 [facility] CHEMISTRY POC A PO2 69 mm[Hg] 80 - 100 04/23 LOW [facility] CHEMISTRY POC A Source ART 04/23 [facility] CHEMISTRY POC A Temp 37.0 Felisha 04/23 [facility] CHEMISTRY POC A pH 7.47 7.35 - 04/23 [facility] 7.45 [facility] CHEMISTRY POC A O2 Sat 95.0 % 95.0 - 04/23 Normal [facility] 100.0 [facility] HEMATOLOGY aPTT 23.2 s 22.9 - 04/23 Normal 33Interpretiv [facility] 35.8 /2013 e Data: [facility] Therapeutic Range: 57 - 92 Seconds HEMATOLOGY PROTIME 13.5 s 12.0 - 04/23 Normal [facility] 14.7 [facility] HEMATOLOGY INR 1.04 0.85 - 04/23 Normal 30Interpretive Data: RECOMMENDED RANGES FOR PROTIME INR: [facility] . 2.0-3.0 for most medical and surgical thromboembolic states. Medical 2.5-3.5 for artificial heart valves and recurrent embolism. Center INR SHOULD BE USED ONLY FOR PATIENTS ON STABLE ANTICOAGULANT THERAPY. Chest 1view Chest 1view Chest one view, April 23, 2013 at 1:09 a.m. - - [facility] HISTORY: 62-year-old female with abnormal chest [...] 31Interpretive Data: RECOMMENDED RANGES FOR PROTIME INR: [facility] . 2.0-3.0 for most medical and surgical thromboembolic states. Medical 2.5-3.5 for artificial heart valves and recurrent embolism. Center INR SHOULD BE USED ONLY FOR PATIENTS ON STABLE ANTICOAGULANT THERAPY. HEMATOLOGY aPTT 26.5 s 22.9 - 04/22 Normal 34Interpretiv [facility] 35.8 /2013 e Data: [facility] Heparin [place] Therapeutic Range: 57 - 92 Seconds HEMATOLOGY PROTIME 14.1 s 12.0 - 04/22 Normal [facility] 14.7 [facility] HEMATOLOGY [place] Cell Slight None Seen 04/[address] [facility] (04/22/2013 03:12:00) HEMATOLOGY Large Plt Slight None Seen 04/[address] [facility] (04/22/2013 03:12:00) HEMATOLOGY Elliptocyte Slight None Seen 04/[address] [facility] (04/22/2013 03:12:00) HEMATOLOGY Polychrom Slight None Seen 04/22 Normal [facility] (04/22/2013 03:12:00) [place] HEMATOLOGY Rouleaux Present None Seen 04/[address] [facility] (04/22/2013 03:12:00) HEMATOLOGY Hypochrom Slight None Seen 04/22 Normal [facility] (04/22/2013 03:12:00) [place] Chest 1view Chest 1view PORTABLE CHEST 2013-04-22 01:26:00 04/22 - - [facility] COMPARISON: 04/21/2013 at 1:45 a.m. Read [...] HEMATOLOGY Smudge Slight None Seen 04/21 Normal [facility]2012 [facility] (04/21/2013 02:11:00) [place] HEMATOLOGY Polychrom Slight None Seen 04/21 Normal [facility] (04/21/2013 02:11:00) [place] HEMATOLOGY Plt Morph Normal 04/21 Normal [facility] (04/21/2013 02:11:00) [place] Chest 1view Chest 1view Chest one view, April 21, 2013 at 1:45 a.m. - [facility] - [facility] HISTORY: 62-year-old female with coughing. Read [...] Ca Ion 1.19 1.05 - 04/20 Normal [facility] mMol/L 1. [facility] CHEMISTRY POC A LA 1.3 mMol/L 0.5 - 2.2 04/[address] CHEMISTRY POC A Glu 99 mg/dL 70 - 99 04/[address] CHEMISTRY POC A Hct 33.0 % 36.0 - 04/20 [facility] 48.0 /2012 [facility] CHEMISTRY POC A Na 146 meq/L 135 - 145 04/20 [facility]2012 [facility] CHEMISTRY POC A K 3.3 meq/L 3.5 - 5.1 04/[address] Abdomen AP Abdomen AP EXAM: Abdomen 1 view 04/20 [facility] view view [facility] DATE: Apr 20, 2013 12:48:00 PM. [...] HEMATOLOGY Polychrom Slight None Seen 04/20 Normal [facility] (04/20/2013 02:54:00) [place] HEMATOLOGY Elliptocyte Slight None Seen 04/20 [facility]* [place] (04/20/2013 02:54:00) HEMATOLOGY Toxic Gran Slight None Seen 04/20 [facility]* [place] (04/20/2013 02:54:00) HEMATOLOGY Plt Morph Normal 04/20 Normal [facility]2012 [facility] (04/20/2013 02:54:00) [place] Chest 1view Chest 1view EXAM: CHEST 1 VIEW 04/20 [facility] DATE: Apr 20, 2013 02:39:00 AM [...] PEEP 5.0 0.0 - 40.0 04/19 Normal [facility] cm[H2O] /2012 [facility] CHEMISTRY POC A CPAP 0.0 0.0 - 40.0 04/19 Normal [facility] cm[H2O] [facility] CHEMISTRY POC A %FIO2 40.0 % 18.0 - 04/19 Normal [facility] 100.0 [facility] CHEMISTRY POC A PEEP 5.0 0.0 - 40.0 04/19 Normal [facility] cm[H2O] [facility] CHEMISTRY POC A %FIO2 40.0 % 18.0 - 04/19 Normal [facility] 100.0 [facility] CHEMISTRY POC A Mode CPAP 04/19 /2012 [facility] CHEMISTRY POC A Peak 15.0 0.0 - 04/19 Normal [facility] cm[H2O] 100.0 [facility] HEMATOLOGY aPTT 32.3 s 22.9 - 04/19 Normal 35Interpretiv [facility] 35.8 /2012 e Data: [facility] Therapeutic Range: 57 - 92 Seconds HEMATOLOGY PROTIME 15.7 s 12.0 - 04/19 HI [facility] 14.7 /2012 [facility] HEMATOLOGY INR 1.27 0.85 - 04/19 [place] 32Interpretive Data: RECOMMENDED RANGES FOR PROTIME INR: [facility] 1.17 2.0-3.0 for most medical and surgical thromboembolic states. Medical 2.5-3.5 for artificial heart valves and recurrent embolism. Center INR SHOULD BE USED ONLY FOR PATIENTS ON STABLE ANTICOAGULANT THERAPY. CHEMISTRY POC A PEEP 5.0 0.0 - 40.0 04/19 Normal [facility] cm[H2O] [facility] CHEMISTRY POC A %FIO2 50.0 % 18.0 - 04/19 Normal [facility] 100.0 [facility] CHEMISTRY POC A VT 550 mL 2 - 1200 04/19 Normal [facility] CHEMISTRY POC A Mech 16 bpm 0 - 70 04/19 Normal [facility] CHEMISTRY POC A Mode SIMV 04/19 [facility]2012 [facility] Chest 1view Chest 1view EXAM: XR CHEST 1 VIEW 04/19 - [facility] - [facility] DATE: Apr 19, 2013 01:35:00 AM [...] Therapeutic Range: Trough: 10 - 20 ug/mL [facility] Peak: 20 - 40 ug/mL [place] Potential Toxicity: >80 ug/mL CHEMISTRY Vanco Tr TND 04/19 04/18 [facility]2012 [facility] Chest 1view Chest 1view EXAM: XR CHEST 1 VIEW 04/18 - [facility] DATE: Apr 18, 2013 06:27:00 PM Read by: Delio Bui Dictated Date/time: 04/19/13 07:50 Electronically Signed by: Delio Bui MD 04/19/13 07:51 FINAL REPORT INDICATION: tube placement COMPARISON: 04/18/2013 at 1:53 p.m. TECHNIQUE: AP semi- upright view of the chest FINDINGS: The [place] catheter has been removed. The right IJ access remains in place. Other tubes and lines remain stable in position. There is increased attenuation at the lung bases bilaterally, mo st likely representing atelectasis. Small left effusion is present. The cardiopericardial silhouette and mediastinal contours are stable. IMPRESSION: Removal OF [place] catheter. No significant changes otherwise Abdomen AP Abdomen AP EXAM: XR ABDOMEN 1 VIEW 04/18 - [facility] view view /2012 [facility] DATE: Apr 18, 2013 02:43:00 PM [...] EXAM: XR CHEST 1 VIEW 04/18 - [facility] /2012 [facility] DATE: Apr 18, 2013 02:42:00 PM [...] 550 mL 2 - 1200 04/18 Normal [facility]2012 [facility] Brain wo Brain wo EXAMINATION: CT head without contrast. 04/18 - [facility] contrast CT contrast CT /2012 [facility] DATE: 04/18/2013. Read by: Clint Chatterjee [...] abnormality HEMATOLOGY Anisocyte 1+ None Seen 04/[address] [facility] (04/18/2013 03:40:00) HEMATOLOGY Toxic Gran Slight None Seen 04/[address] [facility] (04/18/2013 03:40:00) Chest 1view Chest 1view EXAM: XR CHEST 1 VIEW 04/18 - [facility] DATE: Apr 18, 2013 01:39:00 AM [...] 1.2 mMol/L 0.5 - 2.2 04/17 Normal [facility] CHEMISTRY Lipase Lvl 100 unit/L 73 - 393 04/17 Normal [facility]2012 [facility] CHEMISTRY Amylase Lvl 23 unit/L 25 - 115 04/17 LOW [facility]2012 [facility] CHEMISTRY A/G Ratio 1.4 0.7 - 1.6 04/17 Normal [facility]2012 [facility] CHEMISTRY Bili Indirect 0.6 mg/dL 0.0 - 1.0 04/17 Normal [facility]2012 [facility] CHEMISTRY Globulin 2.5 g/dL 2.0 - 4.0 04/[address] CHEMISTRY Bili Total 1.1 mg/dL 0.2 - 1.3 04/17 Normal [facility]2012 Medical Center CHEMISTRY Total Protein 6.1 g/dL 6.4 - 8.4 04/17 LOW [facility] CHEMISTRY ASPARTATE 40 unit/L 0 - 37 04/17 HI TRANSAMINASE [facility] CHEMISTRY Alk Phos 58 unit/L 39 - 136 04/17 Normal [facility] CHEMISTRY Bili Direct 0.5 mg/dL 0.0 - 0.3 04/17 HI [facility] CHEMISTRY Albumin Lvl 3.6 g/dL 3.5 - 5.0 04/17 Normal [facility] CHEMISTRY ALANINE 38 unit/L 0 - 65 04/17 Normal [facility] AMINO [facility] HEMATOLOGY Anisocyte 1+ None Seen 04/17 ABN Medical *ABN* Center (04/16/2013 23:27:20) CHEMISTRY POC V BE -2 mmol/L -2-2 - 2 04/17 Normal [facility] CHEMISTRY POC V PO2 33 mm[Hg] 20 - 49 04/17 Normal [facility] CHEMISTRY POC V HCO3 24 mmol/L 22 - 26 04/17 Normal [facility] CHEMISTRY POC V VT 550 mL 2 - 1200 04/17 Normal [facility] CHEMISTRY POC V Mech 14 bpm 0 - 70 04/17 Normal [facility] CHEMISTRY POC V Mode AC 04/17 [facility] CHEMISTRY POC V Glu 110 mg/dL 70 - 99 04/17 HI [facility] CHEMISTRY POC V O2 Sat 58.0 % 40.0 - 04/17 Normal 70.0 [facility] CHEMISTRY POC V %FIO2 60.0 % 18.0 - 04/17 Normal 100.0 [facility] CHEMISTRY POC V PEEP 7.0 0.0 - 40.0 04/17 Normal [facility] cm[H2O] [facility] CHEMISTRY POC V LA 0.7 mMol/L 0.5 - 2.2 04/17 Normal [facility] CHEMISTRY POC V pH 7.33 7.28 - 04/17 Normal [facility] 7.42 [facility] CHEMISTRY POC V PCO2 45 mm[Hg] 38 - 52 04/17 Normal [facility] CHEMISTRY POC V K 3.9 meq/L 3.5 - 5.1 04/17 Normal [facility] CHEMISTRY POC V Na 147 meq/L 135 - 145 04/17 HI [facility] CHEMISTRY POC V Ion Ca 1.14 1.05 - 04/17 Normal [facility] mMol/L 1. [facility] CHEMISTRY POC V Temp 37.0 Felisha 04/17 [facility] CHEMISTRY POC V Hct 30.0 % 36.0 - 04/17 LOW [facility] 48.0 [facility] CHEMISTRY POC V Source EVANGELINA 04/17 [facility] CHEMISTRY POC A VT 550 mL 2 - 1200 04/17 Normal [facility] CHEMISTRY POC A Mech 14 bpm 0 - 70 04/17 Normal [facility] Rate [facility] Chest 1view Chest 1view Portable ap semierect chest 04/17/201304/17 - - [facility] HISTORY: Cough. Comparison is made with yesterday. Read by: Kady Arrington Dictated Date/time: 04/17/13 09:05 Electronically Signed by: Kady Arrington MD 04/17/13 09:42 FINAL REPORT FINDINGS: Cardiomediastinal silhouette, postoperative changes and life support lines remains stable. The tip of the [place] catheter is in the pulmonary trunk; however, the [place] catheter is loope d in the right [...] V pH 7.30 7.28 - 04/16 Normal [facility] 7.42 [facility] CHEMISTRY POC V LA 0.7 mMol/L 0.5 - 2.2 04/16 Normal [facility] CHEMISTRY POC V PCO2 46 mm[Hg] 38 - 52 04/16 Normal [facility] CHEMISTRY POC V Ion Ca 1.18 1.05 - 04/16 Normal [facility] mMol/L 1. Medical Center CHEMISTRY POC V Hct 31.0 % 36.0 - 04/16 LOW [facility] 48.0 Medical Center CHEMISTRY POC V Source EVANGELINA 04/16 Medical [place] CHEMISTRY POC V Temp 37.0 Felisha 04/16 [facility] CHEMISTRY POC V Glu 132 mg/dL 70 - 99 04/16 HI [facility] [place] CHEMISTRY POC V O2 Sat 52.0 % 40.0 - 04/16 Normal 70.0 Medical Center CHEMISTRY POC V PO2 31 mm[Hg] 20 - 49 04/16 Normal [facility] CHEMISTRY POC V HCO3 23 mmol/L - 26 04/16 Normal [facility] CHEMISTRY POC V K 4.2 meq/L 3.5 - 5.1 04/16 Normal [facility] CHEMISTRY POC V Na 149 meq/L 135 - 145 04/16 [facility] CHEMISTRY POC V BE -4 mmol/L -2-2 - 2 04/16 LOW [facility] CHEMISTRY Lactic Acid 0.9 mMol/L 0.5 - 2.2 04/16 Normal [facility] Lvl [facility] [facility] CHEMISTRY Lipase Lvl 69 unit/L 73 - 393 04/16 LOW [facility] CHEMISTRY Amylase Lvl 21 unit/L 25 - 115 04/16 LOW [facility] CHEMISTRY ALANINE 44 unit/L 0 - 65 04/16 Normal [facility] AMINO [facility] Center CHEMISTRY Total Protein 5.8 g/dL 6.4 - 8.4 04/16 LOW [facility] CHEMISTRY Bili Total 1.6 mg/dL 0.2 - 1.3 04/16 HI [facility] CHEMISTRY Bili Direct 0.7 mg/dL 0.0 - 0.3 04/16 [facility] [place] CHEMISTRY ASPARTATE 43 unit/L 0 - 37 04/16 [facility] CHEMISTRY Alk Phos 40 unit/L 39 - 136 04/16 Normal [facility] CHEMISTRY Albumin Lvl 3.8 g/dL 3.5 - 5.0 04/16 Normal [facility] CHEMISTRY A/G Ratio 1.9 0.7 - 1.6 04/16 [facility] CHEMISTRY Globulin 2.0 g/dL 2.0 - 4.0 04/16 Normal [facility] CHEMISTRY Bili Indirect 0.9 mg/dL 0.0 - 1.0 04/16 Normal [facility] 0 - 70 04/16 Normal [facility] BLOOD BANK RBC product Product available 04/16 Normal Medical (04/16/2013 14:04:00) [place] BLOOD BANK FFP product Product available 04/16 Normal Medical (04/16/2013 13:14:00) [place] BLOOD BANK RBC product Product available 04/16 Normal [facility] Medical (04/16/2013 13:14:00) [place] BLOOD BANK ABO/Rh B POS 04/16 [facility] BLOOD BANK Antibody Scrn Negative 04/16 Normal [facility] Medical (04/16/2013 12:30:00) [place] Chest 1view Chest 1view EXAM: XR CHEST 1 VIEW 04/16 - [facility] This report was dictated by a Bone Density Technician/Fellow. I have personally reviewed the images as [...] the stomach. Note is again made of [place] catheter making a loop within the right atrium. The tip of the [place] catheter is in the pulmonary trunk. [...] pleural effusions and left retrocardiac opacity. 2. [place] catheter making a loop within the right atrium with tip in the pulmonary trunk. Chest 2 Chest 2 views EXAM: XR CHEST 2 VIEWS 04/16 - [facility] - [facility] This report was dictated by a Bone Density Technician/Fellow. I have personally reviewed the images as [...] abnormality identified. URINALYSIS Micro? Not Indicated 04/16 [facility] *NA* [place] (04/15/2013 23:02:50) URINALYSIS UA <=1.0 0.1 - 1.0 04/16 [facility] Urobilinogen mg/dL [facility] URINALYSIS UA Sq Epi Few /LPF Few 04/16 [facility] URINALYSIS UA WBC 1 /HPF 0 - 5 04/16 Normal [facility] URINALYSIS UA Bacteria Occasional None Seen 04/16 [facility] /HPF [facility] URINALYSIS UA Glucose Negative Negative 04/16 [facility] mg/dL [facility] URINALYSIS UA Protein Negative Negative 04/16 Normal [facility] mg/dL [facility] URINALYSIS UA pH 5.0 5.0 - 8.0 04/16 Normal [facility] URINALYSIS UA Leuk Est Negative Negative 04/16 Normal Medical (04/15/2013 23:02:50) [place] URINALYSIS UA Bili Negative Negative 04/16 [facility] *NA* [place] (04/15/2013 23:02:50) URINALYSIS UA Nitrite Negative Negative 04/16 Normal [facility] (04/15/2013 23:02:50) [place] URINALYSIS UA Blood Negative Negative 04/16 Normal [facility] (04/15/2013 23:02:50) [place] URINALYSIS UA Ketones Negative Negative 04/16 [facility] mg/dL [facility] URINALYSIS UA Mucus Few /LPF None Seen 04/16 [facility] URINALYSIS UA Hyal Cast 1 /LPF 0 - 2 04/16 Normal [facility] URINALYSIS UA Spec Grav 1.006 <=1.030 04/16 Normal [facility] URINALYSIS UA Color Light Yellow Yellow 04/16 [facility] *NA* [place] (04/15/2013 23:02:50) URINALYSIS UA Turbidity Clear Clear 04/16 Normal [facility] (04/15/2013 23:02:50) [place] CHEMISTRY Digoxin Lvl 1.0 ng/mL 0.8 - 2.0 04/16 Normal [facility] Chest 1view Chest 1view Portable ap semierect chest 04/16/201304/16 - [facility] - [facility] HISTORY: Cough. Comparison is made with yesterday. Read by: Kady Arrington Dictated Date/time: 04/16/13 09:12 Electronically Signed by: Kady Arrington MD 04/16/13 10:01 FINAL REPORT FINDINGS: Cardiomediastinal silhouette, postoperative changes and life support lines are stable. Although the tip of the [place] catheter is in the pulmonary trunk it [...] 39 meq/L 04/15 28Interpretiv e Data: No [facility] established Center reference ranges. CHEMISTRY U Microalb 21.0 mg/L 04/15 [facility] CHEMISTRY U Creatinine 77.9 mg/dL 04/15 26Interpretiv e Data: No [facility] Center reference ranges. CHEMISTRY U Alb/Crea 27.0 <=30.0 04/15 Normal [facility] mcg/ [facility] creat Center CHEMISTRY U Eos None Seen None Seen 04/15 Normal [facility] (04/15/2013 13:53:53) Center CHEMISTRY Bili Direct 1.1 mg/dL 0.0 - 0.3 04/15 [facility] CHEMISTRY Bili Indirect 1.0 mg/dL 0.0 - 1.0 04/15 Normal [facility] CHEMISTRY B/C Ratio 16 - 25 04/15 Normal [facility] HEMATOLOGY Baso Stipplin Slight None Seen 04/15 ABN [facility] *ABN* Center (04/15/2013 09:03:00) CHEMISTRY POC V PCO2 49 mm[Hg] 38 - 52 04/15 Normal [facility] CHEMISTRY POC V PO2 32 mm[Hg] 20 - 49 04/15 Normal [facility] CHEMISTRY POC V BE 0 mmol/L -2-2 - 2 04/15 Normal [facility] CHEMISTRY POC V HCO3 26 mmol/L 22 - 26 04/15 Normal [facility] CHEMISTRY POC V Na 147 meq/L 135 - 145 04/15 [facility] CHEMISTRY POC V K 4.3 meq/L 3.5 - 5.1 04/15 Normal [facility] CHEMISTRY POC V pH 7.34 7.28 - 04/15 [facility] 7.42 [facility] CHEMISTRY POC V O2 Sat 57.0 % 40.0 - 04/15 [facility] 70.0 [facility] CHEMISTRY POC V Temp 37.0 Felisha 04/15 [facility] CHEMISTRY POC V Source EVANGELINA 04/15 [facility] CHEMISTRY POC V Ion Ca 1.22 1.05 - 04/15 Normal [facility] mMol/L 1. [facility] CHEMISTRY POC V Hct 30.0 % 36.0 - 04/15 LOW [facility] 48.0 [facility] BLOOD BANK RBC product Product available 04/15 Normal [facility] (04/15/2013 01:55:00) [place] CHEMISTRY Lactic Acid 5.3 mMol/L 0.5 - 2.2 04/15 HI [facility] Lvl [facility] HEMATOLOGY Baso [place] Slight None Seen 04/15 ABN Medical *ABN* Center (04/15/2013 00:22:00) Chest 1view Chest 1view PORTABLE CHEST 2013-04-15 03:35:00 04/15 - - [facility] COMPARISON: Yesterday Read by: Yoav Reinoso Dictated Date/time: 04/15/13 10:39 Electronically Signed by: Yoav Reinoso MD 04/15/13 10:41 FINAL REPORT CLINICAL INDICATION: Coughing DISCUSSION: Support devices are unchanged. [place] catheter continues to make a loop within [...] %FIO2 80.0 % 18.0 - 04/14 Normal [facility] 100.0 [facility] CHEMISTRY POC V PEEP 8.0 0.0 - 40.0 04/14 Normal [facility] cm[H2O] [facility] CHEMISTRY POC V Mech 15 bpm 0 - 70 04/14 Normal [facility] CHEMISTRY POC V VT 550 mL 2 - 1200 04/14 Normal [facility] CHEMISTRY POC V Mode AC 04/14 [facility] CHEMISTRY POC V Glu 223 mg/dL 70 - 99 04/14 [facility] CHEMISTRY POC V LA 3.7 mMol/L 0.5 - 2.2 04/14 [facility] CHEMISTRY B/C Ratio 20 6 - 25 04/14 Normal [facility] Chest 1view Chest 1view EXAM: CHEST [address] DATE: Apr 14, 2013 06:08:00 PM Read by: Tommie Oneill Dictated Date/time: 04/15/13 00:29 Electronically Signed by: Tommie Oneill MD 04/15/13 00:30 FINAL REPORT INDICATION: Central Line Placement COMPARISON: Prior exam dated 04/14/2013 used for comparison. TECHNIQUE: Single portable radiograph of the chest FINDINGS: The cardiac silhouette is unchanged in appearance. The [place] catheter has been adjusted the loop seen in the catheter lying within the right atrium has been removed the tip is within may right pulmonary artery. The remainder the support tubes and lines are unchanged in position. The lungs are unchanged in appearance bilaterally. The remainder of the exam is unchanged. IMPRESSION: Repositioning of the [place] catheter, the previously noted loop within the right atrium has been removed, the tip is in the proximal aspect of the right pulmonary artery. The remainder of the exam is unchanged. Chest 1view Chest 1view PORTABLE CHEST 2013-04-14 14:20:[address] [place] [address] COMPARISON: 04/09/2013 Read by: Yoav Reinoso Dictated Date/time: 04/14/13 15:56 Electronically Signed by: Yoav Reinoso MD 04/14/13 16:01 FINAL REPORT CLINICAL INDICATION: Respiratory distress DISCUSSION: Note again of left upper extremity PICC. New endotracheal tube terminates in satisfactory position. New NG tube terminates within stomach. New right IJ [place] catheter makes a loop within right atrium [...] right may represent a lap sponge. 2. [place] catheter makes a loop within right atrium with tip within right pulmonary artery. Nurse Jonathon was notified at 4:00 p.m. on 04/14/2013. 3. Interstitial edema. BLOOD BANK Antibody Scrn Negative 04/14 Normal [place] RESULTS Medical (04/13/2013 21:02:00) Center BLOOD BANK ABO/Rh B POS 04/14 [place] RES[facility] Center BLOOD BANK Platelet Product available 04/13 Normal [facility] RESULTS Medical (04/13/2013 17:49:00) Center BLOOD BANK FFP product Product available 04/13 Normal [place] RESULTS Medical (04/13/2013 17:49:00) Center BEDSIDE Gluc POC Cleaned 04/13 [facility] GLUCOSE Comment 2 Meter Medical TESTING [place] BEDSIDE Gluc POC Cleaned 04/13 [facility] GLUCOSE Comment 2 Meter Medical TESTING Center URINALYSIS UA Amorph Occasional None Seen 04/12 [facility] [place] [facility] HEMATOLOGY Hypochrom Slight None Seen 04/12 Normal Medical (04/12/2013 01:08:00) Center HEMATOLOGY Toxic Gran Slight None Seen 04/12 [facility] Medical *ABN* [place] (04/12/2013 01:08:00) HEMATOLOGY Smudge Slight None Seen 04/12 Normal Medical (04/12/2013 01:08:00) Center HEMATOLOGY Stomatocyte Slight None Seen 04/12 [facility] Medical *ABN* [place] (04/12/2013 01:08:00) HEMATOLOGY Atypical 0.0 % <=0.0 04/12 Normal [facility] HEMATOLOGY Metamyelocyte 2.0 % 0.0 - 1.0 04/12 [facility] HEMATOLOGY Bands 0.0 % 0.0 - 11.0 04/12 Normal [facility] HEMATOLOGY Atypical 0.0 % <=0.0 04/11 Normal [facility] Lymph [facility] HEMATOLOGY Metamyelocyte 6.0 % 0.0 - 1.0 04/11 [facility] s [facility] HEMATOLOGY Bands 0.0 % 0.0 - 11.0 04/11 Normal [facility] HEMATOLOGY RBC Morph Normal 04/11 Normal Medical (04/11/2013 00:49:00) Center HEMATOLOGY NUCLEATED 2 /100WB 04/11 [facility] RBC'S [facility] HEMATOLOGY Large Plt Slight None Seen 04/11 [facility] Medical *ABN* [place] (04/11/2013 00:49:00) Chest 1view Chest 1view EXAM: CHEST 1 VIEW 04/09 - [facility] /2012 - Medical This report was dictated by a Bone Density Technician/Fellow. I have personally reviewed the images as [...] 0.8 - 2.0 04/09 Normal [place] /2012 [facility] CHEMISTRY T4 Free 1.43 ng/dL 0.76 - 04/08 Normal [facility] 1.46 /2012 [facility] CHEMISTRY T3 Free 1.05 pg/mL 2.18 - 04/08 LOW [facility] 3.98 /2012 [facility] HVI VAS HVI VAS INDICATION: Carotid bruit . 04/08 - [facility] Arterial Arterial /2012 - Medical Extracrania Extracranial This report was dictated by a Bone Density Technician/Fellow. I have personally reviewed the images as [...] EXAM: XR CHEST 1 VIEW 04/08 - [facility] - Medical This report was dictated by a Bone Density Technician/Fellow. I have personally reviewed the images as [...] VAS INDICATION: Pain in limbs. 04/07 - [facility] Venous Venous Lower /2012 - Medical Lower Ext Ext Bilat This report was dictated by a Bone Density Technician /Fellow. I have personally reviewed the images as Center Bilat Doppler well as the Resident's interpretation and agree with the findings. Doppler IMPRESSION: Read by: [id number] -LEONEL Restrepo [id number] Resident: [id number] -LEONEL Restrepo [id number] Dictated Date/time: 04/07/13 11:21 1. There is [...] INFECTIOUS Influenza A Negative Negative 04/06 Normal [facility] DISEASES PCR /2012 Medical (04/06/2013 15:01:33) Center INFECTIOUS Source [employer]ed [employer] SALES Swab 04/06 Normal [facility] Respiratory /2012 Medical Panel PCR (04/06/2013 15:01:33) Center INFECTIOUS RSV PCR Negative 4 Negative 04/06 Normal 4Interpretive Data: Gen-Probe Prodesse ProFlu plus assay is a multiplex real-time PCR test [facility] DISEASES /2012 for the qualitative detection [...] verified by the [facility] within [facility]. The Molecular Diagnostic Laboratory is authorized under the Clinical Laboratory Improvement Amendments of 1988 (CLIA-88) to perform high complexity testing. INFECTIOUS Influenza B Negative Negative 04/06 Normal [facility] DISEASES Medical (04/06/2013 15:01:33) Center Chest 1view Chest 1view EXAM: XR CHEST 1 VIEW 04/06 - [facility] DATE: 2013-04-06 1651 hours Read by: [...] A 10.0 0.0 - 50.0 04/06 Normal [facility] BIPAP(I) cm[H2O] [facility] CHEMISTRY BNP 118 pg/mL <=100 04/06 [place] 23Interpretive Data: Elevated results are in line with increasing severity of [facility] congestive heart failure. Minor elevations between 100 and 300 Medical may be seen with Myocardial Ischemia, Sodium retaining drugs, Center and compensated/treated heart failure. Chest 1view Chest 1view Portable ap semierect chest 04/06/201304/06 - [facility] - [facility] HISTORY: Chest pain. Comparison is made [...] A 10.0 0.0 - 50.0 04/05 Normal [facility] BIPAP(I) cm[H2O] /2012 Medical Center INFECTIOUS Source [employer]ock[employer]ICE PRESIDENT SALES Swab 04/05 Normal [facility] DISEASES Respiratory /2012 Medical Panel PCR (04/05/2013 13:45:25) Center INFECTIOUS RSV PCR Negative 5 Negative 04/05 Normal 5Interpretive Data: Gen-Probe Prodesse ProFlu plus assay is a multiplex real-time PCR test [facility] for the qualitative detection and discrimination [...] verified by the [facility] within [facility]. The Molecular Diagnostic Laboratory is authorized under the Clinical Laboratory Improvement Amendments of 1988 (CLIA-88) to perform high complexity testing. INFECTIOUS Influenza B Negative Negative 04/05 Normal [facility] DISEASES PCR /2012 Medical (04/05/2013 13:45:25) Center INFECTIOUS Influenza A Negative Negative 04/05 Normal [facility] DISEASES PCR /2012 Medical (04/05/2013 13:45:25) Center INFECTIOUS Adenovirus Negative 2 Negative 04/05 Normal 2Interpretive Data : The Adenovirus PCR assay is a multiplex Real-Time PCR test for the [facility] PCR detection of the human Adenovirus. The [...] verified by the [facility] Diagnostic Laboratory within [facility]. The Molecular Diagnostic Laboratory is authorized under the Clinical Laboratory Improvement Amendments of 1988 (CLIA-88) to perform high complexity testing. INFECTIOUS Source [employer]ocked [employer]ICE PRESIDENT SALES Swab 04/05 Normal [facility] DISEASES Adenovirus /2012 Medical PCR (04/05/2013 13:45:25) Center INFECTIOUS Parainfluenza Negative 3 Negative 04/05 Normal 3Interpretive Data: The Parainfluenza PCR assay is a multiplex Real-Time PCR test for [facility] DISEASES 3 the detection and discrimination of [...] verified by the [facility] within [facility]. The Molecular Diagnostic Laboratory is authorized under the Clinical Laboratory Improvement Amendments of 1988 (CLIA-88) to perform high complexity testing. INFECTIOUS Parainfluenza Negative Negative 04/05 Normal [facility] DISEASES 2 PCR /2012 Medical (04/05/2013 13:45:25) Center INFECTIOUS Parainfluenza Negative Negative 04/05 Normal [facility] DISEASES 1 PCR /2012 Medical (04/05/2013 13:45:25) Center INFECTIOUS Source [employer] PRESIDENT SALES Swab 04/05 Normal [facility] DISEASES Parainfluenza /2012 Medical Virus PCR (04/05/2013 13:45:25) Center CHEMISTRY POC A 10.0 0.0 - 50.0 04/05 Normal [facility] BIPAP(I) cm[H2O] [facility] CHEMISTRY Troponin-T 0.451 0.000 - 04/05 CRIT 17Result [facility] ng/mL 0.100 Comment: Medical Critical Center Result(s) called to Mariia Hurst at 04/05/2013 10:59 byMIA. Read back OK. CHEMISTRY CK MB 1.1 ng/mL 0.5 - 3.6 04/05 Normal [place] /2012 [facility] CHEMISTRY CK-MB INDEX 0.3 0.0 - 2.5 04/05 Normal [facility] CHEMISTRY Total CK 364 unit/L 04/05 [place] [facility] CHEMISTRY Troponin-I 2.45 ng/mL 0.00 - 04/05 CRIT 20Result [facility] 0.40 Comment: Medical Critical Center Result(s) called to CHINYERE vasquez at 04/05/2013 09:[address] Read back OK. CHEMISTRY Total CK 472 unit/L 04/05 [facility] CHEMISTRY Troponin-I 3.60 ng/mL 0.00 - 04/05 CRIT 21Result [facility] 0.40 Comment: [facility] Critical [facility] Result(s) called to jonathon mills at 04/05/2013 00:22 byharpreet. Read back OK. CHEMISTRY CK MB 1.2 ng/mL 0.5 - 3.6 04/05 Normal [facility] CHEMISTRY CK-MB INDEX 0.3 0.0 - 2.5 04/05 Normal [facility] CHEMISTRY Troponin-T 0.570 0.000 - 04/05 CRIT 18Result [facility] ng/mL 0.100 /2012 Comment: [facility] Critical Center Result(s) called to Jonathon Del Toro at 04/05/2013 00:45_ by_mgm. Read back OK. Chest 1view Chest 1view PORTABLE CHEST 2013-04-05 05:13:00 04/05 - - [facility] COMPARISON: 04/04/2013 Read by: Vik Larkin [...] Ag Negative 6 Negative 04/05 Normal 6Interpretive [facility] - Data: This Medical (04/04/2013 19:00:00) kit tests for Center Legionella pneumophila Serogroup 1 Antigen. HEMATOLOGY Large Plt Slight None Seen 04/05 ABN Medical *ABN* Center (04/04/2013 18:13:00) HEMATOLOGY Hypochrom Slight None Seen 04/05 Normal [facility] Medical (04/04/2013 18:13:00) Center URINALYSIS UA RBC 2 /HPF 0 - 2 04/05 Normal [facility]2012 [facility] CHEMISTRY CK-MB INDEX 0.5 0.0 - 2.5 04/04 Normal [facility]2012 [facility] CHEMISTRY CK MB 3.9 ng/mL 0.5 - 3.6 04/04 HI [facility]2012 [facility] CHEMISTRY BNP 153 pg/mL <=100 04/04 HI 24Interpretive Data: Elevated results are in line with increasing severity of congestive heart failure. Minor elevations between 100 and 300 Medical may be seen with Myocardial Ischemia, Sodium retaining drugs, Center and compensated/treated heart failure. CHEMISTRY Troponin-I 4.01 ng/mL 0.00 - 04/04 CRIT 22Result [facility] 0.40 /2013 Comment: [facility] Critical [place] Result(s) called to [facility] at 04/04/2013 15:43_ by_ferdinand. Read back OK. CHEMISTRY Total CK 769 unit/L 12 - 04/[address] Chest 1view Chest 1view PORTABLE CHEST 2013-04-04 15:14:00 04/04 - - [facility] COMPARISON: April 04, 2013 at 2:47 [...] infection. BLOOD BANK ABO/Rh B POS 04/04 [facility] RESULTS [facility] BLOOD BANK Antibody Scrn Negative 04/04 Normal [facility] (04/04/2013 02:30:28) [place] BACTERIAL - MRSA by PCR Negative 1 04/04 Normal 1Interpretive Data: Interpretive Data: The [employer] LightCycler MRSA assay is a qualitative test for the direct detection of nasal colonization with methicillin-resistant Staphylococcus aureus (MRSA) to aid [facility] in the prevention and control of MRSA infections in healthcare settings. A positive result does not indicate an infection or require treatment. A negative result does not exclude colonization or infection. [facility] (04/04/2013 02:30:00) Center The polymerase chain reaction (PCR) assay detects a proprietary sequence indicative of the integration of the SCCmec cassette into the Staphylococcus aureus chromosome, indicating the presence of MRSA D NA. The assay utilizes FDA cleared IVD reagents. Performance characteristics have been verified by the Molecular Diagnostic Laboratory within the [facility]. The Molecular Diagnostic Labor atory is authorized under the Clinical Laboratory Improvement Amendment of 1988 (CLIA-88) to perform high complexity testing. CHEMISTRY Hgb A1C 6.2 % <=5.6 04/04 HI [facility] CHEMISTRY TSH 0.974 0.360 - 04/04 Normal [facility] uIU/mL 3.740 [facility] CHEMISTRY Troponin-T 0.323 0.000 - 04/04 CRIT 19Result [facility] ng/mL 0.100 Comment: [facility] Critical Center Result(s) called to Tracie Simmons at 04/04/2013 03:53_ by_mgm. Read back OK. Chest 1view Chest 1view PORTABLE CHEST 2013-04-04 02:51:00 04/04 - - [facility] COMPARISON: September 27, 2006 Read by: [...] prior radiograph. BEDSIDE Comment1 Notify 12/23 NA [facility] GLUCOSE RN/MD /2012 Medical TESTING Center BEDSIDE Gluc POC 187 mg/dL 12/23 [place] 1Interpretive [facility] GLUCOSE [facility] Data: Medical TESTING Center Upper Reportable Limit: 200 mg/dL. BEDSIDE Gluc POC 247 mg/dL - 12/23 HI 2Interpretive [facility] GLUCOSE [facility] Data: Medical TESTING Center Upper Reportable Limit: 200 mg/dL. Vital Signs Vital Sign Value Date Comments Source Temperature Oral (F) 97.2 F 04/30/2013 [facility] Systolic (mm Hg) 142 04/30/2013 [facility] Diastolic (mm Hg) 59 04/30/2013 [facility] Respitory Rate 17 04/30/2013 [facility] Respitory Rate 18 04/30/2013 [facility] Systolic (mm Hg) 142 04/30/2013 [facility] Diastolic (mm Hg) 59 04/30/2013 [facility] Respitory Rate 20 04/30/2013 [facility] Diastolic (mm Hg) 66 04/30/2013 [facility] Systolic (mm Hg) 155 04/30/2013 [facility] Temperature Oral (F) 97.2 F 04/30/2013 [facility] Temperature Oral (F) 96.4 F 04/30/2013 [facility] Height 162.56 cm 04/04/2013 [facility] Weight 121.5 04/04/2013 [facility] Respitory Rate 16 12/23/2012 [facility] Heart Rate 72 12/23/2012 [facility] Systolic (mm Hg) 155 12/23/2012 [facility] Diastolic (mm Hg) 70 12/23/2012 [facility] Diastolic (mm Hg) 54 12/23/2012 [facility] Systolic (mm Hg) 131 12/23/2012 [facility] Respitory Rate 14 12/23/2012 [facility] Respitory Rate 22 12/23/2012 [facility] Diastolic (mm Hg) 56 12/23/2012 [facility] Systolic (mm Hg) 126 12/23/2012 [facility] Heart Rate 70 12/23/2012 [facility] Height 162.56 cm 12/23/2012 [facility] Weight 113.636 12/23/2012 [facility] Encounters Location Location Encounter Encounter Reason Attending ADM DC Status Source Details Type Number For Provider Date Date Visit [facility] DS [id number] TORRES BECK 12/23 12/23 [facility] [facility] HEM[facility]LEG GAEL JR /2012 [facility] PUMP ICD-9# 342.1, 996.2 [facility] Inpatient [id number] Jose KAUR 04/04 04/29 Active [facility] /2012 [facility] Procedures Procedure Code Date Perfomer Comments Source Carpal tunnel release [id number] [facility] Cholecystectomy [id number] [facility] Operation [id number] [facility] Tonsillectomy [id number] [facility]
[2018-07-21] MEDS ORDERED: PHENYLEPHRINE 10% OPTH 5ML ONE (12:08)
[2018-07-21] MEDS ORDERED: NA CHLORIDE 0.9% 500 ML ONE (12:08)
[2018-07-21] MEDS ORDERED: CYCLOPENTOLATE 1% OPTH 2 ML ONE (12:08)
--- OUTSIDE RECORDS SUMMARY | 2018-07-21 12:08 | XMS REPORT | CCD ---
:1950 Author Organization [facility] Care Team Providers Name Role Phone [...]
--- OUTSIDE RECORDS SUMMARY | 2018-07-21 12:10 | XMS REPORT | CCD ---
:1950 Author Organization [facility] Care Team Providers Name Role Phone Jose Andrews Consulting Provider Allergies, Adverse Reactions, Alerts Substance Reaction Status penicillins Active Problem List Condition Effective Dates Status Atrial fibrillation Active CKD - chronic kidney disease Active Constipation Active CVA - Cerebrovascular accident Resolved Diabetes mellitus Active Hypercholesterolemia Active Hypertension Active hypertonicity of bladder Active morbid obesity Active NSTEMI - Non-ST segment elevation MA Active Spastic hemiplegia Active Medications Medication Instructions [...] IVPB, Drug 04/16/2013 04/19/2013 Discontinued form: INJ, [id number], Dosing Weight 121.5, kg, (CrCl 30 - 49 ml/min), Priority: NOW, Start date: 04/16/13 13:13:00, Duration: 30 day, Stop date: 05/16/13 1:13:00(Same As: Maxipime) vancomycin 1 gm, Route: IVPB, Drug 04/16/2013 04/19/2013 Discontinued form: INJ, [id number], Dosing Weight 121.5, kg, Priority: NOW, Start [...] mg, 1 supp, Route: 04/21/2013 04/26/2013 Discontinued SD, Drug form: SUPP, Daily, Dosing Weight 121.5, kg, Start date: 04/21/13 9:00:00, Duration: 30 day, Stop date: 05/20/13 9:00:00(Same As: Dulcolax, Bisco-Lax) bisacodyl 10 mg rectal 10 mg=1 supp, SD, Daily, 04/30/2013 Ordered suppository Constipation, # 10 [...] mg, 1 supp, Route: 04/26/2013 04/30/2013 Discontinued SD, Drug form: SUPP, Daily, Dosing Weight 121.5, [...] 30 day, Stop date: 05/04/13 3:04:00(Same as: [place] 325/5) Do not exceed 4gm/day of acetaminophen. [...] derivative" Sodium Chloride 0.9% 250 mL, Rate: scallop raker 04/13/2013 04/28/2013 Discontinued (titrate) 250 mL for [...] date: 04/05/13 7:28:00(Same as: Mag-Ox 400)Magnesium oxide [id number] elemental magnesiumDose=____mg magnesium oxide (___mg elemental magnesium) [...] IVPB, 04/04/2013 04/06/2013 Discontinued Drug form: PDR/INJ, [id number], Dosing Weight 121.5, kg, Start date: 04/04/13 [...] IVPB, Drug 04/04/2013 04/10/2013 Discontinued form: PDR/INJ, [id number], Dosing Weight 121.5, kg, Start date: 04/04/13 [...] 04/14/2013 04/15/2013 Completed Sodium Chloride 0.9% IV [id number], Dosing Weight 250 mL 121.5, kg, Start [...] Duration: 30 day, Stop date: 05/20/13 9:00:00Chloraseptic [place](Same as: Chloraseptic, Sore Throat [place]) Insulin regular 4 unit, 0.04 mL, Route: [...] by the [facility] within the [facility]. The [facility] Laboratory is authorized under the Clinical Laboratory Improvement Amendment of 1988 (CLIA-88) to performhigh complexity testing.INFECTIOUS DISEASES Most recent to oldest [Reference 1 2 3 Range]: Source Adenovirus PCR Flocked OXYHYDROGEN WELDER Swab (04/05/2013 13:45:25) Adenovirus PCR [Negative] Negative 2 (04/05/2013 13:45:25) Source Parainfluenza Virus PCR Flocked OXYHYDROG[employer] WELDER Swab (04/05/2013 13:45:25) Parainfluenza 1 PCR [Negative] Negative (04/05/2013 13:45:25) Parainfluenza 2 PCR [Negative] Negative (04/05/2013 13:45:25) Parainfluenza 3 PCR [Negative] Negative 3 (04/05/2013 13:45:25) Source Respiratory Panel PCR Flocked OXYHYDROG[employer] WELDER Swab Flocked OXYHYDROGEN WELDER Swab (04/06/2013 15:01:33) (04/05/2013 13:45:25) Influenza A [...] verified by the [facility] within [facility]. The [facility] Laboratory is authorized [...] verified by the [facility] within [facility]. The [facility] is authorized [...] verified by the [facility] within [facility]. The [facility] is authorized [...] verified by the [facility] within [facility]. The [facility] Laboratory is authorized [...] values reflect the clinical guidelines of the [employer].15Interpretive Data: Adult reference range values reflect the clinical guidelines of the [employer].16Interpretive Data: Adult reference range values reflect the clinical guidelines of the [employer].17Result Comment: Critical Result(s) called to [...] 20 - 40 ug/mL Potential Toxicity: >80 ug/iO84Nlqhwezjaged Data: No established reference ranges.27Interpretive Data: No [...] Seen] Slight Slight (04/21/2013 02:11:00) (04/12/2013 01:08:00) [place] Cell [None Seen] Slight *ABN* (04/22/2013 03:12:00) [...] Data: Heparin Therapeutic Range: 57 - 92 [id number] Data: Heparin Therapeutic Range: 57 - 92 [id number] Data: Heparin Therapeutic Range: 57 - 92 [...] IsolatedSTAIN REPORTS Stain ReportGram Stain Performed By: [facility] PROCEDURE:Culture: Viral Complete STATUS: Auth (Verified) BODY SITE: COLLECTED DATE/TIME: 04/06/2013 15:01:06 SOURCE: Nasal Swab FREE TEXT SOURCE: [facility] FINAL REPORTS Final ReportNo Adenovirus No Influenza A or B Virus No Parainfluenza Virus , And No Respiratory Syncytial Virus IsolatedPRELIMINARY REPORTS Preliminary ReportCulture In Progress
--- OUTSIDE RECORDS SUMMARY | 2018-07-21 12:11 | XMS REPORT ---
:1950 [facility] [address] [place] [address] Care Team Providers Name Role Phone Unavailable Unavailable Unavailable Payers Payer Name Policy Type Policy Number Effective Date Expiration Date Problems This patient has no known problems. Allergies, Adverse Reactions, Alerts Allergy Name Allergy Status Severity Reaction(s) Onset Inactive Treating Comments Type Date Date Clinician Hedy [facility] Active LENCHO 2017-12 00:00:0 0 Medications This patient has no known medications.
[2018-07-21] MEDS ORDERED: PHENYLEPHRINE 10% OPTH 5ML OPTH ONE ×2 (12:19→12:35)
[2018-07-21] MEDS ORDERED: CYCLOPENTOLATE 1% OPTH 2 ML OPTH ONE ×2 (12:19→12:35)
[2018-07-21] MEDS ORDERED: NS 0.9% VIAL 10 ML ONE (12:44)
[2018-07-21] MEDS ORDERED: PROPOFOL 200 MG/20 ML VIAL IV ONE (13:07)
[2018-07-21] MEDS ORDERED: MIDAZOLAM HCL 2 MG/2 ML INJ ONE (13:07)
[2018-07-21] MEDS ORDERED: FENTANYL CITR 100 MCG/2 ML ONE (13:07)
[2018-07-21] MEDS ORDERED: LIDOCAINE 1% MPF 2 ML AMPULE ONE (13:08)
[2018-07-21] MEDS: BALANCED SALT IRRIG PLAIN 500 ML BTL IRR ONE ×2 (13:27→13:30)
[2018-07-21] MEDS: MOXIFLOXACIN HCL 10 DROPS/ML **OR USE OPTH ONE ×2 (13:28→13:30)
[2018-07-21] MEDS: DUOVISC 1 KIT OPTH ONE ×2 (13:28→13:30)
[2018-07-21] MEDS: EPINEPHRINE/PF 1 MG/ML AMP ONE ×2 (13:28→13:30)
--- NOTE | 2018-07-21 14:11 | P.BOP ---
Preoperative diagnosis: Nuclear sclerotic cataract OS Postoperative diagnosis: Same Primary procedure: Phacoemulsification with IOL OS Estimated blood loss: None Anesthesia: General Complications: None Implants: ZCB00 +16.5 Transferred to: Recovery Room Condition: Good
--- NOTE | 2018-07-22 00:32 | OP ---
Date of Procedure: 07/21/2018 Surgeon: Annie Lowery MD Anesthesiologist: Hugo Pablo CRNA and Cesar Jones MD. Preoperative Diagnosis: Nuclear sclerotic cataract, left eye. Operation Performed: Phacoemulsification with intraocular lens implant, left eye. Anesthesia: General. Complications: None. Description Of Procedure: In the operating room the patient was prepped and draped in the usual ster ile fashion for ophthalmic surgery. A lid speculum was placed in the left eye. Two paracentesis sit es were made superiorly and inferiorly in the limbal cornea. Viscoat was placed in the anterior andrés von and a crescent blade was used to make a corneal groove and tunnel, and a keratome was used to ent er the anterior chamber. Provisc was placed in the anterior chamber and a 360 degree capsulotomy was performed with a cystitome. The lens was hydrodissected with BSS and rotated freely. The lens was removed with a stop and chop technique. 5.25 phaco CDE was used to remove the lens. Residual cortex was removed with the irrigation and aspiration. Provisc was placed in the capsular bag. A ZCB00 +1 6.5 lens was placed in the capsular bag without complications. Irrigation and aspiration was used to remove residual viscoelastic. The paracentesis sites were hydrated with BSS. The wound and paracen tesis sites were inspected and found to be watertight. Vigamox 0.07 cc was placed intracamerally at the end of the procedure. The eye was irrigated with balanced salt solution. The eye was patched wi th a soft cotton patch and Chen metal shield. The patient was returned to day surgery in good condition. Comments: Discharge Instructions: Ms. Morgan is discharged to home in good condition and is to follow up with Dr. Lowery in the morning. ALEXANDER/CASIE Voice ID: [id number] Report ID: [id number]
== END 2018-07-21 15:44 | disposition home or self-care (01) ==
LOC: OR 11:41
PROVIDERS: ATTEND Ophthalmology Retina Specialist
PROC: 08RK3JZ Replacement of Left Lens with Synthetic Substitute, Percutaneous Approach (ICD-10-PCS; principal; 2018-07-21 11:30)
DX: H25.12 Age-related nuclear cataract, left eye (principal); H25.012 Cortical age-related cataract, left eye; H25.042 Posterior subcapsular polar age-related cataract, left eye; E11.9 Type 2 diabetes mellitus without complications; E78.00 Pure hypercholesterolemia, unspecified; I10 Essential (primary) hypertension; I25.2 Old myocardial infarction; Z79.4 Long term (current) use of insulin; Z79.82 Long term (current) use of aspirin; Z79.899 Other long term (current) drug therapy; Z95.1 Presence of aortocoronary bypass graft; Z86.73 Personal history of transient ischemic attack (TIA), and cerebral infarction without residual deficits
CPT/HCPCS: 66984; 85025; 80048; 36415; 82962 ×2; J2704; J0171; J3010; J2001; J2250